=== PATIENT | female | born 1940 | race Caucasian/White ===

== ENCOUNTER → 2016-09-23 | Outpatient (CLI) | payer MEDICARE, BC ==
--- NOTE | 2016-09-24 10:11 | MM ---
Reason for exam: screening (asymptomatic). Last mammogram was performed 1 year and 5 months ago. History: Patient is postmenopausal and is nulliparous. Family history of breast cancer in grandmother. MG discontinued needle loc RT of the right breast, June 27, 2014. MG discontinued stereo core RT of the right breast, May 09, 2014. Excisional biopsy of the right breast. Physical Findings: A clinical breast exam by your physician is recommended on an annual basis and results should be correlated with mammographic findings. MG 3D Screening Mammo W/Cad Bilateral CC and MLO view(s) were taken. Prior study comparison: April 25, 2015, bilateral MG diagnostic mammo w CAD ADRIANA. April 20, 2014, right breast MG work up mamm w CAD RT. There are scattered fibroglandular densities. Finding: There are typically benign round, linear calcifications in both breasts.There is a chronic nodularity bilaterally. There is no discrete abnormality. ASSESSMENT: Benign, BI-RAD 2 RECOMMENDATION: Routine screening mammogram of both breasts in 1 year.
== END | disposition home or self-care (01) ==
LOC: RADMAMWWP 13:02
PROVIDERS: ATTEND Family Medicine
DX: Z12.31 Encounter for screening mammogram for malignant neoplasm of breast (principal)
CPT/HCPCS: 77063; G0202

== ENCOUNTER 2016-11-03 15:50 | Inpatient (IN) | payer MEDICARE, BC ==
[2016-11-03] MEDS ORDERED: IV VANCOMYCIN PER PHARMACY 1 EACH MISC MISCELLANE PRN (17:22)
[2016-11-03] MEDS ORDERED: SODIUM CHLORIDE 0.9% 1,000 ML IV STA (17:22)
[2016-11-03] MEDS ORDERED: VANCOMYCIN 1,750 MG in SODIUM CHLORIDE 0.9% 250 ML IVPB STA (17:27)
--- NOTE | 2016-11-03 17:30 | ED ---
Wound/Laceration HPI - General Chief Complaint: Wound/Laceration Stated Complaint: Finger Injury Time Seen by Provider: 11/03/16 17:11 Source: patient, RN notes reviewed Mode of arrival: wheelchair Limitations: no limitations - History of Present Illness Initial Comments: 76-year-old female presents to the emergency department with a chief complaint of right index finger redness and swelling. Patient states that over a week ago she hurt her finger when she fell as well as she was closing her door. Patient states that she had a small abrasion to the distal aspect of the finger. Patient states that time she went to the doctor they did an x-ray which was negative but they started her on Keflex. Patient states that about a week she's has increased redness and swelling to the hand as well as pain. Patient states the throbbing type pain. Patient states his first to movement. Patient states that she does have diabetes as well as hypertension. Patient states that she was concerned due to continues to redness and swelling even though she has been on antibiotics that she thought that she should be evaluated. Patient denies any fever chills with this. Patient states she is not currently having any other symptoms. Patient denies any recent fever, chills , shortness of breath, chest pain, back pain, abdominal pain, nausea vomiting, numbness or tingling, dysuria or hematuria, constipation or diarrhea, headaches or visual changes, or any other current symptoms. - Related Data Home Medications Medication Instructions Recorded Confirmed Albuterol Nebulized [Ventolin 2.5 mg INHALATION RT-QID PRN 03/27/14 11/03/16 Nebulized] Allopurinol [Zyloprim] 100 mg PO DAILY 03/27/14 11/03/16 Benazepril HCl [Lotensin] 20 mg PO DAILY 03/27/14 11/03/16 Citalopram Hydrobromide [CeleXA] 20 mg PO DAILY 03/27/14 11/03/16 Cyclobenzaprine [Flexeril] 10 mg PO TID PRN 03/27/14 11/03/16 Folic Acid 1 mg PO DAILY 03/27/14 11/03/16 Furosemide [Lasix] 40 mg PO HS 03/27/14 11/03/16 Insulin Aspart [NovoLOG] 26 unit SQ AC-TID 03/27/14 11/03/16 Loratadine [Claritin] 10 mg PO DAILY 03/27/14 11/03/16 Metoprolol Tartrate [Lopressor] 25 mg PO DAILY 03/27/14 11/03/16 Omeprazole [PriLOSEC] 20 mg PO DAILY 03/27/14 11/03/16 amLODIPine [Norvasc] 5 mg PO DAILY 03/27/14 11/03/16 rOPINIRole HCL [Requip] 4 mg PO HS 03/27/14 11/03/16 Aspirin 325 mg PO DAILY 06/23/14 11/03/16 Hydrocodone/Acetaminophen 1 tab PO Q6HR PRN 07/10/14 11/03/16 [Hydrocodon-Acetaminoph 7.5-325] Furosemide [Lasix] 80 mg PO QAM 07/25/14 11/03/16 Multivitamins, Thera [Multivitamin 1 tab PO DAILY 07/25/14 11/03/16 (formulary)] Simvastatin [Zocor] 80 mg PO HS 07/25/14 11/03/16 Cinnamon Bark [Cinnamon] 500 mg PO DAILY 12/19/14 11/03/16 Cholecalciferol [Vitamin D3] 2,000 unit PO DAILY 11/03/16 11/03/16 Cyanocobalamin (Vitamin B-12) 1,000 mcg PO QAM 11/03/16 11/03/16 [Vitamin B-12] Insulin Aspart [NovoLOG] See Protocol SQ AC-TID 11/03/16 11/03/16 Insulin NPH Human Isophane 60 unit SQ HS 11/03/16 11/03/16 [NovoLIN N] Lisinopril [Zestril] 20 mg PO DAILY 11/03/16 11/03/16 medroxyPROGESTERone [Provera] 2.5 mg PO DAILY 11/03/16 11/03/16 Allergies Allergy/AdvReac Type Severity Reaction Status Date / Time No Known Allergies Allergy Verified 11/03/16 17:14 Review of Systems ROS Statement: Those systems with pertinent positive or pertinent negative responses have been documented in the HPI. ROS Other: All systems not noted in ROS Statement are negative. Past Medical History Past Medical History: Chest Pain / Angina, COPD, CVA/TIA, Diabetes Mellitus, GERD/Reflux, Hyperlipidemia, Hypertension, Memory Impairment, Osteoarthritis (OA ), Sleep Apnea/CPAP/BIPAP Additional Past Medical History / Comment(s): hx. heart murmur,. gout,. 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 ,ANEMIA. HAMMERTOE BILAT. HAS CPAP-DOES NOT USE History of Any Multi-Drug Resistant Organisms: None Reported Past Surgical History: Heart Catheterization, Joint Replacement, Orthopedic Surgery Additional Past Surgical History / Comment(s): BILAT CATARACTS REMOVED. ORIF LT ARM. BILAT TKA. HEART CATH-2013,. D&C. LT BUNIONECTOMY Past Anesthesia/Blood Transfusion Reactions: No Reported Reaction Past Psychological History: Anxiety, Depression Additional Psychological History / Comment(s): C/O WEAKNESS, FELL ON FACE 2 DAYS AGO(BRUISING). ALSO CURRENTLY BEING TX FOR UTI. PT HAD A LT TOTAL KNEE REPLACEMENT DONE ION MAY 2014 AND FOR PAST 2 DAYS HAS HAD INCREASED PAIN MAKING HER UNABLE TO. BEAR WT ON THAT KNEE. Smoking Status: Never smoker Past Alcohol Use History: None Reported Past Drug Use History: None Reported - Past Family History Father Family Medical History: Myocardial Infarction ([place]), Rheumatoid Arthritis ([place]) Additional Family Medical History / Comment(s): AT AGE 76 Mother Family Medical History: CVA/TIA, Myocardial Infarction ([place]) Additional Family Medical History / Comment(s): AGE 80 General Exam - General Exam Comments Initial Comments: General: The patient is awake and alert, in no distress, and does not appear acutely ill. Neck: The neck is supple, there is no tenderness. Cardiovascular: There is a regular rate and rhythm. No murmur, rub or gallop is appreciated. Respiratory: Lungs are clear to auscultation, respirations are non-labored, breath sounds are equal. No wheezes, stridor, rales, or rhonchi. Musculoskeletal: sensation intact. Pupils pulses throughout the right upper extremity. Full range of motion of the right hand. Patient does have a swollen and red index finger. Circumferential. Pain with movement of the finger. Pain to palpation along the tendon sheath. Neurological: CN II-XII intact, There are no obvious motor or sensory deficits. Coordination appears grossly intact. Speech is normal. Skin: Skin is warm and dry and no rashes or lesions are noted. Psychiatric: Normal mood and affect. Limitations: no limitations Course Vital Signs 04/03/17 16:23 Temperature 98.6 F Pulse Rate 60 Respiratory 16 Rate Blood Pressure 162/70 O2 Sat by Pulse 97 Oximetry Medical Decision Making - Medical Decision Making 76-year-old female presents emergency Department chief complaint of what appears to be a cellulitis right index finger with concern for tenosynovitis due to infection. At this time there is concern. Patient has been on outpatient Examination there is no improvement she states any more red and swollen. The simply due to the exposed patient underwent an x-ray. At this time we decided patient vancomycin. He shouldn't and continue IV antibiotics. Patient will plan on questions have been answered. - Lab Data Result diagrams: 11/03/16 18:45 11/03/16 18:45 Lab Results 11/03/16 11/03/16 Range/Units 18:45 18:45 WBC 8.7 (3.8-10.6) k/uL RBC 4.66 (3.80-5.40) m/uL Hgb 14.3 (11.4-16.0) gm/dL Hct 43.1 (34.0-46.0) % MCV 92.5 (80.0-100.0) fL MCH 30.6 (25.0-35.0) pg MCHC 33.1 (31.0-37.0) g/dL RDW 14.8 (11.5-15.5) % Plt Count 240 (150-450) k/uL Neutrophils % 64 % Lymphocytes % 20 % Monocytes % 7 % Eosinophils % 5 % Basophils % 1 % Neutrophils # 5.6 (1.3-7.7) k/uL Lymphocytes # 1.8 (1.0-4.8) k/uL Monocytes # 0.6 (0-1.0) k/uL Eosinophils # 0.5 (0-0.7) k/uL Basophils # 0.1 (0-0.2) k/uL Sodium 140 (137-145) mmol/L Potassium 4.6 (3.5-5.1) mmol/L Chloride 100 (98-107) mmol/L Carbon Dioxide 28 (22-30) mmol/L Anion Gap 12 mmol/L BUN 36 H (7-17) mg/dL Creatinine 1.12 H (0.52-1.04) mg/dL Est GFR (MDRD) Af Amer 57 (>60 ml/min/1.73 sqM) Est GFR (MDRD) Non-Af 47 (>60 ml/min/1.73 sqM) Glucose 141 H (74-99) mg/dL Calcium 9.7 (8.4-10.2) mg/dL Total Bilirubin 0.6 (0.2-1.3) mg/dL AST 27 (14-36) U/L ALT 38 (9-52) U/L Alkaline Phosphatase 88 (38-126) U/L Total Protein 7.3 (6.3-8.2) g/dL Albumin 4.2 (3.5-5.0) g/dL Disposition Clinical Impression: Failure of outpatient treatment, Flexor tenosynovitis of finger, Cellulitis of right index finger Disposition: ADMITTED IP TO THIS [facility] Condition: Stable Referrals: Steven Mosher DO [Primary Care Provider] - 1-2 days Time of Disposition: 19:28 Decision Date: 11/03/16 Decision Time: 19:28
--- NOTE | 2016-11-03 18:28 | XR ---
EXAMINATION TYPE: XR finger RT DATE OF EXAM: 11/03/2016 6:06 PM COMPARISON: NONE HISTORY: Second digit pain after injury TECHNIQUE: 3 views FINDINGS: There is soft tissue swelling around the index finger. There is narrowing of the IP joint s paces. I see no fracture nor dislocation. IMPRESSION: Mild osteoarthritis and soft tissue swelling. No fracture seen.
[2016-11-03 19:09] LABS: Basophils # (A) 0.1 k/uL (0-0.2); Basophils % (A) 1 %; CH 29.9; CHCM 32.5; Eosinophils # (A) 0.5 k/uL (0-0.7); Eosinophils % (A) 5 %; HCT 43.1 % (34.0-46.0); HDW 2.62; HGB 14.3 gm/dL (11.4-16.0); Luc # (Auto) 0.23; Luc % (Auto) 3; Lymphocytes # (A) 1.8 k/uL (1.0-4.8); Lymphocytes % (A) 20 %; MCH 30.6 pg (25.0-35.0); MCHC 33.1 g/dL (31.0-37.0); MCV 92.5 fL (80.0-100.0); Mean Platelet Volume 7.8; Monocytes # (A) 0.6 k/uL (0-1.0); Monocytes % (A) 7 %; Neutrophils # (A) 5.6 k/uL (1.3-7.7); Neutrophils % (A) 64 %; RBC 4.66 m/uL (3.80-5.40); RDW 14.8 % (11.5-15.5); WBC 8.7 k/uL (3.8-10.6); WBC (Perox) 8.79
[2016-11-03 19:19] LABS: Calcium 9.7 mg/dL (8.4-10.2); Potassium 4.6 mmol/L (3.5-5.1); Total Bilirubin 0.6 mg/dL (0.2-1.3); Total Protein 7.3 g/dL (6.3-8.2)
[2016-11-03] MEDS ORDERED: NALOXONE 0.4 MG/ML 1 ML VIAL IV PRN (19:28)
[2016-11-03] MEDS ORDERED: ONDANSETRON 4 MG/2 ML VIAL IVP PRN (19:28)
[2016-11-03] MEDS ORDERED: ACETAMINOPHEN TAB 325 MG TAB PO PRN (19:28)
[2016-11-03 19:29] LABS: Glucose,Whole Blood 116 mg/dL (75-99)
[2016-11-03] MEDS ORDERED: ALBUTEROL NEBULIZED 2.5 MG/3 ML INHALATION PRN (19:29)
[2016-11-03] MEDS ORDERED: FUROSEMIDE 40 MG TAB PO SCH (21:00)
[2016-11-03 21:11] LABS: Glucose,Whole Blood 142 mg/dL (75-99)
[2016-11-03] MEDS: SODIUM CHLORIDE 0.9% 1,000 ML IV SCH (21:50)
[2016-11-03] MEDS: INSULIN LISPRO (humaLOG) 300 UNIT/3 ML VIAL SQ SCH (21:51)
[2016-11-03] MEDS: ATORVASTATIN 40 MG TAB PO SCH (21:51)
[2016-11-03] MEDS: rOPINIRole HCL 4 MG TABLET PO SCH (21:51)
[2016-11-03] MEDS ORDERED: COLCHICINE 0.6 MG TAB PO SCH (22:15)
[2016-11-03] MEDS: metFORMIN 500 MG TAB PO SCH (22:28)
[2016-11-03] MEDS: HYDROcodone/APAP 5-325MG 1 EACH TAB PO PRN (22:30)
[2016-11-03 22:47] LABS: Hemoglobin A1C 7.7 % (4.2-6.1)
[2016-11-03 23:08] LABS: Glucose,Whole Blood 253 mg/dL (75-99)
[2016-11-04] MEDS: SODIUM CHLORIDE 0.9% 1,000 ML IV SCH (05:38)
[2016-11-04 07:27] LABS: Glucose,Whole Blood 275 mg/dL (75-99)
[2016-11-04] MEDS: INSULIN LISPRO (humaLOG) 300 UNIT/3 ML VIAL SQ SCH ×6 (08:00→21:00)
[2016-11-04] MEDS: HYDROcodone/APAP 5-325MG 1 EACH TAB PO PRN ×4 (08:00→21:11)
[2016-11-04] MEDS: metFORMIN 500 MG TAB PO SCH (08:01)
[2016-11-04] MEDS ORDERED: FUROSEMIDE 80 MG TAB PO SCH (09:00)
[2016-11-04] MEDS ORDERED: NON-FORMULARY DRUG (Cinnamon Bark [Cinnamon] 500 MG) PO SCH (09:00)
[2016-11-04] MEDS ORDERED: LISINOPRIL 20 MG TAB PO SCH ×2 (09:00)
[2016-11-04] MEDS: ALLOPURINOL 100 MG TAB PO SCH (09:18)
[2016-11-04] MEDS: amLODIPine 5 MG TAB PO SCH (09:18)
[2016-11-04] MEDS: ASPIRIN 325 MG TAB PO SCH (09:18)
[2016-11-04] MEDS: LORATADINE 10 MG TAB PO SCH (09:18)
[2016-11-04] MEDS: FOLIC ACID 1 MG TAB PO SCH (09:19)
[2016-11-04] MEDS: CHOLECALCIFEROL 1,000 UNIT TAB PO SCH (09:19)
[2016-11-04] MEDS: CITALOPRAM HYDROBROMIDE 20 MG TAB PO SCH (09:19)
[2016-11-04] MEDS: CYANOCOBALAMIN 500 MCG TAB PO SCH (09:19)
[2016-11-04 09:47] LABS: Basophils # (A) 0.1 k/uL (0-0.2); Basophils % (A) 1 %; CH 29.8; CHCM 32.3; Eosinophils # (A) 0.4 k/uL (0-0.7); Eosinophils % (A) 5 %; HCT 41.1 % (34.0-46.0); HDW 2.64; HGB 13.3 gm/dL (11.4-16.0); Luc # (Auto) 0.16; Luc % (Auto) 2; Lymphocytes # (A) 1.2 k/uL (1.0-4.8); Lymphocytes % (A) 15 %; MCHC 32.4 g/dL (31.0-37.0); MCV 92.6 fL (80.0-100.0); Mean Platelet Volume 7.7; Monocytes # (A) 0.5 k/uL (0-1.0); Monocytes % (A) 6 %; Neutrophils # (A) 5.8 k/uL (1.3-7.7); Neutrophils % (A) 73 %; RBC 4.44 m/uL (3.80-5.40); WBC (Perox) 7.87
[2016-11-04] MEDS: MULTIVITAMINS, THERA 1 EACH TAB PO SCH (10:05)
[2016-11-04] MEDS: PANTOPRAZOLE 40 MG TABLET PO SCH (10:05)
[2016-11-04] MEDS: METOPROLOL TARTRATE 25 MG TAB PO SCH (10:05)
[2016-11-04 11:07] LABS: ALT 36 U/L (9-52); AST 21 U/L (14-36); Alkaline Phosphatase 78 U/L (38-126); Anion Gap 15 mmol/L; Blood Urea Nitrogen 29 mg/dL (7-17); Calcium 9.4 mg/dL (8.4-10.2); Carbon Dioxide 21 mmol/L (22-30); Chloride 101 mmol/L (98-107); Glucose 377 mg/dL (74-99); Non-African American GFR(MDRD) 54 (>60 ml/min/1.73 sqM); Potassium 4.9 mmol/L (3.5-5.1); Sodium 137 mmol/L (137-145); Total Bilirubin 0.9 mg/dL (0.2-1.3); Total Protein 6.5 g/dL (6.3-8.2)
[2016-11-04] MEDS ORDERED: IV VANCOMYCIN PER PHARMACY 1 EACH MISC MISCELLANE PRN (11:59)
[2016-11-04 12:33] LABS: Glucose,Whole Blood 305 mg/dL (75-99)
[2016-11-04] MEDS: VANCOMYCIN 1,750 MG in SODIUM CHLORIDE 0.9% 250 ML IVPB SCH (12:51)
[2016-11-04] MEDS: HEPARIN SODIUM,PORCINE 5,000 UNIT/ML 1 ML VIAL SQ SCH ×3 (12:57→23:19)
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
[2016-11-04 17:12] LABS: Glucose,Whole Blood 277 mg/dL (75-99)
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
[2016-11-04] MEDS: ATORVASTATIN 40 MG TAB PO SCH (20:01)
[2016-11-04] MEDS: rOPINIRole HCL 4 MG TABLET PO SCH (20:02)
[2016-11-04] MEDS: COLCHICINE 0.6 MG TAB PO SCH (20:02)
[2016-11-04 20:44] LABS: Glucose,Whole Blood 184 mg/dL (75-99)
[2016-11-04] MEDS: INSULIN NPH 300 UNIT/3 ML VIAL SQ SCH (21:00)
[2016-11-04] MEDS: MELATONIN 3 MG TABLET PO PRN (21:03)
[2016-11-05] MEDS: HYDROcodone/APAP 5-325MG 1 EACH TAB PO PRN ×4 (02:33→21:07)
[2016-11-05 07:22] LABS: Glucose,Whole Blood 145 mg/dL (75-99)
--- NOTE | 2016-11-05 08:10 | P.PN ---
Progress Note - Text Patient is a very pleasant 76-year-old female who is seen and examined the bedside for further evaluation by myself and Dr. Constantine Chadwick for cellulitis of the right index finger. Her symptoms have not had any significant change as compared to yesterday. K pad has been delivered. Patient states almost 2 weeks ago she was in a parking lot when another woman bumped into her and she fell hitting the ground. At that time, she had hit her right index finger on the ground but did not sustain a significant injury. She states she did not have any open wound or laceration visible at the right index finger. Over the next couple days she started to experience pain and swelling at the right index finger. She states she later went to close a window following that injury and the window fell hitting the top part of her right index finger. She feels this may have exacerbated the symptoms in her right index finger. She presented to an urgent care and was started on Keflex. She states the Keflex has not been improving her symptoms. Her right index finger has continued to swell and become painful. She's had difficulty using the right index finger. She presented to [facility] for further evaluation. Since being admitted, she's been started on vancomycin. She denies any other difficulties with any other fingers or thumb of the right upper extremity. She has no difficulty with range of motion of the right wrist , elbow, or shoulder. Patient also has other medical diagnoses including type 2 diabetes mellitus, hypertension, acute renal failure secondary to excessive diuretic therapy, obesity, obstructive sleep apnea, and hyperlipidemia. Physical Exam: Patient is awake, alert, and oriented 3 Vital signs stable Good chest excursion with deep inspiration and expiration Abdomen soft nontender No signs or symptoms of DVT; no calf pain Significant swelling, erythema over the entire right index finger; no active drainage No drainage with palpation of the right index finger Pain with palpation of the right index finger Patient is able to slightly wiggle the right index finger; decreased range of motion the right index finger Evidence of an abrasion over the distal posterior aspect of the right index finger Active full range of motion of all other fingers and thumb of the right upper extremity Active full range of motion of the right wrist, elbow, shoulder without significant difficulty Neurovascularly intact right upper extremity Pertinent studies: X-ray of the right fingers: Soft tissue swelling around index finger; narrowing of the IP joint spaces supple no evidence of fracture dislocation; mild osteoarthritis Assessment: Cellulitis, pain, and swelling of the right index finger; cannot rule out abscess Status post fall Type 2 diabetes mellitus Plan: 1. Patient was examined by myself and Dr. Constantine Chadwick. Following further examination, we will plan for incision and drainage of the right index finger to be performed today, 11/05/2016, at approximately 12:00 PM. Patient will continue to remain nothing by mouth status. Schedule procedure and consent has been placed. We will continue to follow patient closely. Patient may continue to use K pad as prescribed. 2. Medicine to continue following the patient
[2016-11-05] MEDS ORDERED: FUROSEMIDE 40 MG TAB PO SCH (09:00)
[2016-11-05 09:15] LABS: CH 29.4; HCT 40.4 % (34.0-46.0); HDW 2.58; HGB 12.9 gm/dL (11.4-16.0); MCH 29.5 pg (25.0-35.0); MCV 92.4 fL (80.0-100.0); Mean Platelet Volume 7.6; RBC 4.37 m/uL (3.80-5.40); RDW 14.9 % (11.5-15.5); WBC 8.9 k/uL (3.8-10.6)
[2016-11-05] MEDS: METOPROLOL TARTRATE 25 MG TAB PO SCH (09:18)
[2016-11-05 09:35] LABS: Anion Gap 11 mmol/L; Blood Urea Nitrogen 39 mg/dL (7-17); Calcium 9.5 mg/dL (8.4-10.2); Carbon Dioxide 24 mmol/L (22-30); Chloride 101 mmol/L (98-107); Glucose 160 mg/dL (74-99); Non-African American GFR(MDRD) 50 (>60 ml/min/1.73 sqM); Potassium 4.5 mmol/L (3.5-5.1); Sodium 136 mmol/L (137-145)
[2016-11-05] MEDS: INSULIN LISPRO (humaLOG) 300 UNIT/3 ML VIAL SQ SCH ×7 (09:40→21:10)
[2016-11-05] MEDS: HEPARIN SODIUM,PORCINE 5,000 UNIT/ML 1 ML VIAL SQ SCH ×2 (09:41→17:50)
[2016-11-05 09:46] LABS: Glucose,Whole Blood 161 mg/dL (75-99)
[2016-11-05] MEDS ORDERED: IV FLUID CONTINUATION 1,000 ML IV ONE (11:06)
[2016-11-05 11:24] LABS: Glucose,Whole Blood 154 mg/dL (75-99)
[2016-11-05] MEDS ORDERED: ceFAZolin 1,000 MG in SODIUM CHLORIDE 0.9% 1,000 ML IRRIGATION ONE (11:26)
[2016-11-05] MEDS ORDERED: fentaNYL (PF) 50 MCG/ML 2 ML AMP ONE (11:26)
[2016-11-05] MEDS ORDERED: KETAMINE 10 MG/ML 20 ML VIAL ONE (11:26)
[2016-11-05] MEDS ORDERED: MIDAZOLAM 2 MG/2 ML VIAL ONE (11:26)
[2016-11-05] MEDS ORDERED: PROPOFOL 10 MG/ML 20 ML VIAL IV ONE (11:26)
[2016-11-05] MEDS ORDERED: BUPIVACAINE (PF) 0.5% 30 ML VIAL SQ ONE (11:36)
[2016-11-05] MEDS ORDERED: LIDOCAINE 2% INJ 20 MG/ML SQ ONE (11:36)
--- NOTE | 2016-11-05 11:51 | P.OP ---
Date of Procedure: 11/05/16 Preoperative Diagnosis: Infection right index finger Postoperative Diagnosis: Infection right index finger Procedure(s) Performed: Incision and drainage right index finger Anesthesia: local Surgeon: Constantine Chadwick Estimated Blood Loss (ml): 10 Pathology: other (Cultures 2) Condition: stable Disposition: PACU Indications for Procedure: This is a 76-year-old female has pain and swelling in her finger for over a week. Due to the extreme redness and swelling in the index finger, I recommended incision and drainage of the finger, informed consent was obtained. Operative Findings: Operative findings are consistent with an infection of the right index finger. Description of Procedure: The patient was seen and evaluated in the preoperative area. The consent was reviewed, and the operative site was marked with a skin marker. Patient was then brought to the operating room and given sedation by the anesthesia department. Patient is already on scheduled antibiotics. A tourniquet was placed on the upper arm, and the upper extremity was prepped and draped in the usual sterile fashion. A universal timeout was then performed which confirmed the patient's name, surgical site, ALLERGIES, and consent. A digital block was then performed of the right index finger using 10 mL of 2% plain lidocaine and quarter percent plain Marcaine and a one-to-one mixture. An incision was then made on the dorsal aspect of the finger over the maximum fluctuance. Mild amount of purulence was expressed and this was cultured 2. The finger was extensively probed in order to ensure all the purulence was removed. The area was then irrigated with antibiotic solution. The wound was then lightly closed with 5-0 Vicryl suture. Sterile dressing was then applied, patient was transported to recovery room in stable condition.
[2016-11-05] MEDS: VANCOMYCIN 1,750 MG in SODIUM CHLORIDE 0.9% 250 ML IVPB SCH (12:00)
[2016-11-05] MEDS: PANTOPRAZOLE 40 MG TABLET PO SCH (12:52)
[2016-11-05] MEDS: MULTIVITAMINS, THERA 1 EACH TAB PO SCH (12:53)
[2016-11-05] MEDS: LORATADINE 10 MG TAB PO SCH (12:53)
[2016-11-05] MEDS: ASPIRIN 325 MG TAB PO SCH (12:53)
[2016-11-05] MEDS: CYANOCOBALAMIN 500 MCG TAB PO SCH (12:53)
[2016-11-05] MEDS: CITALOPRAM HYDROBROMIDE 20 MG TAB PO SCH (12:54)
[2016-11-05] MEDS: ALLOPURINOL 100 MG TAB PO SCH (12:54)
[2016-11-05] MEDS: amLODIPine 5 MG TAB PO SCH (12:54)
[2016-11-05] MEDS: FOLIC ACID 1 MG TAB PO SCH (12:54)
[2016-11-05] MEDS: CHOLECALCIFEROL 1,000 UNIT TAB PO SCH (12:55)
[2016-11-05 17:07] LABS: Glucose,Whole Blood 240 mg/dL (75-99)
[2016-11-05] MEDS: COLCHICINE 0.6 MG TAB PO SCH (21:05)
[2016-11-05] MEDS: ATORVASTATIN 40 MG TAB PO SCH (21:05)
[2016-11-05] MEDS: rOPINIRole HCL 4 MG TABLET PO SCH (21:06)
[2016-11-05 21:07] LABS: Glucose,Whole Blood 107 mg/dL (75-99)
[2016-11-05] MEDS: INSULIN NPH 300 UNIT/3 ML VIAL SQ SCH (21:39)
[2016-11-06] MEDS: HEPARIN SODIUM,PORCINE 5,000 UNIT/ML 1 ML VIAL SQ SCH ×4 (00:14→23:06)
[2016-11-06] MEDS: HYDROcodone/APAP 5-325MG 1 EACH TAB PO PRN ×5 (02:03→22:27)
[2016-11-06 07:38] LABS: Glucose,Whole Blood 192 mg/dL (75-99)
[2016-11-06] MEDS: INSULIN LISPRO (humaLOG) 300 UNIT/3 ML VIAL SQ SCH ×7 (08:15→21:15)
[2016-11-06] MEDS: MULTIVITAMINS, THERA 1 EACH TAB PO SCH (08:16)
[2016-11-06] MEDS: PANTOPRAZOLE 40 MG TABLET PO SCH (08:16)
[2016-11-06] MEDS: METOPROLOL TARTRATE 25 MG TAB PO SCH (08:17)
[2016-11-06] MEDS: ALLOPURINOL 100 MG TAB PO SCH (08:17)
[2016-11-06] MEDS: amLODIPine 5 MG TAB PO SCH (08:17)
[2016-11-06] MEDS: CYANOCOBALAMIN 500 MCG TAB PO SCH (08:18)
[2016-11-06] MEDS: CITALOPRAM HYDROBROMIDE 20 MG TAB PO SCH (08:18)
[2016-11-06] MEDS: CHOLECALCIFEROL 1,000 UNIT TAB PO SCH (08:18)
[2016-11-06] MEDS: LORATADINE 10 MG TAB PO SCH (08:18)
[2016-11-06] MEDS: ASPIRIN 325 MG TAB PO SCH (08:18)
[2016-11-06] MEDS: FOLIC ACID 1 MG TAB PO SCH (08:18)
[2016-11-06 08:42] LABS: Basophils # (A) 0.1 k/uL (0-0.2); Basophils % (A) 1 %; CH 29.7; CHCM 32.1; Eosinophils # (A) 0.4 k/uL (0-0.7); Eosinophils % (A) 5 %; HCT 41.7 % (34.0-46.0); HDW 2.59; HGB 13.9 gm/dL (11.4-16.0); Luc # (Auto) 0.25; Luc % (Auto) 3; Lymphocytes # (A) 1.8 k/uL (1.0-4.8); Lymphocytes % (A) 20 %; MCH 30.9 pg (25.0-35.0); MCHC 33.3 g/dL (31.0-37.0); MCV 92.8 fL (80.0-100.0); Mean Platelet Volume 7.8; Monocytes # (A) 0.6 k/uL (0-1.0); Monocytes % (A) 6 %; Neutrophils % (A) 66 %; RBC 4.49 m/uL (3.80-5.40); WBC (Perox) 9.23
--- NOTE | 2016-11-06 08:45 | P.PN ---
Subjective Principal diagnosis: Right index finger infection This is a 76 year-old female post I&D of the right index finger. This is post- op day 1. The patient was evaluated in a recliner chair at the bedside today. The patient denies nausea, vomiting, abdominal pain, shortness of breath, and chest pain this morning. She states her pain is controlled at this time. Objective - Vital Signs Vital signs: Vital Signs Temp 98.2 F 11/06/16 07:00 Pulse 62 11/06/16 07:00 Resp 20 11/06/16 07:00 BP 144/71 11/06/16 07:00 Pulse Ox 92 L 11/06/16 07:00 Intake & Output 11/05/16 11/06/16 11/06/16 18:59 06:59 18:59 Intake Total 106 60 Output Total 10 Balance 96 60 Intake: IV 106 Oral 60 Output: Estimated Blood Loss 10 Other: # Voids 1 1 - Exam The patient does not appear in acute distress. Alert and orientated x3. Incision appears fine with some active serosanginous drainage. Sutures are in place. There is erythema and swelling to the entire dorsal aspect of the finger. Finger stiffness is present. Sensation and circulatory status is intact. - Labs CBC & Chem 7: 11/05/16 08:57 11/05/16 08:57 Labs: Abnormal Lab Results - Last 24 Hours (Table) 11/05/16 11/05/16 11/05/16 Range/Units 08:57 09:44 11:22 Sodium 136 L (137-145) mmol/L BUN 39 H (7-17) mg/dL Creatinine 1.07 H (0.52-1.04) mg/dL Glucose 160 H (74-99) mg/dL POC Glucose (mg/dL) 161 H 154 H (75-99) mg/dL 11/05/16 11/05/16 11/06/16 Range/Units 17:03 20:52 07:33 Sodium (137-145) mmol/L BUN (7-17) mg/dL Creatinine (0.52-1.04) mg/dL Glucose (74-99) mg/dL POC Glucose (mg/dL) 240 H 107 H 192 H (75-99) mg/dL Microbiology - Last 24 Hours (Table) 11/05/16 11:40 Gram Stain - Preliminary Finger - Right First Wound Culture - Preliminary 11/05/16 11:40 Anaerobic Culture - Preliminary Finger - Right First 11/03/16 18:45 Blood Culture - Preliminary Blood No Growth after 48 hours 11/05/16 11:40 Wound Culture - Preliminary Finger - Right First 11/05/16 11:40 Anaerobic Culture - Preliminary Finger - Right First Assessment and Plan (1) Cellulitis of right index finger Status: Acute (2) Status post incision and drainage Status: Acute Plan: The clinical and operative findings were discussed with the patient. The case was also discussed with Dr. Constantine Chadwick. Cultures from the OR are pending at this time. We will consult Dr. [place] for further assistance with antibiotic therapy. She will continue on Vancomycin until cultures are resulted and seen by infectious disease. Daily dressing changes and PRN to the right index finger. Continue pain control. We will continue to monitor the patient closely and make further recommendations as needed.
[2016-11-06 09:00] LABS: Anion Gap 10 mmol/L; Blood Urea Nitrogen 38 mg/dL (7-17); Calcium 9.4 mg/dL (8.4-10.2); Carbon Dioxide 24 mmol/L (22-30); Chloride 102 mmol/L (98-107); Glucose 227 mg/dL (74-99); Non-African American GFR(MDRD) 54 (>60 ml/min/1.73 sqM); Sodium 136 mmol/L (137-145)
[2016-11-06 09:01] LABS: Potassium 4.8 mmol/L (3.5-5.1)
--- NOTE | 2016-11-06 10:05 | P.PN ---
Subjective Date of service 11/05/2016. Progress note being dictated for . Interval history: This is a 76-year-old female admitted with right finger cellulitis, possible abscess, and multiple other medical issues. Evaluated by orthopedics and patient is scheduled for I&D today.NPO. Denies chest pain, palpitations or increasing shortness of breath. Afebrile. Worsening renal function. Blood sugars currently better controlled. Objective - Vital Signs Vital signs: Vital Signs Temp 96.4 F L 11/05/16 15:00 Pulse 50 L 11/05/16 15:00 Resp 16 11/05/16 15:00 BP 106/54 11/05/16 15:00 Pulse Ox 92 L 11/05/16 15:00 Intake & Output 11/04/16 11/05/16 11/05/16 18:59 06:59 18:59 Intake Total 120 200 106 Output Total 10 Balance 120 200 96 Weight 107.048 kg Intake: IV 106 Oral 120 200 Output: Estimated Blood Loss 10 Other: Voiding Method Toilet Diaper Incontinent # Voids 1 2 1 - Exam PHYSICAL EXAM: VITAL SIGNS: As above GENERAL: [Sitting up in bed, no acute distress] HEENT: [Pupils equal conjunctiva normal. No scleral icterus] NECK: [Supple, no JVD] RESPIRATORY EFFORT:[Normal] LUNGS: [Lungs clear, no wheezes rhonchi or crackles] CARDIOVASCULAR[regular S1 and S2, no murmurs rubs or gallops, no edema] GI: [Abdomen soft, nontender, nondistended, positive bowel sounds.] PSYCH: [Alert and oriented -3, mood and affect normal.] SKIN: [] Index finger with significant redness and edema, warm. Dressing clean dry and intact] NEURO: No focal deficits. - Labs CBC & Chem 7: 11/06/16 08:09 11/06/16 08:09 Labs: Abnormal Lab Results - Last 24 Hours (Table) 11/04/16 11/05/16 11/05/16 Range/Units 20:34 07:20 08:57 Sodium 136 L (137-145) mmol/L BUN 39 H (7-17) mg/dL Creatinine 1.07 H (0.52-1.04) mg/dL Glucose 160 H (74-99) mg/dL POC Glucose (mg/dL) 184 H 145 H (75-99) mg/dL 11/05/16 11/05/16 11/05/16 Range/Units 09:44 11:22 17:03 Sodium (137-145) mmol/L BUN (7-17) mg/dL Creatinine (0.52-1.04) mg/dL Glucose (74-99) mg/dL POC Glucose (mg/dL) 161 H 154 H 240 H (75-99) mg/dL Microbiology - Last 24 Hours (Table) 11/05/16 11:40 Wound Culture - Preliminary Finger - Right First 11/05/16 11:40 Anaerobic Culture - Preliminary Finger - Right First 11/03/16 18:45 Blood Culture - Preliminary Blood No Growth after 24 hours Assessment and Plan Plan: 1. Right finger cellulitis, possible abscess. 2. [Diabetes mellitus type 2, hemoglobin A1c 7.7, uncontrolled]. 3. Acute renal failure secondary to excessive diuretic therapy, and Lasix discontinued]. 4. [Morbid obesity, BMI 44.6 with Obstructive sleep apnea, uses CPAP]. 5. [Hypertension 6. 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 7. [Vaginal bleeds with Possible endometrial cancer, on medroxyprogesterone, being evaluated outpatient]. 8. Hyperlipidemia 9. Chronic venostasis Plan: Continue on current medication regime ,monitoring and symptomatic treatment. Maintain vancomycin. Follow cultures closely. Lasix discontinued given worsening renal function .close monitoring of Accu-Cheks. As mentioned above scheduled for I&D with orthopedics. Further recommendations to follow. The impression and plan of care has been dictated as directed. : I performed a H&P examination of this patient and discussed the same with the dictator. I agree with the dictator's note. Any additional findings/opinions/ etc. will be noted.
[2016-11-06 12:15] LABS: Glucose,Whole Blood 228 mg/dL (75-99)
[2016-11-06] MEDS: VANCOMYCIN 1,750 MG in SODIUM CHLORIDE 0.9% 250 ML IVPB SCH (12:48)
--- NOTE | 2016-11-06 16:16 | P.PN ---
Subjective Date of service 11/06/2016. Progress note being dictated for . Interval history: This is a 76-year-old female admitted with right finger cellulitis, possible abscess, and multiple other medical issues. Status post I& D yesterday with orthopedics, tolerated procedure well. Cultures pending. Pain controlled on [place] every 4 hours. Denies chest pain, palpitations or increasing shortness of breath. Afebrile. Worsening renal function yesterday and Lasix placed on hold, renal function remains about the same. Objective - Vital Signs Vital signs: Vital Signs Temp 97.3 F L 11/06/16 15:00 Pulse 52 L 11/06/16 15:00 Resp 20 11/06/16 15:00 BP 139/69 11/06/16 15:00 Pulse Ox 92 L 11/06/16 15:00 Intake & Output 11/05/16 11/06/16 11/06/16 18:59 06:59 18:59 Intake Total 106 60 795 Output Total 10 Balance 96 60 795 Intake: IV 106 Oral 60 795 Output: Estimated Blood Loss 10 Other: # Voids 1 1 3 # Bowel Movements 1 - Exam PHYSICAL EXAM: VITAL SIGNS: As above GENERAL: [Sitting up in chair, no acute distress] HEENT: [Pupils equal conjunctiva normal. No scleral icterus] NECK: [Supple, no JVD] RESPIRATORY EFFORT:[Normal] LUNGS: [Lungs clear, no wheezes rhonchi or crackles] CARDIOVASCULAR[regular S1 and S2, no murmurs rubs or gallops, no edema] GI: [Abdomen soft, nontender, nondistended, positive bowel sounds.] PSYCH: [Alert and oriented -3, mood and affect normal.] SKIN: Index finger Dressing clean dry and intact] NEURO: No focal deficits. Microbiology 11/05/16 11:40 Finger - Right First Gram Stain - Preliminary 11/05/16 11:40 Finger - Right First Wound Culture - Preliminary 11/05/16 11:40 Finger - Right First Gram Stain - Preliminary 11/05/16 11:40 Finger - Right First Wound Culture - Preliminary 11/05/16 11:40 Finger - Right First Anaerobic Culture - Preliminary 11/03/16 18:45 Blood Blood Culture - Preliminary No Growth after 48 hours 11/05/16 11:40 Finger - Right First Anaerobic Culture - Preliminary - Labs CBC & Chem 7: 11/06/16 08:09 11/06/16 08:09 Labs: Abnormal Lab Results - Last 24 Hours (Table) 11/05/16 11/05/16 11/06/16 Range/Units 17:03 20:52 07:33 Sodium (137-145) mmol/L BUN (7-17) mg/dL Glucose (74-99) mg/dL POC Glucose (mg/dL) 240 H 107 H 192 H (75-99) mg/dL 11/06/16 11/06/16 Range/Units 08:09 12:12 Sodium 136 L (137-145) mmol/L BUN 38 H (7-17) mg/dL Glucose 227 H (74-99) mg/dL POC Glucose (mg/dL) 228 H (75-99) mg/dL Microbiology - Last 24 Hours (Table) 11/05/16 11:40 Gram Stain - Preliminary Finger - Right First Wound Culture - Preliminary 11/05/16 11:40 Gram Stain - Preliminary Finger - Right First Wound Culture - Preliminary 11/05/16 11:40 Anaerobic Culture - Preliminary Finger - Right First 11/03/16 18:45 Blood Culture - Preliminary Blood No Growth after 48 hours 11/05/16 11:40 Anaerobic Culture - Preliminary Finger - Right First Assessment and Plan Plan: 1. Right finger cellulitis, possible abscess, status post I&D. 2. [Diabetes mellitus type 2, hemoglobin A1c 7.7, uncontrolled]. 3. Acute renal failure secondary to excessive diuretic therapy, and Lasix discontinued]. 4. [Morbid obesity, BMI 44.6 with Obstructive sleep apnea, uses CPAP]. 5. [Hypertension 6. 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 7. [Vaginal bleeds with Possible endometrial cancer, on medroxyprogesterone, being evaluated outpatient]. 8. Hyperlipidemia 9. Chronic venostasis Plan: Continue on current medication regime ,monitoring and symptomatic treatment. Maintain vancomycin. Follow cultures closely. Close monitoring of renal function with repeat labs in a.m .RN verifying Novolin home dose with pharmacy and resuming tonight, as patient's diet intake of 100% .close monitoring of Accu-Cheks. Follow closely with orthopedics. Discharge planning in progress pending finalizing culture results. Further recommendations to follow. The impression and plan of care has been dictated as directed. : I performed a H&P examination of this patient and discussed the same with the dictator. I agree with the dictator's note. Any additional findings/opinions/ etc. will be noted.
[2016-11-06 17:19] LABS: Glucose,Whole Blood 134 mg/dL (75-99)
[2016-11-06] MEDS ORDERED: VANCOMYCIN 1,500 MG in SODIUM CHLORIDE 0.9% 250 ML IVPB ONE (21:00)
[2016-11-06 21:15] LABS: Glucose,Whole Blood 91 mg/dL (75-99)
[2016-11-06] MEDS: MELATONIN 3 MG TABLET PO PRN (22:26)
[2016-11-06] MEDS: COLCHICINE 0.6 MG TAB PO SCH (22:29)
[2016-11-06] MEDS: ATORVASTATIN 40 MG TAB PO SCH (22:29)
[2016-11-06] MEDS: rOPINIRole HCL 4 MG TABLET PO SCH (22:30)
[2016-11-06] MEDS: INSULIN NPH 300 UNIT/3 ML VIAL SQ SCH (22:30)
--- NOTE | 2016-11-06 23:35 | P.CONS ---
History of Present Illness - Reason for Consult Consult date: 11/06/16 - Chief Complaint Pain and swelling to the right hand index finger - History of Present Illness 76-year-old woman who has a history of diabetes mellitus type 2 this poorly controlled relates that she fell to the ground 2 weeks ago. She did injure her hand on the index finger when the fall occurred. She does not recall that she had a significant bleeding wound. She then had repeated trauma to the index finger when a window fell onto the finger also. Since then she's been having increasing difficulties of pain and swelling to the finger. Was in the outpatient setting and placed on cephalexin. Despite that he continue to worsen. She constantly was brought into hospital with severe pain and swelling to the right index finger. There is evidence of an extensive infection to that area seemed to be worsened by her underlying diabetes. Because she's been taking the operating room for incision and drainage of the significant infection. Surgical note relates to extensive debridement and exploration of the finger. With extensive infection. Patient still having some pain at the site. Dressing change was definitely uncomfortable. She over is denying high- grade fever, chills or rigors. She's not had a problem like this in the past. We discussed her elevated hemoglobin A1c. She seems to have very little understanding about the impact of high blood sugars on infection. Review of Systems Pleasant obese 76-year-old woman sitting upright in the chair relates she is more comfortable than she was at admission but still having pain to that finger. HEENT:Denies headache or acute visual change. Denies sinus or mouth discomforts. Denies neck stiffness or pain. Denies significant oral cavity pain. Denies difficulty on swallowing. Lungs: Denies significant shortness of breath, cough, sputum production, or hemoptysis. Cardiovascular: Denies significant shortness of breath, chest pain, chest wall pain, orthopnea, dyspnea on exertion, syncope Gastrointestinal:Denies nausea, vomiting, diarrhea, constipation, hematemesis, melena, hematochezia. No no significant change of bowel habit noticed. Musculoskeletal: denies significant myalgias or arthralgias. No new joint swelling. Denies new back pain. Except to the right hand index finger Skin: As per the HPI Neuro: Denies headache or visual change. Denies any new onset weakness or difficulty with ambulation. Denies falls or seizures. Psychiatric:Denies anxiety or depression. Endocrine: Denies significant fatigue, denies significant weight loss or weight gain. Poor control of her blood sugars with obesity Past Medical History Past Medical History: Chest Pain / Angina, COPD, CVA/TIA, Diabetes Mellitus, GERD/Reflux, Hyperlipidemia, Hypertension, Memory Impairment, Osteoarthritis (OA ), Sleep Apnea/CPAP/BIPAP Additional Past Medical History / Comment(s): hx. heart murmur,. gout,. 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 ,ANEMIA, right first finger cellulitis. HAMMERTOE BILAT. HAS CPAP-DOES NOT USE History of Any Multi-Drug Resistant Organisms: None Reported Past Surgical History: Heart Catheterization, Joint Replacement, Orthopedic Surgery Additional Past Surgical History / Comment(s): BILAT CATARACTS REMOVED. ORIF LT ARM. BILAT TKA. HEART CATH-2013,. D&C. LT BUNIONECTOMY Past Anesthesia/Blood Transfusion Reactions: No Reported Reaction Past Psychological History: Anxiety, Depression Additional Psychological History / Comment(s): C/O WEAKNESS, FELL ON FACE 2 DAYS AGO(BRUISING). PT HAD A LT TOTAL KNEE REPLACEMENT DONE IN MAY 2014 AND FOR PAST 2 DAYS HAS HAD INCREASED PAIN MAKING HER UNABLE TO. BEAR WT ON THAT KNEE. Lives with her significant other. No travel history. Retired. No animal exposures. Lifelong nonsmoker with no severe alcohol use. No recreational drug use Smoking Status: Never smoker Past Alcohol Use History: None Reported Past Drug Use History: None Reported - Past Family History Father Family Medical History: Myocardial Infarction (MA), Rheumatoid Arthritis (RA) Additional Family Medical History / Comment(s): AT AGE 76 Mother Family Medical History: CVA/TIA, Myocardial Infarction (MA) Additional Family Medical History / Comment(s): AGE 80 Medications and Allergies Home Medications and Allergies Comment(s): Laboratory Results WBC 9.0 k/uL (3.8-10.6) 11/06/16 08:09 RBC 4.49 m/uL (3.80-5.40) 11/06/16 08:09 Hgb 13.9 gm/dL (11.4-16.0) 11/06/16 08:09 Hct 41.7 % (34.0-46.0) 11/06/16 08:09 MCV 92.8 fL (80.0-100.0) 11/06/16 08:09 MCH 30.9 pg (25.0-35.0) 11/06/16 08:09 MCHC 33.3 g/dL (31.0-37.0) 11/06/16 08:09 RDW 15.0 % (11.5-15.5) 11/06/16 08:09 Plt Count 216 k/uL (150-450) 11/06/16 08:09 Neutrophils % 66 % 11/06/16 08:09 Lymphocytes % 20 % 11/06/16 08:09 Monocytes % 6 % 11/06/16 08:09 Eosinophils % 5 % 11/06/16 08:09 Basophils % 1 % 11/06/16 08:09 Neutrophils # 6.0 k/uL (1.3-7.7) 11/06/16 08:09 Lymphocytes # 1.8 k/uL (1.0-4.8) 11/06/16 08:09 Monocytes # 0.6 k/uL (0-1.0) 11/06/16 08:09 Eosinophils # 0.4 k/uL (0-0.7) 11/06/16 08:09 Basophils # 0.1 k/uL (0-0.2) 11/06/16 08:09 Sodium 136 mmol/L (137-145) L 11/06/16 08:09 Potassium 4.8 mmol/L (3.5-5.1) 11/06/16 08:09 Chloride 102 mmol/L (98-107) 11/06/16 08:09 Carbon Dioxide 24 mmol/L (22-30) 11/06/16 08:09 Anion Gap 10 mmol/L 11/06/16 08:09 BUN 38 mg/dL (7-17) H 11/06/16 08:09 Creatinine 1.00 mg/dL (0.52-1.04) 11/06/16 08:09 Est GFR (MDRD) Af Amer >60 (>60 ml/min/1.73 sqM) 11/06/16 08:09 Est GFR (MDRD) Non-Af 54 (>60 ml/min/1.73 sqM) 11/06/16 08:09 Glucose 227 mg/dL (74-99) H 11/06/16 08:09 POC Glucose (mg/dL) 91 mg/dL (75-99) 11/06/16 21:10 POC Glu Operating Systems Specialist Jamila Skinner 11/06/16 21:[address] Glu mg/dL 174 mg/dL 11/03/16 18:47 Hemoglobin A1c 7.7 % (4.2-6.1) H 11/03/16 18:47 Plasma Lactic Acid Willis 1.1 mmol/L (0.7-2.0) 11/03/16 18:45 Calcium 9.4 mg/dL (8.4-10.2) 11/06/16 08:09 Total Bilirubin 0.9 mg/dL (0.2-1.3) 11/04/16 08:56 AST 21 U/L (14-36) 11/04/16 08:56 ALT 36 U/L (9-52) 11/04/16 08:56 Alkaline Phosphatase 78 U/L (38-126) 11/04/16 08:56 Total Protein 6.5 g/dL (6.3-8.2) 11/04/16 08:56 Albumin 3.7 g/dL (3.5-5.0) 11/04/16 08:56 Home Medications Medication Instructions Recorded Confirmed Type Albuterol Nebulized [Ventolin 2.5 mg INHALATION RT-QID PRN 03/27/14 11/03/16 History Nebulized] Allopurinol [Zyloprim] 100 mg PO DAILY 03/27/14 11/03/16 History Benazepril HCl [Lotensin] 20 mg PO DAILY 03/27/14 11/03/16 History Citalopram Hydrobromide [CeleXA] 20 mg PO DAILY 03/27/14 11/03/16 History Cyclobenzaprine [Flexeril] 10 mg PO TID PRN 03/27/14 11/03/16 History Folic Acid 1 mg PO DAILY 03/27/14 11/03/16 History Furosemide [Lasix] 40 mg PO HS 03/27/14 11/03/16 History Insulin Aspart [NovoLOG] 26 unit SQ AC-TID 03/27/14 11/03/16 History Loratadine [Claritin] 10 mg PO DAILY 03/27/14 11/03/16 History Metoprolol Tartrate [Lopressor] 25 mg PO DAILY 03/27/14 11/03/16 History Omeprazole [PriLOSEC] 20 mg PO DAILY 03/27/14 11/03/16 History amLODIPine [Norvasc] 5 mg PO DAILY 03/27/14 11/03/16 History rOPINIRole HCL [Requip] 4 mg PO HS 03/27/14 11/03/16 History Aspirin 325 mg PO DAILY 06/23/14 11/03/16 History Hydrocodone/Acetaminophen 1 tab PO Q6HR PRN 07/10/14 11/03/16 History [Hydrocodon-Acetaminoph 7.5-325] Furosemide [Lasix] 80 mg PO QAM 07/25/14 11/03/16 History Multivitamins, Thera [Multivitamin 1 tab PO DAILY 07/25/14 11/03/16 History (formulary)] Simvastatin [Zocor] 80 mg PO HS 07/25/14 11/03/16 History Cinnamon Bark [Cinnamon] 500 mg PO DAILY 12/19/14 11/03/16 History Cholecalciferol [Vitamin D3] 2,000 unit PO DAILY 11/03/16 11/03/16 History Cyanocobalamin (Vitamin B-12) 1,000 mcg PO QAM 11/03/16 11/03/16 History [Vitamin B-12] Insulin Aspart [NovoLOG] See Protocol SQ AC-TID 11/03/16 11/03/16 History Insulin NPH Human Isophane 60 unit SQ HS 11/03/16 11/03/16 History [NovoLIN N] Lisinopril [Zestril] 20 mg PO DAILY 11/03/16 11/03/16 History medroxyPROGESTERone [Provera] 2.5 mg PO DAILY 11/03/16 11/03/16 History Allergies Allergy/AdvReac Type Severity Reaction Status Date / Time No Known Allergies Allergy Verified 11/03/16 17:14 Physical Exam Vitals: Vital Signs Temp Pulse Pulse Resp BP BP Pulse Ox 11/06/16 15:00 97.3 F L 52 L 20 139/69 92 L 11/06/16 07:00 98.2 F 62 20 144/71 92 L Intake and Output 11/06/16 11/06/16 11/07/16 14:59 22:59 06:59 Intake Total 795 540 Balance 795 540 Intake: Oral 795 540 Other: # Voids 3 1 # Bowel Movements 1 76-year-old woman who has obesity and recent fall with the acute change to her right hand. HEENT: Anicteric conjunctiva are pink and moist nasal mucosa grossly intact without significant lesions, there is no thrush. Neck: The neck is supple without significant lymphadenopathy or thyromegaly. Lungs: Symmetrical air entry. No difficulty crackles or wheezing. Heart: Regular rate and rhythm with an audible S1-S2, no S3 loud S4 There is no significant murmur click or rub, PMI was nondisplaced. Abdomen: Obese, Positive bowel sounds soft and nontender without palpable masses or organomegaly. There was no guarding or rebound. Extremities: Left upper extremity without abnormalities. The right upper extremity shows evidence of the recent surgical intervention to the right index finger. There is evidence of the incision and drainage and suture site. The finger continues to be erythematous tender swollen and painful. The erythema does not track significantly onto the dorsum of the hand. There is no right epitrochlear or axillary lymphadenopathy. No other abnormal lymph nodes were noted She has chronic bilateral extremity edema. She has poor range of motion to the left knee possibly after the recent fall but no fluctuance to the knee is noted. Neuro: Awake alert oriented to person place and time. There are no acute new gross focal sensory motor deficits. Results CBC & Chem 7: 11/06/16 08:09 11/06/16 08:09 Labs: Abnormal Lab Results - Last 24 Hours (Table) 11/06/16 11/06/16 11/06/16 Range/Units 07:33 08:09 12:12 Sodium 136 L (137-145) mmol/L BUN 38 H (7-17) mg/dL Glucose 227 H (74-99) mg/dL POC Glucose (mg/dL) 192 H 228 H (75-99) mg/dL 11/06/16 Range/Units 17:17 Sodium (137-145) mmol/L BUN (7-17) mg/dL Glucose (74-99) mg/dL POC Glucose (mg/dL) 134 H (75-99) mg/dL Microbiology - Last 24 Hours (Table) 11/03/16 18:45 Blood Culture - Preliminary Blood No Growth after 72 hours 11/05/16 11:40 Gram Stain - Preliminary Finger - Right First Wound Culture - Preliminary 11/05/16 11:40 Gram Stain - Preliminary Finger - Right First Wound Culture - Preliminary 11/05/16 11:40 Anaerobic Culture - Preliminary Finger - Right First Laboratory Results WBC 9.0 k/uL (3.8-10.6) 11/06/16 08:09 RBC 4.49 m/uL (3.80-5.40) 11/06/16 08:09 Hgb 13.9 gm/dL (11.4-16.0) 11/06/16 08:09 Hct 41.7 % (34.0-46.0) 11/06/16 08:09 MCV 92.8 fL (80.0-100.0) 11/06/16 08:09 MCH 30.9 pg (25.0-35.0) 11/06/16 08:09 MCHC 33.3 g/dL (31.0-37.0) 11/06/16 08:09 RDW 15.0 % (11.5-15.5) 11/06/16 08:09 Plt Count 216 k/uL (150-450) 11/06/16 08:09 Neutrophils % 66 % 11/06/16 08:09 Lymphocytes % 20 % 11/06/16 08:09 Monocytes % 6 % 11/06/16 08:09 Eosinophils % 5 % 11/06/16 08:09 Basophils % 1 % 11/06/16 08:09 Neutrophils # 6.0 k/uL (1.3-7.7) 11/06/16 08:09 Lymphocytes # 1.8 k/uL (1.0-4.8) 11/06/16 08:09 Monocytes # 0.6 k/uL (0-1.0) 11/06/16 08:09 Eosinophils # 0.4 k/uL (0-0.7) 11/06/16 08:09 Basophils # 0.1 k/uL (0-0.2) 11/06/16 08:09 Sodium 136 mmol/L (137-145) L 11/06/16 08:09 Potassium 4.8 mmol/L (3.5-5.1) 11/06/16 08:09 Chloride 102 mmol/L (98-107) 11/06/16 08:09 Carbon Dioxide 24 mmol/L (22-30) 11/06/16 08:09 Anion Gap 10 mmol/L 11/06/16 08:09 BUN 38 mg/dL (7-17) H 11/06/16 08:09 Creatinine 1.00 mg/dL (0.52-1.04) 11/06/16 08:09 Est GFR (MDRD) Af Amer >60 (>60 ml/min/1.73 sqM) 11/06/16 08:09 Est GFR (MDRD) Non-Af 54 (>60 ml/min/1.73 sqM) 11/06/16 08:09 Glucose 227 mg/dL (74-99) H 11/06/16 08:09 POC Glucose (mg/dL) 91 mg/dL (75-99) 11/06/16 21:10 POC Glu Operating Systems Specialist Jamila Skinner 11/06/16 21:[address] Glu mg/dL 174 mg/dL 11/03/16 18:47 Hemoglobin A1c 7.7 % (4.2-6.1) H 11/03/16 18:47 Plasma Lactic Acid Willis 1.1 mmol/L (0.7-2.0) 11/03/16 18:45 Calcium 9.4 mg/dL (8.4-10.2) 11/06/16 08:09 Total Bilirubin 0.9 mg/dL (0.2-1.3) 11/04/16 08:56 AST 21 U/L (14-36) 11/04/16 08:56 ALT 36 U/L (9-52) 11/04/16 08:56 Alkaline Phosphatase 78 U/L (38-126) 11/04/16 08:56 Total Protein 6.5 g/dL (6.3-8.2) 11/04/16 08:56 Albumin 3.7 g/dL (3.5-5.0) 11/04/16 08:56 Microbiology 11/03/16 18:45 Blood Blood Culture - Preliminary No Growth after 72 hours 11/05/16 11:40 Finger - Right First Gram Stain - Preliminary 11/05/16 11:40 Finger - Right First Wound Culture - Preliminary 11/05/16 11:40 Finger - Right First Gram Stain - Preliminary 11/05/16 11:40 Finger - Right First Wound Culture - Preliminary 11/05/16 11:40 Finger - Right First Anaerobic Culture - Preliminary 11/05/16 11:40 Finger - Right First Anaerobic Culture - Preliminary Assessment and Plan (1) Flexor tenosynovitis of finger Narrative/Plan: 76-year-old woman presents to Hospital status post fall in a parking lot where she injured her right hand on the asphalt. She then shortly thereafter had a secondary injury when a window fell on the finger. It progressively worsened and she did seek some care. She was placed on cephalexin. With increasing swelling and pain and lack of improvement she was then evaluated Hospital. She has was admitted is been seen by orthopedic surgery and has had the incision and drainage the finger performed. Extensive debridement and exploration occurred. Appears to have significant deep infection of the finger. With her diabetes she is at risk for significant poor outcome and constantly outpatient intravenous antibiotic therapy will be requested. Currently receiving vancomycin therapy as likely will be utilized in the home setting also. Will need IV access PICC line will be requested. She is wondering what she can be discharged home. Local wound care as currently with a Telfa dressing. If she improves and if she is going to have home care could be altered to a silver alginate dressing which would allow less frequent changes. Based on laboratory is requested and her mildly increased creatinine at admission has resolved. Status: Acute (2) Diabetes mellitus type 2, uncontrolled, with complications Status: Acute (3) Fall with injury Status: Acute (4) Fall Status: Acute
[2016-11-07 00:44] LABS: Glucose,Whole Blood 139 mg/dL (75-99)
[2016-11-07] MEDS: HYDROcodone/APAP 5-325MG 1 EACH TAB PO PRN ×4 (02:22→20:39)
[2016-11-07] MEDS: CYCLOBENZAPRINE 10 MG TAB PO PRN (02:23)
[2016-11-07 07:52] LABS: Glucose,Whole Blood 157 mg/dL (75-99)
[2016-11-07] MEDS: HEPARIN SODIUM,PORCINE 5,000 UNIT/ML 1 ML VIAL SQ SCH ×4 (08:43→22:51)
[2016-11-07] MEDS: PANTOPRAZOLE 40 MG TABLET PO SCH (08:45)
[2016-11-07] MEDS: CITALOPRAM HYDROBROMIDE 20 MG TAB PO SCH (08:45)
[2016-11-07] MEDS: ASPIRIN 325 MG TAB PO SCH (08:45)
[2016-11-07] MEDS: amLODIPine 5 MG TAB PO SCH (08:46)
[2016-11-07] MEDS: MULTIVITAMINS, THERA 1 EACH TAB PO SCH (08:46)
[2016-11-07] MEDS: LORATADINE 10 MG TAB PO SCH (08:46)
[2016-11-07] MEDS: ALLOPURINOL 100 MG TAB PO SCH (08:46)
[2016-11-07] MEDS: FOLIC ACID 1 MG TAB PO SCH (08:46)
[2016-11-07] MEDS: CYANOCOBALAMIN 500 MCG TAB PO SCH (08:46)
[2016-11-07] MEDS: INSULIN LISPRO (humaLOG) 300 UNIT/3 ML VIAL SQ SCH ×7 (08:46→20:54)
[2016-11-07] MEDS: METOPROLOL TARTRATE 25 MG TAB PO SCH (08:46)
[2016-11-07] MEDS: CHOLECALCIFEROL 1,000 UNIT TAB PO SCH (08:47)
--- NOTE | 2016-11-07 09:00 | P.PN ---
Progress Note - Text Patient is a very pleasant 76-year-old female who is seen and examined the bedside for further evaluation after undergoing incision and drainage of the right index finger on 11/05/2016. Following the I and D, patient has had regular dressing changes. She continues to be followed by Dr. Vegas in infectious disease as well as Dr. Jean-Baptiste in medicine. Patient states she was seen and examined last night by Dr. Vegas who is planning PICC line placement. Nursing states PICC line placement is currently scheduled for today. It currently appears cultures are still pending. Patient states her pain has been well-controlled. She states her finger feels slightly better than it did prior to the incision and drainage. She is eating and voiding without difficulty. She currently denies nausea, vomiting, fever, chills. She has no new complaints this morning. She states she is ready to get better so she can get out of the hospital. She denies any other difficulties with any other fingers or thumb of the right upper extremity. She has no difficulty with range of motion of the right wrist, elbow, or shoulder. Patient also has other medical diagnoses including type 2 diabetes mellitus, hypertension, acute renal failure secondary to excessive diuretic therapy, obesity, obstructive sleep apnea, and hyperlipidemia. Physical Exam: Patient is awake, alert, and oriented 3 Vital signs stable Good chest excursion with deep inspiration and expiration Abdomen soft nontender No signs or symptoms of DVT; no calf pain Dressing over the right index finger is removed during physical examination; new dressing is reapplied with Adaptic, square pads, and stretch wrapped Significant swelling, erythema over the entire right index finger; evidence of 2 sutures or the posterior aspect of the right index finger following incision and drainage Mild purulence at the distal posterior portion of the right index finger; I am unable to express active drainage No drainage with palpation of the right index finger Pain with palpation of the right index finger Patient is able to slightly wiggle the right index finger; decreased range of motion the right index finger Evidence of an abrasion over the distal posterior aspect of the right index finger Active full range of motion of all other fingers and thumb of the right upper extremity Active full range of motion of the right wrist, elbow, shoulder without significant difficulty Neurovascularly intact right upper extremity Pertinent studies: X-ray of the right fingers: Soft tissue swelling around index finger; narrowing of the IP joint spaces supple no evidence of fracture dislocation; mild osteoarthritis Assessment: Status post incision and drainage right index finger Cellulitis, pain, and swelling of the right index finger; cannot rule out abscess Status post fall Type 2 diabetes mellitus Plan: 1. Following incision and drainage, we'll currently plan for continued conservative treatment. We are not currently planning for further surgical intervention. Cultures appear to still be pending. Patient is currently scheduled to undergo PICC line placement today per orders by Dr. Vegas. I discussed with the patient and with nursing, that once the patient is able to have a PICC line placed and started on antibiotics per Dr. Vegas's recommendations, patient will be clear for discharge from an orthopedic standpoint. We will plan to have the patient follow-up with Dr. Constantine Chadwick at [facility] in approximately 1 week for further evaluation. Patient will also need clearance by Dr. Jean-Baptiste and medicine. Upon discharge, patient must keep dressing over the right index finger clean, dry, and intact. Patient may continue with daily dressing changes. Patient should avoid excessive activities in regards to the right index finger 2. Dr. Vegas in infectious disease continue following the patient for treatment and evaluation 3. Dr. Jean-Baptiste in medicine to continue following the patient
--- NOTE | 2016-11-07 10:55 | IR ---
PICC LINE PLACEMENT: HISTORY: Infection requiring long-term antibiotic therapy PROCEDURE: Ultrasound and fluoroscopic guidance of PICC line placement. COMPLICATIONS: None ANESTHESIA: 1. 1% Lidocaine locally. FINDINGS/TECHNIQUE: The procedure was explained to the patient. The risks, complications, benefits and alternatives were discussed and any questions were answered. Informed consent was obtained. The patient was placed supine on the fluoroscopic table and prepped and draped in the usual sterile [facility] ion. Utilizing a 21 gauge needle and sonographic and fluoroscopic guidance, access in the vein was achieved and there is placement of a 0.018 guidewire. The vein is patent. A 4-F sheath was placed o candace the guidewire. The guidewire and dilator were removed and a 4-F. PICC line was placed through th e sheath with the tip at the level of the SVC. The sheath was removed, the catheter was flushed and sutured into position. The patient was stable throughout the procedure and remained stable upon disc harge from the Department of Radiology. The vein puncture was patent under ultrasound. A jones scale image was obtained to document patency of the vein punctured. All elements of the maximal barrier technique were utilized. FLUOROSCOPY TIME: 0.3 minute IMPRESSION: Successful PICC line placement under ultrasound and fluoroscopic guidance.
[2016-11-07] MEDS ORDERED: VANCOMYCIN TROUGH DUE 1 EACH MISC MISCELLANE ONE (11:30)
[2016-11-07 12:15] LABS: Glucose,Whole Blood 242 mg/dL (75-99)
[2016-11-07] MEDS: VANCOMYCIN 1,750 MG in SODIUM CHLORIDE 0.9% 250 ML IVPB SCH (12:46)
[2016-11-07 17:07] LABS: Glucose,Whole Blood 119 mg/dL (75-99)
--- NOTE | 2016-11-07 18:24 | P.PN ---
Subjective Date of service 11/07/2016. Progress note being dictated for . Interval history: This is a 76-year-old female admitted with right finger cellulitis, possible abscess, and multiple other medical issues. Status post I& D yesterday with orthopedics, tolerated procedure well. Cultures pending. Evaluated by infectious disease, PICC line placed. Continues on vancomycin. Slow improvement after 2 days of IV antibiotics, daily soaking with irrigation with potential repeat I&D being discussed as per orthopedic . States less pain in hand today. Denies chest pain, palpitations or increasing shortness of breath. Afebrile. Objective - Vital Signs Vital signs: Vital Signs Temp 98.1 F 11/07/16 15:00 Pulse 55 L 11/07/16 16:58 Resp 20 11/07/16 16:58 BP 131/67 11/07/16 15:00 Pulse Ox 94 L 11/07/16 15:00 Intake & Output 11/06/16 11/07/16 11/07/16 18:59 06:59 18:59 Intake Total 1335 480 Balance 1335 480 Intake: Oral 1335 480 Other: Voiding Method Toilet Diaper Incontinent # Voids 1 1 2 # Bowel Movements 1 0 - Exam PHYSICAL EXAM: VITAL SIGNS: As above GENERAL: [Sitting up in chair, no acute distress] HEENT: [Pupils equal conjunctiva normal. No scleral icterus] NECK: [Supple, no JVD] RESPIRATORY EFFORT:[Normal] LUNGS: [Lungs clear, no wheezes rhonchi or crackles] CARDIOVASCULAR[regular S1 and S2, no murmurs rubs or gallops, no edema] GI: [Abdomen soft, nontender, nondistended, positive bowel sounds.] PSYCH: [Alert and oriented -3, mood and affect normal.] SKIN: Index finger Dressing clean dry and intact. Reporting less pain.] NEURO: No focal deficits. Microbiology 11/05/16 11:40 Finger - Right First Gram Stain - Preliminary 11/05/16 11:40 Finger - Right First Wound Culture - Preliminary Presumptive MRSA 11/05/16 11:40 Finger - Right First Anaerobic Culture - Preliminary 11/03/16 18:45 Blood Blood Culture - Preliminary No Growth after 72 hours 11/05/16 11:40 Finger - Right First Gram Stain - Preliminary 11/05/16 11:40 Finger - Right First Wound Culture - Preliminary 11/05/16 11:40 Finger - Right First Anaerobic Culture - Preliminary - Labs CBC & Chem 7: 11/06/16 08:09 11/06/16 08:09 Labs: Abnormal Lab Results - Last 24 Hours (Table) 11/07/16 11/07/16 11/07/16 Range/Units 00:42 07:33 11:51 ESR (0-20) mm/hr POC Glucose (mg/dL) 139 H 157 H 242 H (75-99) mg/dL 11/07/16 11/07/16 Range/Units 11:58 16:49 ESR 48 H (0-20) mm/hr POC Glucose (mg/dL) 119 H (75-99) mg/dL Microbiology - Last 24 Hours (Table) 11/05/16 11:40 Gram Stain - Preliminary Finger - Right First Wound Culture - Preliminary Presumptive MRSA 11/05/16 11:40 Anaerobic Culture - Preliminary Finger - Right First 11/03/16 18:45 Blood Culture - Preliminary Blood No Growth after 72 hours 11/05/16 11:40 Gram Stain - Preliminary Finger - Right First Wound Culture - Preliminary Assessment and Plan Plan: 1. Right finger cellulitis, possible abscess, status post I&D, slow to improve , cultures pending 2. [Diabetes mellitus type 2, hemoglobin A1c 7.7, uncontrolled]. 3. Acute renal failure secondary to excessive diuretic therapy, and Lasix discontinued]. 4. [Morbid obesity, BMI 44.6 with Obstructive sleep apnea, uses CPAP]. 5. [Hypertension 6. 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 7. [Vaginal bleeds with Possible endometrial cancer, on medroxyprogesterone, being evaluated outpatient]. 8. Hyperlipidemia 9. Chronic venostasis 10. Status post PICC line placement. Plan: Continue on current medication regime ,monitoring and symptomatic treatment. Maintain vancomycin. Follow cultures closely. Antibiotics as per ID. As mentioned above patient has not been cleared by orthopedics, daily dressing changes with daily soaking in irrigation throughout the weekend with further evaluation per orthopedics on Thursday. close monitoring of Accu-Cheks. Follow closely with orthopedics. Further recommendations to follow. The impression and plan of care has been dictated as directed. : I performed a H&P examination of this patient and discussed the same with the dictator. I agree with the dictator's note. Any additional findings/opinions/ etc. will be noted.
[2016-11-07 19:03] LABS: C Reactive Protein 7.1 mg/L (<10.0)
[2016-11-07] MEDS: INSULIN NPH 300 UNIT/3 ML VIAL SQ SCH (20:46)
[2016-11-07] MEDS: rOPINIRole HCL 4 MG TABLET PO SCH (20:48)
[2016-11-07] MEDS: COLCHICINE 0.6 MG TAB PO SCH (20:48)
[2016-11-07 20:58] LABS: Glucose,Whole Blood 106 mg/dL (75-99)
--- NOTE | 2016-11-07 22:24 | P.PN ---
Subjective Principal diagnosis: Infection to right index finger 76-year-old woman who has a history of diabetes mellitus type 2 this poorly controlled relates that she fell to the ground 2 weeks ago. She did injure her hand on the index finger when the fall occurred. She does not recall that she had a significant bleeding wound. She then had repeated trauma to the index finger when a window fell onto the finger also. Since then she's been having increasing difficulties of pain and swelling to the finger. Was in the outpatient setting and placed on cephalexin. Despite that he continue to worsen. She constantly was brought into hospital with severe pain and swelling to the right index finger. There is evidence of an extensive infection to that area seemed to be worsened by her underlying diabetes. Because she's been taking the operating room for incision and drainage of the significant infection. Surgical note relates to extensive debridement and exploration of the finger. With extensive infection. Patient still having some pain at the site. Dressing change was definitely uncomfortable. She over is denying high- grade fever, chills or rigors. She's not had a problem like this in the past. We discussed her elevated hemoglobin A1c. She seems to have very little understanding about the impact of high blood sugars on infection.The case is discussed with the surgeon, and has lack of improvement and may need further surgery Objective - Vital Signs Vital signs: Vital Signs Temp 98.1 F 11/07/16 15:00 Pulse 55 L 11/07/16 16:58 Resp 20 11/07/16 16:58 BP 131/67 11/07/16 15:00 Pulse Ox 94 L 11/07/16 15:00 Intake & Output 11/07/16 11/07/16 11/08/16 06:59 18:59 06:59 Intake Total 480 Balance 480 Intake: Oral 480 Other: Voiding Method Toilet Diaper Incontinent # Voids 1 2 # Bowel Movements 0 - Exam 76-year-old woman who has obesity and recent fall with the acute change to her right hand. HEENT: Anicteric conjunctiva are pink and moist nasal mucosa grossly intact without significant lesions, there is no thrush. Neck: The neck is supple without significant lymphadenopathy or thyromegaly. Lungs: Symmetrical air entry. No difficulty crackles or wheezing. Heart: Regular rate and rhythm with an audible S1-S2, no S3 loud S4 There is no significant murmur click or rub, PMI was nondisplaced. Abdomen: Obese, Positive bowel sounds soft and nontender without palpable masses or organomegaly. There was no guarding or rebound. Extremities: Left upper extremity without abnormalities. The right upper extremity shows evidence of the recent surgical intervention to the right index finger. There is evidence of the incision and drainage and suture site. The finger continues to be erythematous tender swollen and painful. The erythema does not track significantly onto the dorsum of the hand. There is no right epitrochlear or axillary lymphadenopathy. No other abnormal lymph nodes were noted She has chronic bilateral extremity edema. She has poor range of motion to the left knee possibly after the recent fall but no fluctuance to the knee is noted. Neuro: Awake alert oriented to person place and time. There are no acute new gross focal sensory motor deficits. - Labs CBC & Chem 7: 11/06/16 08:09 11/06/16 08:09 Labs: Abnormal Lab Results - Last 24 Hours (Table) 11/07/16 11/07/16 11/07/16 Range/Units 00:42 07:33 11:51 ESR (0-20) mm/hr POC Glucose (mg/dL) 139 H 157 H 242 H (75-99) mg/dL 11/07/16 11/07/16 11/07/16 Range/Units 11:58 16:49 20:44 ESR 48 H (0-20) mm/hr POC Glucose (mg/dL) 119 H 106 H (75-99) mg/dL Microbiology - Last 24 Hours (Table) 11/03/16 18:45 Blood Culture - Preliminary Blood No Growth after 96 hours 11/05/16 11:40 Gram Stain - Final Finger - Right First Wound Culture - Final 11/05/16 11:40 Gram Stain - Preliminary Finger - Right First Wound Culture - Preliminary Presumptive MRSA 11/05/16 11:40 Anaerobic Culture - Preliminary Finger - Right First Laboratory Results WBC 9.0 k/uL (3.8-10.6) 11/06/16 08:09 RBC 4.49 m/uL (3.80-5.40) 11/06/16 08:09 Hgb 13.9 gm/dL (11.4-16.0) 11/06/16 08:09 Hct 41.7 % (34.0-46.0) 11/06/16 08:09 MCV 92.8 fL (80.0-100.0) 11/06/16 08:09 MCH 30.9 pg (25.0-35.0) 11/06/16 08:09 MCHC 33.3 g/dL (31.0-37.0) 11/06/16 08:09 RDW 15.0 % (11.5-15.5) 11/06/16 08:09 Plt Count 216 k/uL (150-450) 11/06/16 08:09 Neutrophils % 66 % 11/06/16 08:09 Lymphocytes % 20 % 11/06/16 08:09 Monocytes % 6 % 11/06/16 08:09 Eosinophils % 5 % 11/06/16 08:09 Basophils % 1 % 11/06/16 08:09 Neutrophils # 6.0 k/uL (1.3-7.7) 11/06/16 08:09 Lymphocytes # 1.8 k/uL (1.0-4.8) 11/06/16 08:09 Monocytes # 0.6 k/uL (0-1.0) 11/06/16 08:09 Eosinophils # 0.4 k/uL (0-0.7) 11/06/16 08:09 Basophils # 0.1 k/uL (0-0.2) 11/06/16 08:09 ESR 48 mm/hr (0-20) H 11/07/16 11:58 Sodium 136 mmol/L (137-145) L 11/06/16 08:09 Potassium 4.8 mmol/L (3.5-5.1) 11/06/16 08:09 Chloride 102 mmol/L (98-107) 11/06/16 08:09 Carbon Dioxide 24 mmol/L (22-30) 11/06/16 08:09 Anion Gap 10 mmol/L 11/06/16 08:09 BUN 38 mg/dL (7-17) H 11/06/16 08:09 Creatinine 1.00 mg/dL (0.52-1.04) 11/06/16 08:09 Est GFR (MDRD) Af Amer >60 (>60 ml/min/1.73 sqM) 11/06/16 08:09 Est GFR (MDRD) Non-Af 54 (>60 ml/min/1.73 sqM) 11/06/16 08:09 Glucose 227 mg/dL (74-99) H 11/06/16 08:09 POC Glucose (mg/dL) 106 mg/dL (75-99) H 11/07/16 20:44 POC Glu Educational Programming Director ID Denise Horne 11/07/16 20:[address] Glu mg/dL 174 mg/dL 11/03/16 18:47 Hemoglobin A1c 7.7 % (4.2-6.1) H 11/03/16 18:47 Plasma Lactic Acid Willis 1.1 mmol/L (0.7-2.0) 11/03/16 18:45 Calcium 9.4 mg/dL (8.4-10.2) 11/06/16 08:09 Total Bilirubin 0.9 mg/dL (0.2-1.3) 11/04/16 08:56 AST 21 U/L (14-36) 11/04/16 08:56 ALT 36 U/L (9-52) 11/04/16 08:56 Alkaline Phosphatase 78 U/L (38-126) 11/04/16 08:56 C-Reactive Protein 7.1 mg/L (<10.0) 11/07/16 11:58 Total Protein 6.5 g/dL (6.3-8.2) 11/04/16 08:56 Albumin 3.7 g/dL (3.5-5.0) 11/04/16 08:56 Prealbumin 26 mg/dL (18-36) 11/07/16 11:58 Vancomycin Trough 15.3 ug/mL 11/07/16 11:58 Microbiology 11/03/16 18:45 Blood Blood Culture - Preliminary No Growth after 96 hours 11/05/16 11:40 Finger - Right First Gram Stain - Final 11/05/16 11:40 Finger - Right First Wound Culture - Final 11/05/16 11:40 Finger - Right First Gram Stain - Preliminary 11/05/16 11:40 Finger - Right First Wound Culture - Preliminary Presumptive MRSA 11/05/16 11:40 Finger - Right First Anaerobic Culture - Preliminary 11/05/16 11:40 Finger - Right First Anaerobic Culture - Preliminary Assessment and Plan (1) Flexor tenosynovitis of finger Narrative/Plan: 76-year-old woman presents to Hospital status post fall in a parking lot where she injured her right hand on the asphalt. She then shortly thereafter had a secondary injury when a window fell on the finger. It progressively worsened and she did seek some care. She was placed on cephalexin. With increasing swelling and pain and lack of improvement she was then evaluated Hospital. She has was admitted is been seen by orthopedic surgery and has had the incision and drainage the finger performed. Extensive debridement and exploration occurred. Appears to have significant deep infection of the finger. With her diabetes she is at risk for significant poor outcome and constantly outpatient intravenous antibiotic therapy will be requested. Currently receiving vancomycin therapy , is not improving will change to Ceftaroline. Will need IV access PICC line will be requested. She is wondering what she can be discharged home. Local wound care as currently with a Telfa dressing. Is not improving will use soaks, Surgery is following and will contimplate furhter surgery Based on laboratory is requested and her mildly increased creatinine at admission has resolved. Status: Acute (2) Diabetes mellitus type 2, uncontrolled, with complications Status: Acute (3) Fall with injury Status: Acute (4) Fall Status: Acute
[2016-11-07] MEDS: CEFTAROLINE FOSAMIL 600 MG in SODIUM CHLORIDE 0.9% 250 ML IVPB SCH (22:50)
[2016-11-07] MEDS: ATORVASTATIN 40 MG TAB PO SCH (22:50)
[2016-11-08 07:43] LABS: Glucose,Whole Blood 202 mg/dL (75-99)
[2016-11-08] MEDS: INSULIN LISPRO (humaLOG) 300 UNIT/3 ML VIAL SQ SCH ×7 (07:43→21:35)
[2016-11-08] MEDS: MULTIVITAMINS, THERA 1 EACH TAB PO SCH (07:44)
[2016-11-08] MEDS: PANTOPRAZOLE 40 MG TABLET PO SCH (07:44)
[2016-11-08] MEDS: HEPARIN SODIUM,PORCINE 5,000 UNIT/ML 1 ML VIAL SQ SCH ×3 (07:44→23:42)
[2016-11-08] MEDS: LORATADINE 10 MG TAB PO SCH (07:44)
[2016-11-08] MEDS: METOPROLOL TARTRATE 25 MG TAB PO SCH (07:44)
[2016-11-08] MEDS: CYANOCOBALAMIN 500 MCG TAB PO SCH (07:45)
[2016-11-08] MEDS: ALLOPURINOL 100 MG TAB PO SCH (07:45)
[2016-11-08] MEDS: CEFTAROLINE FOSAMIL 600 MG in SODIUM CHLORIDE 0.9% 250 ML IVPB SCH ×2 (07:45→20:18)
[2016-11-08] MEDS: CITALOPRAM HYDROBROMIDE 20 MG TAB PO SCH (07:45)
[2016-11-08] MEDS: ASPIRIN 325 MG TAB PO SCH (07:45)
[2016-11-08] MEDS: FOLIC ACID 1 MG TAB PO SCH (07:45)
[2016-11-08] MEDS: amLODIPine 5 MG TAB PO SCH (07:45)
[2016-11-08] MEDS: CHOLECALCIFEROL 1,000 UNIT TAB PO SCH (07:45)
[2016-11-08 09:22] LABS: Basophils # (A) 0.1 k/uL (0-0.2); Basophils % (A) 1 %; CH 29.8; CHCM 31.4; Eosinophils # (A) 0.4 k/uL (0-0.7); Eosinophils % (A) 5 %; HCT 40.6 % (34.0-46.0); HGB 12.5 gm/dL (11.4-16.0); Hypochromasia Slight; Luc # (Auto) 0.18; Luc % (Auto) 2; Lymphocytes # (A) 1.4 k/uL (1.0-4.8); Lymphocytes % (A) 17 %; MCH 29.6 pg (25.0-35.0); MCHC 30.9 g/dL (31.0-37.0); MCV 95.7 fL (80.0-100.0); Mean Platelet Volume 7.8; Monocytes # (A) 0.4 k/uL (0-1.0); Monocytes % (A) 5 %; Neutrophils # (A) 5.9 k/uL (1.3-7.7); Neutrophils % (A) 71 %; RBC 4.24 m/uL (3.80-5.40); RDW 15.5 % (11.5-15.5); WBC 8.3 k/uL (3.8-10.6)
[2016-11-08 09:49] LABS: Anion Gap 9 mmol/L; Blood Urea Nitrogen 33 mg/dL (7-17); Calcium 8.9 mg/dL (8.4-10.2); Carbon Dioxide 22 mmol/L (22-30); Chloride 105 mmol/L (98-107); Glucose 268 mg/dL (74-99); Non-African American GFR(MDRD) 58 (>60 ml/min/1.73 sqM); Potassium 4.6 mmol/L (3.5-5.1); Sodium 136 mmol/L (137-145)
[2016-11-08] MEDS: HYDROcodone/APAP 5-325MG 1 EACH TAB PO PRN ×2 (09:55→20:12)
[2016-11-08 12:01] LABS: Glucose,Whole Blood 191 mg/dL (75-99)
--- NOTE | 2016-11-08 12:19 | P.PN ---
Subjective This is a pleasant 76-year-old female who is status post I&D of the right index finger with Dr. Chadwick. Patient is being followed by Dr. Vegas. The patient is seen and evaluated at bedside today. She states that she's not yet had some warm soaks. She feels her finger is slightly improved since her admission. She has no additional new complaints at this time. Objective - Vital Signs Vital signs: Vital Signs Temp 99 F 11/08/16 07:00 Pulse 64 11/08/16 07:00 Resp 21 11/08/16 07:00 BP 165/72 11/08/16 07:00 Pulse Ox 96 11/08/16 07:00 Intake & Output 11/07/16 11/08/16 11/08/16 18:59 06:59 18:59 Intake Total 480 900 Balance 480 900 Intake: Oral 480 900 Other: Voiding Method Toilet Toilet Diaper Diaper Incontinent Incontinent # Voids 2 0 # Bowel Movements 0 0 - Exam Patient does not appear in acute distress. Dressing over the right finger was removed for examination. She continues to have significant swelling and erythema over the right index finger with evidence of sutures from her previous incision and drainage. She is pain to palpation along the finger. She is able to slightly perform flexion and extension however range of motion is decreased. There is no additional areas of erythema. She has fairly good motion at her wrist. Sensation is intact. - Labs CBC & Chem 7: 11/08/16 08:36 11/08/16 08:36 Labs: Abnormal Lab Results - Last 24 Hours (Table) 11/07/16 11/07/16 11/07/16 Range/Units 11:51 11:58 16:49 MCHC (31.0-37.0) g/dL ESR 48 H (0-20) mm/hr Sodium (137-145) mmol/L BUN (7-17) mg/dL Glucose (74-99) mg/dL POC Glucose (mg/dL) 242 H 119 H (75-99) mg/dL 11/07/16 11/08/16 11/08/16 Range/Units 20:44 07:39 08:36 MCHC 30.9 L (31.0-37.0) g/dL ESR (0-20) mm/hr Sodium (137-145) mmol/L BUN (7-17) mg/dL Glucose (74-99) mg/dL POC Glucose (mg/dL) 106 H 202 H (75-99) mg/dL 11/08/16 11/08/16 Range/Units 08:36 11:58 MCHC (31.0-37.0) g/dL ESR (0-20) mm/hr Sodium 136 L (137-145) mmol/L BUN 33 H (7-17) mg/dL Glucose 268 H (74-99) mg/dL POC Glucose (mg/dL) 191 H (75-99) mg/dL Microbiology - Last 24 Hours (Table) 11/05/16 11:40 Gram Stain - Final Finger - Right First Wound Culture - Final Methicillin resist S. aureus 11/05/16 11:40 Anaerobic Culture - Preliminary Finger - Right First 11/03/16 18:45 Blood Culture - Preliminary Blood No Growth after 96 hours 11/05/16 11:40 Gram Stain - Final Finger - Right First Wound Culture - Final 11/05/16 11:40 Anaerobic Culture - Preliminary Finger - Right First Assessment and Plan (1) Cellulitis of right index finger Status: Acute (2) Diabetes mellitus type 2, uncontrolled, with complications Status: Acute (3) Failure of outpatient treatment Status: Acute (4) Status post incision and drainage Status: Acute Plan: Continue with daily dressing changes and warm bedside soaks. Antibiotics as directed by Dr. Vegas. Depending upon her course further surgical intervention may be indicated.
[2016-11-08 17:26] LABS: Glucose,Whole Blood 113 mg/dL (75-99)
--- NOTE | 2016-11-08 18:25 | P.PN ---
Subjective Principal diagnosis: Infection to right index finger 76-year-old woman who has a history of diabetes mellitus type 2 this poorly controlled relates that she fell to the ground 2 weeks ago. She did injure her hand on the index finger when the fall occurred. She does not recall that she had a significant bleeding wound. She then had repeated trauma to the index finger when a window fell onto the finger also. Since then she's been having increasing difficulties of pain and swelling to the finger. Was in the outpatient setting and placed on cephalexin. Despite that he continue to worsen. She constantly was brought into hospital with severe pain and swelling to the right index finger. There is evidence of an extensive infection to that area seemed to be worsened by her underlying diabetes. Because she's been taking the operating room for incision and drainage of the significant infection. Surgical note relates to extensive debridement and exploration of the finger. With extensive infection. Patient still having some pain at the site. Dressing change was definitely uncomfortable. She over is denying high- grade fever, chills or rigors. She's not had a problem like this in the past. We discussed her elevated hemoglobin A1c. She seems to have very little understanding about the impact of high blood sugars on infection. Surgery is content that there is some improvement to the finger today. Objective - Vital Signs Vital signs: Vital Signs Temp 97.9 F 11/08/16 15:00 Pulse 52 L 11/08/16 15:00 Resp 21 11/08/16 15:00 BP 139/86 11/08/16 15:00 Pulse Ox 94 L 11/08/16 15:00 Intake & Output 11/07/16 11/08/16 11/08/16 18:59 06:59 18:59 Intake Total 480 900 Balance 480 900 Intake: Oral 480 900 Other: Voiding Method Toilet Toilet Diaper Diaper Incontinent Incontinent # Voids 2 0 3 # Bowel Movements 0 0 - Exam 76-year-old woman who has obesity and recent fall with the acute change to her right hand. HEENT: Anicteric conjunctiva are pink and moist nasal mucosa grossly intact without significant lesions, there is no thrush. Neck: The neck is supple without significant lymphadenopathy or thyromegaly. Lungs: Symmetrical air entry. No difficulty crackles or wheezing. Heart: Regular rate and rhythm with an audible S1-S2, no S3 loud S4 There is no significant murmur click or rub, PMI was nondisplaced. Abdomen: Obese, Positive bowel sounds soft and nontender without palpable masses or organomegaly. There was no guarding or rebound. Extremities: Left upper extremity without abnormalities. The right upper extremity shows evidence of the recent surgical intervention to the right index finger. There is evidence of the incision and drainage and suture site. The finger continues to be erythematous tender swollen and painful. The erythema does not track significantly onto the dorsum of the hand. The sutures are in place. In with some minimal flexion there is some drainage some purulent material, and has some discomfort with range of motion There is no right epitrochlear or axillary lymphadenopathy. No other abnormal lymph nodes were noted She has chronic bilateral extremity edema. She has poor range of motion to the left knee possibly after the recent fall but no fluctuance to the knee is noted. Neuro: Awake alert oriented to person place and time. There are no acute new gross focal sensory motor deficits. - Labs CBC & Chem 7: 11/08/16 08:36 11/08/16 08:36 Labs: Abnormal Lab Results - Last 24 Hours (Table) 11/07/16 11/08/16 11/08/16 Range/Units 20:44 07:39 08:36 MCHC 30.9 L (31.0-37.0) g/dL Sodium (137-145) mmol/L BUN (7-17) mg/dL Glucose (74-99) mg/dL POC Glucose (mg/dL) 106 H 202 H (75-99) mg/dL 11/08/16 11/08/16 11/08/16 Range/Units 08:36 11:58 17:22 MCHC (31.0-37.0) g/dL Sodium 136 L (137-145) mmol/L BUN 33 H (7-17) mg/dL Glucose 268 H (74-99) mg/dL POC Glucose (mg/dL) 191 H 113 H (75-99) mg/dL Microbiology - Last 24 Hours (Table) 11/05/16 11:40 Gram Stain - Final Finger - Right First Wound Culture - Final Methicillin resist S. aureus 11/05/16 11:40 Anaerobic Culture - Preliminary Finger - Right First 11/03/16 18:45 Blood Culture - Preliminary Blood No Growth after 96 hours 11/05/16 11:40 Gram Stain - Final Finger - Right First Wound Culture - Final 11/05/16 11:40 Anaerobic Culture - Preliminary Finger - Right First Laboratory Results WBC 8.3 k/uL (3.8-10.6) 11/08/16 08:36 RBC 4.24 m/uL (3.80-5.40) 11/08/16 08:36 Hgb 12.5 gm/dL (11.4-16.0) 11/08/16 08:36 Hct 40.6 % (34.0-46.0) 11/08/16 08:36 MCV 95.7 fL (80.0-100.0) 11/08/16 08:36 MCH 29.6 pg (25.0-35.0) 11/08/16 08:36 MCHC 30.9 g/dL (31.0-37.0) L 11/08/16 08:36 RDW 15.5 % (11.5-15.5) 11/08/16 08:36 Plt Count 191 k/uL (150-450) 11/08/16 08:36 Neutrophils % 71 % 11/08/16 08:36 Lymphocytes % 17 % 11/08/16 08:36 Monocytes % 5 % 11/08/16 08:36 Eosinophils % 5 % 11/08/16 08:36 Basophils % 1 % 11/08/16 08:36 Neutrophils # 5.9 k/uL (1.3-7.7) 11/08/16 08:36 Lymphocytes # 1.4 k/uL (1.0-4.8) 11/08/16 08:36 Monocytes # 0.4 k/uL (0-1.0) 11/08/16 08:36 Eosinophils # 0.4 k/uL (0-0.7) 11/08/16 08:36 Basophils # 0.1 k/uL (0-0.2) 11/08/16 08:36 Hypochromasia Slight 11/08/16 08:36 ESR 48 mm/hr (0-20) H 11/07/16 11:58 Sodium 136 mmol/L (137-145) L 11/08/16 08:36 Potassium 4.6 mmol/L (3.5-5.1) 11/08/16 08:36 Chloride 105 mmol/L (98-107) 11/08/16 08:36 Carbon Dioxide 22 mmol/L (22-30) 11/08/16 08:36 Anion Gap 9 mmol/L 11/08/16 08:36 BUN 33 mg/dL (7-17) H 11/08/16 08:36 Creatinine 0.94 mg/dL (0.52-1.04) 11/08/16 08:36 Est GFR (MDRD) Af Amer >60 (>60 ml/min/1.73 sqM) 11/08/16 08:36 Est GFR (MDRD) Non-Af 58 (>60 ml/min/1.73 sqM) 11/08/16 08:36 Glucose 268 mg/dL (74-99) H 11/08/16 08:36 POC Glucose (mg/dL) 113 mg/dL (75-99) H 11/08/16 17:22 POC Glu Boat Joiner Helper ID Catherine Weston 11/08/16 17:[address] Glu mg/dL 174 mg/dL 11/03/16 18:47 Hemoglobin A1c 7.7 % (4.2-6.1) H 11/03/16 18:47 Plasma Lactic Acid Willis 1.1 mmol/L (0.7-2.0) 11/03/16 18:45 Calcium 8.9 mg/dL (8.4-10.2) 11/08/16 08:36 Total Bilirubin 0.9 mg/dL (0.2-1.3) 11/04/16 08:56 AST 21 U/L (14-36) 11/04/16 08:56 ALT 36 U/L (9-52) 11/04/16 08:56 Alkaline Phosphatase 78 U/L (38-126) 11/04/16 08:56 C-Reactive Protein 7.1 mg/L (<10.0) 11/07/16 11:58 Total Protein 6.5 g/dL (6.3-8.2) 11/04/16 08:56 Albumin 3.7 g/dL (3.5-5.0) 11/04/16 08:56 Prealbumin 26 mg/dL (18-36) 11/07/16 11:58 Vancomycin Trough 15.3 ug/mL 11/07/16 11:58 Microbiology 11/05/16 11:40 Finger - Right First Gram Stain - Final 11/05/16 11:40 Finger - Right First Wound Culture - Final Methicillin resist S. aureus 11/05/16 11:40 Finger - Right First Anaerobic Culture - Preliminary 11/03/16 18:45 Blood Blood Culture - Preliminary No Growth after 96 hours 11/05/16 11:40 Finger - Right First Gram Stain - Final 11/05/16 11:40 Finger - Right First Wound Culture - Final 11/05/16 11:40 Finger - Right First Anaerobic Culture - Preliminary Assessment and Plan (1) Flexor tenosynovitis of finger Narrative/Plan: 76-year-old woman presents to Hospital status post fall in a parking lot where she injured her right hand on the asphalt. She then shortly thereafter had a secondary injury when a window fell on the finger. It progressively worsened and she did seek some care. She was placed on cephalexin. With increasing swelling and pain and lack of improvement she was then evaluated Hospital. She has was admitted is been seen by orthopedic surgery and has had the incision and drainage the finger performed. Extensive debridement and exploration occurred. Appears to have significant deep infection of the finger. With her diabetes she is at risk for significant poor outcome and constantly outpatient intravenous antibiotic therapy will be requested. Currently receiving vancomycin therapy , since was not improving was changed to Ceftaroline. There is a bit of improvement today. Orthopedics is content that with the soaks and elevation antibiotic therapy there is some improvement Will need IV access PICC line will be requested. She is wondering what she can be discharged home. Local wound care as currently with a Telfa dressing. Is not improving will use soaks, Surgery is following and will contimplate furhter surgery Based on laboratory is requested and her mildly increased creatinine at admission has resolved. Status: Acute (2) Diabetes mellitus type 2, uncontrolled, with complications Status: Acute (3) Fall with injury Status: Acute (4) Fall Status: Acute
--- NOTE | 2016-11-08 19:39 | PN ---
DATE OF SERVICE: 11/08/2016 Ms. Albright is a 76-year-old female with a past medical history of type 2 diabetes mellitus, morbid obesity, hypertension, CVA, admitted to the hospital for the chief complaint of finger pain. The patient was having right finger cellulitis with possible sepsis. She is status post I&D by Dr. Chadwick. Tolerated the procedure well. Patient's culture are positive for MRSA from November 05. She was initially started on vancomycin, did not show much improvement so she was changed to Ceftaroline by ID, Dr. Vegas. Patient is getting daily soaking with irrigation and she states that her swelling and pain are much better compared to a couple of days back. REVIEW OF SYSTEMS: CONSTITUTIONAL: Denies having fevers or chills or rigors. RESPIRATORY: No cough. No difficulty in breathing. GI: No pain, nausea, vomiting, or diarrhea. : No dysuria or hematuria. The patient states that she was discontinued off her Lasix because of her elevated creatinine and she reports some increased swelling of her lower extremities. Patient's medications have been reviewed. She is on: 1. Tylenol. 2. Rocheport. 3. Ventolin. 4. Allopurinol. 5. Norvasc. 6. Aspirin. 7. Lipitor. 8. Ceftaroline. 9. Vitamin D3. 10. Celexa. 11. Colchicine. 12. B12. 13. Flexeril. 14. Folic acid. 15. Heparin. 16. Sliding scale of insulin. 17. NPH insulin 60 units q.h.s. 18. Claritin. 19. Provera. 20. Metoprolol. 21. Melatonin. 22. Multivitamin. 23. Narcan. 24. Zofran. 25. Protonix. 26. Requip. On examination, patient's vitals: Temperature 97.9, heart rate 52, respiratory rate 21, blood pressure 139/86, saturating at 94% on room air. GENERAL: The patient is sitting up in a chair beside the bed having her dinner appears to be no acute distress. HEAD: Atraumatic, normocephalic. EYES: Pupils, round, and reactive to light. NECK: Supple. No JVD. RESPIRATORY: Bilateral breath sounds are positive. No wheezes or crackles. CARDIAC: S1, S2 heard. GI: Abdomen is soft, nontender. Organomegaly difficult to appreciate due to huge body habitus. SKIN: Patient's index finger is wrapped up at the dressing. I did not open the dressing today. No oozing seen on the outside of the dressing. Bilateral lower extremity examination positive for pitting edema bilaterally more on the left lower extremity than the right. NEUROLOGICAL: Alert, awake, oriented x3. No focal deficits. Patient's labs from this morning, white count of 8.3, hemoglobin is 12.5, platelets of 191, sodium 136, potassium 4.2, chloride 105, bicarb 22, BUN 33, creatinine 0.94, calcium 8.9. ASSESSMENT AND PLAN: 1. Right finger cellulitis. Positive for Methicillin-resistant Staph aureus. Patient did not show much improvement with vancomycin so she was so she was started on Ceftaroline and she has a PICC line in place. 2. Type 2 diabetes mellitus. Hemoglobin A1c is 7.7, poorly controlled. 3. Acute renal failure secondary to over diuresis so the patient's Lasix has been discontinued. 4. Morbid obesity with body mass index of 44.6. 5. Hypertension. 6. History of cerebrovascular accident without residual weakness. 7. History of vaginal bleed with possible suspicion for endometrial cancer. Patient on medroxyprogesterone being evaluated as outpatient. 8. Hyperlipidemia. 9. Chronic venous stasis. 10. Lower extremity edema. Patient's Lasix has been discontinued. Patient has a PICC line in place. PLAN: The plan is to continue the patient on current medication regimen, antibiotics in the form of ceftaroline as per ID. The patient has a PICC line. Patient's creatinine is back to her baseline at 0.94 so we will give a dose of 20 mg p.o. Lasix. Orthopedics and ID on board and following the patient. Further recommendations to follow depending on the progress of the patient.
[2016-11-08] MEDS: ATORVASTATIN 40 MG TAB PO SCH (20:21)
[2016-11-08] MEDS: rOPINIRole HCL 4 MG TABLET PO SCH (20:21)
[2016-11-08] MEDS: COLCHICINE 0.6 MG TAB PO SCH (20:21)
[2016-11-08 20:48] LABS: Glucose,Whole Blood 252 mg/dL (75-99)
[2016-11-08] MEDS: INSULIN NPH 300 UNIT/3 ML VIAL SQ SCH (21:36)
[2016-11-09 07:12] LABS: Glucose,Whole Blood 196 mg/dL (75-99)
[2016-11-09] MEDS: CITALOPRAM HYDROBROMIDE 20 MG TAB PO SCH (07:56)
[2016-11-09] MEDS: INSULIN LISPRO (humaLOG) 300 UNIT/3 ML VIAL SQ SCH ×7 (07:56→21:29)
[2016-11-09] MEDS: CYANOCOBALAMIN 500 MCG TAB PO SCH (07:56)
[2016-11-09] MEDS: HEPARIN SODIUM,PORCINE 5,000 UNIT/ML 1 ML VIAL SQ SCH ×3 (07:56→21:29)
[2016-11-09] MEDS: ALLOPURINOL 100 MG TAB PO SCH (07:56)
[2016-11-09] MEDS: ASPIRIN 325 MG TAB PO SCH (07:56)
[2016-11-09] MEDS: amLODIPine 5 MG TAB PO SCH (07:56)
[2016-11-09] MEDS: FOLIC ACID 1 MG TAB PO SCH (07:57)
[2016-11-09] MEDS: MULTIVITAMINS, THERA 1 EACH TAB PO SCH (07:57)
[2016-11-09] MEDS: METOPROLOL TARTRATE 25 MG TAB PO SCH (07:57)
[2016-11-09] MEDS: CHOLECALCIFEROL 1,000 UNIT TAB PO SCH (07:57)
[2016-11-09] MEDS: LORATADINE 10 MG TAB PO SCH (07:57)
[2016-11-09] MEDS: PANTOPRAZOLE 40 MG TABLET PO SCH (07:57)
[2016-11-09] MEDS: CEFTAROLINE FOSAMIL 600 MG in SODIUM CHLORIDE 0.9% 250 ML IVPB SCH ×2 (08:31→21:28)
[2016-11-09 08:40] LABS: Basophils # (A) 0.1 k/uL (0-0.2); Basophils % (A) 1 %; CH 29.8; CHCM 31.6; Eosinophils # (A) 0.4 k/uL (0-0.7); Eosinophils % (A) 4 %; HCT 42.5 % (34.0-46.0); HDW 2.61; HGB 13.3 gm/dL (11.4-16.0); Hypochromasia Slight; Luc # (Auto) 0.25; Luc % (Auto) 3; Lymphocytes # (A) 1.6 k/uL (1.0-4.8); Lymphocytes % (A) 17 %; MCH 29.7 pg (25.0-35.0); MCHC 31.3 g/dL (31.0-37.0); MCV 94.8 fL (80.0-100.0); Monocytes # (A) 0.6 k/uL (0-1.0); Monocytes % (A) 6 %; Neutrophils # (A) 6.3 k/uL (1.3-7.7); Neutrophils % (A) 69 %; RBC 4.48 m/uL (3.80-5.40); RDW 15.5 % (11.5-15.5); WBC 9.1 k/uL (3.8-10.6); WBC (Perox) 8.93
[2016-11-09 08:55] LABS: Anion Gap 11 mmol/L; Blood Urea Nitrogen 29 mg/dL (7-17); Calcium 9.5 mg/dL (8.4-10.2); Carbon Dioxide 20 mmol/L (22-30); Chloride 102 mmol/L (98-107); Glucose 198 mg/dL (74-99); Non-African American GFR(MDRD) 54 (>60 ml/min/1.73 sqM); Potassium 4.9 mmol/L (3.5-5.1); Sodium 133 mmol/L (137-145)
[2016-11-09] MEDS: HYDROcodone/APAP 5-325MG 1 EACH TAB PO PRN ×2 (09:11→17:44)
--- NOTE | 2016-11-09 09:37 | P.PN ---
Subjective This is a pleasant 76-year-old female who is status post I&D of the right index finger with Dr. Chadwick. Patient is being followed by Dr. Vegas. The patient is seen and evaluated at bedside today. She feels her finger is slightly improved since her admission and with the soaks. She had just soaked her hand prior to my examination today and new dressing was placed She has no additional new complaints at this time. Objective - Vital Signs Vital signs: Vital Signs Temp 97.7 F 11/09/16 07:00 Pulse 58 L 11/09/16 07:00 Resp 18 11/09/16 07:00 BP 145/86 11/09/16 07:00 Pulse Ox 97 11/09/16 07:00 Intake & Output 11/08/16 11/09/16 11/09/16 18:59 06:59 18:59 Other: Voiding Method Toilet Toilet Diaper Diaper Incontinent Incontinent # Voids 3 2 # Bowel Movements 0 - Exam Patient does not appear in acute distress. At the time evaluation patient states a new dressing is just been placed following the soak. Discussed her clinical findings with her nurse. She states that the erythema is slightly improved. She does have some sloughing of the skin. She continues to have significant swelling. She portillo pain to palpation along the finger. She is able to slightly perform flexion and extension however range of motion is decreased. There is no additional areas of erythema. She has fairly good motion at her wrist and other fingers. Sensation is intact. - Labs CBC & Chem 7: 11/09/16 07:47 11/09/16 07:47 Labs: Abnormal Lab Results - Last 24 Hours (Table) 11/08/16 11/08/16 11/08/16 Range/Units 08:36 11:58 17:22 Sodium 136 L (137-145) mmol/L Carbon Dioxide (22-30) mmol/L BUN 33 H (7-17) mg/dL Glucose 268 H (74-99) mg/dL POC Glucose (mg/dL) 191 H 113 H (75-99) mg/dL 11/08/16 11/09/16 11/09/16 Range/Units 20:46 07:10 07:47 Sodium 133 L (137-145) mmol/L Carbon Dioxide 20 L (22-30) mmol/L BUN 29 H (7-17) mg/dL Glucose 198 H (74-99) mg/dL POC Glucose (mg/dL) 252 H 196 H (75-99) mg/dL Microbiology - Last 24 Hours (Table) 11/05/16 11:40 Gram Stain - Final Finger - Right First Wound Culture - Final Methicillin resist S. aureus 11/05/16 11:40 Gram Stain - Final Finger - Right First Wound Culture - Final 11/03/16 18:45 Blood Culture - Preliminary Blood No Growth after 120 hours Assessment and Plan (1) Cellulitis of right index finger Status: Acute (2) Diabetes mellitus type 2, uncontrolled, with complications Status: Acute (3) Failure of outpatient treatment Status: Acute (4) Status post incision and drainage Status: Acute Plan: Continue with daily dressing changes and warm bedside soaks. Antibiotics as directed by Dr. Vegas. Cultures did note MRSA. She'll be reevaluated at bedside with Dr. Constantine Chadwick tomorrow. Depending upon her course further surgical intervention may be indicated.
[2016-11-09 12:25] LABS: Glucose,Whole Blood 246 mg/dL (75-99)
[2016-11-09 17:07] LABS: Glucose,Whole Blood 158 mg/dL (75-99)
[2016-11-09 21:00] LABS: Glucose,Whole Blood 175 mg/dL (75-99)
[2016-11-09] MEDS: COLCHICINE 0.6 MG TAB PO SCH (21:28)
[2016-11-09] MEDS: ATORVASTATIN 40 MG TAB PO SCH (21:28)
[2016-11-09] MEDS: rOPINIRole HCL 4 MG TABLET PO SCH (21:29)
[2016-11-09] MEDS: INSULIN NPH 300 UNIT/3 ML VIAL SQ SCH (21:30)
[2016-11-10] MEDS: HYDROcodone/APAP 5-325MG 1 EACH TAB PO PRN ×4 (00:53→22:56)
[2016-11-10 04:35] LABS: Glucose,Whole Blood 71 mg/dL (75-99)
[2016-11-10] MEDS: CYCLOBENZAPRINE 10 MG TAB PO PRN (05:09)
[2016-11-10 07:10] LABS: Glucose,Whole Blood 89 mg/dL (75-99)
[2016-11-10] MEDS: INSULIN LISPRO (humaLOG) 300 UNIT/3 ML VIAL SQ SCH ×7 (07:38→22:11)
[2016-11-10] MEDS: HEPARIN SODIUM,PORCINE 5,000 UNIT/ML 1 ML VIAL SQ SCH ×3 (08:18→23:22)
[2016-11-10] MEDS: METOPROLOL TARTRATE 25 MG TAB PO SCH (08:19)
[2016-11-10] MEDS: ASPIRIN 325 MG TAB PO SCH (08:19)
[2016-11-10] MEDS: PANTOPRAZOLE 40 MG TABLET PO SCH (08:19)
[2016-11-10] MEDS: CYANOCOBALAMIN 500 MCG TAB PO SCH (08:19)
[2016-11-10] MEDS: ALLOPURINOL 100 MG TAB PO SCH (08:20)
[2016-11-10] MEDS: CHOLECALCIFEROL 1,000 UNIT TAB PO SCH (08:20)
[2016-11-10] MEDS: CITALOPRAM HYDROBROMIDE 20 MG TAB PO SCH (08:20)
[2016-11-10] MEDS: CEFTAROLINE FOSAMIL 600 MG in SODIUM CHLORIDE 0.9% 250 ML IVPB SCH (08:20)
[2016-11-10] MEDS: LORATADINE 10 MG TAB PO SCH (08:20)
[2016-11-10] MEDS: amLODIPine 5 MG TAB PO SCH (08:20)
[2016-11-10] MEDS: FOLIC ACID 1 MG TAB PO SCH (08:20)
[2016-11-10] MEDS: MULTIVITAMINS, THERA 1 EACH TAB PO SCH (08:20)
--- NOTE | 2016-11-10 09:00 | P.PN ---
Subjective Principal diagnosis: Right index finger infection This is a 76 year-old female with a right index finger infection. The patient was evaluated in a recliner chair at the bedside today. The patient denies fever, chills, rigors, nausea, vomiting, abdominal pain, shortness of breath, and chest pain this morning. She states her pain is controlled at this time. She underwent an I&D last week and has been on IV antibiotics since admission. The patient states the finger has improved over the weekend. Nursing staff has been performing warm soaks to the finger daily with daily dressing changes. Inpatient whirlpool therapy is unavailable. She has been seen and evaluated by Dr. Vegas as well. Objective - Vital Signs Vital signs: Vital Signs Temp 98.3 F 11/10/16 07:00 Pulse 58 L 11/10/16 07:00 Resp 16 11/10/16 07:00 BP 148/69 11/10/16 07:00 Pulse Ox 95 11/10/16 07:00 Intake & Output 11/09/16 11/10/16 11/10/16 18:59 06:59 18:59 Other: Voiding Method Toilet Diaper Incontinent # Voids 3 2 1 # Bowel Movements 0 - Exam The patient does not appear in acute distress. Alert and orientated x3. The proximal incision appears fine with no drainage. The proximal incision is still draining purulent drainage. There is erythema and swelling from the PIP joint to the tip on the dorsal aspect of the finger which seems to be improving . Finger stiffness is present. Sensation and circulatory status is intact. - Labs CBC & Chem 7: 11/09/16 07:47 11/09/16 07:47 Labs: Abnormal Lab Results - Last 24 Hours (Table) 11/09/16 11/09/16 11/09/16 Range/Units 07:47 12:23 17:05 Sodium 133 L (137-145) mmol/L Carbon Dioxide 20 L (22-30) mmol/L BUN 29 H (7-17) mg/dL Glucose 198 H (74-99) mg/dL POC Glucose (mg/dL) 246 H 158 H (75-99) mg/dL 11/09/16 11/10/16 Range/Units 20:59 04:31 Sodium (137-145) mmol/L Carbon Dioxide (22-30) mmol/L BUN (7-17) mg/dL Glucose (74-99) mg/dL POC Glucose (mg/dL) 175 H 71 L (75-99) mg/dL Microbiology - Last 24 Hours (Table) 11/05/16 11:40 Anaerobic Culture - Final Finger - Right First 11/03/16 18:45 Blood Culture - Final Blood No Growth after 144 hours 11/05/16 11:40 Anaerobic Culture - Final Finger - Right First 11/05/16 11:40 Gram Stain - Final Finger - Right First Wound Culture - Final Methicillin resist S. aureus 11/05/16 11:40 Gram Stain - Final Finger - Right First Wound Culture - Final Assessment and Plan (1) Cellulitis of right index finger Status: Acute (2) Status post incision and drainage Status: Acute Plan: The clinical findings were discussed at length with the patient. The case was also discussed with Dr. Marlon Chadwick. Cultures are showing MRSA. We are recommending a ray amputation at this time but the patient states she would like to try another I&D. She is adamant that she does not want a finger amputation at this time. The risks of not amputating at this time where discussed with the patient including ongoing/chronic infection, finger stiffness , worsening infection into the hand and/or arm, sepsis, and in some cases, . We will proceed with a repeat incision and drainage of the right index finger this afternoon. She will remain NPO. Nursing to monitor glucose during NPO status. Continue IV antibiotic per infectious disease. Case management to set up outpatient IV antibiotic therapy and she will most likely need wound care on an outpatient basis as well. We will continue to follow the patient closely.
[2016-11-10 09:04] LABS: Basophils # (A) 0.1 k/uL (0-0.2); Basophils % (A) 1 %; CH 29.5; CHCM 32.3; Eosinophils # (A) 0.4 k/uL (0-0.7); Eosinophils % (A) 4 %; HCT 41.2 % (34.0-46.0); HDW 2.75; HGB 13.5 gm/dL (11.4-16.0); Luc # (Auto) 0.27; Luc % (Auto) 3; Lymphocytes # (A) 1.8 k/uL (1.0-4.8); Lymphocytes % (A) 18 %; MCH 30.1 pg (25.0-35.0); MCHC 32.7 g/dL (31.0-37.0); MCV 91.9 fL (80.0-100.0); Mean Platelet Volume 8.1; Monocytes # (A) 0.6 k/uL (0-1.0); Monocytes % (A) 6 %; Neutrophils % (A) 69 %; RBC 4.48 m/uL (3.80-5.40); RDW 15.5 % (11.5-15.5); WBC 10.1 k/uL (3.8-10.6); WBC (Perox) 10.31
[2016-11-10 09:30] LABS: Anion Gap 11 mmol/L; Blood Urea Nitrogen 28 mg/dL (7-17); Calcium 9.7 mg/dL (8.4-10.2); Carbon Dioxide 22 mmol/L (22-30); Chloride 106 mmol/L (98-107); Glucose 84 mg/dL (74-99); Non-African American GFR(MDRD) 55 (>60 ml/min/1.73 sqM); Potassium 4.6 mmol/L (3.5-5.1); Sodium 139 mmol/L (137-145)
--- NOTE | 2016-11-10 09:48 | PN ---
DATE OF SERVICE: 11/09/2016 INTERVAL HISTORY: Ms. Albright is a 76-year-old female with a past medical history of type 2 diabetes mellitus, morbid obesity, hypertension, CVA, admitted to the hospital with the chief complaint of right index finger pain. She is currently being treated for cellulitis. Her antibiotic is changed from vancomycin to ceftaroline as she did not show much improvement with vancomycin. Patient has getting daily dressing changes and Infectious Disease, Dr. Vegas on board and following the patient. REVIEW OF SYSTEMS: CONSTITUTIONAL: Denies fevers, chills, or rigors. RESPIRATORY: No cough. No difficulty in breathing. GI: No abdominal pain, nausea, or vomiting. : No dysuria or hematuria. The patient's medications have been reviewed. On examination, patient's vital signs temperature 98.1, heart rate 73, respiratory rate of 16, blood pressure 131/88, saturating at 95% on room air. GENERAL EXAMINATION: Patient is sitting up in a chair beside the bed, appears to be in no acute distress. HEAD: Atraumatic, normocephalic. EYES: Pupils round and reactive to light. NECK: Supple. No JVD. CARDIAC: S1, S2 heard. RESPIRATORY: Breath sounds are positive. No rales or crackles. GI: Abdomen soft. Organomegaly difficult to appreciate due to body habitus. Bowel sounds are positive. Examination of the right index finger: She has 2 sutures, one on the proximal phalanx which looks well-healed but the distal phalanx has one suture desmond that is pinkish in color. No signs of active infection. No active discharge noticed. Positive for mild tenderness and warmth. [employer] OPER[employer]: Alert, awake, oriented x3. No focal deficits. EXTREMITIES: Positive for bilateral pitting edema, more on the left lower extremity than right. Patient's labs: White count of 9.1, hemoglobin is 13.3, platelets 195, sodium 133, potassium 4.9, chloride 102, bicarb 20, BUN 29, creatinine 1. ASSESSMENT AND PLAN: 1. Right finger cellulitis, positive for methicillin-resistant Staphylococcus aureus. Patient did not show much improvement on vancomycin, so she was started on ceftaroline and she has a PICC line in place. 2. Type 2 diabetes mellitus, hemoglobin A1c 7.7, poorly controlled. 3. Acute renal failure secondary to diuresis so the patient's Lasix has been discontinued. 4. Morbid obesity with body mass index of 44.6. 5. Hypertension. 6. History of cerebrovascular accident with no residual weakness. 7. History of vaginal bleed with possible suspicion for endometrial cancer, patient on medroxyprogesterone at this time, being evaluated as outpatient. 8. Hyperlipidemia. 9. Chronic venostasis. 10. Lower extremity edema. PLAN: The plan is to continue the patient on the antibiotics in the form of ceftaroline as per Dr. Ascencion BABCOCK recommendation. The patient has a PICC line in place. Patient's creatinine is back to baseline. Further recommendations to follow depending on the progress of the patient. Anticipate discharge in the next 24 hours.
[2016-11-10] MEDS ORDERED: DEXTROSE 50%-WATER 50 ML SYRINGE IVP ONE (12:01)
[2016-11-10 12:07] LABS: Glucose,Whole Blood 79 mg/dL (75-99)
[2016-11-10 13:47] VITALS: BMI 44.6
[2016-11-10] MEDS ORDERED: LACTATED RINGERS 1,000 ML IV ONE (14:15)
[2016-11-10] MEDS ORDERED: LIDOCAINE 2% INJ 20 MG/ML SQ ONE ×2 (14:19→14:31)
[2016-11-10] MEDS ORDERED: BUPIVACAINE (PF) 0.5% 30 ML VIAL SQ ONE ×2 (14:19→14:31)
[2016-11-10] MEDS ORDERED: fentaNYL (PF) 50 MCG/ML 2 ML AMP ONE (14:27)
[2016-11-10] MEDS ORDERED: PROPOFOL 10 MG/ML 20 ML VIAL IV ONE (14:27)
[2016-11-10] MEDS ORDERED: MIDAZOLAM 2 MG/2 ML VIAL ONE (14:27)
[2016-11-10 14:40] LABS: Glucose,Whole Blood 114 mg/dL (75-99)
[2016-11-10 15:21] LABS: Glucose,Whole Blood 105 mg/dL (75-99)
[2016-11-10 17:13] LABS: Glucose,Whole Blood 163 mg/dL (75-99)
[2016-11-10] MEDS: FUROSEMIDE 40 MG TAB PO SCH (19:07)
[2016-11-10 20:56] LABS: Glucose,Whole Blood 94 mg/dL (75-99)
--- NOTE | 2016-11-10 21:53 | P.PN ---
Subjective Principal diagnosis: Infection to right index finger 76-year-old woman who has a history of diabetes mellitus type 2 this poorly controlled relates that she fell to the ground 2 weeks ago. She did injure her hand on the index finger when the fall occurred. She does not recall that she had a significant bleeding wound. She then had repeated trauma to the index finger when a window fell onto the finger also. Since then she's been having increasing difficulties of pain and swelling to the finger. Was in the outpatient setting and placed on cephalexin. Despite that he continue to worsen. She constantly was brought into hospital with severe pain and swelling to the right index finger. There is evidence of an extensive infection to that area seemed to be worsened by her underlying diabetes. Because she's been taking the operating room for incision and drainage of the significant infection. Surgical note relates to extensive debridement and exploration of the finger. With extensive infection. Patient still having some pain at the site. Dressing change was definitely uncomfortable. She over is denying high- grade fever, chills or rigors. She's not had a problem like this in the past. We discussed her elevated hemoglobin A1c. She seems to have very little understanding about the impact of high blood sugars on infection. She was taken to the operating him today and repeated incision and drainage of the finger occurred. Case is discussed with the surgeon. The finger appears to be viable. There was no evidence of any significant tissue necrosis. Further incision and drainage and debridement occurred. Goal will be to salvage the finger. Joints were also debrided. Evidence of pain at the site she has no other acute complaints. Wants know she can go home tonight. Continues to have almost no understanding about her diabetes. Objective - Vital Signs Vital signs: Vital Signs Temp 97.5 F L 11/10/16 15:45 Pulse 46 L 11/10/16 15:45 Resp 16 11/10/16 15:45 BP 139/58 11/10/16 15:45 Pulse Ox 94 L 11/10/16 15:45 Intake & Output 11/10/16 11/10/16 11/11/16 06:59 18:59 06:59 Intake Total 200 Output Total 1 Balance 199 Weight 107.048 kg Intake: IV 200 Output: Estimated Blood Loss 1 Other: Voiding Method Toilet Diaper Incontinent # Voids 2 2 # Bowel Movements 0 - Exam 76-year-old woman who has obesity and recent fall with the acute change to her right hand. HEENT: Anicteric conjunctiva are pink and moist nasal mucosa grossly intact without significant lesions, there is no thrush. Neck: The neck is supple without significant lymphadenopathy or thyromegaly. Lungs: Symmetrical air entry. No difficulty crackles or wheezing. Heart: Regular rate and rhythm with an audible S1-S2, no S3 loud S4 There is no significant murmur click or rub, PMI was nondisplaced. Abdomen: Obese, Positive bowel sounds soft and nontender without palpable masses or organomegaly. There was no guarding or rebound. Extremities: Left upper extremity without abnormalities. The right upper extremity shows evidence of the recent surgical intervention to the right index finger. There is evidence of the incision and drainage and suture site. The finger continues to be erythematous tender swollen and painful. The erythema does not track significantly onto the dorsum of the hand. The recent surgical dressing is not removed at this time. However she is very little discomfort upon evaluation of the finger There is no right epitrochlear or axillary lymphadenopathy. No other abnormal lymph nodes were noted She has chronic bilateral extremity edema. She has poor range of motion to the left knee possibly after the recent fall but no fluctuance to the knee is noted. Neuro: Awake alert oriented to person place and time. There are no acute new gross focal sensory motor deficits. - Labs CBC & Chem 7: 11/10/16 08:21 11/10/16 08:21 Labs: Abnormal Lab Results - Last 24 Hours (Table) 11/10/16 11/10/16 11/10/16 Range/Units 04:31 08:21 14:23 BUN 28 H (7-17) mg/dL POC Glucose (mg/dL) 71 L 114 H (75-99) mg/dL 11/10/16 11/10/16 Range/Units 15:18 16:58 BUN (7-17) mg/dL POC Glucose (mg/dL) 105 H 163 H (75-99) mg/dL Microbiology - Last 24 Hours (Table) 11/10/16 12:00 Wound Culture - Preliminary Finger - Right Second 11/10/16 12:00 Anaerobic Culture - Preliminary Finger - Right Second 11/10/16 12:00 Anaerobic Culture - Preliminary Finger - Right Second 11/10/16 12:00 Wound Culture - Preliminary Finger - Right Second 11/05/16 11:40 Anaerobic Culture - Final Finger - Right First 11/03/16 18:45 Blood Culture - Final Blood No Growth after 144 hours Laboratory Results WBC 10.1 k/uL (3.8-10.6) 11/10/16 08:21 RBC 4.48 m/uL (3.80-5.40) 11/10/16 08:21 Hgb 13.5 gm/dL (11.4-16.0) 11/10/16 08:21 Hct 41.2 % (34.0-46.0) 11/10/16 08:21 MCV 91.9 fL (80.0-100.0) 11/10/16 08:21 MCH 30.1 pg (25.0-35.0) 11/10/16 08:21 MCHC 32.7 g/dL (31.0-37.0) 11/10/16 08:21 RDW 15.5 % (11.5-15.5) 11/10/16 08:21 Plt Count 207 k/uL (150-450) 11/10/16 08:21 Neutrophils % 69 % 11/10/16 08:21 Lymphocytes % 18 % 11/10/16 08:21 Monocytes % 6 % 11/10/16 08:21 Eosinophils % 4 % 11/10/16 08:21 Basophils % 1 % 11/10/16 08:21 Neutrophils # 7.0 k/uL (1.3-7.7) 11/10/16 08:21 Lymphocytes # 1.8 k/uL (1.0-4.8) 11/10/16 08:21 Monocytes # 0.6 k/uL (0-1.0) 11/10/16 08:21 Eosinophils # 0.4 k/uL (0-0.7) 11/10/16 08:21 Basophils # 0.1 k/uL (0-0.2) 11/10/16 08:21 Hypochromasia Slight 11/09/16 07:47 ESR 48 mm/hr (0-20) H 11/07/16 11:58 Sodium 139 mmol/L (137-145) 11/10/16 08:21 Potassium 4.6 mmol/L (3.5-5.1) 11/10/16 08:21 Chloride 106 mmol/L (98-107) 11/10/16 08:21 Carbon Dioxide 22 mmol/L (22-30) 11/10/16 08:21 Anion Gap 11 mmol/L 11/10/16 08:21 BUN 28 mg/dL (7-17) H 11/10/16 08:21 Creatinine 0.98 mg/dL (0.52-1.04) 11/10/16 08:21 Est GFR (MDRD) Af Amer >60 (>60 ml/min/1.73 sqM) 11/10/16 08:21 Est GFR (MDRD) Non-Af 55 (>60 ml/min/1.73 sqM) 11/10/16 08:21 Glucose 84 mg/dL (74-99) 11/10/16 08:21 POC Glucose (mg/dL) 94 mg/dL (75-99) 11/10/16 20:52 POC Glu Wirer SADIQ Kaitlyn Domínguez 11/10/16 20:[address] Glu mg/dL 174 mg/dL 11/03/16 18:47 Hemoglobin A1c 7.7 % (4.2-6.1) H 11/03/16 18:47 Plasma Lactic Acid Willis 1.1 mmol/L (0.7-2.0) 11/03/16 18:45 Calcium 9.7 mg/dL (8.4-10.2) 11/10/16 08:21 Total Bilirubin 0.9 mg/dL (0.2-1.3) 11/04/16 08:56 AST 21 U/L (14-36) 11/04/16 08:56 ALT 36 U/L (9-52) 11/04/16 08:56 Alkaline Phosphatase 78 U/L (38-126) 11/04/16 08:56 C-Reactive Protein 7.1 mg/L (<10.0) 11/07/16 11:58 Total Protein 6.5 g/dL (6.3-8.2) 11/04/16 08:56 Albumin 3.7 g/dL (3.5-5.0) 11/04/16 08:56 Prealbumin 26 mg/dL (18-36) 11/07/16 11:58 Vancomycin Trough 15.3 ug/mL 11/07/16 11:58 Microbiology 11/10/16 12:00 Finger - Right Second Wound Culture - Preliminary 11/10/16 12:00 Finger - Right Second Anaerobic Culture - Preliminary 11/10/16 12:00 Finger - Right Second Anaerobic Culture - Preliminary 11/10/16 12:00 Finger - Right Second Wound Culture - Preliminary 11/05/16 11:40 Finger - Right First Anaerobic Culture - Final 11/03/16 18:45 Blood Blood Culture - Final No Growth after 144 hours 11/05/16 11:40 Finger - Right First Anaerobic Culture - Final 11/05/16 11:40 Finger - Right First Gram Stain - Final 11/05/16 11:40 Finger - Right First Wound Culture - Final Methicillin resist S. aureus 11/05/16 11:40 Finger - Right First Gram Stain - Final 11/05/16 11:40 Finger - Right First Wound Culture - Final Assessment and Plan (1) Flexor tenosynovitis of finger Narrative/Plan: 76-year-old woman presents to Hospital status post fall in a parking lot where she injured her right hand on the asphalt. She then shortly thereafter had a secondary injury when a window fell on the finger. It progressively worsened and she did seek some care. She was placed on cephalexin. With increasing swelling and pain and lack of improvement she was then evaluated Hospital. She has was admitted is been seen by orthopedic surgery and has had the incision and drainage the finger performed. Extensive debridement and exploration occurred. Appears to have significant deep infection of the finger. With her diabetes she is at risk for significant poor outcome and constantly outpatient intravenous antibiotic therapy will be requested. Currently receiving vancomycin therapy , since was not improving was changed to Ceftaroline. There is a bit of improvement today. Orthopedics is content that with the soaks and elevation antibiotic therapy there is some improvement Will need IV access PICC line has been placed. She is wondering what she can be discharged home. Patient had surgery today. There's been some improvement and now there is likelihood for cellulitis for the finger. However will require a course of outpatient intravenous antibiotic therapy for deep tissue and joint infection. We'll plan 6 weeks of therapy. Prescription will be forwarded. Unclear if she can do this at home, will need to come to the hospital or have placement. Daily soaks will continue. The silver alginate dressing can be utilized next dressing change. The changed to Thursday with home care. Her mildly increased creatinine at admission has resolved. Status: Acute (2) Diabetes mellitus type 2, uncontrolled, with complications Status: Acute (3) Fall with injury Status: Acute (4) Fall Status: Acute
[2016-11-10] MEDS: CEFTAROLINE FOSAMIL 400 MG in SODIUM CHLORIDE 0.9% 250 ML IVPB SCH (22:11)
[2016-11-10] MEDS: ATORVASTATIN 40 MG TAB PO SCH (22:11)
[2016-11-10] MEDS: COLCHICINE 0.6 MG TAB PO SCH (22:11)
[2016-11-10] MEDS: INSULIN NPH 300 UNIT/3 ML VIAL SQ SCH (22:12)
[2016-11-10] MEDS: rOPINIRole HCL 4 MG TABLET PO SCH (22:13)
[2016-11-11] MEDS: HYDROcodone/APAP 5-325MG 1 EACH TAB PO PRN ×4 (06:11→20:17)
[2016-11-11] MEDS ORDERED: INSULIN NPL/INSULIN LISPRO 100 UNIT/ML 10 ML VIAL (Humalog 75/25) SQ SCH (07:30)
[2016-11-11 07:35] LABS: Glucose,Whole Blood 133 mg/dL (75-99)
[2016-11-11] MEDS: FUROSEMIDE 40 MG TAB PO SCH (08:12)
[2016-11-11] MEDS: MULTIVITAMINS, THERA 1 EACH TAB PO SCH (08:13)
[2016-11-11] MEDS: CHOLECALCIFEROL 1,000 UNIT TAB PO SCH (08:13)
[2016-11-11] MEDS: CYANOCOBALAMIN 500 MCG TAB PO SCH (08:13)
[2016-11-11] MEDS: FOLIC ACID 1 MG TAB PO SCH (08:13)
[2016-11-11] MEDS: amLODIPine 5 MG TAB PO SCH (08:13)
[2016-11-11] MEDS: METOPROLOL TARTRATE 25 MG TAB PO SCH (08:13)
[2016-11-11] MEDS: ALLOPURINOL 100 MG TAB PO SCH (08:13)
[2016-11-11] MEDS: LORATADINE 10 MG TAB PO SCH (08:13)
[2016-11-11] MEDS: CITALOPRAM HYDROBROMIDE 20 MG TAB PO SCH (08:13)
[2016-11-11] MEDS: ASPIRIN 325 MG TAB PO SCH (08:13)
[2016-11-11] MEDS: PANTOPRAZOLE 40 MG TABLET PO SCH (08:14)
[2016-11-11] MEDS: HEPARIN SODIUM,PORCINE 5,000 UNIT/ML 1 ML VIAL SQ SCH ×3 (08:14→23:06)
[2016-11-11] MEDS: INSULIN LISPRO (humaLOG) 300 UNIT/3 ML VIAL SQ SCH ×4 (08:15→21:07)
[2016-11-11] MEDS: CEFTAROLINE FOSAMIL 400 MG in SODIUM CHLORIDE 0.9% 250 ML IVPB SCH ×2 (08:15→20:16)
--- NOTE | 2016-11-11 08:24 | P.PN ---
Subjective Principal diagnosis: Right index finger infection This is a 76 year-old female with a right index finger infection. She is status post repeat I &D yesterday. The patient was evaluated in a recliner chair at the bedside today. The patient denies fever, chills, rigors, nausea, vomiting, abdominal pain, shortness of breath, and chest pain this morning. She states her pain is controlled at this time. We are awaiting set up of outpatient IV antibiotics and wound care. The patient states she would like to go home today. Objective - Vital Signs Vital signs: Vital Signs Temp 97.4 F L 11/11/16 07:00 Pulse 58 L 11/11/16 07:00 Resp 18 11/11/16 07:00 BP 138/65 11/11/16 07:00 Pulse Ox 95 11/11/16 07:00 Intake & Output 11/10/16 11/11/16 11/11/16 18:59 06:59 18:59 Intake Total 200 250 Output Total 1 Balance 199 250 Weight 107.048 kg Intake: IV 200 Intake, IV Titration 250 Amount Ceftaroline Fosamil 400 250 mg In Sodium Chloride 0.9 % 250 ml @ 250 mls/hr IVPB Q12HR [facility] Rx#: [id number] Output: Estimated Blood Loss 1 Other: Voiding Method Toilet Diaper Incontinent # Voids 2 4 - Exam The patient does not appear in acute distress. Alert and orientated x3. There is a bulky OR dressing to the right index finger that is clean, dry, and intact. Sensation and circulatory status is intact. - Labs CBC & Chem 7: 11/11/16 08:53 11/11/16 08:53 Labs: Abnormal Lab Results - Last 24 Hours (Table) 11/10/16 11/10/16 11/10/16 Range/Units 08:21 14:23 15:18 BUN 28 H (7-17) mg/dL POC Glucose (mg/dL) 114 H 105 H (75-99) mg/dL 11/10/16 11/11/16 Range/Units 16:58 07:33 BUN (7-17) mg/dL POC Glucose (mg/dL) 163 H 133 H (75-99) mg/dL Microbiology - Last 24 Hours (Table) 11/10/16 12:00 Gram Stain - Preliminary Finger - Right Second Wound Culture - Preliminary 11/10/16 12:00 Gram Stain - Preliminary Finger - Right Second Wound Culture - Preliminary 11/10/16 12:00 Anaerobic Culture - Preliminary Finger - Right Second 11/10/16 12:00 Anaerobic Culture - Preliminary Finger - Right Second Assessment and Plan (1) Cellulitis of right index finger Status: Acute (2) Status post incision and drainage Status: Acute Plan: The clinical and surgical findings were discussed at length with the patient. The case was also discussed with Dr. Marlon Chadwick. Cultures from last week are showing MRSA. Cultures from yesterday are pending. The prognosis for the finger is ok at this time. An amputation may be needed in the future if she fails to improve. This was discussed with the patient. Continue IV antibiotics and wound care per infectious disease. Case management to set up outpatient IV antibiotic therapy and wound care either in her home or on an outpatient basis in the hospital. From an orthopedic standpoint, the patient may be discharged home when arrangements have been made. She will follow up with Dr. Marlon Chadwick in 10-14 days.
[2016-11-11 09:43] LABS: Basophils # (A) 0.1 k/uL (0-0.2); Basophils % (A) 1 %; CH 29.9; CHCM 31.7; Eosinophils # (A) 0.4 k/uL (0-0.7); Eosinophils % (A) 4 %; HCT 44.3 % (34.0-46.0); HGB 14.2 gm/dL (11.4-16.0); Hypochromasia Slight; Luc # (Auto) 0.22; Luc % (Auto) 2; Lymphocytes # (A) 1.8 k/uL (1.0-4.8); Lymphocytes % (A) 18 %; MCH 30.3 pg (25.0-35.0); MCV 94.7 fL (80.0-100.0); Mean Platelet Volume 8.1; Monocytes # (A) 0.5 k/uL (0-1.0); Monocytes % (A) 5 %; Neutrophils # (A) 7.1 k/uL (1.3-7.7); Neutrophils % (A) 71 %; RBC 4.68 m/uL (3.80-5.40); RDW 15.8 % (11.5-15.5); WBC 10.1 k/uL (3.8-10.6); WBC (Perox) 10.08
[2016-11-11 10:01] LABS: Calcium 9.7 mg/dL (8.4-10.2); Potassium 5.3 mmol/L (3.5-5.1)
--- NOTE | 2016-11-11 10:26 | PN ---
DATE OF SERVICE: 11/10/2016 PRESENTING COMPLAINT: Infection of the right index finger. INTERVAL HISTORY: This is a patient with multiple medical including uncontrolled diabetes type 2, suffered injury to the right index finger falling on the asphalt and then window falling on the same. Patient did undergo I&D yet again today. Patient has been on IV antibiotics. Patient complaining of swelling of the lower extremity initially. Diuretics were held because of renal function being off. Right hand is in a dressing. Review of systems done for constitutional, cardiovascular, GI, pulmonary; dermatologic; relevant findings as above. Current medications are reviewed that include IV ceftaroline. On examination, temperature 97.5, pulse 46, respiration 16, blood pressure 139/58, pulse ox 94% on room air. GENERAL APPEARANCE: Sitting up on a chair, not in distress. EYES: Pupils equal. Conjunctivae normal. NECK: JVD not raised. Mass not palpable. RESPIRATORY: Effort normal. LUNGS: Fair air entry. CARDIOVASCULAR: First and second sounds. Edema present. ABDOMEN: Soft, nontender. Liver and spleen not palpable. PSYCHIATRY: Alert and oriented x3. Mood is normal. EXTREMITIES: Right hand in a dressing. INVESTIGATIONS: White count 10.1, hemoglobin 13.5. Potassium 4.6. ASSESSMENT: 1. Acute cellulitis, tenosynovitis of the right hand including the right index finger, status post I&D, slow to respond to IV antibiotics with wound culture growing methicillin-resistant Staphylococcus aureus. 2. Morbid obesity, body mass index 44.6. 3. Essential hypertension. 4. Hyperlipidemia. 5. Depression not otherwise specified. 6. Chronic insomnia, idiopathic. 7. Gastroesophageal reflux disease. 8. Chronic restless leg syndrome. 9. Primary osteoarthritis of multiple joints, bilateral. 10. Obstructive sleep apnea and does use a CPAP machine. 11. Chronic gout. 12. Left foot drop chronic. 13. Chronic gait dysfunction, uses a walker. PLAN: Continue local wound care as per Orthopedics and Dr. Vegas. Patient is on IV ceftaroline. Because patient is complaining of leg swelling will put the Lasix back on board. Per Infection Disease patient will need IV PICC line. Patient's Accu-Cheks are better controlled for now at least. Will follow that through. Patient is on regimen of NPH and Humalog which may not be the best. I will switch her over to insulin 70/30 for better control of sugar.
--- NOTE | 2016-11-11 10:53 | PCN ---
DATE OF PROCEDURE: SURGEON: BRAYDEN ROBIN DO PREOPERATIVE DIAGNOSIS: Diabetic infected right index finger. POSTOPERATIVE DIAGNOSIS: Diabetic infected right index finger. PROCEDURE: 1. Incision and drainage volar proximal phalanx level. 2. Incision and drainage dorsal proximal phalanx level. 3. Incision and drainage with arthrotomy, joint debridement, soft tissue and tendon debridement dorsal distal right index finger. 4. Deep lavage and multiple cultures. INDICATIONS: This poorly controlled 76-year-old diabetic was admitted a week ago with an infected right index finger. She underwent a fairly urgent incision and drainage and has made improvement, but her finger continues to swell and has several areas of fluctuance and draining pus. GROSS PATHOLOGY: The primary area of involvement is the dorsal DIP joint area. There was some sanaz pus in this area, there was infected skin, subcutaneous tissue, extensor tendon and dorsal capsule. As such, the infection clearly involves the joint and probably bone. The proximal dorsal wound had minimal signs of infection at this time with no pus or significant fluid accumulation. The proximal volar swollen area had inflammatory fluid. No signs of sanaz pus. This was cultured separately as volar index finger. DESCRIPTION OF PROCEDURE: This 76-year-old woman was taken to the operative suite and given IV sedation, and I did a digital block of her right index finger, combination of Xylocaine and Marcaine, both without epinephrine. Hand was prepped and draped in the usual manner. No tourniquet was used. The primary wound was opened, extended proximally and distally for a length of 3 to 4 cm. Skin, subcutaneous tissue, extensor tendon and dorsal capsule were all debrided with any visual involved tissue. This exposed the dorsal joint which had some arthritic changes, but otherwise no sanaz visual findings of infected bone. A culture was taken also of this area. A separate incision was then made dorsal proximal and there were no significant signs of infection at this level. No significant debridement was necessary at this level. A fluctuant area on the proximal volar aspect was opened in a zigzag diagonal manner, which would allow further extension of the wound in the future if necessary. There was inflammatory fluid noted and it was cultured but no signs of sanaz pus. All 3 wounds were then copiously irrigated with antibiotic pulse lavage. Tourniquet was then released. The wounds were further irrigated. No wound closure was performed. All 3 wounds were packed with iodoform gauze. Soft, bulky dressing was applied and the patient taken to the recovery room in satisfactory condition.
[2016-11-11 11:58] LABS: Glucose,Whole Blood 250 mg/dL (75-99)
[2016-11-11] MEDS: INSULIN NPL/INSULIN LISPRO 100 UNIT/ML 10 ML VIAL (Humalog 75/25) SQ SCH ×2 (12:54→17:38)
[2016-11-11 17:35] LABS: Glucose,Whole Blood 174 mg/dL (75-99)
[2016-11-11] MEDS: ATORVASTATIN 40 MG TAB PO SCH (20:17)
[2016-11-11 21:39] LABS: Glucose,Whole Blood 204 mg/dL (75-99)
[2016-11-11] MEDS: rOPINIRole HCL 4 MG TABLET PO SCH (21:52)
--- NOTE | 2016-11-11 23:01 | PN ---
DATE OF SERVICE: 11/11/2016 PRESENTING COMPLAINT: Infection of the right finger. INTERVAL HISTORY: This patient with multiple medical problems with injury to right index finger, status post I&D growing MRSA was on IV antibiotics. Dressings in place. Patient did get Lasix yesterday but the creatinine again bumped up again. Patient does drink quite a bit of fluids. Pain is better controlled in the right index finger. Review of systems done for constitutional, cardiovascular, GI, pulmonary; relevant findings as above. Current medications include IV ceftaroline. On examination, temperature 98.3, pulse 62, respirations 16, blood pressure 120/60, pulse ox 95% on room air. GENERAL APPEARANCE: Sitting up in a chair, not in distress. EYES: Pupils equal. Conjunctivae normal. NECK: JVD not raised. Mass not palpable. RESPIRATORY: Effort normal. LUNGS: Fair air entry. CARDIOVASCULAR: First and second sounds normal. Some edema is present. Stockings in place. ABDOMEN: Soft, nontender. Liver and spleen not palpable. PSYCHIATRY: Alert and oriented x3. Mood and affect normal. Right index finger in a dressing. INVESTIGATIONS: White count 10.1, potassium 5.3. BUN 32, creatinine 1.30. Accu-Cheks 159 this morning, 250 around noon. ASSESSMENT: 1. Acute cellulitis tenosynovitis of the right finger status post incision and drainage growing worse. 2. Morbid obesity, body mass index 44.6. 3. Essential hypertension. 4. Hyperlipidemia. 5. Depression not otherwise specified. 6. Chronic insomnia, idiopathic. 7. Gastroesophageal reflux disease. 8. Chronic restless leg syndrome. 9. Primary osteoarthritis of multiple joints, bilateral. 10. Obstructive sleep apnea does use a CPAP machine. 11. Chronic gout. 12. Left foot drop chronic. 13. Chronic gait dysfunction, uses a walker. PLAN: As the patient creatinine is going back up again, we will stop the Lasix. Told the patient to cut back on fluids overall. We will have her check sugar right now, adjust insulin accordingly. Will check BMP again in the morning. ( ).
[2016-11-12] MEDS: HYDROcodone/APAP 5-325MG 1 EACH TAB PO PRN ×3 (05:32→14:59)
[2016-11-12 07:34] LABS: Glucose,Whole Blood 257 mg/dL (75-99)
[2016-11-12 07:47] VITALS: RESP 16
[2016-11-12] MEDS: CEFTAROLINE FOSAMIL 400 MG in SODIUM CHLORIDE 0.9% 250 ML IVPB SCH (08:13)
[2016-11-12] MEDS: HEPARIN SODIUM,PORCINE 5,000 UNIT/ML 1 ML VIAL SQ SCH ×2 (08:16→17:26)
[2016-11-12] MEDS: amLODIPine 5 MG TAB PO SCH (08:18)
[2016-11-12] MEDS: METOPROLOL TARTRATE 25 MG TAB PO SCH (08:18)
[2016-11-12] MEDS: CITALOPRAM HYDROBROMIDE 20 MG TAB PO SCH (08:18)
[2016-11-12] MEDS: ALLOPURINOL 100 MG TAB PO SCH (08:18)
[2016-11-12] MEDS: PANTOPRAZOLE 40 MG TABLET PO SCH (08:18)
[2016-11-12] MEDS: MULTIVITAMINS, THERA 1 EACH TAB PO SCH (08:19)
[2016-11-12] MEDS: CHOLECALCIFEROL 1,000 UNIT TAB PO SCH (08:19)
[2016-11-12] MEDS: FOLIC ACID 1 MG TAB PO SCH (08:19)
[2016-11-12] MEDS: LORATADINE 10 MG TAB PO SCH (08:19)
[2016-11-12] MEDS: CYANOCOBALAMIN 500 MCG TAB PO SCH (08:20)
[2016-11-12] MEDS: INSULIN LISPRO (humaLOG) 300 UNIT/3 ML VIAL SQ SCH ×3 (08:21→17:25)
[2016-11-12] MEDS: INSULIN NPL/INSULIN LISPRO 100 UNIT/ML 10 ML VIAL (Humalog 75/25) SQ SCH ×3 (08:31→17:31)
--- NOTE | 2016-11-12 08:35 | P.PN ---
Subjective Principal diagnosis: Right index finger infection This is a 76 year-old female with a right index finger infection. She is status post repeat I &D two days ago. The patient was evaluated in a recliner chair at the bedside today. The patient denies fever, chills, rigors, nausea, vomiting, abdominal pain, shortness of breath, and chest pain this morning. She states her pain is controlled at this time. We are awaiting set up of outpatient IV antibiotics and wound care. The patient states she would like to go home today. Objective - Vital Signs Vital signs: Vital Signs Temp 98.7 F 11/12/16 07:00 Pulse 76 11/12/16 07:00 Resp 16 11/12/16 07:00 BP 154/64 11/12/16 07:00 Pulse Ox 97 11/12/16 07:00 Intake & Output 11/11/16 11/12/16 11/12/16 18:59 06:59 18:59 Intake Total 700 Balance 700 Intake: Oral 700 Other: Voiding Method Toilet Toilet Diaper Incontinent # Voids 4 3 - Exam The patient does not appear in acute distress. Alert and orientated x3. There is a dressing to the right index finger that is clean, dry, and intact. No swelling or erythema on the hand proximal to the finger. No proximal red streaking present. Sensation and circulatory status is intact. - Labs CBC & Chem 7: 11/11/16 08:53 11/11/16 08:53 Labs: Abnormal Lab Results - Last 24 Hours (Table) 11/11/16 11/11/16 11/11/16 Range/Units 08:53 08:53 11:56 RDW 15.8 H (11.5-15.5) % Potassium 5.3 H (3.5-5.1) mmol/L BUN 32 H (7-17) mg/dL Creatinine 1.30 H (0.52-1.04) mg/dL Glucose 159 H (74-99) mg/dL POC Glucose (mg/dL) 250 H (75-99) mg/dL 11/11/16 11/11/16 11/12/16 Range/Units 17:26 20:54 07:31 RDW (11.5-15.5) % Potassium (3.5-5.1) mmol/L BUN (7-17) mg/dL Creatinine (0.52-1.04) mg/dL Glucose (74-99) mg/dL POC Glucose (mg/dL) 174 H 204 H 257 H (75-99) mg/dL Microbiology - Last 24 Hours (Table) 11/10/16 12:00 Gram Stain - Preliminary Finger - Right Second Wound Culture - Preliminary 11/10/16 12:00 Gram Stain - Preliminary Finger - Right Second Wound Culture - Preliminary Assessment and Plan (1) Cellulitis of right index finger Status: Acute (2) Status post incision and drainage Status: Acute Plan: The clinical and surgical findings were discussed at length with the patient. The case was also discussed with Dr. Marlon Chadwick. Cultures from last week are showing MRSA. Cultures from yesterday are pending. The prognosis for the finger is ok at this time. An amputation may be needed in the future if she fails to improve. This was discussed with the patient. Continue IV antibiotics and wound care per infectious disease. Case management to set up outpatient IV antibiotic therapy and wound care either in her home or on an outpatient basis in the hospital. From an orthopedic standpoint, the patient may be discharged home when arrangements have been made. She will follow up with Dr. Marlon Chadwick in 10-14 days.
[2016-11-12] MEDS ORDERED: ASPIRIN 81 MG CHEW PO SCH (09:00)
[2016-11-12 10:09] LABS: Calcium 9.1 mg/dL (8.4-10.2); Potassium 4.9 mmol/L (3.5-5.1)
[2016-11-12 12:19] LABS: Glucose,Whole Blood 312 mg/dL (75-99)
--- NOTE | 2016-11-12 15:36 | CDI ---
In responding to this query, please exercise your independent professional judgment. The [facility] Coding Staff and Clinical Documentation Specialists appreciate your assistance in clarifying documentation, maintaining compliance with coding guidelines, accurately documenting patients condition and capturing severity of illness. The fact that a question is asked does not imply that any particular answer is desired or expected. Communication forms are a method of clarifying documentation and are not made part of the Legal Health Record. Thank you in advance for your clarification. Last Revision, June 2015 [address] [facility] [place] [address] Documentation Clarification Form Date: 11/12/2016 From: MICHAEL Duval, CCDS Admit Date: 11/03/2016 Patient Name: Vanessa Albright Visit Number: [id number] Dr Denilson Chadwick Per your operative note, a debridement was performed on 11/10/2016. History/Risk Factors: Infected right index finger DM type 2 Clinical Indicators: Gross Pathology: 'some sanaz pus...infected skin, subcutaneous tissue, extensor tendon and dorsal capsule. Infection clearly involves joint and probably bone.' 'The primary wound was opened, extended proximally and distally for 3-4 cm. Skin, subcutaneous tissue, extensor tendon and dorsal capsule were all debrided with any visual involved tissue. No sanaz visual findings of infected bone.' Treatment: Debridement IV Ceftaroline Fosamil In order to capture the severity of condition and code the appropriate procedure could you please document the following: Excisional debridement (the removal of necrotic, devitalized tissue or slough by means of cutting away of tissue) Non-excisional debridement (the removal of necrotic, devitalized tissue or slough by means of flushing, brushing, or washing. (Irrigation) Other; with explanation for clinical findings Unable to determine (no explanation for clinical findings) Please document in your progress notes and discharge summary in order to capture severity of illness and risk of mortality. Include clinical findings that support your diagnosis. FYI: Press F11 to launch patient chart. Place X here if this finding has no clinical significance, is not applicable or if you are not able to provide any additional documentation. NENITA
[2016-11-12 16:01] VITALS: BP 150/70; PULSE 57; TEMP 99.1
[2016-11-12 17:26] LABS: Glucose,Whole Blood 239 mg/dL (75-99)
[2016-11-12] MEDS ORDERED: INSULIN GLARGINE 100 UNIT/ML 10 ML VIAL SQ SCH (18:00)
--- NOTE | 2016-11-13 07:56 | DS ---
DATE OF ADMISSION: 11/03/2016 DATE OF DISCHARGE: 11/12/2016 FINAL DIAGNOSES: 1. Acute cellulitis and tenosynovitis of the right hand, finger secondary to trauma with methicillin-resistant Staphylococcus aureus infection. 2. Morbid obesity, body mass index of 44.6. 3. Essential hypertension. 4. Hyperlipidemia. 5. Depression, not otherwise specified. 6. Chronic insomnia, idiopathic. 7. Gastroesophageal reflux disease. 8. Chronic restless leg syndrome. 9. Primary osteoarthritis of multiple joints, bilateral. 10. Obstructive sleep apnea, uses CPAP machine. 11. Chronic gout. 12. Left foot drop, chronic. 13. Chronic gait dysfunction, uses a walker. PROCEDURE: I&D of the right finger. CONSULTATIONS: 1. Dr. Chadwick, Orthopedics. 2. Dr. Vegas, Infectious Disease. HOSPITAL COURSE: This is a patient with injury to the right index finger both with a fall and a window falling on it. It got infected. Cultures grew MRSA. Patient did have I&D carried out by Dr. Chadwick. By the time of discharge, pain is better controlled. Sugars have been up and down. Patient is taking NPH insulin at night. I switched her over to Lantus which she was taking before, not clear to the circumstances leading to that being used. Did tell the patient to keep a close eye on the sugars. Care was discussed with the patient. On examination, lungs are clear. CARDIOVASCULAR: First and second seconds are normal. DC planning more than 35 minutes. DISCHARGE MEDICATIONS: 1. Ventolin 2.5 nebulizer q.i.d. p.r.n. 2. Allopurinol 100 mg p.o. daily. 3. Celexa 20 mg p.o. daily. 4. Flexeril 10 mg p.o. t.i.d. p.r.n. 5. Folic acid 1 mg p.o. daily. 6. Claritin 10 mg p.o. daily. 7. Lopressor 25 mg p.o. daily. 8. Prilosec 20 mg p.o. daily. 9. Norvasc 5 mg p.o. daily. 10. Requip 4 mg p.o. q.h.s. 11. [place] 7.5 one tablet q.6 p.r.n. 12. Multivitamin 1 tablet p.o. daily. 13. Zocor 80 mg q.h.s. 14. Cinnamon 500 mg p.o. daily. 15. Vitamin D3 two thousand units p.o. daily. 16. Vitamin B12 one thousand mcg p.o. daily. 17. Zestril 20 mg p.o. daily. 18. Provera 2.5 mg p.o. daily. 19. Daptomycin 500 mg IV daily for 40 days. 20. Aspirin 81 mg p.o. daily. 21. NovoLog 15 units a.c. t.i.d. 22. Lantus 40 units subQ q.h.s. Patient's Lasix was discontinued because it kept making renal function worse. Follow with Dr. Mosher in 1 week; Dr. Vegas in 2 weeks; Dr. Chadwick on 11/21/2016. BNP, CBC weekly. Patient has come to [facility] daily for IV antibiotics and dressing changes. The patient's BUN and creatinine were 36/1.26 at the time of discharge.
--- NOTE | 2016-11-17 15:01 | CDI ---
In responding to this query, please exercise your independent professional judgment. The [facility] Coding Staff and Clinical Documentation Specialists appreciate your assistance in clarifying documentation, maintaining compliance with coding guidelines, accurately documenting patients condition and capturing severity of illness. The fact that a question is asked does not imply that any particular answer is desired or expected. Communication forms are a method of clarifying documentation and are not made part of the Legal Health Record. Thank you in advance for your clarification. Last Revision, June 2015 [address] [facility] [place] [address] Documentation Clarification Form Date: 11/12/2016 3:22:00 PM From: Bettybulmaro Souzacecilia Admit Date: 11/03/2016 5:47:00 PM Patient Name: Vanessa Albright Visit Number: [id number] Discharge Date: 11/12/2016 Dr. Denilson Chadwick Per your operative note, a debridement was performed on 11/10/2016. History/Risk Factors: Infected right index finger DM type 2 Clinical Indicators: Gross Pathology: 'some sanaz pus...infected skin, subcutaneous tissue, extensor tendon and dorsal capsule. Infection clearly involves joint and probably bone.' 'The primary wound was opened, extended proximally and distally for 3-4 cm. Skin, subcutaneous tissue, extensor tendon and dorsal capsule were all debrided with any visual involved tissue. No sanaz visual findings of infected bone.' Treatment: Debridement IV Ceftaroline Fosamil In order to capture the severity of condition and code the appropriate procedure could you please document the following: Excisional debridement (the removal of necrotic, devitalized tissue or slough by means of cutting away of tissue) Non-excisional debridement (the removal of necrotic, devitalized tissue or slough by means of flushing, brushing, or washing. (Irrigation) Other; with explanation for clinical findings Unable to determine (no explanation for clinical findings) Please document in your progress notes and discharge summary in order to capture severity of illness and risk of mortality. Include clinical findings that support your diagnosis. FYI: Press F11 to launch patient chart. Place X here if this finding has no clinical significance, is not applicable or if you are not able to provide any additional documentation. NENITA
--- NOTE | 2016-11-26 12:24 | CDI ---
In responding to this query, please exercise your independent professional judgment. The [facility] Coding Staff and Clinical Documentation Specialists appreciate your assistance in clarifying documentation, maintaining compliance with coding guidelines, accurately documenting patients condition and capturing severity of illness. The fact that a question is asked does not imply that any particular answer is desired or expected. Communication forms are a method of clarifying documentation and are not made part of the Legal Health Record. Thank you in advance for your clarification. Last Revision, June 2015 [address] [facility] [place] [address] Documentation Clarification Form Date: 11/12/2016 3:22:00 PM From: Betty Souzacecilia Admit Date: 11/03/2016 5:47:00 PM Patient Name: Vanessa Albright Visit Number: [id number] Discharge Date: 11/12/2016 Dr. Denilson Chadwick (resubmitted x2) Per your operative note, a debridement was performed on 11/10/2016. History/Risk Factors: Infected right index finger DM type 2 Clinical Indicators: Gross Pathology: 'some sanaz pus...infected skin, subcutaneous tissue, extensor tendon and dorsal capsule. Infection clearly involves joint and probably bone.' 'The primary wound was opened, extended proximally and distally for 3-4 cm. Skin, subcutaneous tissue, extensor tendon and dorsal capsule were all debrided with any visual involved tissue. No sanaz visual findings of infected bone.' Treatment: Debridement IV Ceftaroline Fosamil In order to capture the severity of condition and code the appropriate procedure could you please document the following: Excisional debridement (the removal of necrotic, devitalized tissue or slough by means of cutting away of tissue) Non-excisional debridement (the removal of necrotic, devitalized tissue or slough by means of flushing, brushing, or washing. (Irrigation) Other; with explanation for clinical findings Unable to determine (no explanation for clinical findings) Please document in your progress notes and discharge summary in order to capture severity of illness and risk of mortality. Include clinical findings that support your diagnosis. FYI: Press F11 to launch patient chart. Place X here if this finding has no clinical significance, is not applicable or if you are not able to provide any additional documentation. NENITA
--- NOTE | 2017-01-08 10:30 | CDI ---
In responding to this query, please exercise your independent professional judgment. The [facility] Coding Staff and Clinical Documentation Specialists appreciate your assistance in clarifying documentation, maintaining compliance with coding guidelines, accurately documenting patients condition and capturing severity of illness. The fact that a question is asked does not imply that any particular answer is desired or expected. Communication forms are a method of clarifying documentation and are not made part of the Legal Health Record. Thank you in advance for your clarification. Last Revision, June 2015 [address] [facility] [place] [address] Documentation Clarification Form 3rd Request (Signing the query in [employer] is not a documented response) Date: 11/12/2016 3:22:00 PM From: Betty Prakash RN, BSN, CCDS Admit Date: 11/03/2016 5:47:00 PM Patient Name: Vanessa Albright Visit Number: [id number] Dr. Denilson Chadwick Per your operative note, a debridement was performed on 11/10/2016. History/Risk Factors: Infected right index finger DM type 2 Clinical Indicators: Gross Pathology: 'some sanaz pus...infected skin, subcutaneous tissue, extensor tendon and dorsal capsule. Infection clearly involves joint and probably bone.' 'The primary wound was opened, extended proximally and distally for 3-4 cm. Skin, subcutaneous tissue, extensor tendon and dorsal capsule were all debrided with any visual involved tissue. No sanaz visual findings of infected bone.' Treatment: Debridement IV Ceftaroline Fosamil In order to capture the severity of condition and code the appropriate procedure could you please document the following: Excisional debridement (the removal of necrotic, devitalized tissue or slough by means of cutting away of tissue) Non-Excisional debridement (the removal of necrotic, devitalized tissue or slough by means of flushing, brushing, or washing. (Irrigation) Other; with explanation for clinical findings Unable to determine (no explanation for clinical findings) Please document in your progress notes and discharge summary in order to capture severity of illness and risk of mortality. Include clinical findings that support your diagnosis. FYI: Press F11 to launch patient chart. Place X here if this finding has no clinical significance, is not applicable or if you are not able to provide any additional documentation. MTDD
--- NOTE | 2017-01-21 11:32 | CDI ---
In responding to this query, please exercise your independent professional judgment. The [facility] Coding Staff and Clinical Documentation Specialists appreciate your assistance in clarifying documentation, maintaining compliance with coding guidelines, accurately documenting patients condition and capturing severity of illness. The fact that a question is asked does not imply that any particular answer is desired or expected. Communication forms are a method of clarifying documentation and are not made part of the Legal Health Record. Thank you in advance for your clarification. Last Revision, June 2015 [address] [facility] [place] [address] Documentation Clarification Form 4th attempt Date: 11/12/2016 3:22:00 PM From: Betty Prakash RN, BSN, CCDS Admit Date: 11/03/2016 5:47:00 PM Patient Name: Vanessa Albright Visit Number: [id number] Dr. Denilson Chadwick Per your operative note, a debridement was performed on 11/10/2016. History/Risk Factors: Infected right index finger DM type 2 Clinical Indicators: Gross Pathology: 'some sanaz pus...infected skin, subcutaneous tissue, extensor tendon and dorsal capsule. Infection clearly involves joint and probably bone.' 'The primary wound was opened, extended proximally and distally for 3-4 cm. Skin, subcutaneous tissue, extensor tendon and dorsal capsule were all debrided with any visual involved tissue. No sanaz visual findings of infected bone.' Treatment: Debridement IV Ceftaroline Fosamil In order to capture the severity of condition and code the appropriate procedure could you please document the following: Excisional debridement (the removal of necrotic, devitalized tissue or slough by means of cutting away of tissue) Non-excisional debridement (the removal of necrotic, devitalized tissue or slough by means of flushing, brushing, or washing. (Irrigation) Other; with explanation for clinical findings Unable to determine (no explanation for clinical findings) Please document in your progress notes and discharge summary in order to capture severity of illness and risk of mortality. Include clinical findings that support your diagnosis. FYI: Press F11 to launch patient chart. Place X here if this finding has no clinical significance, is not applicable or if you are not able to provide any additional documentation. NENITA
--- NOTE | 2017-02-08 11:44 | OP ---
This is Dr. Bob Gibson dictating an addendum report for Dr. Denilson Chadwick ADDENDUM: An excisional debridement of the right index finger was performed via sharp dissection with removal of necrotic devitalized tissue. NENITA
== END 2016-11-12 18:46 | disposition home health service (06) | DRG 513 ==
LOC: EC 15:50 → 4MS4W 17:47
PROVIDERS: ADMIT Hospitalist; ATTEND Hospitalist
PROC: 0H9FXZZ Drainage of Right Hand Skin, External Approach (ICD-10-PCS; 2016-11-05)
PROC: 02HV33Z Insertion of Infusion Device into Superior Vena Cava, Percutaneous Approach (ICD-10-PCS; 2016-11-07 09:15)
PROC: 0LB70ZZ Excision of Right Hand Tendon, Open Approach (ICD-10-PCS; principal; 2016-11-10 10:30)
DX: M65.141 Other infective (teno)synovitis, right hand (principal); N17.9 Acute kidney failure, unspecified; I69.954 Hemiplegia and hemiparesis following unspecified cerebrovascular disease affecting left non-dominant side; L02.511 Cutaneous abscess of right hand; E11.65 Type 2 diabetes mellitus with hyperglycemia; B95.62 Methicillin resistant Staphylococcus aureus infection as the cause of diseases classified elsewhere; F32.9 Major depressive disorder, single episode, unspecified; I10 Essential (primary) hypertension; C54.1 Malignant neoplasm of endometrium; J44.9 Chronic obstructive pulmonary disease, unspecified; E66.01 Morbid (severe) obesity due to excess calories; S63.610A Unspecified sprain of right index finger, initial encounter; E78.5 Hyperlipidemia, unspecified; F51.04 Psychophysiologic insomnia; G25.81 Restless legs syndrome; G47.33 Obstructive sleep apnea (adult) (pediatric); I87.8 Other specified disorders of veins; K21.9 Gastro-esophageal reflux disease without esophagitis; M15.9 Polyosteoarthritis, unspecified; M1A.9XX0 Chronic gout, unspecified, without tophus (tophi); T50.1X5A Adverse effect of loop [high-ceiling] diuretics, initial encounter; M21.372 Foot drop, left foot; F41.9 Anxiety disorder, unspecified; M20.40 Other hammer toe(s) (acquired), unspecified foot; R26.9 Unspecified abnormalities of gait and mobility; R60.0 Localized edema; N93.9 Abnormal uterine and vaginal bleeding, unspecified; R32 Unspecified urinary incontinence; Z68.41 Body mass index [BMI] 40.0-44.9, adult; Z79.4 Long term (current) use of insulin; Z79.82 Long term (current) use of aspirin; Z79.899 Other long term (current) drug therapy; Z96.653 Presence of artificial knee joint, bilateral; Z82.49 Family history of ischemic heart disease and other diseases of the circulatory system; W03.XXXA Other fall on same level due to collision with another person, initial encounter; Y92.481 Parking lot as the place of occurrence of the external cause
CPT/HCPCS: 36415; 36569; 76937; 77001; 80048; 80053; 80202; 83036; 83605; 84134; 85025; 85027; 85652; 86140; 87040; 87070; 87075; 87077; 87186; 87205; 96365; 96366; 99285

== ENCOUNTER 2017-05-09 10:14 | Emergency (ER) | payer MEDICARE, BC ==
[2017-05-09 10:20] VITALS: TEMP 98.1
--- NOTE | 2017-05-09 10:47 | ED ---
Fall HPI - General Chief Complaint: Fall Stated Complaint: left sided rib pain Time Seen by Provider: 05/09/17 10:24 Source: patient Mode of arrival: wheelchair - History of Present Illness Initial Comments: This is a 77-year-old female who states she tripped carrying her walker down some steps about 2 weeks ago she fell pain in the left side of her chest wall. She states she's had persistent pain for last 2 weeks is somewhat sharp in nature left lateral ribs she has a cough fevers chills sweats or other symptoms she is afraid that she did break her ribs. She has no complaints of any other injuries. No abdominal pain no cough or phlegm production no fevers chills or sweats. MD Complaint: fall - Related Data Home Medications Medication Instructions Recorded Confirmed Albuterol Nebulized [Ventolin 2.5 mg INHALATION RT-QID PRN 03/27/14 12/22/16 Nebulized] Allopurinol [Zyloprim] 100 mg PO DAILY 03/27/14 12/22/16 Citalopram Hydrobromide [CeleXA] 20 mg PO DAILY 03/27/14 12/22/16 Cyclobenzaprine [Flexeril] 10 mg PO TID PRN 03/27/14 12/22/16 Folic Acid 1 mg PO DAILY 03/27/14 12/22/16 Loratadine [Claritin] 10 mg PO DAILY 03/27/14 12/22/16 Metoprolol Tartrate [Lopressor] 25 mg PO DAILY 03/27/14 12/22/16 Omeprazole [PriLOSEC] 20 mg PO DAILY 03/27/14 12/22/16 amLODIPine [Norvasc] 5 mg PO DAILY 03/27/14 12/22/16 rOPINIRole HCL [Requip] 4 mg PO HS 03/27/14 12/22/16 Hydrocodone/Acetaminophen 1 tab PO Q6HR PRN 07/10/14 12/22/16 [Hydrocodon-Acetaminoph 7.5-325] Multivitamins, Thera [Multivitamin 1 tab PO DAILY 07/25/14 12/22/16 (formulary)] Simvastatin [Zocor] 40 mg PO HS 07/25/14 12/22/16 Cinnamon Bark [Cinnamon] 500 mg PO DAILY 12/19/14 12/22/16 Cholecalciferol [Vitamin D3] 2,000 unit PO DAILY 11/03/16 12/22/16 Cyanocobalamin (Vitamin B-12) 1,000 mcg PO QAM 11/03/16 12/22/16 [Vitamin B-12] Lisinopril [Zestril] 20 mg PO DAILY 11/03/16 12/22/16 medroxyPROGESTERone [Provera] 2.5 mg PO DAILY 11/03/16 12/22/16 Benazepril HCl [Lotensin] 20 mg PO DAILY 11/13/16 12/22/16 DAPTOmycin [Cubicin] 500 mg IV DAILY 11/13/16 12/22/16 Previous Rx's Medication Instructions Recorded Aspirin 81 mg PO DAILY chew 11/12/16 Insulin Aspart [NovoLOG] 15 unit SQ AC-TID #0 11/12/16 Insulin Glargine [Lantus] 40 unit SQ HS #1 vial 11/12/16 Allergies Allergy/AdvReac Type Severity Reaction Status Date / Time No Known Allergies Allergy Verified 05/09/17 10:20 Review of Systems ROS Statement: Those systems with pertinent positive or pertinent negative responses have been documented in the HPI. ROS Other: All systems not noted in ROS Statement are negative. Past Medical History Past Medical History: Chest Pain / Angina, COPD, CVA/TIA, Diabetes Mellitus, GERD/Reflux, Hyperlipidemia, Hypertension, Memory Impairment, Osteoarthritis (OA ), Sleep Apnea/CPAP/BIPAP Additional Past Medical History / Comment(s): hx. heart murmur,. gout,. 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 ,ANEMIA, right first finger cellulitis. HAMMERTOE BILAT. HAS CPAP-DOES NOT USE History of Any Multi-Drug Resistant Organisms: None Reported Past Surgical History: Heart Catheterization, Joint Replacement, Orthopedic Surgery Additional Past Surgical History / Comment(s): BILAT CATARACTS REMOVED. ORIF LT ARM. BILAT TKA. HEART CATH-2013,. D&C. LT BUNIONECTOMY Past Anesthesia/Blood Transfusion Reactions: No Reported Reaction Past Psychological History: Anxiety, Depression Smoking Status: Never smoker Past Alcohol Use History: None Reported Past Drug Use History: None Reported - Past Family History Father Family Medical History: Myocardial Infarction ([place]), Rheumatoid Arthritis ([place]) Additional Family Medical History / Comment(s): AT AGE 76 Mother Family Medical History: CVA/TIA, Myocardial Infarction ([place]) Additional Family Medical History / Comment(s): AGE 80 General Exam - General Exam Comments Initial Comments: this is a well-developed well-nourished awake alert oriented 3 female Limitations: physical limitation General appearance: alert, in no apparent distress Head exam: Present: atraumatic, normocephalic, normal inspection Eye exam: Present: normal appearance, PERRL, EOMI. Absent: scleral icterus, conjunctival injection, periorbital swelling ENT exam: Present: normal exam, mucous membranes moist Neck exam: Present: normal inspection. Absent: tenderness, meningismus, lymphadenopathy Respiratory exam: Present: chest wall tenderness, decreased breath sounds, other (tenderness palpation over the left lateral chest wall no step-off or crepitation no obvious bruising no evidence of any rash. No definite focal tenderness just generalized tenderness palpation over the posterior lateral and anterior lateral mid to distal ribs.). Absent: respiratory distress, wheezes, rales, rhonchi, stridor Cardiovascular Exam: Present: regular rate, normal rhythm, normal heart sounds. Absent: systolic murmur, diastolic murmur, rubs, gallop, clicks GI/Abdominal exam: Present: soft, normal bowel sounds, other (obese abdomen nontender to palpation). Absent: distended, tenderness, guarding, rebound, rigid Extremities exam: Present: normal inspection, full ROM, normal capillary refill. Absent: tenderness, pedal edema, joint swelling, calf tenderness Back exam: Present: normal inspection Neurological exam: Present: alert, oriented X3, CN II-XII intact Psychiatric exam: Present: normal affect, normal mood Skin exam: Present: warm, dry, intact, normal color. Absent: rash Course Vital Signs 05/09/17 10:17 Temperature 98.1 F Pulse Rate 78 Respiratory 20 Rate Blood Pressure 165/67 O2 Sat by Pulse 96 Oximetry Medical Decision Making - Medical Decision Making I did discuss findings with the patient she will be discharged. - Radiology Data Radiology results: report reviewed (I did review the imaging and reports. Per the report no fractures seen however on my examination I do see evidence of a fracture left sixth rib. I did discuss this with the patient.), image reviewed Disposition Clinical Impression: Left rib fracture Disposition: HOME SELF-CARE Condition: Good Instructions: Rib Fracture (ED), Fall Prevention for Older Adults (ED) Additional Instructions: Continue using her home pain medication as needed. Referrals: Steven Mosher DO [Primary Care Provider] - 1-2 days
--- NOTE | 2017-05-09 11:57 | XR ---
EXAMINATION TYPE: XR ribs LT w pa chest xray , 5 VIEWS DATE OF EXAM ORDERED: 05/09/2017 HISTORY: Pain. COMPARISON: Previous chest x-ray dated 07/25/2014. FINDINGS: There has been previous internal fixation of the left humerus. The heart is enlarged. There are areas of platelike atelectasis in both lungs. There is blunting of t he left CP angle and I cannot exclude a small left effusion. There is no evidence of pneumothorax. No displaced rib fracture is identified. IMPRESSION: 1. CARDIOMEGALY. 2. BILATERAL AREAS OF PLATELIKE ATELECTASIS. 3. I CANNOT EXCLUDE A SMALL LEFT EFFUSION. 4. I DO NOT IDENTIFY A DISPLACED RIB FRACTURE.
[2017-05-09 12:28] VITALS: BP 143/65; PULSE 57; RESP 18
== END 2017-05-09 12:28 | disposition home or self-care (01) ==
LOC: EC 10:14
DX: S22.32XA Fracture of one rib, left side, initial encounter for closed fracture (principal); K21.9 Gastro-esophageal reflux disease without esophagitis; E78.5 Hyperlipidemia, unspecified; I10 Essential (primary) hypertension; F41.9 Anxiety disorder, unspecified; F32.9 Major depressive disorder, single episode, unspecified; G47.30 Sleep apnea, unspecified; Z99.89 Dependence on other enabling machines and devices; Z86.73 Personal history of transient ischemic attack (TIA), and cerebral infarction without residual deficits; Z95.818 Presence of other cardiac implants and grafts; Z79.899 Other long term (current) drug therapy; W10.9XXA Fall (on) (from) unspecified stairs and steps, initial encounter
CPT/HCPCS: 99283

== ENCOUNTER 2017-08-16 10:12 | Emergency (ER) | payer MEDICARE, BC ==
--- NOTE | 2017-08-16 10:39 | ED ---
General Adult HPI - General Chief complaint: ENT Stated complaint: Bloody nose Time Seen by Provider: 08/16/17 10:25 Source: patient, family, RN notes reviewed Mode of arrival: wheelchair Limitations: no limitations - History of Present Illness Initial comments: Patient is a pleasant 77-year-old female presenting to the emergency department complaining of left epistaxis. Onset was around an hour ago. No other areas of bleeding. Patient takes aspirin. No other blood thinners. Patient does have a history of occasional episodes of epistaxis. No shortness of breath or weakness. - Related Data Home Medications Medication Instructions Recorded Confirmed Albuterol Nebulized [Ventolin 2.5 mg INHALATION RT-QID PRN 03/27/14 08/16/17 Nebulized] Allopurinol [Zyloprim] 100 mg PO DAILY 03/27/14 08/16/17 Citalopram Hydrobromide [CeleXA] 20 mg PO DAILY 03/27/14 08/16/17 Cyclobenzaprine [Flexeril] 10 mg PO TID PRN 03/27/14 08/16/17 Folic Acid 1 mg PO DAILY 03/27/14 08/16/17 Loratadine [Claritin] 10 mg PO DAILY 03/27/14 08/16/17 Metoprolol Tartrate [Lopressor] 25 mg PO DAILY 03/27/14 08/16/17 Omeprazole [PriLOSEC] 20 mg PO DAILY 03/27/14 08/16/17 amLODIPine [Norvasc] 5 mg PO DAILY 03/27/14 08/16/17 rOPINIRole HCL [Requip] 4 mg PO HS 03/27/14 08/16/17 Hydrocodone/Acetaminophen 1 tab PO Q6HR PRN 07/10/14 08/16/17 [Hydrocodon-Acetaminoph 7.5-325] Multivitamins, Thera [Multivitamin 1 tab PO DAILY 07/25/14 08/16/17 (formulary)] Simvastatin [Zocor] 40 mg PO HS 07/25/14 08/16/17 Cinnamon Bark [Cinnamon] 500 mg PO DAILY 12/19/14 08/16/17 Cholecalciferol [Vitamin D3] 2,000 unit PO DAILY 11/03/16 08/16/17 Cyanocobalamin (Vitamin B-12) 1,000 mcg PO QAM 11/03/16 08/16/17 [Vitamin B-12] Lisinopril [Zestril] 20 mg PO DAILY 11/03/16 08/16/17 medroxyPROGESTERone [Provera] 2.5 mg PO DAILY 11/03/16 08/16/17 Benazepril HCl [Lotensin] 20 mg PO DAILY 11/13/16 08/16/17 Insulin Aspart [NovoLOG 22 unit SQ AC-TID 08/16/17 08/16/17 (formulary)] Insulin Aspart [NovoLOG See Protocol SQ AC-TID PRN 08/16/17 08/16/17 (formulary)] Insulin Glargine [Lantus] 50 unit SQ HS 08/16/17 08/16/17 Previous Rx's Medication Instructions Recorded Aspirin 81 mg PO DAILY chew 11/12/16 Allergies Allergy/AdvReac Type Severity Reaction Status Date / Time No Known Allergies Allergy Verified 08/16/17 10:41 Review of Systems ROS Statement: Those systems with pertinent positive or pertinent negative responses have been documented in the HPI. ROS Other: All systems not noted in ROS Statement are negative. Constitutional: Denies: fever Eyes: Denies: eye pain ENT: Denies: ear pain Respiratory: Denies: cough, dyspnea Cardiovascular: Denies: chest pain Endocrine: Denies: fatigue Gastrointestinal: Denies: abdominal pain Genitourinary: Denies: dysuria, hematuria Musculoskeletal: Denies: back pain Skin: Denies: rash Neurological: Denies: weakness Past Medical History Past Medical History: Chest Pain / Angina, COPD, CVA/TIA, Diabetes Mellitus, GERD/Reflux, Hyperlipidemia, Hypertension, Memory Impairment, Osteoarthritis (OA ), Sleep Apnea/CPAP/BIPAP Additional Past Medical History / Comment(s): hx. heart murmur,. gout,. 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 ,ANEMIA, right first finger cellulitis. HAMMERTOE BILAT. HAS CPAP-DOES NOT USE History of Any Multi-Drug Resistant Organisms: None Reported Past Surgical History: Heart Catheterization, Joint Replacement, Orthopedic Surgery Additional Past Surgical History / Comment(s): BILAT CATARACTS REMOVED. ORIF LT ARM. BILAT TKA. HEART CATH-2013,. D&C. LT BUNIONECTOMY Past Anesthesia/Blood Transfusion Reactions: No Reported Reaction Past Psychological History: Anxiety, Depression Smoking Status: Never smoker Past Alcohol Use History: None Reported Past Drug Use History: None Reported - Past Family History Father Family Medical History: Myocardial Infarction ([place]), Rheumatoid Arthritis ([place]) Additional Family Medical History / Comment(s): AT AGE 76 Mother Family Medical History: CVA/TIA, Myocardial Infarction ([place]) Additional Family Medical History / Comment(s): AGE 80 General Exam Limitations: no limitations General appearance: alert, in no apparent distress Head exam: Present: atraumatic Eye exam: Present: normal appearance, PERRL ENT exam: Present: normal oropharynx, other (Active epistaxis from left nares from the nasal septum anteriorly.) Neck exam: Present: normal inspection Respiratory exam: Present: normal lung sounds bilaterally Cardiovascular Exam: Present: regular rate, normal rhythm, systolic murmur ( Patient states chronic and she does regularly see a network associate) GI/Abdominal exam: Present: soft. Absent: tenderness Extremities exam: Present: normal inspection Back exam: Present: normal inspection Neurological exam: Present: alert Psychiatric exam: Present: normal affect, normal mood Skin exam: Present: normal color Course Vital Signs 08/16/17 10:21 Temperature 98.6 F Pulse Rate 86 Respiratory 20 Rate Blood Pressure 142/64 O2 Sat by Pulse 97 Oximetry - Reevaluation(s) Reevaluation #1: 08/16/17 11:05 Nasal cramp was removed and hemostasis remains. Patient provided education. Procedures - Procedures Initial comment: Epistaxis control: Left nares with active bleeding. Wound seal applied. Nasal clamp used. Disposition Clinical Impression: Epistaxis Disposition: HOME SELF-CARE Condition: Stable Instructions: Nosebleed (ED) Additional Instructions: Please follow-up with your doctor in the being the week. If bleeding recurs use nasal clamp for at least 10 minutes to the soft area of the nose. Return for increased bleeding, bleeding from other sites, lightheadedness or weakness, worsening symptoms or other concerns. Referrals: Steven Mosher DO [Primary Care Provider] - 1-2 days Time of Disposition: 11:06
[2017-08-16 11:26] VITALS: BP 155/69; PULSE 78; RESP 16; TEMP 97.7
== END 2017-08-16 11:35 | disposition home or self-care (01) ==
LOC: EC 10:12
DX: R04.0 Epistaxis (principal); E11.9 Type 2 diabetes mellitus without complications; K21.9 Gastro-esophageal reflux disease without esophagitis; E78.5 Hyperlipidemia, unspecified; I10 Essential (primary) hypertension; M10.9 Gout, unspecified; M19.90 Unspecified osteoarthritis, unspecified site; F32.9 Major depressive disorder, single episode, unspecified; G47.30 Sleep apnea, unspecified; D64.9 Anemia, unspecified; Z99.89 Dependence on other enabling machines and devices; Z79.4 Long term (current) use of insulin; Z79.82 Long term (current) use of aspirin; Z79.899 Other long term (current) drug therapy
CPT/HCPCS: 99283

== ENCOUNTER 2017-08-28 19:01 | Observation (INO) | payer MEDICARE, BC ==
[2017-08-28] MEDS ORDERED: RX INFO: IV CONTRAST WAS GIVEN 1 EACH MISC MISCELLANE PRN (19:07)
[2017-08-28] MEDS ORDERED: SODIUM CHLORIDE 0.9% 1,000 ML IV STA (19:07)
--- NOTE | 2017-08-28 19:12 | ED ---
General Adult HPI - General Stated complaint: CVA Time Seen by Provider: 08/28/17 19:07 Source: EMS, RN notes reviewed, old records reviewed Mode of arrival: EMS Limitations: altered mental status - History of Present Illness Initial comments: This is a 77-year-old female to ER for evaluation of possible CVA stroke. History obtained by EMS this patient is unable to give history EMS states patient has severe speech deficit, severe hemiparesis. - Related Data Home Medications Medication Instructions Recorded Confirmed Albuterol Nebulized [Ventolin 2.5 mg INHALATION RT-QID PRN 03/27/14 08/28/17 Nebulized] Allopurinol [Zyloprim] 100 mg PO DAILY 03/27/14 08/28/17 Citalopram Hydrobromide [CeleXA] 20 mg PO DAILY 03/27/14 08/28/17 Cyclobenzaprine [Flexeril] 10 mg PO TID PRN 03/27/14 08/28/17 Folic Acid 1 mg PO DAILY 03/27/14 08/28/17 Omeprazole [PriLOSEC] 20 mg PO DAILY 03/27/14 08/28/17 rOPINIRole HCL [Requip] 4 mg PO HS 03/27/14 08/28/17 Hydrocodone/Acetaminophen 1 tab PO Q6HR PRN 07/10/14 08/28/17 [Hydrocodone-Acetamin 7.5-325] Multivitamins, Thera [Multivitamin 1 tab PO DAILY 07/25/14 08/28/17 (formulary)] Simvastatin [Zocor] 40 mg PO HS 07/25/14 08/28/17 Cinnamon Bark [Cinnamon] 500 mg PO DAILY 12/19/14 08/28/17 Cholecalciferol [Vitamin D3] 2,000 unit PO DAILY 11/03/16 08/28/17 Cyanocobalamin (Vitamin B-12) 1,000 mcg PO QAM 11/03/16 08/28/17 [Vitamin B-12] medroxyPROGESTERone [Provera] 2.5 mg PO DAILY 11/03/16 08/28/17 Colchicine [Colcrys] 0.6 mg PO DAILY 08/28/17 08/28/17 metFORMIN HCL [Glucophage] 500 mg PO BID 08/28/17 08/28/17 Previous Rx's Medication Instructions Recorded Aspirin 81 mg PO DAILY chew 11/12/16 Insulin Aspart [NovoLOG 12 unit SQ AC-TID #0 08/29/17 (formulary)] Insulin Glargine [Lantus] 30 unit SQ HS #0 08/29/17 Lisinopril [Zestril] 20 mg PO HS #0 08/29/17 amLODIPine [Norvasc] 10 mg PO DAILY #30 tablet 08/29/17 Allergies Allergy/AdvReac Type Severity Reaction Status Date / Time No Known Allergies Allergy Verified 08/28/17 20:11 Review of Systems ROS Statement: Those systems with pertinent positive or pertinent negative responses have been documented in the HPI. ROS Other: All systems not noted in ROS Statement are negative. Past Medical History Past Medical History: Chest Pain / Angina, COPD, CVA/TIA, Diabetes Mellitus, GERD/Reflux, Hyperlipidemia, Hypertension, Memory Impairment, Osteoarthritis (OA ), Sleep Apnea/CPAP/BIPAP Additional Past Medical History / Comment(s): hx. heart murmur,. gout,. 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 ,ANEMIA, right first finger cellulitis. HAMMERTOE BILAT. HAS CPAP-DOES NOT USE History of Any Multi-Drug Resistant Organisms: None Reported Past Surgical History: Heart Catheterization, Joint Replacement, Orthopedic Surgery Additional Past Surgical History / Comment(s): BILAT CATARACTS REMOVED. ORIF LT ARM. BILAT TKA. HEART CATH-2013,. D&C. LT BUNIONECTOMY Past Anesthesia/Blood Transfusion Reactions: No Reported Reaction Past Psychological History: Anxiety, Depression Smoking Status: Never smoker Past Alcohol Use History: None Reported Past Drug Use History: None Reported - Past Family History Father Family Medical History: Myocardial Infarction ([place]), Rheumatoid Arthritis ([place]) Additional Family Medical History / Comment(s): AT AGE 76 Mother Family Medical History: CVA/TIA, Myocardial Infarction ([place]) Additional Family Medical History / Comment(s): AGE 80 General Exam - General Exam Comments Initial Comments: NIH 21 Limitations: altered mental status, physical limitation General appearance: alert, in no apparent distress Head exam: Present: atraumatic, normocephalic, normal inspection Eye exam: Present: normal appearance, PERRL, EOMI. Absent: scleral icterus, conjunctival injection, periorbital swelling ENT exam: Present: normal exam, mucous membranes moist Neck exam: Present: normal inspection. Absent: tenderness, meningismus, lymphadenopathy Respiratory exam: Present: normal lung sounds bilaterally. Absent: respiratory distress, wheezes, rales, rhonchi, stridor Cardiovascular Exam: Present: regular rate, normal rhythm, normal heart sounds. Absent: systolic murmur, diastolic murmur, rubs, gallop, clicks GI/Abdominal exam: Present: soft, normal bowel sounds. Absent: distended, tenderness, guarding, rebound, rigid Extremities exam: Present: normal inspection, full ROM, normal capillary refill. Absent: tenderness, pedal edema, joint swelling, calf tenderness Back exam: Present: normal inspection Neurological exam: Present: alert, oriented X3, CN II-XII intact Psychiatric exam: Present: normal affect, normal mood Skin exam: Present: warm, dry, intact, normal color. Absent: rash Course Vital Signs 08/28/17 08/28/17 08/28/17 19:05 19:08 19:20 Temperature 98.2 F Pulse Rate 54 L 52 L Pulse Rate [ 99 Pulse Oximetery ] Respiratory 16 17 20 Rate Blood Pressure 149/89 156/68 Blood Pressure 103/59 [Supine] O2 Sat by Pulse 100 99 99 Oximetry 08/28/17 08/28/17 08/28/17 19:35 19:50 21:24 Temperature Pulse Rate 50 L 50 L 70 Pulse Rate [ Pulse Oximetery ] Respiratory 20 20 20 Rate Blood Pressure 132/61 130/62 173/72 Blood Pressure [Supine] O2 Sat by Pulse 97 98 94 L Oximetry 08/28/17 21:38 Temperature 98.2 F Pulse Rate Pulse Rate [ 64 Pulse Oximetery ] Respiratory 17 Rate Blood Pressure Blood Pressure 103/49 [Supine] O2 Sat by Pulse 99 Oximetry - Reevaluation(s) Reevaluation #1: 08/28/17 20:01 Blood sugars checked blood sugar 40 patient given glucose symptoms are resolved Reevaluation #2: 08/28/17 20:46 Patient having significant difficulty breathing, is able to eat, we'll keep patient for further evaluation, recurrent dropping her blood sugar, breathing treatments, monitoring of troponin Medical Decision Making - Medical Decision Making 77 female the ER for neurological complaint low blood sugar, symptoms are resolved, patient continue to mild shortness of breath and elevated troponin, will admit for trending of troponin and continue monitoring of telemetry neurological status - Lab Data Result diagrams: 08/29/17 06:32 08/29/17 06:32 Lab Results 08/28/17 08/28/17 08/28/17 Range/Units 19:20 19:20 19:20 WBC 6.7 (3.8-10.6) k/uL RBC 3.33 L (3.80-5.40) m/uL Hgb 9.6 L (11.4-16.0) gm/dL Hct 30.1 L (34.0-46.0) % MCV 90.3 (80.0-100.0) fL MCH 28.9 (25.0-35.0) pg MCHC 32.0 (31.0-37.0) g/dL RDW 16.6 H (11.5-15.5) % Plt Count 174 (150-450) k/uL Neutrophils % 69 % Lymphocytes % 14 % Monocytes % 10 % Eosinophils % 3 % Basophils % 0 % Neutrophils # 4.7 (1.3-7.7) k/uL Lymphocytes # 1.0 (1.0-4.8) k/uL Monocytes # 0.6 (0-1.0) k/uL Eosinophils # 0.2 (0-0.7) k/uL Basophils # 0.0 (0-0.2) k/uL Hypochromasia Moderate Anisocytosis Slight PT (9.0-12.0) sec INR (<1.2) APTT (22.0-30.0) sec Sodium 136 L (137-145) mmol/L Potassium 3.9 (3.5-5.1) mmol/L Chloride 99 (98-107) mmol/L Carbon Dioxide 26 (22-30) mmol/L Anion Gap 11 mmol/L BUN 39 H (7-17) mg/dL Creatinine 1.12 H (0.52-1.04) mg/dL Est GFR (MDRD) Af Amer 57 (>60 ml/min/1.73 sqM) Est GFR (MDRD) Non-Af 47 (>60 ml/min/1.73 sqM) Glucose 40 L* (74-99) mg/dL POC Glucose (mg/dL) (75-99) mg/dL POC Glu Gym Supervisor ID Calcium 8.9 (8.4-10.2) mg/dL Total Bilirubin 0.5 (0.2-1.3) mg/dL AST 32 (14-36) U/L ALT 35 (9-52) U/L Alkaline Phosphatase 68 (38-126) U/L Total Creatine Kinase 110 (30-135) U/L CK-MB (CK-2) 1.6 (0.0-2.4) ng/mL CK-MB (CK-2) Rel Index 1.5 Troponin I 0.044 H* (0.000-0.034) ng/mL Total Protein 5.8 L (6.3-8.2) g/dL Albumin 3.4 L (3.5-5.0) g/dL 08/28/17 08/28/17 Range/Units 19:20 20:39 WBC (3.8-10.6) k/uL RBC (3.80-5.40) m/uL Hgb (11.4-16.0) gm/dL Hct (34.0-46.0) % MCV (80.0-100.0) fL MCH (25.0-35.0) pg MCHC (31.0-37.0) g/dL RDW (11.5-15.5) % Plt Count (150-450) k/uL Neutrophils % % Lymphocytes % % Monocytes % % Eosinophils % % Basophils % % Neutrophils # (1.3-7.7) k/uL Lymphocytes # (1.0-4.8) k/uL Monocytes # (0-1.0) k/uL Eosinophils # (0-0.7) k/uL Basophils # (0-0.2) k/uL Hypochromasia Anisocytosis PT 10.2 (9.0-12.0) sec INR 1.0 (<1.2) APTT 22.0 (22.0-30.0) sec Sodium (137-145) mmol/L Potassium (3.5-5.1) mmol/L Chloride (98-107) mmol/L Carbon Dioxide (22-30) mmol/L Anion Gap mmol/L BUN (7-17) mg/dL Creatinine (0.52-1.04) mg/dL Est GFR (MDRD) Af Amer (>60 ml/min/1.73 sqM) Est GFR (MDRD) Non-Af (>60 ml/min/1.73 sqM) Glucose (74-99) mg/dL POC Glucose (mg/dL) 181 H (75-99) mg/dL POC Glu Gym Supervisor ID Arft, Brandon Calcium (8.4-10.2) mg/dL Total Bilirubin (0.2-1.3) mg/dL AST (14-36) U/L ALT (9-52) U/L Alkaline Phosphatase (38-126) U/L Total Creatine Kinase (30-135) U/L CK-MB (CK-2) (0.0-2.4) ng/mL CK-MB (CK-2) Rel Index Troponin I (0.000-0.034) ng/mL Total Protein (6.3-8.2) g/dL Albumin (3.5-5.0) g/dL - Radiology Data Radiology results: report reviewed (CT brain and CTA head and neck negative, chest x-ray negative), image reviewed Disposition Clinical Impression: Transient cerebral ischemia, Weakness, Hypoglycemia Disposition: ADMITTED IP TO THIS [facility] Condition: Fair
[2017-08-28 19:33] LABS: Anisocytosis Slight; Basophils % (A) 0 %; Eosinophils # (A) 0.2 k/uL (0-0.7); Eosinophils % (A) 3 %; HCT 30.1 % (34.0-46.0); HGB 9.6 gm/dL (11.4-16.0); Hypochromasia Moderate; Lymphocytes % (A) 14 %; MCH 28.9 pg (25.0-35.0); MCV 90.3 fL (80.0-100.0); Mean Platelet Volume 9.7; Monocytes # (A) 0.6 k/uL (0-1.0); Monocytes % (A) 10 %; Neutrophils # (A) 4.7 k/uL (1.3-7.7); Neutrophils % (A) 69 %; Platelet Count 174 k/uL (150-450); RBC 3.33 m/uL (3.80-5.40); RDW 16.6 % (11.5-15.5); WBC 6.7 k/uL (3.8-10.6)
--- NOTE | 2017-08-28 19:37 | CT ---
EXAMINATION: CT brain wo con for TPA DATE AND TIME: 08/28/2017 7:18 PM ORDERING PROVIDER: Valente Morocho DO CLINICAL INDICATION: Neuro Deficits TECHNIQUE: Standard departmental protocol. COMPARISON: 09/26/2015 DESCRIPTION: The calvarium is intact. There is no intracranial hemorrhage. There is no mass or mass e ffect. There is no definite new attenuation defect. Remainder of the intra-axial and extra-axial comp artment examination is unremarkable. The paranasal sinuses, middle ear cavities, and mastoid sinus ai r cells are clear. The orbits are intact. IMPRESSION: NO ACUTE PROCESS.
[2017-08-28 19:43] LABS: Albumin 3.4 g/dL (3.5-5.0); Calcium 8.9 mg/dL (8.4-10.2); Potassium 3.9 mmol/L (3.5-5.1); Total Bilirubin 0.5 mg/dL (0.2-1.3); Total Protein 5.8 g/dL (6.3-8.2)
[2017-08-28 19:53] LABS: Prothrombin Time 10.2 sec (9.0-12.0)
[2017-08-28] MEDS ORDERED: DEXTROSE 50%-WATER 50 ML SYRINGE IVP STA (20:10)
--- NOTE | 2017-08-28 20:35 | CT ---
EXAMINATION TYPE: CT angio head neck with 3-D postprocessing at an independent workstation DATE OF EXAM: 08/28/2017 HISTORY: Neuro deficits. Left sided weakness. COMPARISON: NONE CT DLP: 432.5 mGycm. Automated Exposure Control for Dose Reduction was Utilized. TECHNIQUE: CTA scan of the neck is performed with IV Contrast, patient injected with 65ml mL of Omni paque 350, axial images are obtained, coronal and sagittal reformatted images are reviewed. Three-D r econstructed images are created on an independent workstation and reviewed. DESCRIPTION: LIMITATION OF THE STUDY: There is very prominent patient motion artifacts, limiting visualization and accuracy on all CT data sets. This limits the extracranial component of this examination more than t he intracranial component. INTRACRANIAL EXAMINATION: The anterior and posterior arterial vasculature is unremarkable. The intra- axial and extra-axial compartment are negative for focal or diffuse findings. EXTRACRANIAL EXAMINATION: The carotid and vertebral arterial systems appear patent bilaterally, but e xclusion of stenoses cannot be made due to the patient motion artifact. No obvious soft tissue mass. Skeletal structures are difficult to assess. Lung apices are unremarkable. IMPRESSION: NO ACUTE PROCESS EVIDENT, THOUGH LIMITED STUDY ABOVE.
[2017-08-28 20:38] LABS: Creatine Kinase MB 1.6 ng/mL (0.0-2.4)
[2017-08-28 20:39] LABS: Troponin I 0.044 ng/mL (0.000-0.034)
[2017-08-28 20:41] LABS: Glucose,Whole Blood 181 mg/dL (75-99)
[2017-08-28] MEDS ORDERED: ASPIRIN 325 MG TAB PO STA (20:50)
[2017-08-28] MEDS: SODIUM CHLORIDE 0.9% 1,000 ML IV STA ×2 (21:19→23:52)
[2017-08-28 21:48] LABS: Glucose,Whole Blood 173 mg/dL (75-99)
--- NOTE | 2017-08-28 21:53 | XR ---
EXAMINATION: XR chest 2V DATE AND TIME: 08/28/2017 9:19 PM ORDERING PROVIDER: Valente Morocho CLINICAL INDICATION: altered mental status TECHNIQUE: PA and lateral COMPARISON: 05/09/2017 DESCRIPTION: CARDIAC/MEDIASTINUM: EKG leads. Moderately large cardiac silhouette redemonstrated. Tortuous thoracic aorta is redemonstrated. PLEURAL SPACES: No pneumothorax. No pleural effusion. LUNGS: The overlying soft tissues are prominent and the technique is relatively underpenetrated. More over, the hemidiaphragms are elevated consistent with low lung inflation at the moment of x-ray expos ure. This crowds the pulmonary vasculature. It is difficult to fully exclude lung parenchymal pathology due to these factors. There is no major atelectasis or major consolidation within the lungs. However, interstitial phase pulmonary edema cou ld be present, clinical corroboration is requested. SKELETAL STRUCTURES: The skeletal structures are negative for definite acute findings. IMPRESSION: Difficult lung assessment, as discussed.
[2017-08-28] MEDS ORDERED: CYCLOBENZAPRINE 10 MG TAB PO PRN (22:06)
[2017-08-28] MEDS ORDERED: HYDROcodone/APAP 7.5-325MG 1 EACH TAB PO PRN (22:06)
[2017-08-28 22:10] VITALS: BMI 38.9
[2017-08-28] MEDS ORDERED: rOPINIRole HCL 4 MG TABLET PO SCH (23:25)
[2017-08-28] MEDS: SODIUM CHLORIDE 0.9% 1,000 ML IV SCH (23:30)
[2017-08-28] MEDS: HEPARIN SODIUM,PORCINE 5,000 UNIT/ML 1 ML VIAL SQ SCH (23:55)
[2017-08-29] MEDS ORDERED: INSULIN DETEMIR 100 UNIT/ML 10 ML VIAL SQ SCH
[2017-08-29] MEDS: ALBUTEROL NEBULIZED 2.5 MG/3 ML INHALATION PRN ×3 (00:06→11:52)
[2017-08-29 02:13] LABS: Glucose,Whole Blood 191 mg/dL (75-99)
[2017-08-29 04:48] LABS: Appearance,Urine Clear (Clear); Bilirubin,Urine Negative (Negative); Blood,Urine Negative (Negative); Color,Urine Yellow; Glucose,Urine (UA) Negative (Negative); Ketones,Urine Negative (Negative); Leukocyte Esterase,Urine Negative (Negative); Nitrite,Urine Negative (Negative); PH, Urine 5.5 (5.0-8.0); Protein,Urine 1+ (Negative); RBC,Urine 1 /hpf (0-5); Specific Gravity,Urine 1.039 (1.001-1.035); Squamous Epithelial Cell,Urine 1 /hpf (0-4); Urobilinogen,Urine <2.0 mg/dL (<2.0); WBC,Urine <1 /hpf (0-5)
[2017-08-29 06:14] LABS: Glucose,Whole Blood 188 mg/dL (75-99)
[2017-08-29] MEDS: SODIUM CHLORIDE 0.9% 1,000 ML IV SCH (06:53)
[2017-08-29 06:59] LABS: Anisocytosis Slight; Basophils % (A) 0 %; Eosinophils # (A) 0.2 k/uL (0-0.7); Eosinophils % (A) 5 %; HCT 27.8 % (34.0-46.0); HGB 8.7 gm/dL (11.4-16.0); Hypochromasia Moderate; Lymphocytes # (A) 0.9 k/uL (1.0-4.8); Lymphocytes % (A) 21 %; MCH 28.2 pg (25.0-35.0); MCHC 31.4 g/dL (31.0-37.0); MCV 89.8 fL (80.0-100.0); Mean Platelet Volume 9.5; Monocytes # (A) 0.3 k/uL (0-1.0); Monocytes % (A) 8 %; Neutrophils # (A) 2.7 k/uL (1.3-7.7); Neutrophils % (A) 63 %; Platelet Count 157 k/uL (150-450); RDW 16.5 % (11.5-15.5); WBC 4.3 k/uL (3.8-10.6)
[2017-08-29] MEDS: INSULIN ASPART 100 UNIT/ML 1 ML 10 ML VIAL SQ SCH ×4 (07:00→12:12)
[2017-08-29 07:26] LABS: Anion Gap 7 mmol/L; Blood Urea Nitrogen 36 mg/dL (7-17); Calcium 8.5 mg/dL (8.4-10.2); Carbon Dioxide 27 mmol/L (22-30); Chloride 101 mmol/L (98-107); Cholesterol 112 mg/dL (<200); Glucose 166 mg/dL (74-99); HDL Cholesterol 35 mg/dL (40-60); LDL Cholesterol,Calculated 50 mg/dL (0-99); Potassium 4.6 mmol/L (3.5-5.1); Sodium 135 mmol/L (137-145); Triglycerides 135 mg/dL (<150)
[2017-08-29] MEDS ORDERED: PANTOPRAZOLE 40 MG TABLET PO SCH (07:30)
[2017-08-29] MEDS: HEPARIN SODIUM,PORCINE 5,000 UNIT/ML 1 ML VIAL SQ SCH (08:35)
[2017-08-29] MEDS ORDERED: METOPROLOL TARTRATE 25 MG TAB PO SCH (09:00)
[2017-08-29] MEDS ORDERED: LORATADINE 10 MG TAB PO SCH (09:00)
[2017-08-29] MEDS ORDERED: NON-FORMULARY DRUG (Cinnamon Bark [Cinnamon] 500 MG) PO SCH (09:00)
[2017-08-29] MEDS ORDERED: ALLOPURINOL 100 MG TAB PO SCH (09:00)
[2017-08-29] MEDS ORDERED: NON-FORMULARY DRUG (Benazepril Hcl [Lotensin] 20 MG) PO SCH (09:00)
[2017-08-29] MEDS ORDERED: COLCHICINE 0.6 MG TAB PO SCH (09:00)
[2017-08-29] MEDS ORDERED: amLODIPine 5 MG TAB PO SCH (09:00)
[2017-08-29] MEDS ORDERED: LISINOPRIL 20 MG TAB PO SCH (09:00)
[2017-08-29] MEDS ORDERED: CITALOPRAM HYDROBROMIDE 20 MG TAB PO SCH (09:00)
--- NOTE | 2017-08-29 09:17 | HP ---
HISTORY AND PHYSICAL DATE OF ADMISSION: 08/28/2017 CHIEF COMPLAINT: Change in mental status and stroke with possible stroke. HISTORY OF PRESENT ILLNESS: This 77-year-old woman with a past medical history of multiple medical problems including history of chest pain, history of COPD, CVA, TIA, diabetes mellitus type 2, GERD, hypertension, hyperlipidemia, memory impairment, DJD, sleep apnea, being followed by Dr. Mosher in the outpatient setting was apparently found to be unresponsive by the EMS. The patient is unable to remember what happened. EMS found the patient has severe speech deficit and some weakness was also noted. Patient taken to [facility] with features with suspicion of stroke. A brain CT scan was done which showed no acute process and angiography of the CT scan was also done which showed also no acute process. Blood sugars are found to be 40 and patient started on glucose and the patient improved significantly. Patient monitored closely. There is no history of fever, rigors or chills. No history of chest pain, palpitations, hematochezia or melena at this time. Patient also had left rib fractures also recently. PAST MEDICAL HISTORY: History of COPD, CVA, TIA, diabetes, GERD, hypertension, hyperlipidemia, history of DJD, history of sleep apnea, CVA. MEDICATIONS: Prior to admission include home medications are: 1. Requip 4 mg p.o. q.h.s. 2. Glucophage 500 mg p.o. b.i.d. 4. Norvasc 5 mg p.o. daily. 5. Zocor 40 mg. 6. Prilosec 20 mg. 7. Multivitamins 1 p.o. daily. 8. Compazine 20 mg. 9. Claritin 10 mg. 10.Zestril 20 mg. 11.Lantus 50 units subcu q.h.s. 12.NovoLog 20 units subcu a.c. t.i.d. 13.[place]ter 7.5, q6h p.r.n. 14.Folic acid 1 mg p.o. daily. 15.Flexeril 10 mg p.o. t.i.d. p.r.n. 16.Vitamin B12 1000 mcg p.o. q.a.m. 17.Colcrys 0.6 mg p.o. daily. 18.Celexa 20 mg p.o. 19.Cinnamon 500 mg p.o. daily. 20.Vitamin D3 2000 daily. 21.Lotensin 20 mg p.o. daily. 22.Aspirin 81 mg p.o. daily. 23.Zyloprim 100 mg p.o. daily. 24.Ventolin 2.5 q.i.d. p.r.n. ALLERGIES: None. FAMILY HISTORY: History of myocardial infarction and rheumatoid arthritis in the family. SOCIAL HISTORY: No history of smoking, no history of alcohol. REVIEW OF SYSTEMS: ENT: As mentioned earlier. Cardiovascular: No angina. Respiration no cough. GI: As mentioned earlier. : No dysuria. NERVOUS SYSTEM: As mentioned. Allergy/Immunology: No asthma or hayfever. Musculoskeletal: As mentioned earlier. Hematology/Oncology: No history of anemia. Endocrine: Diabetes. Constitutional: As mentioned. Dermatology: Negative. Rheumatology: Negative. Psychiatric: As mentioned earlier. PHYSICAL EXAMINATION: The patient is alert and oriented times three. Pulse 70, blood pressure 170/72, respiration 20, temperature 98.2, pulse ox 94% on 2 L. HEENT: Conjunctivae normal. Oral mucosa moist. Neck is obese. Cardiovascular S1, S2 muffled. Respirations: Breath sounds diminished in the bases. Bilateral scattered rhonchi and expiratory wheezing and crackles. ABDOMEN: Soft, obese, nontender. No mass palpable. Legs no edema. No swelling. NERVOUS SYSTEM: Higher functions as mentioned earlier. Moves all 4 limbs. No focal motor or sensory deficits. SKIN: No ulcer, rash or bleeding. LABS: WBC 6.7, hemoglobin 10.6. The glucose 41 81, 173. Troponin 0.04. Creatinine 1.12 and chest x-ray difficult to access. ASSESSMENT: 1. Change in mental status, possibly hypoglycemia with acute metabolic encephalopathy. 2. Chronic obstructive pulmonary disease acute exacerbation. 3. History of left rib fractures after a fall. 4. History of diabetes type 2. 5. Chronic obstructive pulmonary disease. 6. History of cerebrovascular accident/transient ischemic attack. 7. Gastroesophageal reflux disease. 8. Hypertension. 9. Hyperlipidemia. 10.History of memory impairment. 11.degenerative joint disease. 12.History of sleep apnea. 13.History of cardiac catheterization. 14.History of joint replacement. 15.History of orthopedic surgery. 16.History anxiety/depression. 17.Anemia. 18.Hyponatremia. 19.Troponin 0.042, indeterminate. RECOMMENDATIONS AND DISCUSSION: This 77-year-old woman who presented with multiple medical issues I recommend to continue current medications, recommend to continue current management. Symptomatic treatment. Continue with antiplatelet agents. Continue the home medications. Monitor blood sugars closely. I would also recommend blood sugar monitor in the outpatient setting also. Repeat labs will be ordered. Otherwise, prognosis guarded because of multiple complex medical issues. Further recommendations to follow. See orders for details. Recommend the patient follow up closely with Dr. Mosher after discharge. MMANDREZL / IJN: [id number] / NENITA
[2017-08-29] MEDS ORDERED: CHOLECALCIFEROL 1,000 UNIT TAB PO SCH (12:00)
[2017-08-29] MEDS ORDERED: CYANOCOBALAMIN 500 MCG TAB PO SCH (12:00)
[2017-08-29] MEDS ORDERED: FOLIC ACID 1 MG TAB PO SCH (12:00)
[2017-08-29] MEDS ORDERED: MULTIVITAMINS, THERA 1 EACH TAB PO SCH (12:00)
--- NOTE | 2017-08-29 12:02 | CONS ---
CONSULTATION This is a 77-year-old female, who is seen for cardiac evaluation. This patient's medical records were reviewed. This patient has a past history of a CVA and stroke several years ago. The patient was brought by EMS with a complaint of patient had some speech deficit and weakness. The patient did go for lunch in the a.m. In the emergency room patient was found to be hypoglycemic and weakness was noted on the left side. This patient does have a history of diabetes, hypertension, prior CVA. There is no history of prior myocardial infarction. HOME MEDICATIONS: Include albuterol, Celexa, Flexeril, Claritin, Lopressor, Norvasc, Requip and Sinemet, Lotensin and Colcrys and Glucophage. PAST MEDICAL HISTORY: Includes a history of a stroke, history of CVA and history of hypertension and diabetes. Previous cardiac catheterization. Orthopedic surgery. PHYSICAL EXAMINATION: At present reveals a 77-year-old, obese built female who does not appear to be in any acute distress. In the emergency room, patient's initial blood pressure was 140/90 mmHg. The patient's blood pressure now is 131/64 mmHg. HEENT examination is negative. NECK: Supple. There is no increase in jugular venous pressure. Both the carotid pulses are felt. There is no bruit. Chest is symmetrical. Heart the PMI is not felt. First and second heart sounds are normal. There is a grade 2/6 ejection systolic murmur noted. Lungs are with bilateral scattered wheezes. Abdomen is negative. Extremities peripheral pulsations are not felt. The patient's EKG shows a normal sinus rhythm without any acute ischemic changes. The 3 sets of troponins are 0.044, 0.031 and 0.040. FINAL IMPRESSION: 1. This patient is primarily admitted with transient neurological deficit which could be secondary to hypoglycemia. The CT scan of the brain does not show any new abnormalities. CT angiogram did not show any abnormality. Minimal elevation in the troponin could be a hypoglycemic episode. Overall pattern is not suggestive of acute coronary syndrome. We will recommend to continue the current medications. 2. The patient with ejection systolic murmur. Suggestive of mild aortic stenosis. Patient can be discharged home. MMODL / IJN: [id number] /
[2017-08-29 12:09] LABS: Glucose,Whole Blood 212 mg/dL (75-99)
[2017-08-29 12:15] VITALS: BP 106/50; PULSE 48; RESP 20; TEMP 97
[2017-08-29 12:30] LABS: Glucose,Whole Blood 209 mg/dL (75-99)
--- NOTE | 2017-08-29 13:17 | P.CNNES ---
History of Present Illness Consult date: 08/29/17 Requesting physician: Beryl Jean-Baptiste Reason for Consult: TIA Chief complaint: altered mental status History of Present Illness: Neurology is consulting on a 77-year-old female with past medical history of multiple medical problems including; chest pain, COPD, CVA, TIA, DM type II, GERD, hypertension, hyperlipidemia, cognitive/memory impairment, DJD, sleep apnea. Patient was found unresponsive by EMS. Patient was observed to have severe speech deficit and some weakness in the upper and lower extremities. Patient was transported to [facility] emergency department for further evaluation of possible stroke. CT brain was done which showed no acute process. CT angiogram showed no acute process. Blood sugars were found to be 40 on arrival. On administration of IV glucose replacement, patient significantly improved. Patient was transferred to the floor for monitoring. On contact, the patient was alert and oriented 3, seated in bedside chair with respiratory therapy in the room. Patient was in no acute distress. Patient stated that she returned to baseline since receiving glucose administration. Patient states she is extremely diabetic and does have difficulty with sugar monitoring and maintenance. Patient reports no residual neurological deficits or symptoms. Review of Systems Systems not noted in HPI are negative. Past Medical History Past Medical History: Chest Pain / Angina, COPD, CVA/TIA, Diabetes Mellitus, GERD/Reflux, Hyperlipidemia, Hypertension, Memory Impairment, Osteoarthritis (OA ), Sleep Apnea/CPAP/BIPAP Additional Past Medical History / Comment(s): hx. heart murmur,. gout,. 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 ,ANEMIA, right first finger cellulitis. HAMMERTOE BILAT. HAS CPAP-DOES NOT USE History of Any Multi-Drug Resistant Organisms: None Reported Past Surgical History: Heart Catheterization, Joint Replacement, Orthopedic Surgery Additional Past Surgical History / Comment(s): BILAT CATARACTS REMOVED. ORIF LT ARM. BILAT TKA. HEART CATH-2013,. D&C. LT BUNIONECTOMY Past Anesthesia/Blood Transfusion Reactions: No Reported Reaction Past Psychological History: Anxiety, Depression Additional Psychological History / Comment(s): C/O WEAKNESS, PT HAD A LT TOTAL KNEE REPLACEMENT DONE IN MAY 2014. pt c/o nose bleed this past thursday and one the previous week. Pt. stated they cauterized the bleed Smoking Status: Never smoker Past Alcohol Use History: None Reported Past Drug Use History: None Reported - Past Family History Father Family Medical History: Myocardial Infarction ([place]), Rheumatoid Arthritis ([place]) Additional Family Medical History / Comment(s): AT AGE 76 Mother Family Medical History: CVA/TIA, Myocardial Infarction ([place]) Additional Family Medical History / Comment(s): AGE 80 Medications and Allergies Home Medications Medication Instructions Recorded Confirmed Type Albuterol Nebulized [Ventolin 2.5 mg INHALATION RT-QID PRN 03/27/14 08/28/17 History Nebulized] Allopurinol [Zyloprim] 100 mg PO DAILY 03/27/14 08/28/17 History Citalopram Hydrobromide [CeleXA] 20 mg PO DAILY 03/27/14 08/28/17 History Cyclobenzaprine [Flexeril] 10 mg PO TID PRN 03/27/14 08/28/17 History Folic Acid 1 mg PO DAILY 03/27/14 08/28/17 History Loratadine [Claritin] 10 mg PO DAILY 03/27/14 08/28/17 History Metoprolol Tartrate [Lopressor] 25 mg PO DAILY 03/27/14 08/28/17 History Omeprazole [PriLOSEC] 20 mg PO DAILY 03/27/14 08/28/17 History amLODIPine [Norvasc] 5 mg PO DAILY 03/27/14 08/28/17 History rOPINIRole HCL [Requip] 4 mg PO HS 03/27/14 08/28/17 History Hydrocodone/Acetaminophen 1 tab PO Q6HR PRN 07/10/14 08/28/17 History [Hydrocodone-Acetamin 7.5-325] Multivitamins, Thera [Multivitamin 1 tab PO DAILY 07/25/14 08/28/17 History (formulary)] Simvastatin [Zocor] 40 mg PO HS 07/25/14 08/28/17 History Cinnamon Bark [Cinnamon] 500 mg PO DAILY 12/19/14 08/28/17 History Cholecalciferol [Vitamin D3] 2,000 unit PO DAILY 11/03/16 08/28/17 History Cyanocobalamin (Vitamin B-12) 1,000 mcg PO QAM 11/03/16 08/28/17 History [Vitamin B-12] Lisinopril [Zestril] 20 mg PO DAILY 11/03/16 08/28/17 History medroxyPROGESTERone [Provera] 2.5 mg PO DAILY 11/03/16 08/28/17 History Aspirin 81 mg PO DAILY chew 11/12/16 08/28/17 Rx Benazepril HCl [Lotensin] 20 mg PO DAILY 11/13/16 08/28/17 History Insulin Aspart [NovoLOG 22 unit SQ AC-TID 08/16/17 08/28/17 History (formulary)] Insulin Aspart [NovoLOG See Protocol SQ AC-TID PRN 08/16/17 08/28/17 History (formulary)] Insulin Glargine [Lantus] 50 unit SQ HS 08/16/17 08/28/17 History Colchicine [Colcrys] 0.6 mg PO DAILY 08/28/17 08/28/17 History metFORMIN HCL [Glucophage] 500 mg PO BID 08/28/17 08/28/17 History Allergies Allergy/AdvReac Type Severity Reaction Status Date / Time No Known Allergies Allergy Verified 08/28/17 20:11 Physical Examination - Vital Signs Vital Signs: Vital Signs Temp Pulse Pulse Resp BP BP Pulse Ox 08/29/17 12:14 97 F L 48 L 20 106/50 94 L 08/29/17 12:07 64 08/29/17 11:52 64 08/29/17 08:35 97.8 F 63 22 131/64 98 08/29/17 08:21 60 08/29/17 08:08 60 08/29/17 04:00 97.3 F L 62 21 114/53 98 08/29/17 00:16 60 08/29/17 00:06 60 08/29/17 00:00 97.1 F L 61 20 110/77 98 08/28/17 21:52 64 20 103/59 95 08/28/17 21:38 98.2 F 64 17 103/49 99 08/28/17 21:24 70 20 173/72 94 L 08/28/17 19:50 50 L 20 130/62 98 08/28/17 19:35 50 L 20 132/61 97 08/28/17 19:20 52 L 20 156/68 99 08/28/17 19:08 98.2 F 99 17 103/59 99 08/28/17 19:05 54 L 16 149/89 100 Intake and Output 08/28/17 08/29/17 08/29/17 22:59 06:59 14:59 Intake Total 1200 Output Total 200 Balance 1200 -200 Intake: Amount of Fluid Infused ( 1100 ml) Intake, IV Titration 100 Amount Sodium Chloride 0.9% 1, 100 000 ml @ 100 mls/hr IV . Q10H [facility] Rx#:[id number] Output: Urine 200 Other: Voiding Method Toilet Toilet Toilet # Voids 1 1 Weight 99.7 kg 99.7 kg Gen. appearance: Alert, in no apparent distress Head: Atraumatic normocephalic, normal inspection Eyes: Well appearance, PERRL, EOMI. absent: Scleral icterus, conjunctival injection, nystagmus, periorbital swelling. Ear nose and throat: Normal exam, mucous membranes moist Neck: Normal inspection. Absent tenderness, lymphadenopathy Respiratory: No increased work of breathing. Cardiovascular: Regular rate, normal rhythm, normal heart sounds. Absent systolic murmur, diastolic murmur, rubs, gallops, clicks GIabdominal: Normal bowel sounds, non distended, no tenderness, no guarding, no rebound, no rigidity. Extremities: All range of motion, normal capillary refill, no tenderness, pedal edema, joint swelling, calf tenderness Neurological: Alert and oriented 3, cranial nerves II through XII intact, old residual unilateral lateralizing weakness, no seizure activity noted on physical exam, no pronator drift and no nystagmus. Psychological: Mood and affect appropriate setting Results CT brain: Negative CT angiogram: Negative EEG: Ordered Fasting lipid panel: Only abnormal is low HDL Serum homocysteine level: Ordered - Laboratory Findings CBC and BMP: 08/29/17 06:32 08/29/17 06:32 Abnormal Lab Findings: Abnormal Labs 08/28/17 08/28/17 08/28/17 19:20 19:20 19:20 RBC 3.33 L Hgb 9.6 L Hct 30.1 L RDW 16.6 H Lymphocytes # Sodium 136 L BUN 39 H Creatinine 1.12 H Glucose 40 L* POC Glucose (mg/dL) Troponin I 0.044 H* Total Protein 5.8 L Albumin 3.4 L HDL Cholesterol Ur Specific [place] Urine Protein 08/28/17 08/28/17 08/29/17 20:39 21:46 02:00 RBC Hgb Hct RDW Lymphocytes # Sodium BUN Creatinine Glucose POC Glucose (mg/dL) 181 H 173 H 191 H Troponin I Total Protein Albumin HDL Cholesterol Ur Specific [place] Urine Protein 08/29/17 08/29/17 08/29/17 04:20 06:13 06:32 RBC Hgb Hct RDW Lymphocytes # Sodium BUN Creatinine Glucose POC Glucose (mg/dL) 188 H Troponin I 0.040 H* Total Protein Albumin HDL Cholesterol Ur Specific [place] 1.039 H Urine Protein 1+ H 08/29/17 08/29/17 08/29/17 06:32 06:32 11:51 RBC 3.10 L Hgb 8.7 L Hct 27.8 L RDW 16.5 H Lymphocytes # 0.9 L Sodium 135 L BUN 36 H Creatinine 1.06 H Glucose 166 H POC Glucose (mg/dL) 212 H Troponin I Total Protein Albumin HDL Cholesterol 35 L Ur Specific [place] Urine Protein 08/29/17 12:09 RBC Hgb Hct RDW Lymphocytes # Sodium BUN Creatinine Glucose POC Glucose (mg/dL) 209 H Troponin I Total Protein Albumin HDL Cholesterol Ur Specific [place] Urine Protein Assessment and Plan (1) Hypoglycemia Current Visit: Yes Status: Acute Code(s): E16.2 - HYPOGLYCEMIA, UNSPECIFIED SNOMED Code(s): 613698900 (2) Weakness Current Visit: Yes Status: Acute Code(s): R53.1 - WEAKNESS SNOMED Code(s) : 57897839 (3) Diabetes mellitus type 2, uncontrolled, with complications Current Visit: No Status: Acute Code(s): E11.8 - TYPE 2 DIABETES MELLITUS WITH UNSPECIFIED COMPLICATIONS; E11.65 - TYPE 2 DIABETES MELLITUS WITH HYPERGLYCEMIA SNOMED Code(s): 191466468 (4) Aphasia Current Visit: Yes Status: Acute Code(s): R47.01 - APHASIA SNOMED Code(s) : 07516439 Plan: 1. Hyperglycemia/type 2 diabetes unmanaged 2. Weakness 3. Expressive aphasia 4. History of CVA/TIA Patient did present with significantly low blood sugar and extremely unmanaged type 2 diabetes. The patient's positive response with IV glucose replacement, patient's symptoms appear more consistent with hypoglycemia and diabetic reaction. Patient's imaging and testing to date are negative and unremarkable for possible TIA/CVA. We will follow-up with the remainder of the neurological workup including EEG, serum homocystine level to rule out any article etiology. If the patient's EEG has been taken and serum homocystine level has been drawn and the patient remains asymptomatic, the patient can be cleared from a neurological standpoint for discharge. status: As noted above If the patient is discharged prior to 08/30/17 rounding, patient will need to follow up with our office within 14 days of discharge for his hospital follow- up visit. If the need arises whether any questions, please contact our office. If any further assistance is needed in this patient's care please do not hesitate to contact us and we will be happy to assist. Ceasar Okeefe, YARD LABOR SUPERVISOR-C Neurology For Dr Keely Samayoa MD I discussed the patient's pertinent medical information as well as diagnostic testing, laboratory results and other pertinent medical information with Dr. Samayoa prior to applying the plan as noted above. He agreed with the plan is implemented prior to implementation.
--- NOTE | 2017-08-29 13:52 | ECHOF ---
Referral Reason:tia MEASUREMENTS -------- HEIGHT: 160.0 cm WEIGHT: 99.3 kg BP: IVSd: 1.5 cm (0.6 - 1.1) LVIDd: 4.3 cm (3.9 - 5.3) LVPWd: 1.5 cm (0.6 - 1.1) IVSs: 1.7 cm LVIDs: 3.5 cm LVPWs: 1.6 cm LA Diam: 4.2 cm (2.7 - 3.8) LAESV Index (A-L): 32.11 ml/m Ao Diam: 2.8 cm (2.0 - 3.7) AV Cusp: 0.8 cm (1.5 - 2.6) LA Diam: 4.5 cm (2.7 - 3.8) MV EXCURSION: 14.924 mm (> 18.000) MV EF SLOPE: 52 mm/s (70 - 150) EPSS: 0.1 cm MV E Freedom: 0.57 m/s MV DecT: 203 ms MV A Freedom: 0.82 m/s MV E/A Ratio: 0.69 AV maxP.70 mmHg AV meanP.65 mmHg RAP: 5.00 mmHg RVSP: 16.30 mmHg FINDINGS -------- Sinus rhythm. This was a technically adequate study. The left ventricular size is normal. There is moderate concentric left ventricular hypertrophy. O verall left ventricular systolic function is low-normal with, an EF between 50 - 55 %. The right ventricle is normal in size. LA is midly dilated 29-33ml/m2. The right atrial size is normal. There is moderate aortic stenosis present. Peak/mean gradient across the Aortic Valve is 63.70mmHg / 36.65mmHg. Mild mitral annular calcification present. Mild mitral regurgitation is present. Mild tricuspid regurgitation present. There is no evidence of pulmonary hypertension. The right v entricular systolic pressure, as measured by Doppler, is 16.30mmHg. There is no pulmonic regurgitation present. The aortic root size is normal. There is no pericardial effusion. CONCLUSIONS -------- 1. The left ventricular size is normal. 2. There is moderate concentric left ventricular hypertrophy. 3. Overall left ventricular systolic function is low-normal with, an EF between 50 - 55 %. 4. LA is midly dilated 29-33ml/m2. 5. Peak/mean gradient across the Aortic Valve is 63.70mmHg / 36.65mmHg. 6. Mild mitral annular calcification present. 7. Mild mitral regurgitation is present. 8. Mild tricuspid regurgitation present. 9. There is no evidence of pulmonary hypertension. 10. The right ventricular systolic pressure, as measured by Doppler, is 16.30mmHg. 11. There is no pulmonic regurgitation present. 12. The aortic root size is normal. 13. There is no pericardial effusion. ELASTIC YARN TWISTER HELPER: Valerie Carlos RDCS
[2017-08-29 14:16] LABS: Hemoglobin A1C 7.7 % (4.0-6.0)
--- NOTE | 2017-08-29 15:53 | DS ---
DISCHARGE SUMMARY DATE OF ADMISSION: 08/28/2017. DATE OF DISCHARGE: 08/29/2017 FINAL DIAGNOSES: 1. Hypoglycemia causing syncope. 2. Obesity; body mass index of 38.9. 3. Chronic obstructive pulmonary disease. 4. Diabetes mellitus, type 2, chronically on insulin. 5. Gastroesophageal reflux disease. 6. Essential hypertension. 7. Hyperlipidemia. 8. Obstructive sleep apnea; does not use a CPAP machine. 9. Chronic left arm weakness and left foot drop from a prior stroke. 10.Gait dysfunction; uses a walker. 11.Bradycardia, likely from beta nataly, now discontinued. HOSPITAL COURSE: This patient presented with an episode of passing out. Blood sugar was down to the 40s. Patient does follow with Dr. Jillian Zamorano. I did cut back on the Lantus to 30 units and also cut back the NovoLog. The patient's heart rate was running in the 40s and low 50s. Hence beta nataly was discontinued. The patient also was on two XANDER inhibitors at home. I did discontinue the benazepril. I also stopped the Claritin. Did increase patient's Norvasc. The patient was also seen by Neurology, Dr. Samayoa, who has okayed the patient to be discharged. She was also seen by Dr. Rivera from Cardiology. Patient's CT scan of the brain and angio CT did not show anything acute. Care was discussed with the patient. Questions were answered. On examination, lungs are clear. CARDIOVASCULAR: First and second sounds normal. DISCHARGE MEDICATIONS: 1. Ventolin 2.5 q.i.d. p.r.n. 2. Allopurinol 100 mg p.o. daily. 3. Celexa 20 mg p.o. daily. 4. Flexeril 10 mg p.o. t.i.d. p.r.n. 5. Folic acid 1 mg p.o. daily. 6. Prilosec 20 mg p.o. daily. 7. Requip 4 mg p.o. at bedtime. 8. [place] 7.5 one tablet q.6 p.r.n. 9. Multivitamin 1 tablet p.o. daily. 10.Zocor 40 mg at bedtime. 11.Vitamin D3 2000 units p.o. daily. 12.Vitamin B12 1000 mcg p.o. daily. 13.Provera 2.5 mg p.o. daily. 14.Aspirin 81 mg p.o. daily. 15.Colchicine 0.6 mg p.o. daily. 16.Glucophage 100 mg p.o. b.i.d. 17.NovoLog 12 units subcutaneously before meals t.i.d. -- new dose. 18.Lantus 30 units subcutaneously at bedtime -- new dose. 19.Zestril 20 mg p.o. at bedtime. Timing changed from morning to evening. 20.Norvasc 10 mg p.o. daily -- new dose. 21.Benazepril discontinued. 22.Claritin discontinued. 23.Lopressor discontinued. The patient to keep a log of her Accu-Cheks. Followup with Dr. Mosher in 1 week. Follow up with Dr. Jillian Zamorano in 1 week. Follow up with Dr. Samayoa per his orders. MMANDREZL / JEFFN: [id number] /
[2017-08-29] MEDS ORDERED: ASPIRIN 325 MG TAB PO SCH (18:00)
[2017-08-29] MEDS ORDERED: ATORVASTATIN 20 MG TAB PO SCH (21:00)
[2017-08-29] MEDS ORDERED: rOPINIRole HCL 4 MG TABLET PO SCH (21:00)
== END 2017-08-29 14:10 | disposition home or self-care (01) ==
LOC: EC 19:01 → 6SEL 20:47
PROVIDERS: ADMIT Hospitalist; ATTEND Hospitalist
DX: E11.649 Type 2 diabetes mellitus with hypoglycemia without coma (principal); R55 Syncope and collapse; E66.9 Obesity, unspecified; Z68.38 Body mass index [BMI] 38.0-38.9, adult; K21.9 Gastro-esophageal reflux disease without esophagitis; D64.9 Anemia, unspecified; E87.1 Hypo-osmolality and hyponatremia; M19.90 Unspecified osteoarthritis, unspecified site; R47.01 Aphasia; J44.9 Chronic obstructive pulmonary disease, unspecified; F32.9 Major depressive disorder, single episode, unspecified; F41.9 Anxiety disorder, unspecified; I10 Essential (primary) hypertension; E78.5 Hyperlipidemia, unspecified; M10.9 Gout, unspecified; G47.33 Obstructive sleep apnea (adult) (pediatric); I69.354 Hemiplegia and hemiparesis following cerebral infarction affecting left non-dominant side; I69.398 Other sequelae of cerebral infarction; M21.372 Foot drop, left foot; R26.9 Unspecified abnormalities of gait and mobility; R41.3 Other amnesia; R00.1 Bradycardia, unspecified; T44.7X5A Adverse effect of beta-adrenoreceptor antagonists, initial encounter; Z79.4 Long term (current) use of insulin; Z79.899 Other long term (current) drug therapy; Z82.49 Family history of ischemic heart disease and other diseases of the circulatory system; Z82.3 Family history of stroke; Z79.82 Long term (current) use of aspirin; Z96.652 Presence of left artificial knee joint
CPT/HCPCS: 96372 ×2; 96360; 99285; 36415; 94640 ×2; 93005; 93306; 97162; 80061; 80053; 80048; 82550; 82553; 84484 ×2; 85025 ×2; 85610; 85730; 81001; 83036; 71046; 70496; 70450; 70498; G0378 ×2; J1644 ×2; Q9967

== ENCOUNTER → 2017-09-09 | Outpatient (CLI) | payer MEDICARE, BC ==
--- NOTE | 2017-09-09 08:50 | CT ---
EXAMINATION TYPE: CT soft tissue neck wo con DATE OF EXAM: 09/09/2017 HISTORY: Lt sided neck pain, pancreatic CA COMPARISON: CTA neck August 28, 2017 CT DLP: 530 mGycm. Automated Exposure Control for Dose Reduction was Utilized. TECHNIQUE: CT scan of the neck is performed without IV contrast, axial images are obtained, coronal and sagittal reformatted images are reviewed. FINDINGS: Evaluation is suboptimal due to lack of IV contrast lowering sensitivity for adenopathy as well as mucosal pathology. Airway: Heterogeneous multinodular thyroid gland is redemonstrated, largest nodule posteriorly lower pole level left thyroid measures 1.8 cm long axis. Some partially calcified right-sided nodules are p resent. There is suspicious 6 x 4 mm anterior right upper lobe spiculated nodule axial image 9 outside field of view on prior study. Parotid/submandibular glands: No gross abnormality seen. Carotid/Vascular Structures: Fairly moderate calcified plaque in bilateral carotid bulbs is present. Osseous Structures: Cervical spine is straightened. There is moderate to severe disc space narrowing with mild to moderate spurring C4-C5 through C7-T1 levels. There is artifact from surgical change lef t humeral head level. There is joint space loss and spurring bilateral acromioclavicular joints. Other: There is mild to moderate mucosal thickening in bilateral maxillary sinuses. Visualized brain parenchyma shows age-related atrophy and chronic small vessel ischemic change. There is no definitive greater than 1 cm neck adenopathy. There is no worrisome inflammatory change o r left-sided focal fluid collection. IMPRESSION: 1. No significant abnormality is seen on noncontrast study to account for patient's left-sided neck p ain. 2. Multinodular thyroid noted, advised nonemergent thyroid ultrasound follow-up to further evaluate a nd characterize as I do not see prior thyroid ultrasound in patient's PACS folder. 3. Suspicious 6 x 4 mm anterior right upper lobe spiculated nodule, in patient with neoplasm metastat ic disease needs to BE excluded. Advise nonemergent CT thorax follow-up.
== END | disposition home or self-care (01) ==
LOC: RADCTMAIN 08:18
PROVIDERS: ATTEND Internal Medicine Hematology & Oncology
DX: C25.1 Malignant neoplasm of body of pancreas (principal); E04.2 Nontoxic multinodular goiter; M54.2 Cervicalgia
CPT/HCPCS: 70490

== ENCOUNTER 2017-09-15 11:15 | Inpatient (IN) | payer MEDICARE, BC ==
[2017-09-15] MEDS ORDERED: IPRATROPIUM-ALBUTEROL 3 ML NEB INHALATION STA (11:24)
--- NOTE | 2017-09-15 11:39 | XR ---
EXAMINATION TYPE: XR chest 1V portable DATE OF EXAM: 09/15/2017 COMPARISON: 08/28/2017 HISTORY: Shortness of breath FINDINGS: Noted is pulmonary venous congestion with scattered infiltrates. There is also cardiomegaly and small effusions. IMPRESSION: Findings compatible with congestive failure. Infiltrates of other etiology are not excluded. Clinical correlation and progress studies are recommended.
--- NOTE | 2017-09-15 11:49 | ED ---
General Adult HPI - General Chief complaint: Shortness of Breath Stated complaint: Diff Breathing Time Seen by Provider: 09/15/17 11:20 Source: patient, EMS, RN notes reviewed, old records reviewed Mode of arrival: EMS Limitations: no limitations - History of Present Illness Initial comments: This is a 77-year-old female the ER for evaluation of significant shortness of breath, patient's poor strain significant clinical condition at this time. Patient is brought in by EMS, patient called EMS for evaluation regarding significant shortness of breath, EMS states patient's condition quickly deteriorated while transporting patient to hospital. Patient was complaining of significant shortness of breath, denying chest pain or pain - Related Data Home Medications Medication Instructions Recorded Confirmed Albuterol Nebulized [Ventolin 2.5 mg INHALATION RT-QID PRN 03/27/14 09/15/17 Nebulized] Allopurinol [Zyloprim] 200 mg PO DAILY 03/27/14 09/15/17 Cyclobenzaprine [Flexeril] 10 mg PO TID PRN 03/27/14 09/15/17 Folic Acid 1 mg PO DAILY 03/27/14 09/15/17 Omeprazole [PriLOSEC] 20 mg PO DAILY 03/27/14 09/15/17 rOPINIRole HCL [Requip] 4 mg PO HS 03/27/14 09/15/17 Hydrocodone/Acetaminophen 1 tab PO Q6HR PRN 07/10/14 09/15/17 [Hydrocodone-Acetamin 7.5-325] Multivitamins, Thera [Multivitamin 1 tab PO DAILY 07/25/14 09/15/17 (formulary)] Cinnamon Bark [Cinnamon] 500 mg PO DAILY 12/19/14 09/15/17 Cholecalciferol [Vitamin D3] 2,000 unit PO DAILY 11/03/16 09/15/17 Cyanocobalamin (Vitamin B-12) 1,000 mcg PO QAM 11/03/16 09/15/17 [Vitamin B-12] medroxyPROGESTERone [Provera] 2.5 mg PO DAILY 11/03/16 09/15/17 Colchicine [Colcrys] 0.6 mg PO DAILY 08/28/17 09/15/17 metFORMIN HCL [Glucophage] 500 mg PO BID 08/28/17 09/15/17 Ascorbic Acid [Vitamin C] 500 mg PO DAILY 09/15/17 09/15/17 Atorvastatin [Lipitor] 20 mg PO HS 09/15/17 09/15/17 Furosemide [Lasix] 20 mg PO DAILY 09/15/17 09/15/17 Insulin Aspart [NovoLOG See Protocol SQ ACHS 09/15/17 09/15/17 (formulary)] amLODIPine [Norvasc] 5 mg PO DAILY 09/15/17 09/15/17 Previous Rx's Medication Instructions Recorded Aspirin 81 mg PO DAILY chew 11/12/16 Insulin Aspart [NovoLOG 12 unit SQ AC-TID #0 08/29/17 (formulary)] Insulin Glargine [Lantus] 30 unit SQ HS #0 08/29/17 Lisinopril [Zestril] 20 mg PO HS #0 08/29/17 Allergies Allergy/AdvReac Type Severity Reaction Status Date / Time No Known Allergies Allergy Verified 09/15/17 11:51 Review of Systems ROS Statement: Those systems with pertinent positive or pertinent negative responses have been documented in the HPI. ROS Other: All systems not noted in ROS Statement are negative. Past Medical History Past Medical History: Chest Pain / Angina, COPD, CVA/TIA, Diabetes Mellitus, GERD/Reflux, Hyperlipidemia, Hypertension, Memory Impairment, Osteoarthritis (OA ), Sleep Apnea/CPAP/BIPAP Additional Past Medical History / Comment(s): hx. heart murmur,. gout,. 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 ,ANEMIA, right first finger cellulitis. HAMM[place] BILAT. HAS CPAP-DOES NOT USE History of Any Multi-Drug Resistant Organisms: None Reported Past Surgical History: Heart Catheterization, Joint Replacement, Orthopedic Surgery Additional Past Surgical History / Comment(s): BILAT CATARACTS REMOVED. ORIF LT ARM. BILAT TKA. HEART CATH-2013,. D&C. LT BUNIONECTOMY Past Anesthesia/Blood Transfusion Reactions: No Reported Reaction Past Psychological History: Anxiety, Depression Smoking Status: Never smoker Past Alcohol Use History: None Reported Past Drug Use History: None Reported - Past Family History Father Family Medical History: Myocardial Infarction ([place]), Rheumatoid Arthritis ([place]) Additional Family Medical History / Comment(s): AT AGE 76 Mother Family Medical History: CVA/TIA, Myocardial Infarction ([place]) Additional Family Medical History / Comment(s): AGE 80 General Exam Limitations: no limitations General appearance: alert, anxious, in distress Head exam: Present: atraumatic, normocephalic, normal inspection Eye exam: Present: normal appearance, PERRL, EOMI. Absent: scleral icterus, conjunctival injection, periorbital swelling ENT exam: Present: normal exam, mucous membranes moist Neck exam: Present: normal inspection. Absent: tenderness, meningismus, lymphadenopathy Respiratory exam: Present: wheezes, rales, accessory muscle use, decreased breath sounds, prolonged expiratory. Absent: rhonchi, stridor Cardiovascular Exam: Present: regular rate, normal rhythm, normal heart sounds. Absent: systolic murmur, diastolic murmur, rubs, gallop, clicks GI/Abdominal exam: Present: soft, normal bowel sounds. Absent: distended, tenderness, guarding, rebound, rigid Extremities exam: Present: normal inspection, full ROM, normal capillary refill. Absent: tenderness, pedal edema, joint swelling, calf tenderness Back exam: Present: normal inspection Neurological exam: Present: alert, oriented X3, CN II-XII intact Psychiatric exam: Present: normal affect, normal mood Skin exam: Present: warm, dry, intact, normal color. Absent: rash Course Vital Signs 09/15/17 09/15/17 09/15/17 11:19 11:35 11:40 Pulse Rate 107 H 100 99 Respiratory 38 H 32 H Rate Blood Pressure 139/79 140/64 O2 Sat by Pulse 89 L 90 L Oximetry 09/15/17 11:56 Pulse Rate 100 Respiratory 29 H Rate Blood Pressure 154/68 O2 Sat by Pulse 100 Oximetry - Reevaluation(s) Reevaluation #1: 09/15/17 12:02 Patient has no improvement with breathing treatment, placed on BiPAP, showing success on BiPAP EKG Findings - EKG Comments: EKG Findings:: EKG shows normal sinus rhythm at 99, AL 184, QRS 82, QTc 454 Medical Decision Making - Medical Decision Making 77 female the ER for evaluation. This patient presents to ER today for evaluation of significant shortness of breath. History of COPD and multiple medical comorbidities. Patient denies chest pain, patient is in pulmonary edema severe COPD exacerbation with hypoxia and currently placed on BiPAP. - Radiology Data Radiology results: report reviewed (Chest x-rays likely CHF), image reviewed Critical Care Time Critical Care Time: Yes Total Critical Care Time: 31 Disposition Clinical Impression: Acute exacerbation of chronic obstructive airways disease, Acute pulmonary edema, Acute respiratory failure, Hypoxia Disposition: ADMITTED IP TO THIS [facility] Condition: Serious Referrals: Steven Mosher DO [Primary Care Provider] - 1-2 days
[2017-09-15] MEDS ORDERED: methylPREDNISolone SOD SUCCI 125 MG/2 ML VIAL IV STA (11:59)
[2017-09-15 12:01] LABS: Basophils % (A) 0 %; Eosinophils % (A) 0 %; HCT 22.7 % (34.0-46.0); Hypochromasia Marked; Lymphocytes # (A) 1.6 k/uL (1.0-4.8); Lymphocytes % (A) 9 %; MCV 89.4 fL (80.0-100.0); Mean Platelet Volume 9.6; Monocytes # (A) 0.9 k/uL (0-1.0); Monocytes % (A) 5 %; Neutrophils # (A) 15.6 k/uL (1.3-7.7); Neutrophils % (A) 84 %; Poikilocytosis Moderate; RBC 2.54 m/uL (3.80-5.40); RDW 15.9 % (11.5-15.5); WBC 18.6 k/uL (3.8-10.6)
[2017-09-15 12:02] LABS: Calcium 9.7 mg/dL (8.4-10.2); Magnesium 1.9 mg/dL (1.6-2.3); Potassium 5.4 mmol/L (3.5-5.1); Total Bilirubin 1.6 mg/dL (0.2-1.3); Total Protein 6.5 g/dL (6.3-8.2)
[2017-09-15] MEDS ORDERED: FUROSEMIDE 10 MG/ML 4 ML VIAL IV STA (12:03)
[2017-09-15 12:04] LABS: HGB 6.4 gm/dL (11.4-16.0); Platelet Count 336 k/uL (150-450)
[2017-09-15 12:30] LABS: Creatine Kinase MB 3.5 ng/mL (0.0-2.4); Troponin I 0.458 ng/mL (0.000-0.034)
[2017-09-15] MEDS ORDERED: PIPERACILLIN-TAZOBACTAM 3.375 GM in DEXTROSE/WATER 1 50ML.BAG IVPB STA (12:43)
[2017-09-15] MEDS ORDERED: LEVOFLOXACIN 750MG-D5W PMX 750 MG in DEXTROSE/WATER 1 150ML.BAG IVPB STA (12:43)
[2017-09-15 12:57] LABS: INR 1.2 (<1.2); Prothrombin Time 11.2 sec (9.0-12.0)
[2017-09-15] MEDS ORDERED: FUROSEMIDE 10 MG/ML 10 ML VIAL IV STA (14:27)
--- NOTE | 2017-09-15 14:42 | P.CNPUL ---
History of Present Illness Consult date: 09/15/17 Reason for consult: dyspnea, abnormal CXR/CT, other Chief complaint: Shortness of breath History of present illness: Consult dated 09/15/2017 This is a 77-year-old female who presented to the emergency department for complaints of increasing shortness of breath. The shortness of breath is been going on for sometime getting progressively worse. She apparently was here recently for hypoglycemia and TIA like symptoms. The patient was brought to the emergency room by EMS. This poor lady was recently diagnosed with pancreatic cancer. She was apparently evaluated at [facility] but will receive her care here in [facility]. She apparently has a history of gout gastroesophageal reflux disease vitamin D deficiency diabetes hyperlipidemia and hypertension. Medications are reviewed. The patient states she's not coughing. Not producing any phlegm. There is no fever or chills. No chest pain or chest discomfort. Chest x-ray looks like heart failure. In addition, the patient has a very elevated N-terminal proBNP. The patient's currently on BiPAP therapy at 12 and 4 and 100%. She hasn't made much urine. We give her another dose of Lasix 80 mg IV push. She'll be admitted to the intensive care unit for further monitoring. In addition, with her recent diagnosis of pancreatic cancer, I ask about CODE STATUS. The patient would not want to be on life support more than a couple days especially if he wasn't likely to improve. Also she does agree to cardiopulmonary exercise resuscitation. In addition, the patient does have dementia osteoarthritis and sleep apnea syndrome for which he uses CPAP. Other medical history includes CVA. Review of Systems A 12 point review of system is primarily positive for shortness of breath. This been progressive in nature. The rest of the 12 point review of system is unremarkable. Constitutional negative neurologic negative HEENT negative cardiovascular CHF pulmonary shortness of breath GI negative for rheumatologic immunologic negative endocrinologic negative. As mentioned earlier, she was recently diagnosed with pancreatic carcinoma. She has not received any therapy as yet. Past Medical History Past Medical History: Chest Pain / Angina, COPD, CVA/TIA, Diabetes Mellitus, GERD/Reflux, Hyperlipidemia, Hypertension, Memory Impairment, Osteoarthritis (OA ), Sleep Apnea/CPAP/BIPAP Additional Past Medical History / Comment(s): Pt states she was just recently diagnosed with pancreatic cancer- awaiting appt with oncologist-no treatment plan as yet, 2009 CVA with L foot drop and L arm weakness and pt states difficulty swallowing at times, gait dysfunction, small hiatal hernia, anemia, IDDM type II, epistaxis with cauterization, heart murmur, gout, hammer toes, R index finger cellulitis tx in [facility]-now healed, [place] with no CPAP use. History of Any Multi-Drug Resistant Organisms: None Reported Past Surgical History: Heart Catheterization, Joint Replacement, Orthopedic Surgery Additional Past Surgical History / Comment(s): RECENT ERCP IN [place], BILAT CATARACTS REMOVED, ORIF LT ARM WITH PINS/PLATES, BILAT TKA, HEART CATH-2013, D&C. LT BUNIONECTOMY, PICC LINE SINCE REMOVED, I&D R INDEX FINGER, egd, L LEG VEIN STRIPPING. Past Anesthesia/Blood Transfusion Reactions: No Reported Reaction Past Psychological History: Anxiety, Depression Additional Psychological History / Comment(s): Pt resides with her significant other of many years and their dog and cat. She uses a walker/cane. She no longer drives, her significant other takes her to [employer]. She has no home care. Smoking Status: Never smoker Past Alcohol Use History: None Reported Past Drug Use History: None Reported - Past Family History Father Family Medical History: Myocardial Infarction ([place]), Rheumatoid Arthritis ([place]) Additional Family Medical History / Comment(s): AT AGE 76 Mother Family Medical History: CVA/TIA, Myocardial Infarction ([place]) Additional Family Medical History / Comment(s): AGE 80 Medications and Allergies Home Medications Medication Instructions Recorded Confirmed Type Albuterol Nebulized [Ventolin 2.5 mg INHALATION RT-QID PRN 03/27/14 09/15/17 History Nebulized] Allopurinol [Zyloprim] 200 mg PO DAILY 03/27/14 09/15/17 History Cyclobenzaprine [Flexeril] 10 mg PO TID PRN 03/27/14 09/15/17 History Folic Acid 1 mg PO DAILY 03/27/14 09/15/17 History Omeprazole [PriLOSEC] 20 mg PO DAILY 03/27/14 09/15/17 History rOPINIRole HCL [Requip] 4 mg PO HS 03/27/14 09/15/17 History Hydrocodone/Acetaminophen 1 tab PO Q6HR PRN 07/10/14 09/15/17 History [Hydrocodone-Acetamin 7.5-325] Multivitamins, Thera [Multivitamin 1 tab PO DAILY 07/25/14 09/15/17 History (formulary)] Cinnamon Bark [Cinnamon] 500 mg PO DAILY 12/19/14 09/15/17 History Cholecalciferol [Vitamin D3] 2,000 unit PO DAILY 11/03/16 09/15/17 History Cyanocobalamin (Vitamin B-12) 1,000 mcg PO QAM 11/03/16 09/15/17 History [Vitamin B-12] medroxyPROGESTERone [Provera] 2.5 mg PO DAILY 11/03/16 09/15/17 History Aspirin 81 mg PO DAILY chew 11/12/16 09/15/17 Rx Colchicine [Colcrys] 0.6 mg PO DAILY 08/28/17 09/15/17 History metFORMIN HCL [Glucophage] 500 mg PO BID 08/28/17 09/15/17 History Insulin Aspart [NovoLOG 12 unit SQ AC-TID #0 08/29/17 09/15/17 Rx (formulary)] Insulin Glargine [Lantus] 30 unit SQ HS #0 08/29/17 09/15/17 Rx Lisinopril [Zestril] 20 mg PO HS #0 08/29/17 09/15/17 Rx Ascorbic Acid [Vitamin C] 500 mg PO DAILY 09/15/17 09/15/17 History Atorvastatin [Lipitor] 20 mg PO HS 09/15/17 09/15/17 History Furosemide [Lasix] 20 mg PO DAILY 09/15/17 09/15/17 History Insulin Aspart [NovoLOG See Protocol SQ ACHS 09/15/17 09/15/17 History (formulary)] amLODIPine [Norvasc] 5 mg PO DAILY 09/15/17 09/15/17 History Allergies Allergy/AdvReac Type Severity Reaction Status Date / Time No Known Allergies Allergy Verified 09/15/17 11:51 Physical Exam Osteopathic Statement: *. No significant issues noted on an osteopathic structural exam other than those noted in the History and Physical/Consult. Vitals: Vital Signs Pulse Resp BP Pulse Ox 09/15/17 13:00 102 H 28 H 173/71 99 09/15/17 12:24 105 H 28 H 168/99 100 02/13/18 12:00 98 09/15/17 11:56 100 29 H 154/68 100 09/15/17 11:40 99 09/15/17 11:35 100 32 H 140/64 90 L 09/15/17 11:19 107 H 38 H 139/79 89 L Intake and Output 09/14/17 09/15/17 09/15/17 22:59 06:59 14:59 Other: Weight 105 kg Patient Weight 09/16/17 06:59 Weight 105 kg No acute distress, oriented 3. BiPAP mask in place. HEENT examination is grossly unremarkable. Mucous membranes are moist. No oral lesions. Neck supple. Full range of motion. No adenopathy thyromegaly or neck vein distention. Cardiovascular examination reveals regular rhythm rate. S1-S2 normal. No S3 or S4. No discernible murmur noted. Lungs reveal crackles in the bases. Heart sounds are distant. No rhonchi or wheezes. Abdomen soft bowel sounds are heard. No masses or tenderness. Extremities are intact. Slight edema in the lower extremities is noted. Skin is without rash or lesion. Neurologic examination is brief but nonfocal. Results - Laboratory Findings CBC and BMP: 09/15/17 11:29 09/15/17 11:29 PT/INR, D-dimer PT 11.2 sec (9.0-12.0) 09/15/17 11:29 INR 1.2 (<1.2) H 09/15/17 11:29 Abnormal lab findings: Abnormal Labs 09/15/17 09/15/17 09/15/17 11:24 11:29 11:29 WBC 18.6 H RBC 2.54 L Hgb 6.4 L* D Hct 22.7 L MCHC 28.0 L RDW 15.9 H Neutrophils # 15.6 H INR APTT Potassium Carbon Dioxide BUN Creatinine Glucose Total Bilirubin CK-MB (CK-2) 3.5 H* Troponin I 0.458 H* Crossmatch See Detail 09/15/17 09/15/17 11:29 11:29 WBC RBC Hgb Hct MCHC RDW Neutrophils # INR 1.2 H APTT 19.0 L Potassium 5.4 H Carbon Dioxide 15 L BUN 60 H Creatinine 1.67 H Glucose 327 H Total Bilirubin 1.6 H CK-MB (CK-2) Troponin I Crossmatch - Diagnostic Findings Chest x-ray: image reviewed (Patient interviewed and examined. Labs x-rays a medications are reviewed.) Assessment and Plan Assessment: Assessment Hypoxemic respiratory failure, possibly related to underlying CHF given the patient's chest x-ray and elevated N-terminal proBNP Recent diagnosis of pancreatic cancer though the patient has not started treatment as yet CVA Question of COPD Diabetes mellitus Obesity GERD Hyperlipidemia Hypertension Dementia Anemia Prerenal azotemia Anion gap metabolic acidosis Plan: Plan dated 09/15/2017 The patient will be admitted to the intensive care unit. We'll maintain her on the BiPAP for now. We gave her some additional Lasix here in the emergency room. Prognosis is poor given her recent diagnosis of pancreatic cancer. She has not started therapy as yet. The patient will get daily x-rays and lab work. I review the medications. We did talk about CODE STATUS. We also talked about mechanical ventilation. She would agree to be resuscitated. She also would agree to be on the mechanical ventilator for a short period of time. Does not want long-term mechanical ventilation. Time with Patient: Greater than 30
[2017-09-15 15:36] LABS: Glucose,Whole Blood 475 mg/dL (75-99)
[2017-09-15] MEDS ORDERED: CYCLOBENZAPRINE 10 MG TAB PO PRN (16:03)
[2017-09-15] MEDS ORDERED: NALOXONE 0.4 MG/ML 1 ML VIAL IV PRN (16:12)
[2017-09-15] MEDS ORDERED: FUROSEMIDE 250 MG in SODIUM CHLORIDE 0.9% 225 ML IVP SCH (17:00)
[2017-09-15 17:16] LABS: Glucose,Whole Blood 490 mg/dL (75-99)
[2017-09-15] MEDS: INSULIN ASPART 100 UNIT/ML 1 ML 10 ML VIAL SQ SCH ×2 (17:27→20:08)
[2017-09-15] MEDS ORDERED: metFORMIN 500 MG TAB PO SCH (17:30)
[2017-09-15] MEDS ORDERED: INSULIN ASPART 100 UNIT/ML 1 ML 10 ML VIAL SQ SCH (17:30)
[2017-09-15 17:55] LABS: Amorphous Sediment,Urine Few /hpf; Appearance,Urine Cloudy (Clear); Bilirubin,Urine Negative (Negative); Blood,Urine Trace (Negative); Color,Urine Yellow; Glucose,Urine (UA) Negative (Negative); Hyaline Casts,Urine 13 /lpf (0-2); Ketones,Urine Negative (Negative); Leukocyte Esterase,Urine Trace (Negative); Mucus,Urine Rare /hpf; Nitrite,Urine Negative (Negative); Protein,Urine 1+ (Negative); RBC,Urine 4 /hpf (0-5); Specific Gravity,Urine 1.014 (1.001-1.035); Squamous Epithelial Cell,Urine 78 /hpf (0-4); Urobilinogen,Urine <2.0 mg/dL (<2.0); WBC,Urine 25 /hpf (0-5)
[2017-09-15 20:06] LABS: Glucose,Whole Blood 438 mg/dL (75-99)
[2017-09-15] MEDS: ATORVASTATIN 20 MG TAB PO SCH (20:06)
[2017-09-15] MEDS: rOPINIRole HCL 4 MG TABLET PO SCH (20:08)
[2017-09-15] MEDS ORDERED: INSULIN DETEMIR 100 UNIT/ML 10 ML VIAL SQ SCH (21:00)
[2017-09-15] MEDS ORDERED: LISINOPRIL 20 MG TAB PO SCH (21:00)
[2017-09-15] MEDS ORDERED: FUROSEMIDE 10 MG/ML 4 ML VIAL IV SCH (21:00)
[2017-09-15] MEDS ORDERED: INSULIN REGULAR BOLUS (FROM DRIP BAG) IV PRN (22:46)
[2017-09-15] MEDS ORDERED: INSULIN REGULAR 100 UNIT/ML VIAL IV ONE (23:21)
[2017-09-15 23:26] LABS: Basophils % (A) 0 %; Eosinophils % (A) 0 %; HCT 24.2 % (34.0-46.0); HGB 7.4 gm/dL (11.4-16.0); Hypochromasia Marked; Lymphocytes # (A) 0.5 k/uL (1.0-4.8); Lymphocytes % (A) 4 %; MCH 26.6 pg (25.0-35.0); MCHC 30.8 g/dL (31.0-37.0); MCV 86.2 fL (80.0-100.0); Mean Platelet Volume 10.6; Monocytes # (A) 0.4 k/uL (0-1.0); Monocytes % (A) 3 %; Neutrophils # (A) 11.4 k/uL (1.3-7.7); Neutrophils % (A) 92 %; Platelet Count 171 k/uL (150-450); Poikilocytosis Marked; RDW 15.3 % (11.5-15.5); WBC 12.4 k/uL (3.8-10.6)
[2017-09-15] MEDS ORDERED: INSULIN REGULAR 100 UNIT in SODIUM CHLORIDE 0.9% 100 ML IV SCH (23:45)
--- NOTE | 2017-09-15 23:46 | HP ---
HISTORY AND PHYSICAL DATE OF ADMISSION: 09/15/2017. PRESENTING COMPLAINT: Short of breath. HISTORY OF PRESENTING COMPLAINT: This is a 77-year-old patient of Dr. Mosher who lives with her significant other. Chronic stable medical conditions include diabetes, GERD, hypertension, hyperlipidemia. The patient has sleep apnea, does not use a machine, from a prior stroke has left arm weakness, left foot drop, normally uses a walker. Recently has been diagnosed with what looks like pancreatic cancer, is to follow up with Dr. Starks. The patient presented with worsening short of breath, slight cough. No sputum. No fever. Required a BiPAP, moved up to the ICU. The patient has a white count of 18.6, hemoglobin 6.4 and BUN and also an acute renal failure. Sugars were running high. I ordered insulin drip. Denies any obvious chest pain, admitted. The patient is on a BiPAP currently, seen by Dr. Gardner, an social services analyst, earlier today. The shortness has been coming on for some time. REVIEW OF SYSTEMS: Difficult to obtain, as patient is rather tired on the BiPAP. PAST MEDICAL HISTORY: COPD, diabetes, GERD, hypertension, hyperlipidemia, sleep apnea, does not use a machine, stroke with left arm weakness, left foot drop, uses a walker, newly diagnosed pancreatic cancer being followed up. PAST SURGICAL HISTORY: Cardiac catheterization, joint replacement, recent ERCP in [place], bilateral cataract removed, ORIF of the left arm with pins in place, bilateral total knee arthroplasty, cardiac cath in 2014, D and C, left , EGD, left leg vein stripping. PAST PSYCH HISTORY: Anxiety, depression. SOCIAL HISTORY: The patient resides with significant other of many years, has a walker. Does not smoke or drink alcohol. FAMILY HISTORY: Myocardial infarction, rheumatoid arthritis. HOME MEDICATIONS: 1. Requip 4 mg p.o. q.h.s. 2. Glucophage 5 mg p.o. b.i.d. 3. Provera 2.5 p.o. daily. 4. Norvasc 5 mg p.o. daily. 5. Prilosec 20 mg p.o. daily. 6. Multivitamin 1 tablet p.o. daily. 7. Zestril 20 mg p.o. at bedtime. 8. Lantus 30 units subcu q.h.s. 9. NovoLog 12 units subcu a.c. t.i.d. 10.[place] 7.5 one tablet every 6 hours p.r.n. 11.[place] 7/1 tab every 6 hours p.r.n. 12.Lasix 20 mg a day. 13.Folic acid 1 mg p.o. daily. 14.Flexeril 10 mg p.o. t.i.d. p.r.n. 15.Vitamin B12 1000 mcg p.o. daily. 16.Colchicine 0.6 mg p.o. daily. 17.Cinnamon 500 mg p.o. daily. 18.Vitamin D3 2000 units p.o. daily. 19.Lipitor 20 mg p.o. q.h.s. 20.Aspirin 81 mg p.o. daily. 21.Vitamin C 500 mg p.o. daily. 22.Allopurinol 200 mg p.o. daily. 23.Ventolin nebulizer 2.5 q.i.d. p.r.n. ALLERGIES: None. EXAMINATION: VITAL SIGNS: On presentation, pulse 107, respirations 38, blood pressure 130/79, pulse ox 89%. GENERAL APPEARANCE: Well-built, BMI 44.3. Sitting up on a BiPAP. EYES: Pupils equal. Conjunctivae normal. HEENT: BiPAP in place. Unable to assess. NECK: JVD unable to assess. Mass not palpable. RESPIRATORY: Effort increased. Accessory muscles are working. The patient is barely able to speak in sentences. LUNGS: Diminished breath sounds. Prolonged expiration, wheezing. CARDIOVASCULAR: First and second sounds normal. No edema. ABDOMEN: Soft, nontender. Liver and spleen not palpable. LYMPHATIC: No lymph nodes palpable in neck or axillae. PSYCHIATRY: Patient is rather anxious, unable to answer because of the BiPAP. NEUROLOGICAL: Pupils equal. No facial asymmetry. Moving all 4 limbs. MUSCULOSKELETAL: Osteoarthritis joints, including hands and knees. INVESTIGATIONS: White count 8.6, hemoglobin 6.4, platelets 336. Potassium 5.4, BUN 60, creatinine 1.69. Initial glucose 327, then 475. Troponin 0.458. ProBNP 8100. The patient's hemoglobin was 8.7 on August 29. BUN and creatinine was 36/1.06 at the same time. EKG shows normal sinus rhythm with nonspecific T-wave changes. Chest x-ray shows some possible congestive heart failure. ASSESSMENT: 1. Acute chronic obstructive pulmonary disease exacerbation. 2. Diabetes mellitus type 2, uncontrolled, requiring insulin drip. 3. Gastroesophageal reflux disease. 4. Essential hypertension. 5. Hyperlipidemia. 6. Chronic left arm weakness, left foot drop from the prior stroke. 7. Chronic gait dysfunction uses a walker at baseline. 8. Pancreatic cancer being worked up by Dr. Starks. 9. Acute renal failure, could be acute tubular necrosis from hypotension. The creatinine has gone up from 1.06 in the last 10 days to 1.67. Patient's metformin will be held. So will be the angiotensin-converting enzyme inhibitor. 10.Hyperkalemia in the setting of renal failure, angiotensin-converting enzyme inhibitor. 11.Anemia. Cause unclear at this point, normocytic. 12.Acute congestive heart failure from diastolic dysfunction, ejection fraction 50%- 55%. 13.Hypertensive heart disease. The patient's 2D echocardiogram was done 2 weeks ago. PLAN: At this point, patient is currently on DuoNeb, nebulized bronchodilator. Home medications are resumed. The patient is also on a Lasix drip, insulin drip. Glucophage has been discontinued. Consultation done to Nephrology, Critical Care, Cardiology for the anemia. GI is consulted. MMODL / IJN: [id number] /
[2017-09-15 23:47] LABS: Creatine Kinase MB 12.8 ng/mL (0.0-2.4); Troponin I 7.04 ng/mL (0.000-0.034)
[2017-09-15 23:53] LABS: Glucose,Whole Blood 358 mg/dL (75-99)
[2017-09-16] MEDS ORDERED: PIPERACILLIN-TAZOBACTAM 3.375 GM in DEXTROSE/WATER 1 50ML.BAG IVPB SCH
[2017-09-16 00:49] LABS: Glucose,Whole Blood 323 mg/dL (75-99)
[2017-09-16] MEDS ORDERED: INSULIN ASPART 100 UNIT/ML 1 ML 10 ML VIAL SQ SCH (02:00)
[2017-09-16 02:03] LABS: Glucose,Whole Blood 242 mg/dL (75-99)
[2017-09-16 03:14] LABS: Glucose,Whole Blood 178 mg/dL (75-99)
[2017-09-16 04:20] LABS: Glucose,Whole Blood 140 mg/dL (75-99)
[2017-09-16 04:47] LABS: Calcium 9.3 mg/dL (8.4-10.2); Phosphorus 4.1 mg/dL (2.5-4.5); Potassium 4.6 mmol/L (3.5-5.1)
[2017-09-16 04:56] LABS: Basophils % (A) 0 %; Eosinophils % (A) 0 %; HCT 23.1 % (34.0-46.0); HGB 7.2 gm/dL (11.4-16.0); Hypochromasia Marked; Lymphocytes # (A) 0.6 k/uL (1.0-4.8); Lymphocytes % (A) 5 %; MCH 26.6 pg (25.0-35.0); MCHC 31.1 g/dL (31.0-37.0); MCV 85.5 fL (80.0-100.0); Mean Platelet Volume 9.8; Monocytes # (A) 0.7 k/uL (0-1.0); Monocytes % (A) 5 %; Neutrophils # (A) 12.3 k/uL (1.3-7.7); Neutrophils % (A) 89 %; Platelet Count 184 k/uL (150-450); Poikilocytosis Marked; RDW 15.3 % (11.5-15.5); WBC 13.8 k/uL (3.8-10.6)
[2017-09-16 05:00] LABS: Troponin I 11.8 ng/mL (0.000-0.034)
[2017-09-16 05:18] LABS: Glucose,Whole Blood 139 mg/dL (75-99)
[2017-09-16 05:39] LABS: Hemoglobin A1C 6.8 % (4.0-6.0)
[2017-09-16 06:04] LABS: Glucose,Whole Blood 146 mg/dL (75-99)
[2017-09-16 06:55] LABS: Glucose,Whole Blood 151 mg/dL (75-99)
[2017-09-16] MEDS: IPRATROPIUM-ALBUTEROL 3 ML NEB INHALATION PRN (07:50)
[2017-09-16 08:10] LABS: Glucose,Whole Blood 135 mg/dL (75-99)
[2017-09-16] MEDS: ASCORBIC ACID 500 MG TAB PO SCH (08:17)
[2017-09-16] MEDS: PANTOPRAZOLE 40 MG/10 ML VIAL IVP SCH (08:18)
[2017-09-16] MEDS: COLCHICINE 0.6 MG TAB PO SCH (08:18)
[2017-09-16] MEDS: ALLOPURINOL 100 MG TAB PO SCH (08:18)
[2017-09-16 08:59] LABS: Glucose,Whole Blood 187 mg/dL (75-99)
[2017-09-16] MEDS ORDERED: CYANOCOBALAMIN 500 MCG TAB PO SCH (09:00)
[2017-09-16] MEDS ORDERED: CHOLECALCIFEROL 1,000 UNIT TAB PO SCH (09:00)
[2017-09-16] MEDS ORDERED: FUROSEMIDE 20 MG TAB PO SCH (09:00)
[2017-09-16] MEDS ORDERED: amLODIPine 5 MG TAB PO SCH (09:00)
--- NOTE | 2017-09-16 09:16 | XR ---
EXAMINATION TYPE: XR chest 1V DATE OF EXAM: 09/16/2017 COMPARISON: Prior chest x-ray 09/15/2017 HISTORY: Congestive heart failure TECHNIQUE: Single frontal view of the chest is obtained. FINDINGS: The heart is enlarged. Interstitium and central vascularity are increased. There is some i mprovement in aeration. No pneumothorax or pleural effusion. Postop change noted to the proximal left humerus. There are overlying cardiac leads. Healing rib fracture suspected posteriorly on the left a t the level IMPRESSION: Suspect improvement in aeration, volume status. Additional findings above.
--- NOTE | 2017-09-16 09:51 | P.CRDCN ---
History of Present Illness Consult date: 09/16/17 History of present illness: This is a 77-year-old female with history of hypertension, hyperlipidemia, Alzheimer's disease, COPD and previous CVA/TIA was admitted to the hospital with increasing shortness of breath and also about a prolonged chest pain. The pain was in the middle of the chest with radiation to the neck. On admission patient was found to be in congestive heart failure. Her proBNP was elevated. She was admitted from months ago with the episode of TIA. At the time. Echocardiogram showed evidence of severe aortic stenosis and preserved LV function. Patient received IV diuretics with improvement of her symptoms. However her troponin values went up to 11. Her initial EKG showed sinus rhythm with mild ST depression in inferolateral leads. Patient also developed a progressive anemia from August with hemoglobin as low as 6-7 g. Patient seemed to be comfortable at this time. The etiology of the anemia is not clear. Patient is diagnosed to have pancreatic CA. At this point and continue with current management of CHF. Given her diagnosis of pancreatic CVA, patient may not be candidate for any aggressive management for the valve disease. It is not clear if her symptoms and signs of reflector severe right stenosis or underlying ischemic heart disease or combination of both. I'm not giving any anticoagulation therapy because of severe anemia and possible GI bleeding. I' ll correct the anemia, continue with diuretics and beta blockers. 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 History of Any Multi-Drug Resistant Organisms: None Reported Past Surgical History: Heart Catheterization, Joint Replacement, Orthopedic Surgery Additional Past Surgical History / Comment(s): RECENT ERCP IN [place], BILAT CATARACTS REMOVED, ORIF LT ARM WITH PINS/PLATES, BILAT TKA, HEART CATH-2013, D&C. LT BUNIONECTOMY, PICC LINE SINCE REMOVED, I&D R INDEX FINGER, egd, L LEG VEIN STRIPPING. Past Anesthesia/Blood Transfusion Reactions: No Reported Reaction Past Psychological History: Anxiety, Depression Additional Psychological History / Comment(s): Pt resides with her significant other of many years and their dog and cat. She uses a walker/cane. She no longer drives, her significant other takes her to [employer]. She has no home care. Smoking Status: Never smoker Past Alcohol Use History: None Reported Past Drug Use History: None Reported - Past Family History Father Family Medical History: Myocardial Infarction (MA), Rheumatoid Arthritis (RA) Additional Family Medical History / Comment(s): AT AGE 76 Mother Family Medical History: CVA/TIA, Myocardial Infarction (MA) Additional Family Medical History / Comment(s): AGE 80 Medications and Allergies Home Medications Medication Instructions Recorded Confirmed Type Albuterol Nebulized [Ventolin 2.5 mg INHALATION RT-QID PRN 03/27/14 09/15/17 History Nebulized] Allopurinol [Zyloprim] 200 mg PO DAILY 03/27/14 09/15/17 History Cyclobenzaprine [Flexeril] 10 mg PO TID PRN 03/27/14 09/15/17 History Folic Acid 1 mg PO DAILY 03/27/14 09/15/17 History Omeprazole [PriLOSEC] 20 mg PO DAILY 03/27/14 09/15/17 History rOPINIRole HCL [Requip] 4 mg PO HS 03/27/14 09/15/17 History Hydrocodone/Acetaminophen 1 tab PO Q6HR PRN 07/10/14 09/15/17 History [Hydrocodone-Acetamin 7.5-325] Multivitamins, Thera [Multivitamin 1 tab PO DAILY 07/25/14 09/15/17 History (formulary)] Cinnamon Bark [Cinnamon] 500 mg PO DAILY 12/19/14 09/15/17 History Cholecalciferol [Vitamin D3] 2,000 unit PO DAILY 11/03/16 09/15/17 History Cyanocobalamin (Vitamin B-12) 1,000 mcg PO QAM 11/03/16 09/15/17 History [Vitamin B-12] medroxyPROGESTERone [Provera] 2.5 mg PO DAILY 11/03/16 09/15/17 History Aspirin 81 mg PO DAILY chew 11/12/16 09/15/17 Rx Colchicine [Colcrys] 0.6 mg PO DAILY 08/28/17 09/15/17 History metFORMIN HCL [Glucophage] 500 mg PO BID 08/28/17 09/15/17 History Insulin Aspart [NovoLOG 12 unit SQ AC-TID #0 08/29/17 09/15/17 Rx (formulary)] Insulin Glargine [Lantus] 30 unit SQ HS #0 08/29/17 09/15/17 Rx Lisinopril [Zestril] 20 mg PO HS #0 08/29/17 09/15/17 Rx Ascorbic Acid [Vitamin C] 500 mg PO DAILY 09/15/17 09/15/17 History Atorvastatin [Lipitor] 20 mg PO HS 09/15/17 09/15/17 History Furosemide [Lasix] 20 mg PO DAILY 09/15/17 09/15/17 History Insulin Aspart [NovoLOG See Protocol SQ ACHS 09/15/17 09/15/17 History (formulary)] amLODIPine [Norvasc] 5 mg PO DAILY 09/15/17 09/15/17 History Allergies Allergy/AdvReac Type Severity Reaction Status Date / Time No Known Allergies Allergy Verified 09/15/17 11:51 Physical Exam Vitals: Vital Signs Temp Pulse Resp BP Pulse Ox 09/16/17 08:00 78 09/16/17 07:52 78 09/16/17 07:00 68 17 94/48 99 09/16/17 06:00 81 28 H 107/48 97 09/16/17 05:00 68 17 96/49 97 09/16/17 04:00 98.6 F 70 19 95/48 97 09/16/17 03:00 71 17 105/51 97 09/16/17 02:00 77 25 H 100/49 97 09/16/17 01:00 75 19 114/57 97 09/16/17 00:00 98.1 F 74 21 118/58 97 09/15/17 23:14 84 33 H 118/58 95 09/15/17 23:00 84 23 112/67 96 09/15/17 22:00 84 24 113/61 96 02/13/18 21:37 98.1 F 82 19 113/62 98 09/15/17 21:00 85 19 134/60 97 09/15/17 20:00 98.9 F 88 26 H 119/56 96 09/15/17 19:00 90 20 122/55 93 L 09/15/17 18:30 90 23 128/67 95 09/15/17 18:20 98.4 F 93 23 128/67 99 09/15/17 18:10 98.2 F 97 27 H 110/71 99 09/15/17 18:04 98.2 F 91 31 H 110/71 98 09/15/17 18:00 92 20 119/52 99 09/15/17 17:30 95 23 113/57 100 09/15/17 17:00 100 25 H 121/53 100 09/15/17 16:30 103 H 27 H 121/59 100 09/15/17 16:00 98.4 F 93 22 112/55 100 09/15/17 15:35 98.4 F 96 25 H 135/49 100 09/15/17 15:30 121 H 100 09/15/17 15:05 97 F L 103 H 32 H 136/55 99 09/15/17 14:55 97.6 F 100 94 H 136/55 100 09/15/17 14:00 105 H 37 H 128/59 99 09/15/17 13:00 102 H 28 H 173/71 99 09/15/17 12:24 105 H 28 H 168/99 100 09/15/17 12:00 98 09/15/17 11:56 100 29 H 154/68 100 09/15/17 11:40 99 09/15/17 11:35 100 32 H 140/64 90 L 09/15/17 11:19 107 H 38 H 139/79 89 L Intake and Output 09/15/17 09/16/17 09/16/17 22:59 06:59 14:59 Intake Total 860 33.284 2.222 Output Total 621 660 60 Balance 239 626.716 -57.778 Intake: Intake, IV Titration 33.284 2.222 Amount Insulin Regular 100 unit 33.284 2.222 In Sodium Chloride 0.9% 100 ml @ Per Protocol IV .Q0M [facility] Rx#:[id number] Oral 240 Blood Product 620 Rc As-1 Unit 310 [id number] Rc As-1 Unit 310 [id number] Output: Urine 621 660 60 Other: Voiding Method Indwelling Catheter Indwelling Catheter Weight 103 kg 104 kg GENERAL EXAM: Patient is alert and oriented and doesn't appear to be in any acute distress HEENT: Normocephalic. Normal reaction of pupils, equal size, normal range of extraocular motion. No erythema or exudates in the throat. NECK: No masses, no nuchal rigidity. CHEST: No chest wall deformity. LUNGS: Diminished breath sounds HEART: S1 and S2 normal. Systolic murmur consistent with acute stenosis ABDOMEN: No hepatosplenomegaly, normal bowel sounds, no guarding or rigidity. SKIN: No rashes CENTRAL NERVOUS SYSTEM: No focal deficits. EXTREMITIES: Mild edema Results 09/16/17 04:07 09/16/17 04:07 Cardiac Enzymes 09/15/17 09/15/17 09/15/17 Range/Units 11:29 11:29 22:59 AST 33 (14-36) U/L CK-MB (CK-2) 3.5 H* 12.8 H* (0.0-2.4) ng/mL Troponin I 0.458 H* 7.040 H* (0.000-0.034) ng/mL 09/16/17 Range/Units 04:07 AST (14-36) U/L CK-MB (CK-2) 12.0 H* (0.0-2.4) ng/mL Troponin I 11.800 H* (0.000-0.034) ng/mL Coagulation 09/15/17 Range/Units 11:29 PT 11.2 (9.0-12.0) sec APTT 19.0 L (22.0-30.0) sec CBC 09/15/17 09/15/17 09/16/17 Range/Units 11:29 22:59 04:07 WBC 18.6 H 12.4 H 13.8 H (3.8-10.6) k/uL RBC 2.54 L 2.80 L 2.70 L (3.80-5.40) m/uL Hgb 6.4 L* D 7.4 L 7.2 L (11.4-16.0) gm/dL Hct 22.7 L 24.2 L 23.1 L (34.0-46.0) % Plt Count 336 D 171 184 (150-450) k/uL Comprehensive Metabolic Panel 09/15/17 09/16/17 Range/Units 11:29 04:07 Sodium 137 136 L (137-145) mmol/L Potassium 5.4 H 4.6 (3.5-5.1) mmol/L Chloride 100 100 (98-107) mmol/L Carbon Dioxide 15 L 22 (22-30) mmol/L BUN 60 H 74 H (7-17) mg/dL Creatinine 1.67 H 1.90 H (0.52-1.04) mg/dL Glucose 327 H 124 H (74-99) mg/dL Calcium 9.7 9.3 (8.4-10.2) mg/dL AST 33 (14-36) U/L ALT 25 (9-52) U/L Alkaline Phosphatase 93 (38-126) U/L Total Protein 6.5 (6.3-8.2) g/dL Albumin 4.0 (3.5-5.0) g/dL Current Medications Generic Name Dose Route Start Last Admin Trade Name Freq PRN Reason Stop Dose Admin Hydrocodone Bitart/Acetaminophen 1 each 09/15/17 16:03 [place] 7.5-325 PO Q6HR PRN Moderate Pain Albuterol/Ipratropium 3 ml 09/15/17 11:59 09/16/17 07:50 Duoneb 0.5 Mg-3 Mg/3 Ml Soln INHALATION 3 ml RT-Q4H PRN Administration Shortness Of Breath Or Wheezing Allopurinol 200 mg 09/16/17 09:00 09/16/17 08:18 Zyloprim PO 200 mg DAILY NICA Administration Amlodipine Besylate 5 mg 09/16/17 09:00 Norvasc PO DAILY NICA Ascorbic Acid 500 mg 09/16/17 09:00 09/16/17 08:17 Vitamin C PO 500 mg DAILY NICA Administration Atorvastatin Calcium 20 mg 09/15/17 21:00 09/15/17 20:06 Lipitor PO 20 mg HS NICA Administration Colchicine 0.6 mg 09/16/17 09:00 09/16/17 08:18 Colcrys PO 0.6 mg DAILY NICA Administration Cyclobenzaprine HCl 10 mg 09/15/17 16:03 Flexeril PO TID PRN muscle relaxant Furosemide 250 mg/ Sodium 250 mls @ 5 mls/hr 09/15/17 17:00 09/15/17 17:28 Chloride IVP 5 mg/hr .Q24H NICA 5 mls/hr 5 MG/HR Administration Insulin Human Regular 100 unit 101 mls @ 0 mls/hr 09/15/17 23:45 09/16/17 09: 00 / Sodium Chloride IV 4 units/h .Q0M NICA 4.04 mls/hr Protocol Titration Per Protocol Medroxyprogesterone Acetate 2.5 mg 09/16/17 09:00 09/16/17 08:18 Provera PO 2.5 mg DAILY NICA Administration Midodrine 5 mg 09/16/17 09:45 Proamatine PO AC-BID NICA Multivitamins 1 each 09/16/17 12:00 Theragran PO DAILY@1200 [facility] Naloxone HCl 0.2 mg 09/15/17 16:12 Narcan IV Q2M PRN Opioid Reversal Pantoprazole Sodium 40 mg 09/16/17 09:00 09/16/17 08:18 Protonix IVP 40 mg DAILY NICA Administration Ropinirole HCl 4 mg 09/15/17 21:00 09/15/17 20:08 Requip PO 4 mg HS NICA Administration Intake and Output 09/15/17 09/16/17 09/16/17 22:59 06:59 14:59 Intake Total 860 33.284 2.222 Output Total 621 660 60 Balance 239 -626.716 -57.778 Intake: Intake, IV Titration 33.284 2.222 Amount Insulin Regular 100 unit 33.284 2.222 In Sodium Chloride 0.9% 100 ml @ Per Protocol IV .Q0M [facility] Rx#:[id number] Oral 240 Blood Product 620 Rc As-1 Unit 310 [id number] Rc As-1 Unit 310 [id number] Output: Urine 621 660 60 Other: Voiding Method Indwelling Catheter Indwelling Catheter Weight 103 kg 104 kg 09/16/17 04:07 09/16/17 04:07 EKG Interpretations (text) Sinus rhythm with diffuse ST-T changes Assessment and Plan (1) Acute diastolic CHF (congestive heart failure) Current Visit: Yes Status: Acute Code(s): I50.31 - ACUTE DIASTOLIC ( CONGESTIVE) HEART FAILURE SNOMED Code(s): 972290940 (2) Diabetes mellitus type 2, uncontrolled, with complications Current Visit: No Status: Acute Code(s): E11.8 - TYPE 2 DIABETES MELLITUS WITH UNSPECIFIED COMPLICATIONS; E11.65 - TYPE 2 DIABETES MELLITUS WITH HYPERGLYCEMIA SNOMED Code(s): 123560927 (3) Severe anemia Current Visit: Yes Status: Acute Code(s): D64.9 - ANEMIA, UNSPECIFIED SNOMED Code(s): 837054402 (4) History of CVA (cerebrovascular accident) Current Visit: Yes Status: Acute Code(s): Z86.73 - PRSNL HX OF TIA (TIA), AND CEREB INFRC W/O RESID DEFICITS SNOMED Code(s): 706584811 (5) Non-STEMI (non-ST elevated myocardial infarction) Current Visit: Yes Status: Acute Code(s): I21.4 - NON-ST ELEVATION (NSTEMI) MYOCARDIAL INFARCTION SNOMED Code(s): 868004617 Plan: Her echo [place] showed normal LV function with severe aortic stenosis. Troponin values are consistent with myocardial injury, most probably brought on by anemia and severe aortic stenosis. I will recommend correcting anemia. Continue to diuretic therapy. Evaluation for anemia. Patient also unfortunately has pancreatic CVA. Not a candidate for any aggressive measures.
--- NOTE | 2017-09-16 09:58 | P.PN ---
Subjective Progress Note Date: 09/16/17 Principal diagnosis: Congestive heart failure Progress note dated 09/16/2017 This is a 77-year-old who was seen yesterday in the emergency department. She came in for increasing shortness of breath going on for some time. She was recently in the emergency department with TIA-like symptoms attributed to hypoglycemia. More recently, she was diagnosed with pancreatic cancer at [facility]. The plan was to provide her with single dose chemotherapy in the form of Gemzar. Unfortunately, I don't think she'll be a good candidate she's very ill at the current time. In addition to pancreatic cancer and heart failure, she has a history of gout and GERD vitamin D deficiency diabetes hyperlipidemia and hypertension. The patient was transferred to the ICU yesterday. Today she is just on nasal O2 at 5 L. Feeling a bit better. Chest x-ray shows improving volume status. The oncology people were in the room. They agree that she would be a poor candidate for chemotherapy. I did discuss CODE STATUS yesterday with her and her . They would be agreeable to short-term mechanical ventilation and cardiopulmonary resuscitation. The patient's on a Lasix drip at 5 mg an hour. Blood pressure is borderline low. She was on and off of BiPAP through the night. She is also getting insulin 4 units an hour. Objective - Vital Signs Vital signs: Vital Signs Temp 98.6 F 09/16/17 04:00 Pulse 78 09/16/17 08:00 Resp 17 09/16/17 07:00 BP 94/48 09/16/17 07:00 Pulse Ox 99 09/16/17 07:00 Intake & Output 09/15/17 09/16/17 09/16/17 18:59 06:59 18:59 Intake Total 430 463.284 2.222 Output Total 96 1185 60 Balance 334 -721.716 -57.778 Weight 103 kg 104 kg Intake: Intake, IV Titration 33.284 2.222 Amount Insulin Regular 100 unit 33.284 2.222 In Sodium Chloride 0.9% 100 ml @ Per Protocol IV .Q0M [facility] Rx#:[id number] Oral 120 120 Blood Product 310 310 Rc As-1 Unit 0 310 [id number] Rc As-1 Unit 310 [id number] Output: Urine 96 1185 60 Other: Voiding Method Indwelling Catheter Indwelling Catheter - Exam Mild respiratory distress, oriented 3. Nasal O2 in place HEENT examination is grossly unremarkable. Mucous membranes are dry. No oral lesions. Neck supple. Full range of motion. No adenopathy thyromegaly or neck vein distention. Cardiovascular examination reveals regular rhythm rate. S1-S2 normal. No S3 or S4. No discernible murmur noted. Lungs reveal bibasilar crackles. Breath sounds are diminished. No rhonchi or wheezes.. Abdomen soft bowel sounds are heard. No masses or tenderness. Extremities are intact. Slight edema is noted. No cyanosis or clubbing. Skin is without rash or lesion. Neurologic examination is brief but nonfocal. - Labs CBC & Chem 7: 09/16/17 04:07 09/16/17 04:07 Labs: Abnormal Lab Results - Last 24 Hours (Table) 09/15/17 09/15/17 09/15/17 Range/Units 11:24 11:29 11:29 WBC 18.6 H (3.8-10.6) k/uL RBC 2.54 L (3.80-5.40) m/uL Hgb 6.4 L* D (11.4-16.0) gm/dL Hct 22.7 L (34.0-46.0) % MCHC 28.0 L (31.0-37.0) g/dL RDW 15.9 H (11.5-15.5) % Neutrophils # 15.6 H (1.3-7.7) k/uL Lymphocytes # (1.0-4.8) k/uL INR (<1.2) APTT (22.0-30.0) sec Sodium (137-145) mmol/L Potassium (3.5-5.1) mmol/L Carbon Dioxide (22-30) mmol/L BUN (7-17) mg/dL Creatinine (0.52-1.04) mg/dL Glucose (74-99) mg/dL POC Glucose (mg/dL) (75-99) mg/dL Hemoglobin A1c (4.0-6.0) % Total Bilirubin (0.2-1.3) mg/dL CK-MB (CK-2) 3.5 H* (0.0-2.4) ng/mL Troponin I 0.458 H* (0.000-0.034) ng/mL Urine Appearance (Clear) Urine Protein (Negative) Urine Blood (Negative) Ur Leukocyte Esterase (Negative) Urine WBC (0-5) /hpf Ur Squamous Epith Cells (0-4) /hpf Amorphous Sediment (None) /hpf Hyaline Casts (0-2) /lpf Urine Mucus (None) /hpf Crossmatch See Detail 09/15/17 09/15/17 09/15/17 Range/Units 11:29 11:29 11:29 WBC (3.8-10.6) k/uL RBC (3.80-5.40) m/uL Hgb (11.4-16.0) gm/dL Hct (34.0-46.0) % MCHC (31.0-37.0) g/dL RDW (11.5-15.5) % Neutrophils # (1.3-7.7) k/uL Lymphocytes # (1.0-4.8) k/uL INR 1.2 H (<1.2) APTT 19.0 L (22.0-30.0) sec Sodium (137-145) mmol/L Potassium 5.4 H (3.5-5.1) mmol/L Carbon Dioxide 15 L (22-30) mmol/L BUN 60 H (7-17) mg/dL Creatinine 1.67 H (0.52-1.04) mg/dL Glucose 327 H (74-99) mg/dL POC Glucose (mg/dL) (75-99) mg/dL Hemoglobin A1c 6.8 H (4.0-6.0) % Total Bilirubin 1.6 H (0.2-1.3) mg/dL CK-MB (CK-2) (0.0-2.4) ng/mL Troponin I (0.000-0.034) ng/mL Urine Appearance (Clear) Urine Protein (Negative) Urine Blood (Negative) Ur Leukocyte Esterase (Negative) Urine WBC (0-5) /hpf Ur Squamous Epith Cells (0-4) /hpf Amorphous Sediment (None) /hpf Hyaline Casts (0-2) /lpf Urine Mucus (None) /hpf Crossmatch 09/15/17 09/15/17 09/15/17 Range/Units 15:34 17:15 17:15 WBC (3.8-10.6) k/uL RBC (3.80-5.40) m/uL Hgb (11.4-16.0) gm/dL Hct (34.0-46.0) % MCHC (31.0-37.0) g/dL RDW (11.5-15.5) % Neutrophils # (1.3-7.7) k/uL Lymphocytes # (1.0-4.8) k/uL INR (<1.2) APTT (22.0-30.0) sec Sodium (137-145) mmol/L Potassium (3.5-5.1) mmol/L Carbon Dioxide (22-30) mmol/L BUN (7-17) mg/dL Creatinine (0.52-1.04) mg/dL Glucose (74-99) mg/dL POC Glucose (mg/dL) 475 H 490 H (75-99) mg/dL Hemoglobin A1c (4.0-6.0) % Total Bilirubin (0.2-1.3) mg/dL CK-MB (CK-2) (0.0-2.4) ng/mL Troponin I (0.000-0.034) ng/mL Urine Appearance Cloudy H (Clear) Urine Protein 1+ H (Negative) Urine Blood Trace H (Negative) Ur Leukocyte Esterase Trace H (Negative) Urine WBC 25 H (0-5) /hpf Ur Squamous Epith Cells 78 H (0-4) /hpf Amorphous Sediment Few H (None) /hpf Hyaline Casts 13 H (0-2) /lpf Urine Mucus Rare H (None) /hpf Crossmatch 09/15/17 09/15/17 09/15/17 Range/Units 20:04 22:59 22:59 WBC 12.4 H (3.8-10.6) k/uL RBC 2.80 L (3.80-5.40) m/uL Hgb 7.4 L (11.4-16.0) gm/dL Hct 24.2 L (34.0-46.0) % MCHC 30.8 L (31.0-37.0) g/dL RDW (11.5-15.5) % Neutrophils # 11.4 H (1.3-7.7) k/uL Lymphocytes # 0.5 L (1.0-4.8) k/uL INR (<1.2) APTT (22.0-30.0) sec Sodium (137-145) mmol/L Potassium (3.5-5.1) mmol/L Carbon Dioxide (22-30) mmol/L BUN (7-17) mg/dL Creatinine (0.52-1.04) mg/dL Glucose (74-99) mg/dL POC Glucose (mg/dL) 438 H (75-99) mg/dL Hemoglobin A1c (4.0-6.0) % Total Bilirubin (0.2-1.3) mg/dL CK-MB (CK-2) 12.8 H* (0.0-2.4) ng/mL Troponin I 7.040 H* (0.000-0.034) ng/mL Urine Appearance (Clear) Urine Protein (Negative) Urine Blood (Negative) Ur Leukocyte Esterase (Negative) Urine WBC (0-5) /hpf Ur Squamous Epith Cells (0-4) /hpf Amorphous Sediment (None) /hpf Hyaline Casts (0-2) /lpf Urine Mucus (None) /hpf Crossmatch 09/15/17 09/16/17 09/16/17 Range/Units 23:51 00:47 02:01 WBC (3.8-10.6) k/uL RBC (3.80-5.40) m/uL Hgb (11.4-16.0) gm/dL Hct (34.0-46.0) % MCHC (31.0-37.0) g/dL RDW (11.5-15.5) % Neutrophils # (1.3-7.7) k/uL Lymphocytes # (1.0-4.8) k/uL INR (<1.2) APTT (22.0-30.0) sec Sodium (137-145) mmol/L Potassium (3.5-5.1) mmol/L Carbon Dioxide (22-30) mmol/L BUN (7-17) mg/dL Creatinine (0.52-1.04) mg/dL Glucose (74-99) mg/dL POC Glucose (mg/dL) 358 H 323 H 242 H (75-99) mg/dL Hemoglobin A1c (4.0-6.0) % Total Bilirubin (0.2-1.3) mg/dL CK-MB (CK-2) (0.0-2.4) ng/mL Troponin I (0.000-0.034) ng/mL Urine Appearance (Clear) Urine Protein (Negative) Urine Blood (Negative) Ur Leukocyte Esterase (Negative) Urine WBC (0-5) /hpf Ur Squamous Epith Cells (0-4) /hpf Amorphous Sediment (None) /hpf Hyaline Casts (0-2) /lpf Urine Mucus (None) /hpf Crossmatch 09/16/17 09/16/17 09/16/17 Range/Units 03:11 04:07 04:07 WBC 13.8 H (3.8-10.6) k/uL RBC 2.70 L (3.80-5.40) m/uL Hgb 7.2 L (11.4-16.0) gm/dL Hct 23.1 L (34.0-46.0) % MCHC (31.0-37.0) g/dL RDW (11.5-15.5) % Neutrophils # 12.3 H (1.3-7.7) k/uL Lymphocytes # 0.6 L (1.0-4.8) k/uL INR (<1.2) APTT (22.0-30.0) sec Sodium 136 L (137-145) mmol/L Potassium (3.5-5.1) mmol/L Carbon Dioxide (22-30) mmol/L BUN 74 H (7-17) mg/dL Creatinine 1.90 H (0.52-1.04) mg/dL Glucose 124 H (74-99) mg/dL POC Glucose (mg/dL) 178 H (75-99) mg/dL Hemoglobin A1c (4.0-6.0) % Total Bilirubin (0.2-1.3) mg/dL CK-MB (CK-2) (0.0-2.4) ng/mL Troponin I (0.000-0.034) ng/mL Urine Appearance (Clear) Urine Protein (Negative) Urine Blood (Negative) Ur Leukocyte Esterase (Negative) Urine WBC (0-5) /hpf Ur Squamous Epith Cells (0-4) /hpf Amorphous Sediment (None) /hpf Hyaline Casts (0-2) /lpf Urine Mucus (None) /hpf Crossmatch 09/16/17 09/16/17 09/16/17 Range/Units 04:07 04:18 05:16 WBC (3.8-10.6) k/uL RBC (3.80-5.40) m/uL Hgb (11.4-16.0) gm/dL Hct (34.0-46.0) % MCHC (31.0-37.0) g/dL RDW (11.5-15.5) % Neutrophils # (1.3-7.7) k/uL Lymphocytes # (1.0-4.8) k/uL INR (<1.2) APTT (22.0-30.0) sec Sodium (137-145) mmol/L Potassium (3.5-5.1) mmol/L Carbon Dioxide (22-30) mmol/L BUN (7-17) mg/dL Creatinine (0.52-1.04) mg/dL Glucose (74-99) mg/dL POC Glucose (mg/dL) 140 H 139 H (75-99) mg/dL Hemoglobin A1c (4.0-6.0) % Total Bilirubin (0.2-1.3) mg/dL CK-MB (CK-2) 12.0 H* (0.0-2.4) ng/mL Troponin I 11.800 H* (0.000-0.034) ng/mL Urine Appearance (Clear) Urine Protein (Negative) Urine Blood (Negative) Ur Leukocyte Esterase (Negative) Urine WBC (0-5) /hpf Ur Squamous Epith Cells (0-4) /hpf Amorphous Sediment (None) /hpf Hyaline Casts (0-2) /lpf Urine Mucus (None) /hpf Crossmatch 09/16/17 09/16/17 09/16/17 Range/Units 06:03 06:53 08:08 WBC (3.8-10.6) k/uL RBC (3.80-5.40) m/uL Hgb (11.4-16.0) gm/dL Hct (34.0-46.0) % MCHC (31.0-37.0) g/dL RDW (11.5-15.5) % Neutrophils # (1.3-7.7) k/uL Lymphocytes # (1.0-4.8) k/uL INR (<1.2) APTT (22.0-30.0) sec Sodium (137-145) mmol/L Potassium (3.5-5.1) mmol/L Carbon Dioxide (22-30) mmol/L BUN (7-17) mg/dL Creatinine (0.52-1.04) mg/dL Glucose (74-99) mg/dL POC Glucose (mg/dL) 146 H 151 H 135 H (75-99) mg/dL Hemoglobin A1c (4.0-6.0) % Total Bilirubin (0.2-1.3) mg/dL CK-MB (CK-2) (0.0-2.4) ng/mL Troponin I (0.000-0.034) ng/mL Urine Appearance (Clear) Urine Protein (Negative) Urine Blood (Negative) Ur Leukocyte Esterase (Negative) Urine WBC (0-5) /hpf Ur Squamous Epith Cells (0-4) /hpf Amorphous Sediment (None) /hpf Hyaline Casts (0-2) /lpf Urine Mucus (None) /hpf Crossmatch 09/16/17 Range/Units 08:58 WBC (3.8-10.6) k/uL RBC (3.80-5.40) m/uL Hgb (11.4-16.0) gm/dL Hct (34.0-46.0) % MCHC (31.0-37.0) g/dL RDW (11.5-15.5) % Neutrophils # (1.3-7.7) k/uL Lymphocytes # (1.0-4.8) k/uL INR (<1.2) APTT (22.0-30.0) sec Sodium (137-145) mmol/L Potassium (3.5-5.1) mmol/L Carbon Dioxide (22-30) mmol/L BUN (7-17) mg/dL Creatinine (0.52-1.04) mg/dL Glucose (74-99) mg/dL POC Glucose (mg/dL) 187 H (75-99) mg/dL Hemoglobin A1c (4.0-6.0) % Total Bilirubin (0.2-1.3) mg/dL CK-MB (CK-2) (0.0-2.4) ng/mL Troponin I (0.000-0.034) ng/mL Urine Appearance (Clear) Urine Protein (Negative) Urine Blood (Negative) Ur Leukocyte Esterase (Negative) Urine WBC (0-5) /hpf Ur Squamous Epith Cells (0-4) /hpf Amorphous Sediment (None) /hpf Hyaline Casts (0-2) /lpf Urine Mucus (None) /hpf Crossmatch Assessment and Plan Assessment: Assessment Hypoxemic respiratory failure, possibly related to underlying CHF given the patient's chest x-ray and elevated N-terminal proBNP Recent diagnosis of pancreatic cancer though the patient has not started treatment as yet CVA Question of COPD Diabetes mellitus Obesity GERD Hyperlipidemia Hypertension Dementia Anemia Prerenal azotemia Anion gap metabolic acidosis Plan: Plan dated 09/15/2017 The patient will be admitted to the intensive care unit. We'll maintain her on the BiPAP for now. We gave her some additional Lasix here in the emergency room. Prognosis is poor given her recent diagnosis of pancreatic cancer. She has not started therapy as yet. The patient will get daily x-rays and lab work. I review the medications. We did talk about CODE STATUS. We also talked about mechanical ventilation. She would agree to be resuscitated. She also would agree to be on the mechanical ventilator for a short period of time. Does not want long-term mechanical ventilation. Plan dated 09/16/2017 The patient's currently on O2 at 5 L. She's been on and off the BiPAP through the night. I told the nurse taking care of for that she could go back on the BiPAP if she wishes. She is currently on a Lasix drip of 5 mg an hour and insulin infusion or 4 units an hour. The patient's chest x-ray certainly improved. Unfortunately, her blood pressures low. Chest x-ray labs and medications are reviewed. Prognosis is poor. We did talk about a palliative care consult oncology. Axilla we saw the patient, the oncology nurses were in the room. They agree that she would not be a great candidate for treatment. Additional recommendations and suggestions are forthcoming. Time with Patient: Greater than 30
--- NOTE | 2017-09-16 10:11 | P.CONS ---
History of Present Illness - Reason for Consult Consult date: 09/16/17 Anemia Requesting physician: Sebastián Baltazar - History of Present Illness 77-year-old female with a history multiple medical comorbidities including morbid obesity BMI 45, COPD, CVA/TIA, diabetes mellitus, hyperlipidemia, hypertension, sleep apnea, and new diagnosis of pancreatic cancer at the [facility] admitted with shortness of breath weakness for the last week. Troponin 3; 0.4, 7.0, and 11.8. Consult requested for anemia. Admission hemoglobin 6.4. MCV 89. Platelets 336. She received 2 units of blood current hemoglobin is 7.2. Denies overt bleeding such as hematemesis hematochezia or melena. No history of peptic ulcer disease or GI bleed. Denies abdominal pain. Hemoglobin August 2017 was 9.6 and in December 2016 was 13.0. Patient states she's never had an EGD but had a colonoscopy possibly 3 years ago maybe longer and to her memory was normal. Denies [facility] excessive aspirin usage. No alcohol. Home medications include but not limited to Prilosec 20 mg daily and baby aspirin. Review of Systems Constitutional: Denies fever, chills, sweats, weight gain, or loss. HEENT: Negative for migraines, blurred vision or loss, earaches, drainage, tinnitus, oral mucosal lesions, dysphagia, or odynophagia. CARDIAC: History of chest pain. Hyperlipidemia. Hypertension. Negative for chest pain, arrhythmias, or palpitation. RESPIRATORY: COPD. Sleep apnea. Negative for shortness of breath, hemoptysis, cough, or sputum production. GI: See HPI for pertinent findings. : Negative for hematuria, urgency, frequency, polyuria, or dysuria. GYNc: Denies possibility of . Negative vaginal discharge. MUSCULOSKELETAL: Negative for muscle aches, swelling, arthritis, and arthralgias. NEUROLOGIC: Negative for stroke or TIA. ENDOCRINE: Diabetes mellitus. Negative for thyroid problems. SKIN: Negative for rash or itching. PSYCHIATRIC: History of anxiety and depression. Past Medical History Past Medical History: Chest Pain / Angina, COPD, CVA/TIA, Diabetes Mellitus, GERD/Reflux, Hyperlipidemia, Hypertension, Memory Impairment, Osteoarthritis (OA ), Sleep Apnea/CPAP/BIPAP Additional Past Medical History / Comment(s): Pt states she was just recently diagnosed with pancreatic cancer- awaiting appt with oncologist-no treatment plan as yet, 2009 CVA with L foot drop and L arm weakness and pt states difficulty swallowing at times, gait dysfunction, small hiatal hernia, anemia, IDDM type II, epistaxis with cauterization, heart murmur, gout, hammer toes, R index finger cellulitis tx in [facility]-now healed, GUILLE with no CPAP use. History of Any Multi-Drug Resistant Organisms: None Reported Past Surgical History: Heart Catheterization, Joint Replacement, Orthopedic Surgery Additional Past Surgical History / Comment(s): RECENT ERCP IN [place], BILAT CATARACTS REMOVED, ORIF LT ARM WITH PINS/PLATES, BILAT TKA, HEART CATH-2013, D&C. LT BUNIONECTOMY, PICC LINE SINCE REMOVED, I&D R INDEX FINGER, egd, L LEG VEIN STRIPPING. Past Anesthesia/Blood Transfusion Reactions: No Reported Reaction Past Psychological History: Anxiety, Depression Additional Psychological History / Comment(s): Pt resides with her significant other of many years and their dog and cat. She uses a walker/cane. She no longer drives, her significant other takes her to [employer] [employer]. She has no home care. Smoking Status: Never smoker Past Alcohol Use History: None Reported Past Drug Use History: None Reported - Past Family History Father Family Medical History: Myocardial Infarction ([place]), Rheumatoid Arthritis ([place]) Additional Family Medical History / Comment(s): AT AGE 76 Mother Family Medical History: CVA/TIA, Myocardial Infarction ([place]) Additional Family Medical History / Comment(s): AGE 80 Medications and Allergies Home Medications Medication Instructions Recorded Confirmed Type Albuterol Nebulized [Ventolin 2.5 mg INHALATION RT-QID PRN 03/27/14 09/15/17 History Nebulized] Allopurinol [Zyloprim] 200 mg PO DAILY 03/27/14 09/15/17 History Cyclobenzaprine [Flexeril] 10 mg PO TID PRN 03/27/14 09/15/17 History Folic Acid 1 mg PO DAILY 03/27/14 09/15/17 History Omeprazole [PriLOSEC] 20 mg PO DAILY 03/27/14 09/15/17 History rOPINIRole HCL [Requip] 4 mg PO HS 03/27/14 09/15/17 History Hydrocodone/Acetaminophen 1 tab PO Q6HR PRN 07/10/14 09/15/17 History [Hydrocodone-Acetamin 7.5-325] Multivitamins, Thera [Multivitamin 1 tab PO DAILY 07/25/14 09/15/17 History (formulary)] Cinnamon Bark [Cinnamon] 500 mg PO DAILY 12/19/14 09/15/17 History Cholecalciferol [Vitamin D3] 2,000 unit PO DAILY 11/03/16 09/15/17 History Cyanocobalamin (Vitamin B-12) 1,000 mcg PO QAM 11/03/16 09/15/17 History [Vitamin B-12] medroxyPROGESTERone [Provera] 2.5 mg PO DAILY 11/03/16 09/15/17 History Aspirin 81 mg PO DAILY chew 11/12/16 09/15/17 Rx Colchicine [Colcrys] 0.6 mg PO DAILY 08/28/17 09/15/17 History metFORMIN HCL [Glucophage] 500 mg PO BID 08/28/17 09/15/17 History Insulin Aspart [NovoLOG 12 unit SQ AC-TID #0 08/29/17 09/15/17 Rx (formulary)] Insulin Glargine [Lantus] 30 unit SQ HS #0 08/29/17 09/15/17 Rx Lisinopril [Zestril] 20 mg PO HS #0 08/29/17 09/15/17 Rx Ascorbic Acid [Vitamin C] 500 mg PO DAILY 09/15/17 09/15/17 History Atorvastatin [Lipitor] 20 mg PO HS 09/15/17 09/15/17 History Furosemide [Lasix] 20 mg PO DAILY 09/15/17 09/15/17 History Insulin Aspart [NovoLOG See Protocol SQ ACHS 09/15/17 09/15/17 History (formulary)] amLODIPine [Norvasc] 5 mg PO DAILY 09/15/17 09/15/17 History Allergies Allergy/AdvReac Type Severity Reaction Status Date / Time No Known Allergies Allergy Verified 09/15/17 11:51 Physical Exam Vitals: Vital Signs Temp Pulse Resp BP Pulse Ox 09/16/17 08:00 78 09/16/17 07:52 78 09/16/17 07:00 68 17 94/48 99 09/16/17 06:00 81 28 H 107/48 97 09/16/17 05:00 68 17 96/49 97 09/16/17 04:00 98.6 F 70 19 95/48 97 09/16/17 03:00 71 17 105/51 97 09/16/17 02:00 77 25 H 100/49 97 09/16/17 01:00 75 19 114/57 97 09/16/17 00:00 98.1 F 74 21 118/58 97 09/15/17 23:14 84 33 H 118/58 95 09/15/17 23:00 84 23 112/67 96 09/15/17 22:00 84 24 113/61 96 09/15/17 21:37 98.1 F 82 19 113/62 98 09/15/17 21:00 85 19 134/60 97 09/15/17 20:00 98.9 F 88 26 H 119/56 96 09/15/17 19:00 90 20 122/55 93 L 09/15/17 18:30 90 23 128/67 95 09/15/17 18:20 98.4 F 93 23 128/67 99 09/15/17 18:10 98.2 F 97 27 H 110/71 99 09/15/17 18:04 98.2 F 91 31 H 110/71 98 09/15/17 18:00 92 20 119/52 99 09/15/17 17:30 95 23 113/57 100 09/15/17 17:00 100 25 H 121/53 100 09/15/17 16:30 103 H 27 H 121/59 100 09/15/17 16:00 98.4 F 93 22 112/55 100 09/15/17 15:35 98.4 F 96 25 H 135/49 100 09/15/17 15:30 121 H 100 09/15/17 15:05 97 F L 103 H 32 H 136/55 99 09/15/17 14:55 97.6 F 100 94 H 136/55 100 09/15/17 14:00 105 H 37 H 128/59 99 09/15/17 13:00 102 H 28 H 173/71 99 09/15/17 12:24 105 H 28 H 168/99 100 09/15/17 12:00 98 09/15/17 11:56 100 29 H 154/68 100 09/15/17 11:40 99 09/15/17 11:35 100 32 H 140/64 90 L 09/15/17 11:19 107 H 38 H 139/79 89 L Intake and Output 09/15/17 09/16/17 09/16/17 22:59 06:59 14:59 Intake Total 860 33.284 2.222 Output Total 621 660 60 Balance 239 -626.716 -57.778 Intake: Intake, IV Titration 33.284 2.222 Amount Insulin Regular 100 unit 33.284 2.222 In Sodium Chloride 0.9% 100 ml @ Per Protocol IV .Q0M [facility] Rx#:[id number] Oral 240 Blood Product 620 Rc As-1 Unit 310 [id number] Rc As-1 Unit 310 [id number] Output: Urine 621 660 60 Other: Voiding Method Indwelling Catheter Indwelling Catheter Weight 103 kg 104 kg General appearance: The patient is alert, oriented, with mild shortness of breath on conversation. HET: Head is normocephalic and atraumatic. Pupils are equal and reactive. Oropharynx is clear without lesions. Neck: Supple without lymphadenopathy. Trachea midline. Heart: S1 S2. Regular rate and rhythm. Lungs: Diminished in bases bilaterally. Abdomen: Soft, nontender, nondistended with bowel sounds. No peritoneal signs. No palpable organomegaly or masses. Extremities: Normal skin color and turgor. No cyanosis, rash, ulceration, clubbing, or edema. Radial and pedal pulses are 2/4 bilaterally. Owens with clear judy urine Neurological: No focal deficits. Strength and sensation are grossly intact. Results CBC & Chem 7: 09/16/17 04:07 09/16/17 04:07 Labs: Abnormal Lab Results - Last 24 Hours (Table) 09/15/17 09/15/17 09/15/17 Range/Units 11:24 11:29 11:29 WBC 18.6 H (3.8-10.6) k/uL RBC 2.54 L (3.80-5.40) m/uL Hgb 6.4 L* D (11.4-16.0) gm/dL Hct 22.7 L (34.0-46.0) % MCHC 28.0 L (31.0-37.0) g/dL RDW 15.9 H (11.5-15.5) % Neutrophils # 15.6 H (1.3-7.7) k/uL Lymphocytes # (1.0-4.8) k/uL INR (<1.2) APTT (22.0-30.0) sec Sodium (137-145) mmol/L Potassium (3.5-5.1) mmol/L Carbon Dioxide (22-30) mmol/L BUN (7-17) mg/dL Creatinine (0.52-1.04) mg/dL Glucose (74-99) mg/dL POC Glucose (mg/dL) (75-99) mg/dL Hemoglobin A1c (4.0-6.0) % Total Bilirubin (0.2-1.3) mg/dL CK-MB (CK-2) 3.5 H* (0.0-2.4) ng/mL Troponin I 0.458 H* (0.000-0.034) ng/mL Urine Appearance (Clear) Urine Protein (Negative) Urine Blood (Negative) Ur Leukocyte Esterase (Negative) Urine WBC (0-5) /hpf Ur Squamous Epith Cells (0-4) /hpf Amorphous Sediment (None) /hpf Hyaline Casts (0-2) /lpf Urine Mucus (None) /hpf Crossmatch See Detail 09/15/17 09/15/17 09/15/17 Range/Units 11:29 11:29 11:29 WBC (3.8-10.6) k/uL RBC (3.80-5.40) m/uL Hgb (11.4-16.0) gm/dL Hct (34.0-46.0) % MCHC (31.0-37.0) g/dL RDW (11.5-15.5) % Neutrophils # (1.3-7.7) k/uL Lymphocytes # (1.0-4.8) k/uL INR 1.2 H (<1.2) APTT 19.0 L (22.0-30.0) sec Sodium (137-145) mmol/L Potassium 5.4 H (3.5-5.1) mmol/L Carbon Dioxide 15 L (22-30) mmol/L BUN 60 H (7-17) mg/dL Creatinine 1.67 H (0.52-1.04) mg/dL Glucose 327 H (74-99) mg/dL POC Glucose (mg/dL) (75-99) mg/dL Hemoglobin A1c 6.8 H (4.0-6.0) % Total Bilirubin 1.6 H (0.2-1.3) mg/dL CK-MB (CK-2) (0.0-2.4) ng/mL Troponin I (0.000-0.034) ng/mL Urine Appearance (Clear) Urine Protein (Negative) Urine Blood (Negative) Ur Leukocyte Esterase (Negative) Urine WBC (0-5) /hpf Ur Squamous Epith Cells (0-4) /hpf Amorphous Sediment (None) /hpf Hyaline Casts (0-2) /lpf Urine Mucus (None) /hpf Crossmatch 09/15/17 09/15/17 09/15/17 Range/Units 15:34 17:15 17:15 WBC (3.8-10.6) k/uL RBC (3.80-5.40) m/uL Hgb (11.4-16.0) gm/dL Hct (34.0-46.0) % MCHC (31.0-37.0) g/dL RDW (11.5-15.5) % Neutrophils # (1.3-7.7) k/uL Lymphocytes # (1.0-4.8) k/uL INR (<1.2) APTT (22.0-30.0) sec Sodium (137-145) mmol/L Potassium (3.5-5.1) mmol/L Carbon Dioxide (22-30) mmol/L BUN (7-17) mg/dL Creatinine (0.52-1.04) mg/dL Glucose (74-99) mg/dL POC Glucose (mg/dL) 475 H 490 H (75-99) mg/dL Hemoglobin A1c (4.0-6.0) % Total Bilirubin (0.2-1.3) mg/dL CK-MB (CK-2) (0.0-2.4) ng/mL Troponin I (0.000-0.034) ng/mL Urine Appearance Cloudy H (Clear) Urine Protein 1+ H (Negative) Urine Blood Trace H (Negative) Ur Leukocyte Esterase Trace H (Negative) Urine WBC 25 H (0-5) /hpf Ur Squamous Epith Cells 78 H (0-4) /hpf Amorphous Sediment Few H (None) /hpf Hyaline Casts 13 H (0-2) /lpf Urine Mucus Rare H (None) /hpf Crossmatch 09/15/17 09/15/17 09/15/17 Range/Units 20:04 22:59 22:59 WBC 12.4 H (3.8-10.6) k/uL RBC 2.80 L (3.80-5.40) m/uL Hgb 7.4 L (11.4-16.0) gm/dL Hct 24.2 L (34.0-46.0) % MCHC 30.8 L (31.0-37.0) g/dL RDW (11.5-15.5) % Neutrophils # 11.4 H (1.3-7.7) k/uL Lymphocytes # 0.5 L (1.0-4.8) k/uL INR (<1.2) APTT (22.0-30.0) sec Sodium (137-145) mmol/L Potassium (3.5-5.1) mmol/L Carbon Dioxide (22-30) mmol/L BUN (7-17) mg/dL Creatinine (0.52-1.04) mg/dL Glucose (74-99) mg/dL POC Glucose (mg/dL) 438 H (75-99) mg/dL Hemoglobin A1c (4.0-6.0) % Total Bilirubin (0.2-1.3) mg/dL CK-MB (CK-2) 12.8 H* (0.0-2.4) ng/mL Troponin I 7.040 H* (0.000-0.034) ng/mL Urine Appearance (Clear) Urine Protein (Negative) Urine Blood (Negative) Ur Leukocyte Esterase (Negative) Urine WBC (0-5) /hpf Ur Squamous Epith Cells (0-4) /hpf Amorphous Sediment (None) /hpf Hyaline Casts (0-2) /lpf Urine Mucus (None) /hpf Crossmatch 09/15/17 09/16/17 09/16/17 Range/Units 23:51 00:47 02:01 WBC (3.8-10.6) k/uL RBC (3.80-5.40) m/uL Hgb (11.4-16.0) gm/dL Hct (34.0-46.0) % MCHC (31.0-37.0) g/dL RDW (11.5-15.5) % Neutrophils # (1.3-7.7) k/uL Lymphocytes # (1.0-4.8) k/uL INR (<1.2) APTT (22.0-30.0) sec Sodium (137-145) mmol/L Potassium (3.5-5.1) mmol/L Carbon Dioxide (22-30) mmol/L BUN (7-17) mg/dL Creatinine (0.52-1.04) mg/dL Glucose (74-99) mg/dL POC Glucose (mg/dL) 358 H 323 H 242 H (75-99) mg/dL Hemoglobin A1c (4.0-6.0) % Total Bilirubin (0.2-1.3) mg/dL CK-MB (CK-2) (0.0-2.4) ng/mL Troponin I (0.000-0.034) ng/mL Urine Appearance (Clear) Urine Protein (Negative) Urine Blood (Negative) Ur Leukocyte Esterase (Negative) Urine WBC (0-5) /hpf Ur Squamous Epith Cells (0-4) /hpf Amorphous Sediment (None) /hpf Hyaline Casts (0-2) /lpf Urine Mucus (None) /hpf Crossmatch 09/16/17 09/16/17 09/16/17 Range/Units 03:11 04:07 04:07 WBC 13.8 H (3.8-10.6) k/uL RBC 2.70 L (3.80-5.40) m/uL Hgb 7.2 L (11.4-16.0) gm/dL Hct 23.1 L (34.0-46.0) % MCHC (31.0-37.0) g/dL RDW (11.5-15.5) % Neutrophils # 12.3 H (1.3-7.7) k/uL Lymphocytes # 0.6 L (1.0-4.8) k/uL INR (<1.2) APTT (22.0-30.0) sec Sodium 136 L (137-145) mmol/L Potassium (3.5-5.1) mmol/L Carbon Dioxide (22-30) mmol/L BUN 74 H (7-17) mg/dL Creatinine 1.90 H (0.52-1.04) mg/dL Glucose 124 H (74-99) mg/dL POC Glucose (mg/dL) 178 H (75-99) mg/dL Hemoglobin A1c (4.0-6.0) % Total Bilirubin (0.2-1.3) mg/dL CK-MB (CK-2) (0.0-2.4) ng/mL Troponin I (0.000-0.034) ng/mL Urine Appearance (Clear) Urine Protein (Negative) Urine Blood (Negative) Ur Leukocyte Esterase (Negative) Urine WBC (0-5) /hpf Ur Squamous Epith Cells (0-4) /hpf Amorphous Sediment (None) /hpf Hyaline Casts (0-2) /lpf Urine Mucus (None) /hpf Crossmatch 09/16/17 09/16/17 09/16/17 Range/Units 04:07 04:18 05:16 WBC (3.8-10.6) k/uL RBC (3.80-5.40) m/uL Hgb (11.4-16.0) gm/dL Hct (34.0-46.0) % MCHC (31.0-37.0) g/dL RDW (11.5-15.5) % Neutrophils # (1.3-7.7) k/uL Lymphocytes # (1.0-4.8) k/uL INR (<1.2) APTT (22.0-30.0) sec Sodium (137-145) mmol/L Potassium (3.5-5.1) mmol/L Carbon Dioxide (22-30) mmol/L BUN (7-17) mg/dL Creatinine (0.52-1.04) mg/dL Glucose (74-99) mg/dL POC Glucose (mg/dL) 140 H 139 H (75-99) mg/dL Hemoglobin A1c (4.0-6.0) % Total Bilirubin (0.2-1.3) mg/dL CK-MB (CK-2) 12.0 H* (0.0-2.4) ng/mL Troponin I 11.800 H* (0.000-0.034) ng/mL Urine Appearance (Clear) Urine Protein (Negative) Urine Blood (Negative) Ur Leukocyte Esterase (Negative) Urine WBC (0-5) /hpf Ur Squamous Epith Cells (0-4) /hpf Amorphous Sediment (None) /hpf Hyaline Casts (0-2) /lpf Urine Mucus (None) /hpf Crossmatch 09/16/17 09/16/17 09/16/17 Range/Units 06:03 06:53 08:08 WBC (3.8-10.6) k/uL RBC (3.80-5.40) m/uL Hgb (11.4-16.0) gm/dL Hct (34.0-46.0) % MCHC (31.0-37.0) g/dL RDW (11.5-15.5) % Neutrophils # (1.3-7.7) k/uL Lymphocytes # (1.0-4.8) k/uL INR (<1.2) APTT (22.0-30.0) sec Sodium (137-145) mmol/L Potassium (3.5-5.1) mmol/L Carbon Dioxide (22-30) mmol/L BUN (7-17) mg/dL Creatinine (0.52-1.04) mg/dL Glucose (74-99) mg/dL POC Glucose (mg/dL) 146 H 151 H 135 H (75-99) mg/dL Hemoglobin A1c (4.0-6.0) % Total Bilirubin (0.2-1.3) mg/dL CK-MB (CK-2) (0.0-2.4) ng/mL Troponin I (0.000-0.034) ng/mL Urine Appearance (Clear) Urine Protein (Negative) Urine Blood (Negative) Ur Leukocyte Esterase (Negative) Urine WBC (0-5) /hpf Ur Squamous Epith Cells (0-4) /hpf Amorphous Sediment (None) /hpf Hyaline Casts (0-2) /lpf Urine Mucus (None) /hpf Crossmatch 09/16/17 Range/Units 08:58 WBC (3.8-10.6) k/uL RBC (3.80-5.40) m/uL Hgb (11.4-16.0) gm/dL Hct (34.0-46.0) % MCHC (31.0-37.0) g/dL RDW (11.5-15.5) % Neutrophils # (1.3-7.7) k/uL Lymphocytes # (1.0-4.8) k/uL INR (<1.2) APTT (22.0-30.0) sec Sodium (137-145) mmol/L Potassium (3.5-5.1) mmol/L Carbon Dioxide (22-30) mmol/L BUN (7-17) mg/dL Creatinine (0.52-1.04) mg/dL Glucose (74-99) mg/dL POC Glucose (mg/dL) 187 H (75-99) mg/dL Hemoglobin A1c (4.0-6.0) % Total Bilirubin (0.2-1.3) mg/dL CK-MB (CK-2) (0.0-2.4) ng/mL Troponin I (0.000-0.034) ng/mL Urine Appearance (Clear) Urine Protein (Negative) Urine Blood (Negative) Ur Leukocyte Esterase (Negative) Urine WBC (0-5) /hpf Ur Squamous Epith Cells (0-4) /hpf Amorphous Sediment (None) /hpf Hyaline Casts (0-2) /lpf Urine Mucus (None) /hpf Crossmatch Assessment and Plan (1) Symptomatic anemia Narrative/Plan: 77-year-old female admitted with 2 week history shortness of breath, elevated troponin level and hemoglobin 6.4 previously 9.6 suggestive of acute blood loss anemia without overt bleeding with subsequent diagnosis of pancreatic carcinoma presently being evaluated by oncology. Current Visit: Yes Status: Acute Code(s): D64.9 - ANEMIA, UNSPECIFIED SNOMED Code(s): 435525155 (2) Acute blood loss anemia Current Visit: Yes Status: Acute Code(s): D62 - ACUTE POSTHEMORRHAGIC ANEMIA SNOMED Code(s): 455976426 (3) Pancreatic cancer Current Visit: Yes Status: Acute Code(s): C25.9 - MALIGNANT NEOPLASM OF PANCREAS, UNSPECIFIED SNOMED Code(s): 035568478 (4) Elevated troponin Current Visit: Yes Status: Acute Code(s): R74.8 - ABNORMAL LEVELS OF OTHER SERUM ENZYMES SNOMED Code(s): 907414044 (5) Morbid obesity with body mass index of 40.0-44.9 in adult Current Visit: Yes Status: Chronic Code(s): E66.01 - MORBID (SEVERE) OBESITY DUE TO EXCESS CALORIES; Z68.41 - BODY MASS INDEX (BMI) 40.0-44.9, ADULT SNOMED Code(s): 062072040 Plan: 1. Iron indices. 2. Stool guaiac testing. Observe for overt GI bleeding. CBC monitoring. Platelet transfusion as indicated. 3. Oncology consultation. 4. Cardiology consultation. 5. Protonix 40 mg IV daily. 6. Inpatient endoscopic exams are not planned at this time but contingent on clinical course secondary to elevated troponin level and absence of overt GI bleeding. Gross elevation of troponin puts her at an increased risk for endoscopic procedures. 7. Diet as tolerated. We'll follow closely with you. Thank you for this kind referral and the opportunity to participate in the care of your patient. This consultation was discussed with Dr. Palumbo. The impression and plan of care have been directed as dictated.
[2017-09-16 10:17] LABS: Glucose,Whole Blood 240 mg/dL (75-99)
[2017-09-16] MEDS: MIDODRINE 5 MG TAB PO SCH ×2 (10:17→17:02)
--- NOTE | 2017-09-16 10:17 | ECHOF ---
Referral Reason:elevTrop MEASUREMENTS -------- HEIGHT: 160.0 cm WEIGHT: 104.8 kg BP: 154/68 RVIDd: 2.1 cm (< 3.3) IVSd: 2.0 cm (0.6 - 1.1) LVIDd: 4.1 cm (3.9 - 5.3) LVPWd: 1.6 cm (0.6 - 1.1) IVSs: 1.7 cm LVIDs: 2.2 cm LVPWs: 2.0 cm LAESV Index (A-L): 33.09 ml/m Ao Diam: 2.7 cm (2.0 - 3.7) AV Cusp: 0.9 cm (1.5 - 2.6) LA Diam: 4.0 cm (2.7 - 3.8) MV EXCURSION: 17.701 mm (> 18.000) MV EF SLOPE: 44 mm/s (70 - 150) EPSS: 0.7 cm MV E Freedom: 1.46 m/s MV DecT: 160 ms MV A Freedom: 1.30 m/s MV E/A Ratio: 1.12 AV maxP.20 mmHg AV meanP.48 mmHg AR PHT: 433 ms RAP: 5.00 mmHg RVSP: 38.02 mmHg FINDINGS -------- Resting tachycardia (HR>100bpm). This was a technically good study. The left ventricular size is normal. There is severe concentric left ventricular hypertrophy. Ove rall left ventricular systolic function is normal with, an EF between 55 - 60 %. The right ventricle is normal in size and function. LA is midly dilated 29-33ml/m2. The right atrium is normal in size. Aortic valve is trileaflet and is severely thickened. Trace amount of aortic regurgitation. Ther e is severe aortic stenosis present. Peak/mean gradient across the Aortic Valve is 74.20mmHg / 42.4 8mmHg. Mild mitral annular calcification present. Moderate mitral regurgitation is present. Cannot exclu de vegeation on he PMVL. Mild tricuspid regurgitation present. There is mild pulmonary hypertension. The right ventricular systolic pressure, as measured by Doppler, is 38.02mmHg. The pulmonic valve was not well visualized. Trace/mild (physiologic) pulmonic regurgitation. The aortic root size is normal. There is no pericardial effusion. CONCLUSIONS -------- 1. Resting tachycardia (HR>100bpm). 2. This was a technically good study. 3. The left ventricular size is normal. 4. There is severe concentric left ventricular hypertrophy. 5. Overall left ventricular systolic function is normal with, an EF between 55 - 60 %. 6. LA is midly dilated 29-33ml/m2. 7. Aortic valve is trileaflet and is severely thickened. 8. Trace amount of aortic regurgitation. 9. There is severe aortic stenosis present. 10. Peak/mean gradient across the Aortic Valve is 74.20mmHg / 42.48mmHg. 11. Mild mitral annular calcification present. 12. Moderate mitral regurgitation is present. 13. Cannot exclude vegeation on he PMVL. 14. Mild tricuspid regurgitation present. 15. There is mild pulmonary hypertension. 16. Trace/mild (physiologic) pulmonic regurgitation. 17. The aortic root size is normal. 18. There is no pericardial effusion. [employer]IGHT ATTENDANT: Zulma Farias RDCS
[2017-09-16 10:19] VITALS: BMI 44.7
[2017-09-16 11:10] LABS: Glucose,Whole Blood 215 mg/dL (75-99)
[2017-09-16] MEDS ORDERED: FOLIC ACID 1 MG TAB PO SCH (12:00)
[2017-09-16 12:25] LABS: Glucose,Whole Blood 146 mg/dL (75-99)
[2017-09-16] MEDS: MULTIVITAMINS, THERA 1 EACH TAB PO SCH (12:47)
[2017-09-16] MEDS ORDERED: LEVOFLOXACIN 750MG-D5W PMX 750 MG in DEXTROSE/WATER 1 150ML.BAG IVPB SCH (13:00)
[2017-09-16] MEDS ORDERED: INSULIN NPH 300 UNIT/3 ML VIAL SQ ONE (13:22)
[2017-09-16 13:26] LABS: Glucose,Whole Blood 188 mg/dL (75-99)
[2017-09-16] MEDS: FUROSEMIDE 10 MG/ML 4 ML VIAL IV SCH (14:54)
[2017-09-16 16:21] LABS: Glucose,Whole Blood 249 mg/dL (75-99)
--- NOTE | 2017-09-16 16:53 | CONS ---
CONSULTATION DATE OF CONSULTATION: 09/16/17 REASON FOR CONSULT: Renal failure HISTORY OF PRESENT ILLNESS: The patient is a 77-year-old female who has a recent diagnosis of pancreatic cancer. She was admitted to the hospital with increased shortness of breath. Hemoglobin was low at 6.4. The patient has received packed RBC transfusion. The patient had developed increased shortness of breath and was transferred to the ICU for respiratory failure. She was maintained on BiPAP. She was in fluid overload and is maintained on Lasix drip. Her volume status had improved. She has had good urine output. The patient has an indwelling Owens catheter and about 1.2 L. currently urine output is at about 40-60 mL/hours. Serum creatinine is at 1.9 mg/dL today. She was at 1.67 initially on admission. Review of previous labs show serum creatinine 1.06 on 08/29/2017. Blood pressure has been low with systolics in the 80s and 90s. Heart rate about 70-80 per minute. Patient is afebrile. She has not received any IV contrast recently. Echocardiogram yesterday shows ejection fraction 55% to 60%. PAST MEDICAL HISTORY: Significant for a hypertension, type 2 diabetes, gastroesophageal reflux disease, COPD, hyperlipidemia, obstructive sleep apnea, osteoarthritis, recent diagnosis of pancreatic cancer, hiatal hernia, obstructive sleep apnea. PAST SURGICAL HISTORY: Cardiac catheterization, cataract surgery, bilateral total knee arthroplasty, D and C, bunionectomy for PICC line placement and removal. Left leg stripping, anxiety, depression. SOCIAL HISTORY: Negative for smoking, drug abuse or alcohol abuse. MEDICATIONS: Prior to admission included Zyloprim, Flexeril, Folic acid, Prilosec, Requip, vitamin D3, vitamin B12, multivitamins. [place]. Glucophage, aspirin, Provera, insulin and Zestril, vitamin C, Lipitor, Lasix, Norvasc. ALLERGIES: Allergies none. REVIEW OF SYSTEMS: As per HPI. Other systems is negative. EXAMINATION: Patient is comfortable, awake, not in any acute distress. Blood pressure 99/62, heart rate 77 per minute. She is afebrile. Examination of the heart S1, S2. Examination of the lungs bilateral breath sounds are heard. ABDOMEN: Soft and obese. Examination of the lower extremity shows lower extremity edema 2+ bilaterally. BOOM STICK MAN exam is grossly intact. Patient moving all 4 extremities. Chronic skin changes are noted. LAB: Show sodium 136, potassium 4.6, BUN 74, serum creatinine 1.9. Troponin was 11.8, hemoglobin 7.2 g/dL. Initial hemoglobin was 6.4. UA shows 1+ protein, trace blood, WBCs 25. ASSESSMENT: 1. Acute kidney injury mainly cardiorenal, currently nonoliguric, improved. Volume status improved with diuresis. The Lasix drip was discontinued. 2. Acute non ST elevation myocardial infarction, being followed by Cardiology. No plans for cardiac catheterization at this time. 3. Hypotension. No evidence of ongoing major source of infection. There is some pyuria noted on the UA. I will get a urine culture. 4. Diastolic dysfunction. Ejection fraction 55-60% on echocardiogram done yesterday with severe concentric LVH was noted. Moderate mitral regurgitation and mild pulmonary hypertension. 5. New diagnosis of pancreatic cancer. PLAN: Maintain patient on IV Lasix now that she is off of the Lasix drip and add midodrine for hypotension. Check urine culture. Agree with packed RBCs transfusion. Repeat labs in a.m. Thank you for this consultation. We will continue to follow the patient with you during her hospitalization. MMODL / IJN: [id number] /
[2017-09-16] MEDS: INSULIN ASPART 100 UNIT/ML 1 ML 10 ML VIAL SQ SCH ×2 (17:01)
--- NOTE | 2017-09-16 17:18 | P.CONS ---
History of Present Illness - Reason for Consult Consult date: 09/16/17 Pancreatic Cancer - New Diagnosis Requesting physician: Mary Ellen Cross - Chief Complaint SOB - History of Present Illness Ms. Albright is a pleasant 77 year old female who presented in Dec with c /o abd pain, she had CT on 07/20/17 that revealed pancreatitis. She was referred to [facility] for repeat CT AP repeated 09/01 , this showed increase pancreatic body mass as well as development of liver metastasis, ascites and radiologic evidence of mesenteric carcinomatosis, FNA of Pancreatic mass on 09/02/17 revealed Adenocarcinoma. She was evaluated by Dr. Casillas who advised consideration of single-agent palliative chemotherapy vs comfort care only. She was seen 09/09/[address] Starks to discuss the recommendations for treatment and plan for treatment. Comfort care vs. palliative treatment was discussed with and patient. After talking with the patient it does not seem that she fully understands the severity of her new diagnosis. She presented to [facility] with progressive weakness and Shortness of breath, her performance score is poor. On admission she was found to be anemic, as well as, elevated troponins. Review of Systems A 10 point review of systems assessed and completed to the best of my ability although patient is a poor historian. 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 History of Any Multi-Drug Resistant Organisms: None Reported Past Surgical History: Heart Catheterization, Joint Replacement, Orthopedic Surgery Additional Past Surgical History / Comment(s): RECENT ERCP IN [place], BILAT CATARACTS REMOVED, ORIF LT ARM WITH PINS/PLATES, BILAT TKA, HEART CATH-2013, D&C. LT BUNIONECTOMY, PICC LINE SINCE REMOVED, I&D R INDEX FINGER, egd, L LEG VEIN STRIPPING. Past Anesthesia/Blood Transfusion Reactions: No Reported Reaction Past Psychological History: Anxiety, Depression Additional Psychological History / Comment(s): Pt resides with her significant other of many years and their dog and cat. She uses a walker/cane. She no longer drives, her significant other takes her to appts. She has no home care. Smoking Status: Never smoker Past Alcohol Use History: None Reported Past Drug Use History: None Reported - Past Family History Father Family Medical History: Myocardial Infarction (SC), Rheumatoid Arthritis (RA) Additional Family Medical History / Comment(s): AT AGE 76 Mother Family Medical History: CVA/TIA, Myocardial Infarction (SC) Additional Family Medical History / Comment(s): AGE 80 Medications and Allergies Home Medications Medication Instructions Recorded Confirmed Type Albuterol Nebulized [Ventolin 2.5 mg INHALATION RT-QID PRN 03/27/14 09/15/17 History Nebulized] Allopurinol [Zyloprim] 200 mg PO DAILY 03/27/14 09/15/17 History Cyclobenzaprine [Flexeril] 10 mg PO TID PRN 03/27/14 09/15/17 History Folic Acid 1 mg PO DAILY 03/27/14 09/15/17 History Omeprazole [PriLOSEC] 20 mg PO DAILY 03/27/14 09/15/17 History rOPINIRole HCL [Requip] 4 mg PO HS 03/27/14 09/15/17 History Hydrocodone/Acetaminophen 1 tab PO Q6HR PRN 07/10/14 09/15/17 History [Hydrocodone-Acetamin 7.5-325] Multivitamins, Thera [Multivitamin 1 tab PO DAILY 07/25/14 09/15/17 History (formulary)] Cinnamon Bark [Cinnamon] 500 mg PO DAILY 12/19/14 09/15/17 History Cholecalciferol [Vitamin D3] 2,000 unit PO DAILY 11/03/16 09/15/17 History Cyanocobalamin (Vitamin B-12) 1,000 mcg PO QAM 11/03/16 09/15/17 History [Vitamin B-12] medroxyPROGESTERone [Provera] 2.5 mg PO DAILY 11/03/16 09/15/17 History Aspirin 81 mg PO DAILY chew 11/12/16 09/15/17 Rx Colchicine [Colcrys] 0.6 mg PO DAILY 08/28/17 09/15/17 History metFORMIN HCL [Glucophage] 500 mg PO BID 08/28/17 09/15/17 History Insulin Aspart [NovoLOG 12 unit SQ AC-TID #0 08/29/17 09/15/17 Rx (formulary)] Insulin Glargine [Lantus] 30 unit SQ HS #0 08/29/17 09/15/17 Rx Lisinopril [Zestril] 20 mg PO HS #0 08/29/17 09/15/17 Rx Ascorbic Acid [Vitamin C] 500 mg PO DAILY 09/15/17 09/15/17 History Atorvastatin [Lipitor] 20 mg PO HS 09/15/17 09/15/17 History Furosemide [Lasix] 20 mg PO DAILY 09/15/17 09/15/17 History Insulin Aspart [NovoLOG See Protocol SQ ACHS 09/15/17 09/15/17 History (formulary)] amLODIPine [Norvasc] 5 mg PO DAILY 09/15/17 09/15/17 History Allergies Allergy/AdvReac Type Severity Reaction Status Date / Time No Known Allergies Allergy Verified 09/15/17 11:51 Physical Exam Vitals: Vital Signs Temp Pulse Resp BP Pulse Ox 09/16/17 15:00 71 26 H 100/49 96 09/16/17 14:00 73 17 99/49 95 09/16/17 13:00 77 22 99/62 94 L 09/16/17 12:00 98.6 F 77 28 H 97/51 94 L 09/16/17 11:00 82 25 H 95/42 94 L 09/16/17 10:00 85 27 H 85/47 93 L 09/16/17 09:00 84 23 89/50 94 L 09/16/17 08:00 99.0 F 73 25 H 87/45 98 09/16/17 07:52 78 09/16/17 07:00 68 17 94/48 99 09/16/17 06:00 81 28 H 107/48 97 09/16/17 05:00 68 17 96/49 97 09/16/17 04:00 98.6 F 70 19 95/48 97 09/16/17 03:00 71 17 105/51 97 09/16/17 02:00 77 25 H 100/49 97 09/16/17 01:00 75 19 114/57 97 09/16/17 00:00 98.1 F 74 21 118/58 97 09/15/17 23:14 84 33 H 118/58 95 09/15/17 23:00 84 23 112/67 96 09/15/17 22:00 84 24 113/61 96 09/15/17 21:37 98.1 F 82 19 113/62 98 09/15/17 21:00 85 19 134/60 97 09/15/17 20:00 98.9 F 88 26 H 119/56 96 09/15/17 19:00 90 20 122/55 93 L 09/15/17 18:30 90 23 128/67 95 09/15/17 18:20 98.4 F 93 23 128/67 99 09/15/17 18:10 98.2 F 97 27 H 110/71 99 09/15/17 18:04 98.2 F 91 31 H 110/71 98 09/15/17 18:00 92 20 119/52 99 09/15/17 17:30 95 23 113/57 100 09/15/17 17:00 100 25 H 121/53 100 09/15/17 16:30 103 H 27 H 121/59 100 Intake and Output 09/16/17 09/16/17 09/16/17 06:59 14:59 22:59 Intake Total 33.284 7.339 Output Total 660 595 65 Balance -626.716 -587.661 -65 Intake: Intake, IV Titration 33.284 7.339 Amount Insulin Regular 100 unit 33.284 7.339 In Sodium Chloride 0.9% 100 ml @ Per Protocol IV .Q0M [facility] Rx#:[id number] Output: Urine 660 595 65 Other: Voiding Method Indwelling Catheter Indwelling Catheter Weight 104 kg 104 kg Patient Weight 09/17/17 06:59 Weight 104 kg - Constitutional General appearance: cooperative, mild distress, morbidly obese - EENT Eyes: EOMI, poor dentition - Neck Tenderness to cervical spine palpation Neck: no lymphadenopathy - Respiratory Respiratory: bilateral: diminished - Cardiovascular Rhythm: irregularly irregular leg Peripheral Edema: right: Trace, left: 2+ - Gastrointestinal Large abdomen General gastrointestinal: distended, normal bowel sounds, soft - Integumentary Integumentary: pale - Musculoskeletal Previous CVA Musculoskeletal: left sided weakness - Psychiatric Psychiatric: A&O x's 3 Results CBC & Chem 7: 09/16/17 04:07 09/16/17 04:07 Labs: Abnormal Lab Results - Last 24 Hours (Table) 09/15/17 09/15/17 09/15/17 Range/Units 11:24 11:29 17:15 WBC (3.8-10.6) k/uL RBC (3.80-5.40) m/uL Hgb (11.4-16.0) gm/dL Hct (34.0-46.0) % MCHC (31.0-37.0) g/dL Neutrophils # (1.3-7.7) k/uL Lymphocytes # (1.0-4.8) k/uL Sodium (137-145) mmol/L BUN (7-17) mg/dL Creatinine (0.52-1.04) mg/dL Glucose (74-99) mg/dL POC Glucose (mg/dL) (75-99) mg/dL Hemoglobin A1c 6.8 H (4.0-6.0) % CK-MB (CK-2) (0.0-2.4) ng/mL Troponin I (0.000-0.034) ng/mL Urine Appearance Cloudy H (Clear) Urine Protein 1+ H (Negative) Urine Blood Trace H (Negative) Ur Leukocyte Esterase Trace H (Negative) Urine WBC 25 H (0-5) /hpf Ur Squamous Epith Cells 78 H (0-4) /hpf Amorphous Sediment Few H (None) /hpf Hyaline Casts 13 H (0-2) /lpf Urine Mucus Rare H (None) /hpf Crossmatch See Detail 09/15/17 09/15/17 09/15/17 Range/Units 17:15 20:04 22:59 WBC (3.8-10.6) k/uL RBC (3.80-5.40) m/uL Hgb (11.4-16.0) gm/dL Hct (34.0-46.0) % MCHC (31.0-37.0) g/dL Neutrophils # (1.3-7.7) k/uL Lymphocytes # (1.0-4.8) k/uL Sodium (137-145) mmol/L BUN (7-17) mg/dL Creatinine (0.52-1.04) mg/dL Glucose (74-99) mg/dL POC Glucose (mg/dL) 490 H 438 H (75-99) mg/dL Hemoglobin A1c (4.0-6.0) % CK-MB (CK-2) 12.8 H* (0.0-2.4) ng/mL Troponin I 7.040 H* (0.000-0.034) ng/mL Urine Appearance (Clear) Urine Protein (Negative) Urine Blood (Negative) Ur Leukocyte Esterase (Negative) Urine WBC (0-5) /hpf Ur Squamous Epith Cells (0-4) /hpf Amorphous Sediment (None) /hpf Hyaline Casts (0-2) /lpf Urine Mucus (None) /hpf Crossmatch 09/15/17 09/15/17 09/16/17 Range/Units 22:59 23:51 00:47 WBC 12.4 H (3.8-10.6) k/uL RBC 2.80 L (3.80-5.40) m/uL Hgb 7.4 L (11.4-16.0) gm/dL Hct 24.2 L (34.0-46.0) % MCHC 30.8 L (31.0-37.0) g/dL Neutrophils # 11.4 H (1.3-7.7) k/uL Lymphocytes # 0.5 L (1.0-4.8) k/uL Sodium (137-145) mmol/L BUN (7-17) mg/dL Creatinine (0.52-1.04) mg/dL Glucose (74-99) mg/dL POC Glucose (mg/dL) 358 H 323 H (75-99) mg/dL Hemoglobin A1c (4.0-6.0) % CK-MB (CK-2) (0.0-2.4) ng/mL Troponin I (0.000-0.034) ng/mL Urine Appearance (Clear) Urine Protein (Negative) Urine Blood (Negative) Ur Leukocyte Esterase (Negative) Urine WBC (0-5) /hpf Ur Squamous Epith Cells (0-4) /hpf Amorphous Sediment (None) /hpf Hyaline Casts (0-2) /lpf Urine Mucus (None) /hpf Crossmatch 09/16/17 09/16/17 09/16/17 Range/Units 02:01 03:11 04:07 WBC 13.8 H (3.8-10.6) k/uL RBC 2.70 L (3.80-5.40) m/uL Hgb 7.2 L (11.4-16.0) gm/dL Hct 23.1 L (34.0-46.0) % MCHC (31.0-37.0) g/dL Neutrophils # 12.3 H (1.3-7.7) k/uL Lymphocytes # 0.6 L (1.0-4.8) k/uL Sodium (137-145) mmol/L BUN (7-17) mg/dL Creatinine (0.52-1.04) mg/dL Glucose (74-99) mg/dL POC Glucose (mg/dL) 242 H 178 H (75-99) mg/dL Hemoglobin A1c (4.0-6.0) % CK-MB (CK-2) (0.0-2.4) ng/mL Troponin I (0.000-0.034) ng/mL Urine Appearance (Clear) Urine Protein (Negative) Urine Blood (Negative) Ur Leukocyte Esterase (Negative) Urine WBC (0-5) /hpf Ur Squamous Epith Cells (0-4) /hpf Amorphous Sediment (None) /hpf Hyaline Casts (0-2) /lpf Urine Mucus (None) /hpf Crossmatch 09/16/17 09/16/17 09/16/17 Range/Units 04:07 04:07 04:18 WBC (3.8-10.6) k/uL RBC (3.80-5.40) m/uL Hgb (11.4-16.0) gm/dL Hct (34.0-46.0) % MCHC (31.0-37.0) g/dL Neutrophils # (1.3-7.7) k/uL Lymphocytes # (1.0-4.8) k/uL Sodium 136 L (137-145) mmol/L BUN 74 H (7-17) mg/dL Creatinine 1.90 H (0.52-1.04) mg/dL Glucose 124 H (74-99) mg/dL POC Glucose (mg/dL) 140 H (75-99) mg/dL Hemoglobin A1c (4.0-6.0) % CK-MB (CK-2) 12.0 H* (0.0-2.4) ng/mL Troponin I 11.800 H* (0.000-0.034) ng/mL Urine Appearance (Clear) Urine Protein (Negative) Urine Blood (Negative) Ur Leukocyte Esterase (Negative) Urine WBC (0-5) /hpf Ur Squamous Epith Cells (0-4) /hpf Amorphous Sediment (None) /hpf Hyaline Casts (0-2) /lpf Urine Mucus (None) /hpf Crossmatch 09/16/17 09/16/17 09/16/17 Range/Units 05:16 06:03 06:53 WBC (3.8-10.6) k/uL RBC (3.80-5.40) m/uL Hgb (11.4-16.0) gm/dL Hct (34.0-46.0) % MCHC (31.0-37.0) g/dL Neutrophils # (1.3-7.7) k/uL Lymphocytes # (1.0-4.8) k/uL Sodium (137-145) mmol/L BUN (7-17) mg/dL Creatinine (0.52-1.04) mg/dL Glucose (74-99) mg/dL POC Glucose (mg/dL) 139 H 146 H 151 H (75-99) mg/dL Hemoglobin A1c (4.0-6.0) % CK-MB (CK-2) (0.0-2.4) ng/mL Troponin I (0.000-0.034) ng/mL Urine Appearance (Clear) Urine Protein (Negative) Urine Blood (Negative) Ur Leukocyte Esterase (Negative) Urine WBC (0-5) /hpf Ur Squamous Epith Cells (0-4) /hpf Amorphous Sediment (None) /hpf Hyaline Casts (0-2) /lpf Urine Mucus (None) /hpf Crossmatch 09/16/17 09/16/17 09/16/17 Range/Units 08:08 08:58 10:15 WBC (3.8-10.6) k/uL RBC (3.80-5.40) m/uL Hgb (11.4-16.0) gm/dL Hct (34.0-46.0) % MCHC (31.0-37.0) g/dL Neutrophils # (1.3-7.7) k/uL Lymphocytes # (1.0-4.8) k/uL Sodium (137-145) mmol/L BUN (7-17) mg/dL Creatinine (0.52-1.04) mg/dL Glucose (74-99) mg/dL POC Glucose (mg/dL) 135 H 187 H 240 H (75-99) mg/dL Hemoglobin A1c (4.0-6.0) % CK-MB (CK-2) (0.0-2.4) ng/mL Troponin I (0.000-0.034) ng/mL Urine Appearance (Clear) Urine Protein (Negative) Urine Blood (Negative) Ur Leukocyte Esterase (Negative) Urine WBC (0-5) /hpf Ur Squamous Epith Cells (0-4) /hpf Amorphous Sediment (None) /hpf Hyaline Casts (0-2) /lpf Urine Mucus (None) /hpf Crossmatch 09/16/17 09/16/17 09/16/17 Range/Units 11:08 12:23 13:25 WBC (3.8-10.6) k/uL RBC (3.80-5.40) m/uL Hgb (11.4-16.0) gm/dL Hct (34.0-46.0) % MCHC (31.0-37.0) g/dL Neutrophils # (1.3-7.7) k/uL Lymphocytes # (1.0-4.8) k/uL Sodium (137-145) mmol/L BUN (7-17) mg/dL Creatinine (0.52-1.04) mg/dL Glucose (74-99) mg/dL POC Glucose (mg/dL) 215 H 146 H 188 H (75-99) mg/dL Hemoglobin A1c (4.0-6.0) % CK-MB (CK-2) (0.0-2.4) ng/mL Troponin I (0.000-0.034) ng/mL Urine Appearance (Clear) Urine Protein (Negative) Urine Blood (Negative) Ur Leukocyte Esterase (Negative) Urine WBC (0-5) /hpf Ur Squamous Epith Cells (0-4) /hpf Amorphous Sediment (None) /hpf Hyaline Casts (0-2) /lpf Urine Mucus (None) /hpf Crossmatch Chest x-ray: report reviewed Assessment and Plan (1) Pancreatic cancer Narrative/Plan: Patient was originally provided with options of comfort care versus single agent palliative agent, although with recurrent hospitalization and worsening performance secondary to acute problems single agent treatment will be placed on hold and control of underlying issues addressed. Patient will require re- evaluation with Dr. Starks prior to decision for treatment Current Visit: Yes Status: Acute Code(s): C25.9 - MALIGNANT NEOPLASM OF PANCREAS, UNSPECIFIED SNOMED Code(s): 548055736 (2) Severe anemia Narrative/Plan: Normocytic anemia, conservative transfusions based on symptoms and to keep Hgb abound 7, Critical Care team will assist in monitoring and managing fluid balance Current Visit: Yes Status: Acute Code(s): D64.9 - ANEMIA, UNSPECIFIED SNOMED Code(s): 906286772 (3) Symptomatic anemia Current Visit: Yes Status: Acute Code(s): D64.9 - ANEMIA, UNSPECIFIED SNOMED Code(s): 613336607 (4) Weakness Current Visit: Yes Status: Acute Code(s): R53.1 - WEAKNESS SNOMED Code(s) : 60742179
--- NOTE | 2017-09-16 18:05 | PN ---
PROGRESS NOTE DATE OF SERVICE: 09/16/17 PRESENTING COMPLAINT: Short of breath. INTERVAL HISTORY: Patient admitted with short of breath. Admitted with diagnosis of COPD exacerbation, uncontrolled diabetes on insulin drip, acute renal failure, hyperkalemia, and acute congestive heart failure exacerbation. Lasix drip was held this morning. Nephrology did add midodrine. Hydrated. The patient is currently off the BiPAP. She is still short of breath, but able to answer some questions. The patient is now for metastatic pancreatic cancer. REVIEW OF SYSTEMS: Done for constitutional, cardiovascular, GI, pulmonary, relevant findings as above. CURRENT MEDICATIONS: Reviewed that include DuoNeb, allopurinol, Lipitor, colchicine, Lasix IV 40 mg daily. The patient was on insulin drip when I saw the patient this morning and midodrine 5 mg b.i.d. EXAMINATION: Temperature 98.6, pulse 77, respiration 20, blood pressure 97/51, pulse 94% on 5 L. GENERAL APPEARANCE: Sitting up, still short of breath. Eyes: Pupils equal. Conjunctivae normal. HEENT external appearance of nose and ears normal. Oral cavity dry mucous membranes. Neck JVD unable to assess. Mass not palpable. RESPIRATORY: Effort increased. LUNGS: Diminished breath sounds. Cardiovascular: Heart sounds distant. Some edema. ABDOMEN: Soft, nontender. Liver and spleen not palpable. Psychiatry: Anxious, answering questions. INVESTIGATIONS: White count 13.8, hemoglobin 7.2, potassium 4.6, BUN 74, creatinine 1.90. ASSESSMENT: 1. Acute chronic obstructive pulmonary disease exacerbation. 2. Diabetes mellitus type 2, uncontrolled, requiring insulin drip, which is now better. 3. Gastroesophageal reflux disease. 4. Ascites. 5. Essential hypertension history of. 6. Hypotension. Probably from excessive diuresis. 7. Hyperlipidemia. 8. Chronic left arm weakness, left foot drop from prior stroke. 9. Chronic gait dysfunction uses a walker at baseline. 10.Acute renal failure could be acute tubular necrosis from hypotension or prerenal component. The creatinine has gone up from baseline of 1.06. Metformin and XANDER inhibitor have been held. 11.Hyperkalemia severe renal failure, improved. 12.Anemia, unclear. 13.Acute congestive heart failure from diastolic dysfunction. Ejection fraction 50- 55%. 14.Hypertensive heart disease. 15.Severe aortic stenosis nonrheumatic. 16.Moderate mitral regurgitation. 17.Pancreatic malignancy with metastasis to the liver, ascites and eccentric carcinomatosis with a tissue type showing adenocarcinoma. As an outpatient has been offered palliative chemo versus comfort care only. PLAN: Overall prognosis is not good given underlying metastatic disease and multiple comorbidities. No other family is present. Will readdress this when they come back tomorrow. In the meantime, continue supportive care. Will follow. MMODL / IJN: [id number] /
[2017-09-16] MEDS ORDERED: INSULIN DETEMIR 100 UNIT/ML 10 ML VIAL SQ SCH (21:00)
[2017-09-16 21:05] LABS: Glucose,Whole Blood 280 mg/dL (75-99)
[2017-09-16] MEDS: ATORVASTATIN 20 MG TAB PO SCH (21:55)
[2017-09-16] MEDS: rOPINIRole HCL 4 MG TABLET PO SCH (21:55)
[2017-09-17 01:24] LABS: Iron Saturation 8.14 (12.00-45.00)
[2017-09-17 04:54] LABS: Basophils % (A) 0 %; Eosinophils % (A) 0 %; HCT 23.4 % (34.0-46.0); HGB 7.2 gm/dL (11.4-16.0); Hypochromasia Marked; Lymphocytes % (A) 6 %; MCH 26.6 pg (25.0-35.0); MCHC 30.7 g/dL (31.0-37.0); MCV 86.5 fL (80.0-100.0); Mean Platelet Volume 9.7; Monocytes # (A) 0.9 k/uL (0-1.0); Monocytes % (A) 6 %; Neutrophils # (A) 13.7 k/uL (1.3-7.7); Neutrophils % (A) 86 %; Platelet Count 182 k/uL (150-450); Poikilocytosis Marked; RBC 2.71 m/uL (3.80-5.40); RDW 15.6 % (11.5-15.5); WBC 15.9 k/uL (3.8-10.6)
[2017-09-17 05:09] LABS: Calcium 8.9 mg/dL (8.4-10.2); Magnesium 2.1 mg/dL (1.6-2.3); Phosphorus 4.1 mg/dL (2.5-4.5); Potassium 4.6 mmol/L (3.5-5.1)
[2017-09-17 07:10] LABS: Glucose,Whole Blood 261 mg/dL (75-99)
[2017-09-17] MEDS: INSULIN ASPART 100 UNIT/ML 1 ML 10 ML VIAL SQ SCH ×6 (07:14→17:21)
[2017-09-17] MEDS ORDERED: PANTOPRAZOLE 40 MG TABLET PO SCH (07:30)
[2017-09-17] MEDS: ALLOPURINOL 100 MG TAB PO SCH (08:13)
[2017-09-17] MEDS: MIDODRINE 5 MG TAB PO SCH ×2 (08:13→17:22)
[2017-09-17] MEDS: PANTOPRAZOLE 40 MG/10 ML VIAL IVP SCH (08:14)
[2017-09-17] MEDS: ASCORBIC ACID 500 MG TAB PO SCH (08:14)
[2017-09-17] MEDS: FUROSEMIDE 10 MG/ML 4 ML VIAL IV SCH (08:14)
[2017-09-17] MEDS: COLCHICINE 0.6 MG TAB PO SCH (08:14)
--- NOTE | 2017-09-17 09:08 | XR ---
EXAMINATION TYPE: XR chest 1V DATE OF EXAM: 09/17/2017 COMPARISON: 09/16/2017 HISTORY: Shortness of TECHNIQUE: Single frontal view of the chest is obtained. FINDINGS: Diffuse interstitial pattern with bilateral effusions and consolidation noted. Heart is en larged. No pneumothorax. Postsurgical change left shoulder. IMPRESSION: Persistent findings of CHF with bilateral effusion and basilar infiltrate.
--- NOTE | 2017-09-17 09:20 | P.PN ---
Subjective Progress Note Date: 09/17/17 Principal diagnosis: Symptomatic anemia 77-year-old female recent diagnosis of pancreatic adenocarcinoma with liver metastasis mesenteric carcinomatosis at [facility] admitted with symptomatic anemia fatigue shortness of breath without overt GI bleeding. Received 2 units of blood current hemoglobin 7.2. Shortness of breath improved. BUN 84. Creatinine 1.9. Objective - Vital Signs Vital signs: Vital Signs Temp 98.1 F 09/17/17 04:00 Pulse 65 09/17/17 07:00 Resp 20 09/17/17 07:00 BP 104/55 09/17/17 07:00 Pulse Ox 95 09/17/17 07:00 Intake & Output 09/16/17 09/17/17 09/17/17 18:59 06:59 18:59 Intake Total 7.339 240 Output Total 1160 1020 Balance -1152.661 -780 Weight 104 kg 104.5 kg Intake: IV 240 LR 240 Intake, IV Titration 7.339 Amount Insulin Regular 100 unit 7.339 In Sodium Chloride 0.9% 100 ml @ Per Protocol IV .Q0M [facility] Rx#:[id number] Output: Urine 1160 1020 Other: Voiding Method Indwelling Catheter Indwelling Catheter - Exam General appearance: The patient is alert, oriented, in no acute distress. HET: Head is normocephalic and atraumatic. Pupils are equal and reactive. Oropharynx is clear without lesions. Neck: Supple without lymphadenopathy. Trachea midline. Heart: S1 S2. Lungs: No crackles or wheezes are heard. Abdomen: Soft, nontender, nondistended with bowel sounds. No peritoneal signs. No palpable organomegaly or masses. Extremities: Normal skin color and turgor. No cyanosis, rash, ulceration, clubbing, or edema. Radial and pedal pulses are 2/4 bilaterally. Owens with clear judy urine. Neurological: No focal deficits. Strength and sensation are grossly intact. - Labs CBC & Chem 7: 09/17/17 04:30 09/17/17 04:30 Labs: Abnormal Lab Results - Last 24 Hours (Table) 09/16/17 09/16/17 09/16/17 Range/Units 04:07 04:07 10:15 WBC (3.8-10.6) k/uL RBC (3.80-5.40) m/uL Hgb (11.4-16.0) gm/dL Hct (34.0-46.0) % MCHC (31.0-37.0) g/dL RDW (11.5-15.5) % Neutrophils # (1.3-7.7) k/uL Sodium (137-145) mmol/L BUN (7-17) mg/dL Creatinine (0.52-1.04) mg/dL Glucose (74-99) mg/dL POC Glucose (mg/dL) 240 H (75-99) mg/dL Iron 28 L 26 L (50-170) ug/dL Iron Saturation 8.14 L (12.00-45.00) 09/16/17 09/16/17 09/16/17 Range/Units 11:08 12:23 13:25 WBC (3.8-10.6) k/uL RBC (3.80-5.40) m/uL Hgb (11.4-16.0) gm/dL Hct (34.0-46.0) % MCHC (31.0-37.0) g/dL RDW (11.5-15.5) % Neutrophils # (1.3-7.7) k/uL Sodium (137-145) mmol/L BUN (7-17) mg/dL Creatinine (0.52-1.04) mg/dL Glucose (74-99) mg/dL POC Glucose (mg/dL) 215 H 146 H 188 H (75-99) mg/dL Iron (50-170) ug/dL Iron Saturation (12.00-45.00) 09/16/17 09/16/17 09/17/17 Range/Units 16:18 21:02 04:30 WBC 15.9 H (3.8-10.6) k/uL RBC 2.71 L (3.80-5.40) m/uL Hgb 7.2 L (11.4-16.0) gm/dL Hct 23.4 L (34.0-46.0) % MCHC 30.7 L (31.0-37.0) g/dL RDW 15.6 H (11.5-15.5) % Neutrophils # 13.7 H (1.3-7.7) k/uL Sodium (137-145) mmol/L BUN (7-17) mg/dL Creatinine (0.52-1.04) mg/dL Glucose (74-99) mg/dL POC Glucose (mg/dL) 249 H 280 H (75-99) mg/dL Iron (50-170) ug/dL Iron Saturation (12.00-45.00) 09/17/17 09/17/17 Range/Units 04:30 07:09 WBC (3.8-10.6) k/uL RBC (3.80-5.40) m/uL Hgb (11.4-16.0) gm/dL Hct (34.0-46.0) % MCHC (31.0-37.0) g/dL RDW (11.5-15.5) % Neutrophils # (1.3-7.7) k/uL Sodium 132 L (137-145) mmol/L BUN 84 H* (7-17) mg/dL Creatinine 1.90 H (0.52-1.04) mg/dL Glucose 240 H (74-99) mg/dL POC Glucose (mg/dL) 261 H (75-99) mg/dL Iron (50-170) ug/dL Iron Saturation (12.00-45.00) Assessment and Plan (1) Symptomatic anemia Narrative/Plan: 77-year-old female admitted with 2 week history shortness of breath, elevated troponin level and hemoglobin 6.4 previously 9.6 suggestive of acute blood loss anemia without overt bleeding with subsequent diagnosis of metastatic pancreatic carcinoma presently being evaluated by oncology. Current Visit: Yes Status: Acute Code(s): D64.9 - ANEMIA, UNSPECIFIED SNOMED Code(s): 875403678 (2) Acute blood loss anemia Current Visit: Yes Status: Acute Code(s): D62 - ACUTE POSTHEMORRHAGIC ANEMIA SNOMED Code(s): 523523675 (3) Pancreatic cancer Narrative/Plan: metastatic pancreatic cancer Current Visit: Yes Status: Acute Code(s): C25.9 - MALIGNANT NEOPLASM OF PANCREAS, UNSPECIFIED SNOMED Code(s): 039138894 (4) Elevated troponin Current Visit: Yes Status: Acute Code(s): R74.8 - ABNORMAL LEVELS OF OTHER SERUM ENZYMES SNOMED Code(s): 055782989 (5) Morbid obesity with body mass index of 40.0-44.9 in adult Current Visit: Yes Status: Chronic Code(s): E66.01 - MORBID (SEVERE) OBESITY DUE TO EXCESS CALORIES; Z68.41 - BODY MASS INDEX (BMI) 40.0-44.9, ADULT SNOMED Code(s): 580789368 (6) Non-ST elevated myocardial infarction Current Visit: Yes Status: Acute Code(s): I21.4 - NON-ST ELEVATION (NSTEMI) MYOCARDIAL INFARCTION SNOMED Code(s): 350514842 Plan: 1. Patient continues to not manifest overt GI bleeding. Oncology consultation reviewed recommendations appreciated. 2. Recommend conservative measures unless patient develops overt bleeding. It appears Comfort Care versus single agent palliative therapy was discussed by oncology earlier this month. 3. Diet as tolerated. Assessment and plan of care discussed with Dr. roe
--- NOTE | 2017-09-17 10:10 | P.PN ---
Subjective Progress Note Date: 09/17/17 This is 77-year-old female was admitted with chest pain and shortness of breath and evidence of CHF. Patient was found to be anemic. She received 2 units of blood transfusion. She is feeling better. Her echo [place] showed preserved LV function with severe aortic stenosis. Her symptoms are most probably brought on by combination of anemia and severe aortic stenosis. Unfortunately, the patient has metastatic pancreatic CVA. Patient is not a candidate for any aggressive measures. We'll continue with conservative management. Prognosis is poor Objective - Vital Signs Vital signs: Vital Signs Temp 98.8 F 09/17/17 08:00 Pulse 68 09/17/17 09:00 Resp 19 09/17/17 09:00 BP 109/50 09/17/17 09:00 Pulse Ox 96 09/17/17 09:00 Intake & Output 09/16/17 09/17/17 09/17/17 18:59 06:59 18:59 Intake Total 7.339 240 40 Output Total 1160 1020 175 Balance -1152.661 -780 -135 Weight 104 kg 104.5 kg Intake: IV 240 40 LR 240 40 Intake, IV Titration 7.339 Amount Insulin Regular 100 unit 7.339 In Sodium Chloride 0.9% 100 ml @ Per Protocol IV .Q0M [facility] Rx#:[id number] Output: Urine 1160 1020 175 Other: Voiding Method Indwelling Catheter Indwelling Catheter Indwelling Catheter - Exam GENERAL EXAM: Patient is alert and oriented and appears to be mild distress HEENT: Normocephalic. Normal reaction of pupils, equal size, normal range of extraocular motion. No erythema or exudates in the throat. NECK: No masses, no nuchal rigidity. CHEST: No chest wall deformity. LUNGS: Equal air entry with no crackles or wheeze. HEART: Systolic murmur ABDOMEN: No hepatosplenomegaly, normal bowel sounds, no guarding or rigidity. SKIN: No rashes CENTRAL NERVOUS SYSTEM: No focal deficits. EXTREMITIES: Bilateral mild edema - Labs CBC & Chem 7: 09/17/17 04:30 09/17/17 04:30 Labs: Abnormal Lab Results - Last 24 Hours (Table) 09/16/17 09/16/17 09/16/17 Range/Units 04:07 04:07 10:15 WBC (3.8-10.6) k/uL RBC (3.80-5.40) m/uL Hgb (11.4-16.0) gm/dL Hct (34.0-46.0) % MCHC (31.0-37.0) g/dL RDW (11.5-15.5) % Neutrophils # (1.3-7.7) k/uL Sodium (137-145) mmol/L BUN (7-17) mg/dL Creatinine (0.52-1.04) mg/dL Glucose (74-99) mg/dL POC Glucose (mg/dL) 240 H (75-99) mg/dL Iron 28 L 26 L (50-170) ug/dL Iron Saturation 8.14 L (12.00-45.00) 09/16/17 09/16/17 09/16/17 Range/Units 11:08 12:23 13:25 WBC (3.8-10.6) k/uL RBC (3.80-5.40) m/uL Hgb (11.4-16.0) gm/dL Hct (34.0-46.0) % MCHC (31.0-37.0) g/dL RDW (11.5-15.5) % Neutrophils # (1.3-7.7) k/uL Sodium (137-145) mmol/L BUN (7-17) mg/dL Creatinine (0.52-1.04) mg/dL Glucose (74-99) mg/dL POC Glucose (mg/dL) 215 H 146 H 188 H (75-99) mg/dL Iron (50-170) ug/dL Iron Saturation (12.00-45.00) 09/16/17 09/16/17 09/17/17 Range/Units 16:18 21:02 04:30 WBC 15.9 H (3.8-10.6) k/uL RBC 2.71 L (3.80-5.40) m/uL Hgb 7.2 L (11.4-16.0) gm/dL Hct 23.4 L (34.0-46.0) % MCHC 30.7 L (31.0-37.0) g/dL RDW 15.6 H (11.5-15.5) % Neutrophils # 13.7 H (1.3-7.7) k/uL Sodium (137-145) mmol/L BUN (7-17) mg/dL Creatinine (0.52-1.04) mg/dL Glucose (74-99) mg/dL POC Glucose (mg/dL) 249 H 280 H (75-99) mg/dL Iron (50-170) ug/dL Iron Saturation (12.00-45.00) 09/17/17 09/17/17 Range/Units 04:30 07:09 WBC (3.8-10.6) k/uL RBC (3.80-5.40) m/uL Hgb (11.4-16.0) gm/dL Hct (34.0-46.0) % MCHC (31.0-37.0) g/dL RDW (11.5-15.5) % Neutrophils # (1.3-7.7) k/uL Sodium 132 L (137-145) mmol/L BUN 84 H* (7-17) mg/dL Creatinine 1.90 H (0.52-1.04) mg/dL Glucose 240 H (74-99) mg/dL POC Glucose (mg/dL) 261 H (75-99) mg/dL Iron (50-170) ug/dL Iron Saturation (12.00-45.00) Assessment and Plan (1) Acute diastolic CHF (congestive heart failure) Current Visit: Yes Status: Acute Code(s): I50.31 - ACUTE DIASTOLIC ( CONGESTIVE) HEART FAILURE SNOMED Code(s): 519384812 (2) Diabetes mellitus type 2, uncontrolled, with complications Current Visit: No Status: Acute Code(s): E11.8 - TYPE 2 DIABETES MELLITUS WITH UNSPECIFIED COMPLICATIONS; E11.65 - TYPE 2 DIABETES MELLITUS WITH HYPERGLYCEMIA SNOMED Code(s): 277435057 (3) Severe anemia Current Visit: Yes Status: Acute Code(s): D64.9 - ANEMIA, UNSPECIFIED SNOMED Code(s): 009166727 (4) History of CVA (cerebrovascular accident) Current Visit: Yes Status: Acute Code(s): Z86.73 - PRSNL HX OF TIA (TIA), AND CEREB INFRC W/O RESID DEFICITS SNOMED Code(s): 415113657 (5) Non-STEMI (non-ST elevated myocardial infarction) Current Visit: Yes Status: Acute Code(s): I21.4 - NON-ST ELEVATION (NSTEMI) MYOCARDIAL INFARCTION SNOMED Code(s): 249179584 Plan: Patient is feeling better since she got the blood transfusion . No complaints of chest pain or shortness of breath. Continue conservative management. Prognosis guarded
[2017-09-17] MEDS ORDERED: ACETAMINOPHEN IV (For NPO) 1,000 MG in EMPTY BAG 1 BAG IVPB PRN (10:53)
--- NOTE | 2017-09-17 11:41 | P.PN ---
Subjective Progress Note Date: 09/17/17 Principal diagnosis: Acute diastolic congestive heart failure, severe aortic stenosis, and severe anemia. Progress note dated 09/16/2017 This is a 77-year-old who was seen yesterday in the emergency department. She came in for increasing shortness of breath going on for some time. She was recently in the emergency department with TIA-like symptoms attributed to hypoglycemia. More recently, she was diagnosed with pancreatic cancer at [facility]. The plan was to provide her with single dose chemotherapy in the form of Gemzar. Unfortunately, I don't think she'll be a good candidate she's very ill at the current time. In addition to pancreatic cancer and heart failure, she has a history of gout and GERD vitamin D deficiency diabetes hyperlipidemia and hypertension. The patient was transferred to the ICU yesterday. Today she is just on nasal O2 at 5 L. Feeling a bit better. Chest x-ray shows improving volume status. The oncology people were in the room. They agree that she would be a poor candidate for chemotherapy. I did discuss CODE STATUS yesterday with her and her . They would be agreeable to short-term mechanical ventilation and cardiopulmonary resuscitation. The patient's on a Lasix drip at 5 mg an hour. Blood pressure is borderline low. She was on and off of BiPAP through the night. She is also getting insulin 4 units an hour. Patient was reevaluated today on 09/17/2017, feeling better, breathing easier, patient is off the Lasix drip, and now she is on by mouth Lasix. Chest x-ray continues to show some persistent findings of congestive heart failure and bilateral pleural effusions. But clinically the patient is doing better. CBC showed WBC count of 15.9 hemoglobin of 7.2. BUN is 84 creatinine is 1.90. Patient received a total of 2 units of packed RBCs since admission. Patient is presently on nasal cannula, not using her BiPAP, feels better overall. Objective - Vital Signs Vital signs: Vital Signs Temp 98.8 F 09/17/17 08:00 Pulse 71 09/17/17 10:00 Resp 20 09/17/17 10:00 BP 124/50 09/17/17 10:00 Pulse Ox 95 09/17/17 10:00 Intake & Output 09/16/17 09/17/17 09/17/17 18:59 06:59 18:59 Intake Total 7.339 240 60 Output Total 1160 1020 325 Balance -1152.661 -780 -265 Weight 104 kg 104.5 kg Intake: IV 240 60 LR 240 60 Intake, IV Titration 7.339 Amount Insulin Regular 100 unit 7.339 In Sodium Chloride 0.9% 100 ml @ Per Protocol IV .Q0M [facility] Rx#:[id number] Output: Urine 1160 1020 325 Other: Voiding Method Indwelling Catheter Indwelling Catheter Indwelling Catheter - Exam Physical exam revealed a 77-year-old female in no form of distress. HEENT examination is grossly unremarkable. Mucous membranes are dry. No oral lesions. Neck supple. Full range of motion. No adenopathy thyromegaly or neck vein distention. Cardiovascular examination reveals regular rhythm rate. S1-S2 normal. No S3 or S4. 2/6 systolic murmur throughout the precordium. Lungs reveal bibasilar crackles. Breath sounds are diminished. No rhonchi or wheezes.. Abdomen soft bowel sounds are heard. No masses or tenderness. Extremities are intact. Slight edema is noted. No cyanosis or clubbing. Skin is without rash or lesion. Neurologic examination focal neurologic deficit was appreciated. Lymphatics: No lymphadenopathy was noted. - Labs CBC & Chem 7: 09/17/17 04:30 09/17/17 04:30 Labs: Abnormal Lab Results - Last 24 Hours (Table) 09/16/17 09/16/17 09/16/17 Range/Units 04:07 04:07 12:23 WBC (3.8-10.6) k/uL RBC (3.80-5.40) m/uL Hgb (11.4-16.0) gm/dL Hct (34.0-46.0) % MCHC (31.0-37.0) g/dL RDW (11.5-15.5) % Neutrophils # (1.3-7.7) k/uL Sodium (137-145) mmol/L BUN (7-17) mg/dL Creatinine (0.52-1.04) mg/dL Glucose (74-99) mg/dL POC Glucose (mg/dL) 146 H (75-99) mg/dL Iron 28 L 26 L (50-170) ug/dL Iron Saturation 8.14 L (12.00-45.00) 09/16/17 09/16/17 09/16/17 Range/Units 13:25 16:18 21:02 WBC (3.8-10.6) k/uL RBC (3.80-5.40) m/uL Hgb (11.4-16.0) gm/dL Hct (34.0-46.0) % MCHC (31.0-37.0) g/dL RDW (11.5-15.5) % Neutrophils # (1.3-7.7) k/uL Sodium (137-145) mmol/L BUN (7-17) mg/dL Creatinine (0.52-1.04) mg/dL Glucose (74-99) mg/dL POC Glucose (mg/dL) 188 H 249 H 280 H (75-99) mg/dL Iron (50-170) ug/dL Iron Saturation (12.00-45.00) 09/17/17 09/17/17 09/17/17 Range/Units 04:30 04:30 07:09 WBC 15.9 H (3.8-10.6) k/uL RBC 2.71 L (3.80-5.40) m/uL Hgb 7.2 L (11.4-16.0) gm/dL Hct 23.4 L (34.0-46.0) % MCHC 30.7 L (31.0-37.0) g/dL RDW 15.6 H (11.5-15.5) % Neutrophils # 13.7 H (1.3-7.7) k/uL Sodium 132 L (137-145) mmol/L BUN 84 H* (7-17) mg/dL Creatinine 1.90 H (0.52-1.04) mg/dL Glucose 240 H (74-99) mg/dL POC Glucose (mg/dL) 261 H (75-99) mg/dL Iron (50-170) ug/dL Iron Saturation (12.00-45.00) Assessment and Plan Assessment: Acute Hypoxemic respiratory failure, secondary to diastolic congestive heart failure, severe aortic stenosis, and anemia on presentation. Recent diagnosis of pancreatic cancer though the patient has not started treatment as yet CVA Question of COPD Diabetes mellitus Obesity GERD Hyperlipidemia Hypertension Dementia Anemia Prerenal azotemia Anion gap metabolic acidosis Recommendation: Continue Lasix, continue to monitor hemoglobin closely, and transfuse if hemoglobin is below 7.0. Continue to monitor renal profile, consider transferring the patient to a monitor bed on selective today. Prognosis remains relatively poor and guarded considering her underlying diagnosis of pancreatic cancer. Will transfer the patient to a monitor bed on selective today. Time with Patient: Less than 30
[2017-09-17 12:21] LABS: Glucose,Whole Blood 236 mg/dL (75-99)
[2017-09-17] MEDS: MULTIVITAMINS, THERA 1 EACH TAB PO SCH (12:25)
--- NOTE | 2017-09-17 15:09 | PN ---
PROGRESS NOTE Patient is seen for followup for acute kidney injury. She is status post acute myocardial infarction. The patient also has underlying aortic stenosis and was severely anemic with a hemoglobin of 6.4 g/dL. She was volume overloaded. She has been diuresed and volume status has improved significantly. Patient has good urine output and is maintained on IV Lasix daily for now. The patient will be transferred out of the ICU. She has been running low blood pressures for which she was started on midodrine. The patient also has underlying pancreatic cancer. EXAMINATION: Blood pressure is 107/54, heart rate 65 per minute. She is afebrile. Examination of the heart S1, S2. Examination of lungs bilateral breath sounds are heard. ABDOMEN: Soft, obese, nontender. Exam of lower extremities shows edema 1+ bilaterally. LAB: Show sodium 132, potassium 4.6, BUN 84, serum creatinine 1.9, hemoglobin 7.2 g/dL. ASSESSMENT: 1. Acute kidney injury, nonoliguric secondary to anemia, hypoperfusion as well as cardiorenal currently stable. The patient was on Lasix drip, which is now discontinued. She is maintained on IV Lasix daily, which we can continue for now. 2. Diastolic dysfunction. Ejection fraction 55-60% with severe concentric left ventricular hypertrophy. Moderate mitral regurg and mild pulmonary hypertension was also noted on the echocardiogram. 3. Diastolic heart failure, acute on top of chronic. 4. New diagnosis of metastatic cancer, awaiting evaluation as outpatient with Oncology. 5. Hypotension. No evidence of adrenal insufficiency. Currently started on midodrine and doing well. No evidence of infection. PLAN: Continue with midodrine. Continue with current dose of Lasix. The patient can be transferred out of the ICU. MMANDREZL / JEFFN: [id number] /
[2017-09-17] MEDS: IPRATROPIUM-ALBUTEROL 3 ML NEB INHALATION PRN (16:57)
[2017-09-17 17:11] LABS: Glucose,Whole Blood 136 mg/dL (75-99)
[2017-09-17 17:19] LABS: Glucose,Whole Blood 136 mg/dL (75-99)
--- NOTE | 2017-09-17 17:57 | PN ---
PROGRESS NOTE DATE OF SERVICE: September 17, 2017. ATTENDING NOTE: The patient seen and examined by me. Discussed with nurse practitioner Ms. Cross. Patient admitted with COPD exacerbation. Uncontrolled diabetes. Acute renal failure. Hyperkalemia. CHF exacerbation. The patient is doing much better. Did tolerate some diet. Sitting up, tired appearing. The patient also has a diagnosis of underlying metastatic pancreatic cancer. PHYSICAL EXAMINATION: On examination, temperature 98.8, pulse 71, respiratory 24, blood pressure 109/50, pulse ox 95% on 2 L. General appearance: More awake but tired appearing. Lungs decreased breath sounds. Awake AO x3. INVESTIGATIONS: White count 15.9, hemoglobin 7.2, potassium 4.6, BUN 84, creatinine 1.90. MEDICATIONS: Current medications include DuoNeb, allopurinol, Lipitor, IV Lasix 40 mg daily. Levemir 30 units and 10 units of NovoLog with meals. ASSESSMENT: 1. Acute chronic obstructive pulmonary disease exacerbation. 2. Diabetes mellitus type 2, uncontrolled. Patient is off insulin drip. 3. Gastroesophageal reflux disease. 4. Ascites. 5. Essential hypertension history of. 6. Hypotension from excessive diuresis, improving on midodrine. 7. Hyperlipidemia. 8. Chronic left arm weakness, left foot drop from prior stroke. 9. Chronic gait dysfunction uses a walker. 10.Acute renal failure could be acute tubular necrosis from hypotension, now prerenal, worsening. 11.Hyperkalemia from severe renal failure, improved. 12.Anemia from likely from underlying malignancy. 13.Acute congestive heart failure exacerbation from diastolic dysfunction. Ejection fraction 55-60% from underlying hypertensive heart disease. 14.Severe aortic stenosis nonrheumatic. 15.Moderate mitral regurgitation. 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 PLAN: Prognosis not good. Continue current medication and treatment plan. Patient will be moved out of the ICU. Remains on IV Lasix. ADVANCED CARE PLANNING: I had a lengthy talk with the patient. I did discuss with her prognosis not very good with metastatic pancreatic cancer. She is already ordered and is talked about palliative care by Dr. Starks to a certain degree. After going into condition in detail, the patient agrees to proceed with becoming a DNR, understanding that she still may get chemotherapy as a palliative care added. Informed Dr. Long about the patient's decision. This aspect of the case took about 25 minutes in addition. MMANDREZL / IJN: [id number] /
--- NOTE | 2017-09-17 19:54 | P.PN ---
Progress Note - Text Progress Note Date: 09/17/17 DATE OF SERVICE: 09/17/2017 PRESENTING COMPLAINT: Short of breath HISTORY OF PRESENT ILLNESS: 77-year-old female with a recent diagnosis of pancreatic cancer following with Dr. Starks who is admitted with shortness of breath slight cough no sputum no fever required BiPAP support moved up to the ICU. Admitted for COPD exacerbation and uncontrolled diabetes on an insulin drip, acute renal failure, hyperkalemia, acute congestive heart failure exacerbation. INTERVAL HISTORY: 09/17/2017: Sitting up in bed appears tired appearing. No acute overnight events, lab values show hyponatremia today. Has had some hypotension and due to the fact she has no adrenal insufficiency nephrology as initiated much midodrine. Lasix drip stopped and she is on by mouth Lasix. Continues to have congestive heart failure bilateral pleural effusions but doing much better. Tolerating her diet up with assistance. REVIEW OF SYSTEMS: Done for constitutional ,cardiovascular, GI, pulmonary with relevant findings as above. CURRENT MEDICATIONS [place], DuoNeb, Zyloprim, ascorbic acid, Lipitor, Colcrys, Flexeril, Lasix, NovoLog, Levemir, Provera, ProAmatine, altered vitamin, Protonix, Requip. PHYSICAL EXAM VITAL SIGNS: Temperature 98.2, pulse 65, respiratory rate 21, blood pressure 107/54, oxygen saturation 94% on 2 L GENERAL APPEARANCE: Sitting up in bed tired appearing. HENT: Normocephalic, JVD not raised. Mass not palpable. Oral cavity normal, external appearance of ears and nose normal. EYES:Pupils equal. Conjunctiva normal. RESPIRATORY: Respiratory effort mildly increased. Lungs decreased to auscultation. CARDIOVASCULAR: First and second sounds normal. No edema. ABDOMEN: Soft. Liver and spleen not palpable. No tenderness. No mass palpable. PSYCHIATRY: Alert and oriented x3. Mood and affect normal. INVESTIGATIONS: White blood cell count 15.9, hemoglobin 7.2, sodium 132, BUN 84, creatinine 1.90 , Accu-Cheks noted. ASSESSMENT: -Acute chronic obstructive pulmonary disease exacerbation, improving -Diabetes mellitus type 2 uncontrolled, no longer requiring insulin drip, -Gastroesophageal reflux disease. -Ascites -Hypotension from excessive diuresis, improving midodrine -Essential hypertension, history of -Hyperlipidemia. 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 -Chronic gait dysfunction uses walker baseline. -Pancreatic malignancy with metastases to the liver, ascites with carcinomatosis -Acute renal failure could be acute tubular necrosis from hypotension now prerenal, worsening -Hyperkalemia from severe renal failure. Improving -Hyponatremia likely due to decreased oral intake -Anemia likely from underlying malignancy -Acute congestive heart failure from diastolic dysfunction ejection fraction 55- 60% from underlying hypertensive heart disease. -Severe aortic stenosis nonrheumatic. -Moderate mitral regurgitation. PLAN: Overall condition improving. Stable to be transferred to lower acuity area. Continues to receive IV Lasix, midodrine monitor hemoglobin should fall below 7 consider transfusion. Discussion had with the patient regarding CODE STATUS and present and future treatments with Dr. Baltazar. Patient is agreeable wished to be made a no code. Prognosis very guarded will continue to follow closely [employer] statement: Patient was seen and examined by nurse practitioner Mary Ellen Cross and all elements of the case discussed with attending Dr. Baltazar
[2017-09-17] MEDS: rOPINIRole HCL 4 MG TABLET PO SCH (20:28)
[2017-09-17] MEDS: ATORVASTATIN 20 MG TAB PO SCH (20:28)
[2017-09-17] MEDS: INSULIN DETEMIR 100 UNIT/ML 10 ML VIAL SQ SCH (20:29)
[2017-09-17 21:11] LABS: Glucose,Whole Blood 237 mg/dL (75-99)
[2017-09-17] MEDS: HYDROcodone/APAP 7.5-325MG 1 EACH TAB PO PRN (22:15)
[2017-09-18 02:10] LABS: Glucose,Whole Blood 278 mg/dL (75-99)
[2017-09-18 06:02] LABS: Glucose,Whole Blood 267 mg/dL (75-99)
[2017-09-18] MEDS: MIDODRINE 5 MG TAB PO SCH ×2 (06:28→17:26)
[2017-09-18] MEDS: INSULIN ASPART 100 UNIT/ML 1 ML 10 ML VIAL SQ SCH ×4 (06:28→21:26)
[2017-09-18] MEDS: PANTOPRAZOLE 40 MG TABLET PO SCH (06:29)
[2017-09-18 06:47] LABS: Basophils % (A) 0 %; Eosinophils # (A) 0.3 k/uL (0-0.7); Eosinophils % (A) 2 %; HCT 25.5 % (34.0-46.0); HGB 7.6 gm/dL (11.4-16.0); Hypochromasia Marked; Lymphocytes # (A) 1.3 k/uL (1.0-4.8); Lymphocytes % (A) 11 %; MCH 26.4 pg (25.0-35.0); MCHC 29.8 g/dL (31.0-37.0); MCV 88.6 fL (80.0-100.0); Mean Platelet Volume 9.4; Monocytes # (A) 0.8 k/uL (0-1.0); Monocytes % (A) 7 %; Neutrophils # (A) 8.8 k/uL (1.3-7.7); Neutrophils % (A) 77 %; Platelet Count 173 k/uL (150-450); Poikilocytosis Marked; RBC 2.88 m/uL (3.80-5.40); RDW 15.7 % (11.5-15.5); WBC 11.4 k/uL (3.8-10.6)
[2017-09-18 07:02] LABS: Magnesium 2.1 mg/dL (1.6-2.3); Phosphorus 3.6 mg/dL (2.5-4.5); Potassium 4.7 mmol/L (3.5-5.1)
--- NOTE | 2017-09-18 07:47 | P.PN ---
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 Received 2 units of blood current hemoglobin 7.6. Shortness of breath improved. Denies abdominal pain. Tolerating regular diet. No CODE STATUS. Objective - Vital Signs Vital signs: Vital Signs Temp 97 F L 09/18/17 03:38 Pulse 75 09/18/17 03:38 Resp 18 09/18/17 03:38 BP 125/63 09/18/17 03:38 Pulse Ox 97 09/18/17 03:38 Intake & Output 09/17/17 09/18/17 09/18/17 18:59 06:59 18:59 Intake Total 220 20 Output Total 1375 145 Balance -1155 -125 Weight 101 kg Intake: IV 220 20 LR 220 20 Output: Urine 1375 145 Other: Voiding Method Indwelling Catheter Bedside Commode # Voids 1 # Bowel Movements 1 - Exam General appearance: The patient is alert, oriented, in no acute distress. HET: Head is normocephalic and atraumatic. Pupils are equal and reactive. Oropharynx is clear without lesions. Neck: Supple without lymphadenopathy. Trachea midline. Heart: S1 S2. Lungs: No crackles or wheezes are heard. Abdomen: Soft, nontender, nondistended with bowel sounds. No peritoneal signs. No palpable organomegaly or masses. Extremities: Normal skin color and turgor. No cyanosis, rash, ulceration, clubbing, or edema. Radial and pedal pulses are 2/4 bilaterally. Neurological: No focal deficits. Strength and sensation are grossly intact. - Labs CBC & Chem 7: 09/18/17 05:52 09/18/17 05:52 Labs: Abnormal Lab Results - Last 24 Hours (Table) 09/17/17 09/17/17 09/17/17 Range/Units 12:19 17:10 17:16 WBC (3.8-10.6) k/uL RBC (3.80-5.40) m/uL Hgb (11.4-16.0) gm/dL Hct (34.0-46.0) % MCHC (31.0-37.0) g/dL RDW (11.5-15.5) % Neutrophils # (1.3-7.7) k/uL Sodium (137-145) mmol/L BUN (7-17) mg/dL Creatinine (0.52-1.04) mg/dL Glucose (74-99) mg/dL POC Glucose (mg/dL) 236 H 136 H 136 H (75-99) mg/dL 09/17/17 09/18/17 09/18/17 Range/Units 21:08 02:08 05:52 WBC 11.4 H (3.8-10.6) k/uL RBC 2.88 L (3.80-5.40) m/uL Hgb 7.6 L (11.4-16.0) gm/dL Hct 25.5 L (34.0-46.0) % MCHC 29.8 L (31.0-37.0) g/dL RDW 15.7 H (11.5-15.5) % Neutrophils # 8.8 H (1.3-7.7) k/uL Sodium (137-145) mmol/L BUN (7-17) mg/dL Creatinine (0.52-1.04) mg/dL Glucose (74-99) mg/dL POC Glucose (mg/dL) 237 H 278 H (75-99) mg/dL 18 09/18/17 Range/Units 05:52 05:59 WBC (3.8-10.6) k/uL RBC (3.80-5.40) m/uL Hgb (11.4-16.0) gm/dL Hct (34.0-46.0) % MCHC (31.0-37.0) g/dL RDW (11.5-15.5) % Neutrophils # (1.3-7.7) k/uL Sodium 133 L (137-145) mmol/L BUN 89 H* (7-17) mg/dL Creatinine 1.55 H (0.52-1.04) mg/dL Glucose 227 H (74-99) mg/dL POC Glucose (mg/dL) 267 H (75-99) mg/dL Assessment and Plan (1) Symptomatic anemia Narrative/Plan: 77-year-old female admitted with 2 week history shortness of breath, elevated troponin level and hemoglobin 6.4 previously 9.6 suggestive of acute blood loss anemia without overt bleeding with subsequent diagnosis of metastatic pancreatic carcinoma presently being evaluated by oncology. Current Visit: Yes Status: Acute Code(s): D64.9 - ANEMIA, UNSPECIFIED SNOMED Code(s): 761156712 (2) Acute blood loss anemia Current Visit: Yes Status: Acute Code(s): D62 - ACUTE POSTHEMORRHAGIC ANEMIA SNOMED Code(s): 727374677 (3) Pancreatic cancer Narrative/Plan: metastatic pancreatic cancer Current Visit: Yes Status: Acute Code(s): C25.9 - MALIGNANT NEOPLASM OF PANCREAS, UNSPECIFIED SNOMED Code(s): 350995019 (4) Elevated troponin Current Visit: Yes Status: Acute Code(s): R74.8 - ABNORMAL LEVELS OF OTHER SERUM ENZYMES SNOMED Code(s): 337956215 (5) Morbid obesity with body mass index of 40.0-44.9 in adult Current Visit: Yes Status: Chronic Code(s): E66.01 - MORBID (SEVERE) OBESITY DUE TO EXCESS CALORIES; Z68.41 - BODY MASS INDEX (BMI) 40.0-44.9, ADULT SNOMED Code(s): 323760559 (6) Non-ST elevated myocardial infarction Current Visit: Yes Status: Acute Code(s): I21.4 - NON-ST ELEVATION (NSTEMI) MYOCARDIAL INFARCTION SNOMED Code(s): 256232201 Plan: 1. Patient continues to not manifest overt GI bleeding. Patient has requested no CODE STATUS. Continue supportive measures. 2. Recommend conservative measures unless patient develops overt bleeding. 3. Diet as tolerated. Endoscopic exams not planned at this time. We'll follow as needed. Discharge per medicine. Assessment and plan of care discussed with Dr. Wray
[2017-09-18] MEDS: ASCORBIC ACID 500 MG TAB PO SCH (09:52)
[2017-09-18] MEDS: COLCHICINE 0.6 MG TAB PO SCH (09:52)
[2017-09-18] MEDS: MULTIVITAMINS, THERA 1 EACH TAB PO SCH (09:52)
[2017-09-18] MEDS: ALLOPURINOL 100 MG TAB PO SCH (09:52)
[2017-09-18] MEDS: FUROSEMIDE 10 MG/ML 4 ML VIAL IV SCH (09:53)
--- NOTE | 2017-09-18 10:35 | P.PN ---
Subjective Progress Note Date: 09/18/17 Principal diagnosis: Acute exacerbation of diastolic congestive heart, severe aortic stenosis, severe anemia. This is a 77-year-old who was seen yesterday in the emergency department. She came in for increasing shortness of breath going on for some time. She was recently in the emergency department with TIA-like symptoms attributed to hypoglycemia. More recently, she was diagnosed with pancreatic cancer at [facility]. The plan was to provide her with single dose chemotherapy in the form of Gemzar. Unfortunately, I don't think she'll be a good candidate she's very ill at the current time. In addition to pancreatic cancer and heart failure, she has a history of gout and GERD vitamin D deficiency diabetes hyperlipidemia and hypertension. The patient was transferred to the ICU yesterday. Today she is just on nasal O2 at 5 L. Feeling a bit better. Chest x-ray shows improving volume status. The oncology people were in the room. They agree that she would be a poor candidate for chemotherapy. I did discuss CODE STATUS yesterday with her and her . They would be agreeable to short-term mechanical ventilation and cardiopulmonary resuscitation. The patient's on a Lasix drip at 5 mg an hour. Blood pressure is borderline low. She was on and off of BiPAP through the night. She is also getting insulin 4 units an hour. Patient was reevaluated today on 09/17/2017, feeling better, breathing easier, patient is off the Lasix drip, and now she is on by mouth Lasix. Chest x-ray continues to show some persistent findings of congestive heart failure and bilateral pleural effusions. But clinically the patient is doing better. CBC showed WBC count of 15.9 hemoglobin of 7.2. BUN is 84 creatinine is 1.90. Patient received a total of 2 units of packed RBCs since admission. Patient is presently on nasal cannula, not using her BiPAP, feels better overall. Patient is seen again today 09/18/2017 in follow-up on the selective care unit. She is currently awake and alert in no acute distress. She denies any worsening shortness of breath, cough or congestion. She is remains off the BiPAP. She is maintaining good O2 saturations in the upper 90s on 2 L/m per nasal cannula. She's been afebrile. No tachycardia. No tachypnea. Hemodynamically stable. She is status post 2 units of packed red blood cells. Her current hemoglobin is 7.6. White count 11.4. Creatinine 1.55. She remains on bronchodilators and diuretics. Objective - Vital Signs Vital signs: Vital Signs Temp 97.4 F L 09/18/17 09:45 Pulse 64 09/18/17 09:45 Resp 18 09/18/17 09:45 BP 106/49 09/18/17 09:45 Pulse Ox 97 09/18/17 09:45 Intake & Output 09/17/17 09/18/17 09/18/17 18:59 06:59 18:59 Intake Total 220 20 236 Output Total 1375 145 Balance -1155 -125 236 Weight 101 kg Intake: IV 220 20 LR 220 20 Oral 236 Output: Urine 1375 145 Other: Voiding Method Indwelling Catheter Bedside Commode Bedside Commode # Voids 1 # Bowel Movements 1 - Exam GENERAL EXAM: Obese. Alert, active, comfortable in no apparent distress. HEAD: Normocephalic. EYES: Normal reaction of pupils, equal size. NOSE: Clear with pink turbinates. THROAT: No erythema or exudates. NECK: No masses, no JVD. CHEST: No chest wall deformity. LUNGS: Equal air entry with crackles in the bilateral posterior bases. CVS: S1 and S2 normal with no audible murmur, regular rhythm. ABDOMEN: No hepatosplenomegaly, normal bowel sounds, no guarding or rigidity. SPINE: No scoliosis or deformity SKIN: No rashes CENTRAL NERVOUS SYSTEM: No focal deficits, tone is normal in all 4 extremities. EXTREMITIES: There is no peripheral edema. No clubbing, no cyanosis. Peripheral pulses are intact. - Labs CBC & Chem 7: 09/18/17 05:52 09/18/17 05:52 Labs: Abnormal Lab Results - Last 24 Hours (Table) 09/17/17 09/17/17 09/17/17 Range/Units 12:19 17:10 17:16 WBC (3.8-10.6) k/uL RBC (3.80-5.40) m/uL Hgb (11.4-16.0) gm/dL Hct (34.0-46.0) % MCHC (31.0-37.0) g/dL RDW (11.5-15.5) % Neutrophils # (1.3-7.7) k/uL Sodium (137-145) mmol/L BUN (7-17) mg/dL Creatinine (0.52-1.04) mg/dL Glucose (74-99) mg/dL POC Glucose (mg/dL) 236 H 136 H 136 H (75-99) mg/dL 09/17/17 09/18/17 09/18/17 Range/Units 21:08 02:08 05:52 WBC 11.4 H (3.8-10.6) k/uL RBC 2.88 L (3.80-5.40) m/uL Hgb 7.6 L (11.4-16.0) gm/dL Hct 25.5 L (34.0-46.0) % MCHC 29.8 L (31.0-37.0) g/dL RDW 15.7 H (11.5-15.5) % Neutrophils # 8.8 H (1.3-7.7) k/uL Sodium (137-145) mmol/L BUN (7-17) mg/dL Creatinine (0.52-1.04) mg/dL Glucose (74-99) mg/dL POC Glucose (mg/dL) 237 H 278 H (75-99) mg/dL 18 09/18/17 Range/Units 05:52 05:59 WBC (3.8-10.6) k/uL RBC (3.80-5.40) m/uL Hgb (11.4-16.0) gm/dL Hct (34.0-46.0) % MCHC (31.0-37.0) g/dL RDW (11.5-15.5) % Neutrophils # (1.3-7.7) k/uL Sodium 133 L (137-145) mmol/L BUN 89 H* (7-17) mg/dL Creatinine 1.55 H (0.52-1.04) mg/dL Glucose 227 H (74-99) mg/dL POC Glucose (mg/dL) 267 H (75-99) mg/dL Assessment and Plan Assessment: Assessment Acute hypoxic respiratory failure secondary to an acute exacerbation of diastolic congestive heart failure. 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 The patient has not started treatment as yet Severe aortic stenosis Non-ST segment elevation myocardial infarction Diabetes mellitus Obesity GERD Hyperlipidemia Hypertension Dementia Anemia, status post 2 units packed red blood cells. No signs of overt bleeding. Current hemoglobin 7.6. No plans for EGD/colonoscopy at this time. Prerenal azotemia, current creatinine 1.55. Anion gap metabolic acidosis, recovered. History of CVA Question of COPD, continue bronchodilators Poor overall functional performance based on the above-mentioned multiple comorbidities. Plan: The patient was seen and evaluated by Dr. Benedict. She is improving from the pulmonary standpoint. She remains off the BiPAP. We'll continue with bronchodilators and diuretics. The patient's overall prognosis is quite poor based on her metastatic pancreatic adenocarcinoma. No treatment has been able to be initiated thus far, that of which would only be palliative. Hospice/ comfort care may be a better option. She remains a DO NOT RESUSCITATE/DO NOT INTUBATE CODE STATUS. I, the cosigning physician, performed a history & physical examination of the patient. Lungs sounds with crackles in the bilateral posterior bases.. Maintaining good O2 saturations in the 90s on 2 L/m per nasal cannula. I discussed the assessment and plan of care with my nurse practitioner, Elvie León. I attest to the above note as dictated by her.
[2017-09-18 11:39] LABS: Glucose,Whole Blood 286 mg/dL (75-99)
--- NOTE | 2017-09-18 13:15 | P.PN ---
Progress Note - Text Progress Note Date: 09/18/17 DATE OF SERVICE: 09/18/2017 PRESENTING COMPLAINT: Short of breath HISTORY OF PRESENT ILLNESS: 77-year-old female with a recent diagnosis of pancreatic cancer following with Dr. Starks who is admitted with shortness of breath slight cough no sputum no fever required BiPAP support moved up to the ICU. Admitted for COPD exacerbation and uncontrolled diabetes on an insulin drip, acute renal failure, hyperkalemia, acute congestive heart failure exacerbation. INTERVAL HISTORY: 09/18/2017: Sitting up in bed tired appearing. No acute overnight events, uses the BiPAP overnight. Continues to be quite short of breath with minimal exertion and with conversation. Afebrile, vital signs stable. Discussion had again at the bedside regarding hospice/palliative care and being discharged to rehabilitation Center versus home. Patient's is not equipped to provide care to the patient he has his own medical problems. Patient's overall prognosis is poor and may be more appropriate for hospice rather than rehabilitation. Discussion had with case management and social work. Dr. Baltazar had a discussion with Dr. Alves who is covering for Dr. Starks. Tolerating her diet, eating between 30 and 40% of her meals. Up with assistance requiring the use of a walker. Last BM 09/17/2017. 09/17/2017: Sitting up in bed appears tired appearing. No acute overnight events, lab values show hyponatremia today. Has had some hypotension and due to the fact she has no adrenal insufficiency nephrology as initiated much midodrine. Lasix drip stopped and she is on by mouth Lasix. Continues to have congestive heart failure bilateral pleural effusions but doing much better. Tolerating her diet up with assistance. REVIEW OF SYSTEMS: Done for constitutional ,cardiovascular, GI, pulmonary with relevant findings as above. CURRENT MEDICATIONS [place], DuoNeb, Zyloprim, ascorbic acid, Lipitor, Colcrys, Flexeril, Lasix, NovoLog, Levemir, Provera, ProAmatine, altered vitamin, Protonix, Requip. PHYSICAL EXAM VITAL SIGNS: Temperature 97.4, pulse 64, respiratory rate 18, blood pressure 106/49, oxygen saturation 97% on 2 L. GENERAL APPEARANCE: Sitting up in bed tired appearing. HENT: Normocephalic, JVD not raised. Mass not palpable. Oral cavity normal, external appearance of ears and nose normal. EYES:Pupils equal. Conjunctiva normal. RESPIRATORY: Respiratory effort increased. Lungs decreased to auscultation. CARDIOVASCULAR: First and second sounds normal. No edema. ABDOMEN: Soft. Liver and spleen not palpable. No tenderness. No mass palpable. PSYCHIATRY: Alert and oriented x3. Mood and affect normal. INVESTIGATIONS: White blood cell count 11.4, hemoglobin 7.6, sodium 133, BUN 89, creatinine 1.55 , Accu-Cheks noted. ASSESSMENT: -Acute chronic obstructive pulmonary disease exacerbation, improving -Diabetes mellitus type 2 uncontrolled, no longer requiring insulin drip, -Gastroesophageal reflux disease. -Ascites -Hypotension from excessive diuresis, improving midodrine -Essential hypertension, history of -Hyperlipidemia. 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 -Chronic gait dysfunction uses walker baseline. -Pancreatic malignancy with metastases to the liver, ascites with carcinomatosis -Acute renal failure could be acute tubular necrosis from hypotension now prerenal, worsening -Hyperkalemia from severe renal failure. Improving -Hyponatremia likely due to decreased oral intake -Anemia likely from underlying malignancy -Acute congestive heart failure from diastolic dysfunction ejection fraction 50- 55%. -Severe aortic stenosis nonrheumatic -Moderate mitral regurgitation. PLAN: Overall condition has incremental improvement. Continues to receive IV Lasix, midodrine and bronchodilators as well as using the BiPAP off and on. monitor hemoglobin should fall below 7 [address] We[address] place on a fluid restriction for hyponatremia. Discussion had with the patient regarding CODE STATUS and present and future treatments with Dr. Baltazar again this morning as well as with case management and social work. Patient and to make a decision about future care plans. Prognosis very guarded will continue to follow closely. PRINCIPAL RESEARCH ECONOMIST statement: Patient was seen and examined by nurse practitioner Mary Ellen Cross and all elements of the case discussed with attending Dr. Baltazar
--- NOTE | 2017-09-18 14:22 | PN ---
PROGRESS NOTE Patient is seen for followup for acute kidney injury and fluid overload. She is currently maintained on IV Lasix daily. Her volume status has improved. There are plans for possible discharge today. The patient also has underlying pancreatic cancer. PHYSICAL EXAMINATION: On examination, blood pressure is 106/49, heart rate 64 per minute. She is afebrile. EXAMINATION OF THE HEART: S1, S2. EXAMINATION OF THE LUNGS: Decreased breath sounds at bases. Abdomen is soft, obese, nontender. Examination of lower extremity shows edema 1+ bilaterally with chronic skin changes noted. RN ACUTE exam is grossly intact. Patient moving all 4 extremities. LAB: Labs show sodium 133, potassium 4.7, chloride 99, BUN 89, serum creatinine 1.5. Hemoglobin 7.6 g/dL. ASSESSMENT: 1. Acute kidney injury secondary to hypotension hypoperfusion and cardiorenal syndrome, currently improved. Lasix is now at once a day IV. We can switch it to p.o. 2. Diastolic dysfunction. Ejection fraction 55% to 60% with severe concentric left ventricular hypertrophy. 3. Moderate mitral regurgitation and mild pulmonary hypertension. 4. Diastolic heart failure, acute on top of chronic. 5. New diagnosis of pancreatic cancer scheduled to follow up with Oncology as outpatient. 6. Hypotension with no evidence of adrenal insufficiency, maintained on midodrine. PLAN: Can switch the Lasix to p.o. at time of discharge. The patient will need 40 mg p.o. b.i.d. Continue the midodrine and repeat labs as outpatient in 4 to 5 days time. The patient can be discharged from nephrology standpoint. MMODL / IJN: [id number] /
--- NOTE | 2017-09-18 16:47 | P.PN ---
Subjective Progress Note Date: 09/18/17 Principal diagnosis: Metastatic Pancreatic Cancer Long Conversation with patient today regarding her declining performance status and extensive disease. Patient understands it is in her best interest to focus on comfort care. She is feeling better today sitting up in a chair and maintaining her oxygen status on nasal cannula. She still looks to be having some mild increased respiratory distress. Objective - Vital Signs Vital signs: Vital Signs Temp 97.4 F L 09/18/17 09:45 Pulse 64 09/18/17 09:45 Resp 18 09/18/17 09:45 BP 106/49 09/18/17 09:45 Pulse Ox 97 09/18/17 09:45 Intake & Output 09/17/17 09/18/17 09/18/17 18:59 06:59 18:59 Intake Total 220 20 236 Output Total 1375 145 250 Balance -1155 -125 -14 Weight 101 kg Intake: IV 220 20 LR 220 20 Oral 236 Output: Urine 1375 145 250 Other: Voiding Method Indwelling Catheter Bedside Commode Bedside Commode # Voids 1 # Bowel Movements 1 - Constitutional General appearance: Present: mild distress, morbidly obese - EENT Eyes: Present: poor dentition ENT: Present: normal oropharynx - Respiratory Respiratory: bilateral: diminished, wheezing - Cardiovascular Rhythm: irregularly irregular - Gastrointestinal Gastrointestinal Comment(s): Large firm abdomen, known ascitis pancreatic metasatic carcinamatosis - Neurologic Neurologic Comment(s): Will require remediation - Psychiatric Psychiatric Comment(s): May require remediation regarding seriousness of disease and inability to treat Psychiatric: Present: A&O x's 3, appropriate affect - Labs CBC & Chem 7: 09/18/17 05:52 09/18/17 05:52 Labs: Abnormal Lab Results - Last 24 Hours (Table) 09/17/17 09/17/17 09/17/17 Range/Units 17:10 17:16 21:08 WBC (3.8-10.6) k/uL RBC (3.80-5.40) m/uL Hgb (11.4-16.0) gm/dL Hct (34.0-46.0) % MCHC (31.0-37.0) g/dL RDW (11.5-15.5) % Neutrophils # (1.3-7.7) k/uL Sodium (137-145) mmol/L BUN (7-17) mg/dL Creatinine (0.52-1.04) mg/dL Glucose (74-99) mg/dL POC Glucose (mg/dL) 136 H 136 H 237 H (75-99) mg/dL 09/18/17 09/18/17 09/18/17 Range/Units 02:08 05:52 05:52 WBC 11.4 H (3.8-10.6) k/uL RBC 2.88 L (3.80-5.40) m/uL Hgb 7.6 L (11.4-16.0) gm/dL Hct 25.5 L (34.0-46.0) % MCHC 29.8 L (31.0-37.0) g/dL RDW 15.7 H (11.5-15.5) % Neutrophils # 8.8 H (1.3-7.7) k/uL Sodium 133 L (137-145) mmol/L BUN 89 H* (7-17) mg/dL Creatinine 1.55 H (0.52-1.04) mg/dL Glucose 227 H (74-99) mg/dL POC Glucose (mg/dL) 278 H (75-99) mg/dL 09/18/17 09/18/17 Range/Units 05:59 11:30 WBC (3.8-10.6) k/uL RBC (3.80-5.40) m/uL Hgb (11.4-16.0) gm/dL Hct (34.0-46.0) % MCHC (31.0-37.0) g/dL RDW (11.5-15.5) % Neutrophils # (1.3-7.7) k/uL Sodium (137-145) mmol/L BUN (7-17) mg/dL Creatinine (0.52-1.04) mg/dL Glucose (74-99) mg/dL POC Glucose (mg/dL) 267 H 286 H (75-99) mg/dL Assessment and Plan (1) Pancreatic cancer Narrative/Plan: 1. Patient is not a candidate for chemotherapy or intervention related to cancer at this time, given her poor performance status. I had a long discussion with her today and she does state an understanding after reinforcing the situation of her new diagnosis, baseline performance status, other co- morbidities, and recent repeated hospitalizations. She appears overall agreeable for comfort care, and will discuss this with her significant other. The case also discussed with the admitting service 2. Assuming the patient is agreeable after discussion with his significant other, we would recommend patient to have hospice care involved and plan for eventual discharge home with hospice at home focus of comfort, although may require remediation of status. Current Visit: Yes Status: Acute Code(s): C25.9 - MALIGNANT NEOPLASM OF PANCREAS, UNSPECIFIED SNOMED Code(s): 024598591 (2) Acute blood loss anemia Narrative/Plan: Hemoglobin is fairly stable after transfusion Current Visit: Yes Status: Acute Code(s): D62 - ACUTE POSTHEMORRHAGIC ANEMIA SNOMED Code(s): 361110702 (3) Acute diastolic CHF (congestive heart failure) Narrative/Plan: There is slow improvement, though the patient is still short of breath at rest. Current Visit: Yes Status: Acute Code(s): I50.31 - ACUTE DIASTOLIC ( CONGESTIVE) HEART FAILURE SNOMED Code(s): 741032652 (4) Acute exacerbation of chronic obstructive airways disease Current Visit: Yes Status: Acute Code(s): J44.1 - CHRONIC OBSTRUCTIVE PULMONARY DISEASE W (ACUTE) EXACERBATION SNOMED Code(s): 589826600 (5) Acute respiratory failure Current Visit: Yes Status: Acute Code(s): J96.00 - ACUTE RESPIRATORY FAILURE , UNSP W HYPOXIA OR HYPERCAPNIA SNOMED Code(s): 82021763 (6) Elevated troponin Current Visit: Yes Status: Acute Code(s): R74.8 - ABNORMAL LEVELS OF OTHER SERUM ENZYMES SNOMED Code(s): 423426140 (7) History of CVA (cerebrovascular accident) Current Visit: Yes Status: Acute Code(s): Z86.73 - PRSNL HX OF TIA (TIA), AND CEREB INFRC W/O RESID DEFICITS SNOMED Code(s): 603208218 (8) Hypoxia Current Visit: Yes Status: Acute Code(s): R09.02 - HYPOXEMIA SNOMED Code(s ): 561527621 (9) Morbid obesity with body mass index of 40.0-44.9 in adult Current Visit: Yes Status: Chronic Code(s): E66.01 - MORBID (SEVERE) OBESITY DUE TO EXCESS CALORIES; Z68.41 - BODY MASS INDEX (BMI) 40.0-44.9, ADULT SNOMED Code(s): 325031929 (10) Fall with injury Current Visit: No Status: Acute Code(s): W19.XXXA - UNSPECIFIED FALL, INITIAL ENCOUNTER SNOMED Code(s): 943007563 (11) Sepsis secondary to UTI Current Visit: No Status: Acute Code(s): A41.9 - SEPSIS, UNSPECIFIED ORGANISM SNOMED Code(s): 802930854
[2017-09-18 16:58] LABS: Glucose,Whole Blood 256 mg/dL (75-99)
[2017-09-18 21:11] LABS: Glucose,Whole Blood 158 mg/dL (75-99)
[2017-09-18] MEDS: INSULIN DETEMIR 100 UNIT/ML 10 ML VIAL SQ SCH (21:32)
[2017-09-18] MEDS: ATORVASTATIN 20 MG TAB PO SCH (21:32)
[2017-09-18] MEDS: rOPINIRole HCL 4 MG TABLET PO SCH (21:32)
--- NOTE | 2017-09-18 23:37 | PN ---
PROGRESS NOTE DATE OF SERVICE: 09/18/2017 ATTENDING NOTE: The patient seen and examined by me. I discussed with my nurse practitioner, Laurentracey. The patient has been brought up to the ICU. Patient has metastatic pancreatic cancer, including the liver and carcinomatosis. The patient has got a severe aortic stenosis, acute congestive heart failure for which she was treated, became hypotensive, acute renal failure, COPD exacerbation. Looks a shade better today, but is still short of breath. Patient's significant other Adam is in the room. The patient did tolerate some diet, is on nasal cannula. EXAMINATION: Temperature 97.5 pulse 96, respirations 16, blood pressure 109/53, pulse ox 98% on room air. Sitting up, slightly short of breath. LUNGS: Diminished breath sounds. Some basal crackles. Tired-appearing. INVESTIGATIONS: White count 11.4, hemoglobin 7.6. Potassium 4.7, BUN 89, creatinine 1.55. Accu-Cheks are noted. ASSESSMENT: Multiple medical problems, including the fact that the patient has pancreatic cancer with metastases to the liver and carcinomatosis. I had a lengthy talk yet again with the patient and patient's significant other that the only treatment of palliation, that chemotherapy may be palliation and given her very poor functional status, this may not be a clark choice. The patient does understand overall poor prognosis. Even rehabilitation will be probably of limited benefit limited benefit. I did speak to the both the aids social worker and assistant case manager about the same and also discussed with Dr. Alves, the oncologist, given the patient's overall poor guarded prognosis. Later in the day, Dr. Alves did call me back that he did talk to the patient and she will be talking to Adam about possibly hospice. Given overall clinical scenarios, chronic medications, probably hospice may be the wisest choice for this patient, unfortunately. The patient's current medications are reviewed. Total time spent today was about 45 minutes with over 30-35 minutes of discussion. MMANDREZL / IJN: [id number] /
[2017-09-18] MEDS: HYDROcodone/APAP 7.5-325MG 1 EACH TAB PO PRN (23:59)
[2017-09-19 05:59] LABS: Glucose,Whole Blood 221 mg/dL (75-99)
[2017-09-19] MEDS: INSULIN ASPART 100 UNIT/ML 1 ML 10 ML VIAL SQ SCH ×7 (06:14→22:05)
[2017-09-19] MEDS: MIDODRINE 5 MG TAB PO SCH ×2 (06:15→19:25)
[2017-09-19] MEDS: PANTOPRAZOLE 40 MG TABLET PO SCH (06:15)
[2017-09-19 06:26] LABS: Basophils % (A) 0 %; Eosinophils # (A) 0.7 k/uL (0-0.7); Eosinophils % (A) 7 %; HCT 26.7 % (34.0-46.0); HGB 7.9 gm/dL (11.4-16.0); Hypochromasia Marked; Lymphocytes # (A) 1.3 k/uL (1.0-4.8); Lymphocytes % (A) 13 %; MCHC 29.6 g/dL (31.0-37.0); MCV 87.8 fL (80.0-100.0); Mean Platelet Volume 9.6; Monocytes # (A) 0.7 k/uL (0-1.0); Monocytes % (A) 7 %; Neutrophils # (A) 6.9 k/uL (1.3-7.7); Neutrophils % (A) 70 %; Platelet Count 162 k/uL (150-450); Poikilocytosis Marked; RBC 3.04 m/uL (3.80-5.40); RDW 15.8 % (11.5-15.5)
[2017-09-19 06:36] LABS: Magnesium 2.2 mg/dL (1.6-2.3); Phosphorus 3.2 mg/dL (2.5-4.5); Potassium 4.7 mmol/L (3.5-5.1)
[2017-09-19] MEDS: COLCHICINE 0.6 MG TAB PO SCH (10:16)
[2017-09-19] MEDS: ASCORBIC ACID 500 MG TAB PO SCH (10:16)
[2017-09-19] MEDS: ALLOPURINOL 100 MG TAB PO SCH (10:16)
[2017-09-19] MEDS: FUROSEMIDE 10 MG/ML 4 ML VIAL IV SCH (10:17)
[2017-09-19] MEDS: MULTIVITAMINS, THERA 1 EACH TAB PO SCH (10:17)
--- NOTE | 2017-09-19 11:41 | P.PN ---
Subjective Progress Note Date: 09/19/17 Principal diagnosis: Acute exacerbation of diastolic congestive heart, severe aortic stenosis, severe anemia. This is a 77-year-old who was seen yesterday in the emergency department. She came in for increasing shortness of breath going on for some time. She was recently in the emergency department with TIA-like symptoms attributed to hypoglycemia. More recently, she was diagnosed with pancreatic cancer at [facility]. The plan was to provide her with single dose chemotherapy in the form of Gemzar. Unfortunately, I don't think she'll be a good candidate she's very ill at the current time. In addition to pancreatic cancer and heart failure, she has a history of gout and GERD vitamin D deficiency diabetes hyperlipidemia and hypertension. The patient was transferred to the ICU yesterday. Today she is just on nasal O2 at 5 L. Feeling a bit better. Chest x-ray shows improving volume status. The oncology people were in the room. They agree that she would be a poor candidate for chemotherapy. I did discuss CODE STATUS yesterday with her and her . They would be agreeable to short-term mechanical ventilation and cardiopulmonary resuscitation. The patient's on a Lasix drip at 5 mg an hour. Blood pressure is borderline low. She was on and off of BiPAP through the night. She is also getting insulin 4 units an hour. Patient was reevaluated today on 09/17/2017, feeling better, breathing easier, patient is off the Lasix drip, and now she is on by mouth Lasix. Chest x-ray continues to show some persistent findings of congestive heart failure and bilateral pleural effusions. But clinically the patient is doing better. CBC showed WBC count of 15.9 hemoglobin of 7.2. BUN is 84 creatinine is 1.90. Patient received a total of 2 units of packed RBCs since admission. Patient is presently on nasal cannula, not using her BiPAP, feels better overall. Patient is seen again today 09/18/2017 in follow-up on the selective care unit. She is currently awake and alert in no acute distress. She denies any worsening shortness of breath, cough or congestion. She is remains off the BiPAP. She is maintaining good O2 saturations in the upper 90s on 2 L/m per nasal cannula. She's been afebrile. No tachycardia. No tachypnea. Hemodynamically stable. She is status post 2 units of packed red blood cells. Her current hemoglobin is 7.6. White count 11.4. Creatinine 1.55. She remains on bronchodilators and diuretics. The patient is seen again today 09/19/2017 in follow-up on the selective care unit. She is currently sitting up in a chair at the bedside. She is awake and alert in no acute distress. She is doing quite a bit better today as compared to yesterday. She is maintaining good O2 saturations in the 90s on 2 L/m per nasal cannula. She's been afebrile. Hemoglobin 7.9. BUN 85. Creatinine 1.30. Sodium 135. The plan is for possible discharge to [facility] in hospice. Objective - Vital Signs Vital signs: Vital Signs Temp 97 F L 09/19/17 08:00 Pulse 71 09/19/17 08:00 Resp 18 09/19/17 08:00 BP 122/48 09/19/17 08:00 Pulse Ox 93 L 09/19/17 08:00 Intake & Output 09/18/17 09/19/17 09/19/17 18:59 06:59 18:59 Intake Total 386 180 Output Total 250 Balance 136 180 Weight 102.8 kg Intake: Oral 386 180 Output: Urine 250 Other: Voiding Method Bedside Commode Bedside Commode # Voids 1 1 - Exam GENERAL EXAM: Obese. Alert, active, comfortable in no apparent distress. HEAD: Normocephalic. EYES: Normal reaction of pupils, equal size. NOSE: Clear with pink turbinates. THROAT: No erythema or exudates. NECK: No masses, no JVD. CHEST: No chest wall deformity. LUNGS: Equal air entry with crackles in the bilateral posterior bases. CVS: S1 and S2 normal with no audible murmur, regular rhythm. ABDOMEN: No hepatosplenomegaly, normal bowel sounds, no guarding or rigidity. SPINE: No scoliosis or deformity SKIN: No rashes CENTRAL NERVOUS SYSTEM: No focal deficits, tone is normal in all 4 extremities. EXTREMITIES: There is no peripheral edema. No clubbing, no cyanosis. Peripheral pulses are intact. - Labs CBC & Chem 7: 09/19/17 05:50 09/19/17 05:50 Labs: Abnormal Lab Results - Last 24 Hours (Table) 09/18/17 09/18/17 09/18/17 Range/Units 11:30 16:44 21:03 RBC (3.80-5.40) m/uL Hgb (11.4-16.0) gm/dL Hct (34.0-46.0) % MCHC (31.0-37.0) g/dL RDW (11.5-15.5) % Sodium (137-145) mmol/L BUN (7-17) mg/dL Creatinine (0.52-1.04) mg/dL Glucose (74-99) mg/dL POC Glucose (mg/dL) 286 H 256 H 158 H (75-99) mg/dL 09/19/17 09/19/17 09/19/17 Range/Units 05:50 05:50 05:58 RBC 3.04 L (3.80-5.40) m/uL Hgb 7.9 L (11.4-16.0) gm/dL Hct 26.7 L (34.0-46.0) % MCHC 29.6 L (31.0-37.0) g/dL RDW 15.8 H (11.5-15.5) % Sodium 135 L (137-145) mmol/L BUN 85 H* (7-17) mg/dL Creatinine 1.30 H (0.52-1.04) mg/dL Glucose 204 H (74-99) mg/dL POC Glucose (mg/dL) 221 H (75-99) mg/dL Assessment and Plan Assessment: Assessment Acute hypoxic respiratory failure secondary to an acute exacerbation of diastolic congestive heart failure. 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 The plan is for hospice care Severe aortic stenosis Non-ST segment elevation myocardial infarction Diabetes mellitus Obesity GERD Hyperlipidemia Hypertension Dementia Anemia, status post 2 units packed red blood cells. No signs of overt bleeding. Current hemoglobin 7.9. No plans for EGD/colonoscopy at this time. Prerenal azotemia, current creatinine 1.30. Anion gap metabolic acidosis, recovered. History of CVA Question of COPD, continue bronchodilators Poor overall functional performance based on the above-mentioned multiple comorbidities. Plan: The patient was seen and evaluated by Dr. Benedict. She is improving from the pulmonary standpoint. We'll continue with bronchodilators and diuretics. The patient's overall prognosis is quite poor based on her metastatic pancreatic adenocarcinoma. Hospice/comfort care may be initiated. She remains a DO NOT RESUSCITATE/DO NOT INTUBATE CODE STATUS. I, the cosigning physician, performed a history & physical examination of the patient. Lungs sounds with crackles in the bilateral posterior bases.. Maintaining good O2 saturations in the 90s on 2 L/m per nasal cannula. I discussed the assessment and plan of care with my nurse practitioner, Elvie León. I attest to the above note as dictated by her.
[2017-09-19 11:49] LABS: Glucose,Whole Blood 216 mg/dL (75-99)
--- NOTE | 2017-09-19 17:16 | PN ---
PROGRESS NOTE Patient is seen for followup for acute kidney injury and congestive heart failure. Her volume status has improved. Renal function also continues to improve. She is currently sitting up in a bedside chair. She is comfortable. Patient denies any complaints. PHYSICAL EXAMINATION: Blood pressure is 122/48, heart rate 71 per minute. She is afebrile. EXAMINATION OF THE HEART: S1, S2. EXAMINATION OF LUNGS: Decreased breath sounds at the bases. ABDOMEN: Soft, non-tender, obese. Examination of lower extremities shows no edema 2+ bilaterally with chronic skin changes noted. LAB: Sodium 135, potassium 4.7, chloride 99, BUN 85, serum creatinine 1.3, hemoglobin 7.9 grams/dL. ASSESSMENT: 1. Acute kidney injury, mainly cardiorenal, initially oliguric, currently nonoliguric with improved renal function. Patient remains on Lasix 40 mg IV daily, which we can continue for now. 2. Congestive heart failure, diastolic dysfunction; ejection fraction 55% to 60% with severe concentric left ventricular hypertrophy, acute on top of chronic. 3. Moderate mitral regurgitation and mild pulmonary hypertension. 4. New diagnosis of pancreatic cancer; to follow up with Oncology as outpatient. 5. Hypotension with no evidence of adrenal insufficiency, maintained on oral midodrine. PLAN: Continue with IV Lasix at the current dose until discharge. Continue with the midodrine as well. Patient will likely need 40 to 60 mg p.o. b.i.d. She will need to have labs monitored as outpatient. MMODL / IJN: [id number] /
[2017-09-19 17:24] LABS: Glucose,Whole Blood 175 mg/dL (75-99)
[2017-09-19] MEDS: IPRATROPIUM-ALBUTEROL 3 ML NEB INHALATION PRN (19:20)
[2017-09-19 20:50] LABS: Glucose,Whole Blood 175 mg/dL (75-99)
[2017-09-19] MEDS: rOPINIRole HCL 4 MG TABLET PO SCH (22:04)
[2017-09-19] MEDS: ATORVASTATIN 20 MG TAB PO SCH (22:04)
[2017-09-19] MEDS: INSULIN DETEMIR 100 UNIT/ML 10 ML VIAL SQ SCH (22:04)
--- NOTE | 2017-09-19 22:23 | PN ---
PROGRESS NOTE DATE OF SERVICE: 09/19/2017 Patient is seen covering for Dr. Baltazar. The patient is transferred out of ICU, seen in her room. Patient is sitting comfortably in the bedside chair. has no complaints, claims she has talked to her family and they would like to continue with the treatment plan as it is now and she would want to be transferred to the rehab facility. GENERAL PHYSICAL EXAM: Patient is awake, alert. She is in no acute distress. VITAL SIGNS: Temperature of 98.7, pulse 71, respirations 16, blood pressure 122/48. HEENT: Atraumatic, normocephalic. Pupils equal and reactive to light. Extraocular movements intact. Buccal mucosa is fair. Neck is supple. No goiter or lymphadenopathy. JVD is negative. No carotid bruit heard. Lungs are clear to auscultate. No rales, rhonchi or wheezes. Decreased breath sounds bilaterally, though. Abdomen is soft and nontender, obese. Bowel sounds positive. No guarding or rigidity. EXTREMITIES: No edema clubbing or cyanosis. The patient has chronic stasis dermatitis. LABS: CBC: White blood count of 10, hemoglobin 7.9, hematocrit 26.7 and platelet count of 162. Chemical profile: Sodium 135, potassium 4.7, chloride 99, bicarb 27, BUN 85, creatinine 1.30, glucose of 221. ASSESSMENT: 1. Acute renal injury, mainly cardiorenal. Patient was initially oliguric. Currently, she has improved renal function and she is nonoliguric. Patient remains on 40 mg of Lasix once daily. Nephrology is following and recommending to continue Lasix as prescribed. 2. Acute exacerbation, diastolic congestive heart failure. The patient has a ejection fraction of 55%-60% with severe left ventricular hypertrophy. It is clinically stable. 3. Moderate mitral regurgitation with mild pulmonary hypertension. Cardiology is following. 4. Pancreatic cancer with liver metastasis. The patient follows up with Oncology as an outpatient. 5. Hypotension. The patient remains on oral midodrine. There is no evidence of adrenal insufficiency. 6. Nephrology is planning to continue with the with same dose of IV Lasix as the patient is getting now and continue until time of discharge and continue with the midodrine. Planis to switch to oral 40-60 mg b.i.d. depending on patient's clinical course. As indicated above according to patient, the patient and her family would want the patient to be transferred to rehabilitation and continue everything as it is. MMANDREZL / IJN: [id number] /
[2017-09-20] MEDS: HYDROcodone/APAP 7.5-325MG 1 EACH TAB PO PRN ×3 (00:37→17:41)
[2017-09-20 07:48] LABS: Glucose,Whole Blood 331 mg/dL (75-99)
[2017-09-20 08:02] LABS: Basophils % (A) 1 %; Eosinophils # (A) 0.5 k/uL (0-0.7); Eosinophils % (A) 6 %; HGB 7.4 gm/dL (11.4-16.0); Hypochromasia Marked; Lymphocytes # (A) 1.3 k/uL (1.0-4.8); Lymphocytes % (A) 15 %; MCH 25.9 pg (25.0-35.0); MCHC 29.5 g/dL (31.0-37.0); MCV 87.6 fL (80.0-100.0); Mean Platelet Volume 9.4; Monocytes # (A) 0.7 k/uL (0-1.0); Monocytes % (A) 9 %; Neutrophils # (A) 5.4 k/uL (1.3-7.7); Neutrophils % (A) 66 %; Platelet Count 143 k/uL (150-450); Poikilocytosis Marked; RBC 2.86 m/uL (3.80-5.40); RDW 15.6 % (11.5-15.5); WBC 8.2 k/uL (3.8-10.6)
[2017-09-20] MEDS: INSULIN ASPART 100 UNIT/ML 1 ML 10 ML VIAL SQ SCH ×7 (08:12→20:54)
[2017-09-20] MEDS: ALLOPURINOL 100 MG TAB PO SCH (08:13)
[2017-09-20] MEDS: FUROSEMIDE 10 MG/ML 4 ML VIAL IV SCH (08:13)
[2017-09-20] MEDS: MULTIVITAMINS, THERA 1 EACH TAB PO SCH (08:13)
[2017-09-20] MEDS: COLCHICINE 0.6 MG TAB PO SCH (08:14)
[2017-09-20] MEDS: PANTOPRAZOLE 40 MG TABLET PO SCH (08:14)
[2017-09-20] MEDS: MIDODRINE 5 MG TAB PO SCH ×3 (08:14→17:43)
[2017-09-20] MEDS: ASCORBIC ACID 500 MG TAB PO SCH (08:14)
[2017-09-20 08:38] LABS: Anion Gap 10 mmol/L; Blood Urea Nitrogen 64 mg/dL (7-17); Calcium 9.2 mg/dL (8.4-10.2); Carbon Dioxide 26 mmol/L (22-30); Chloride 100 mmol/L (98-107); Glucose 302 mg/dL (74-99); Phosphorus 2.8 mg/dL (2.5-4.5); Potassium 4.6 mmol/L (3.5-5.1); Sodium 136 mmol/L (137-145)
[2017-09-20 11:50] LABS: Glucose,Whole Blood 323 mg/dL (75-99)
[2017-09-20] MEDS: IPRATROPIUM-ALBUTEROL 3 ML NEB INHALATION PRN (15:51)
--- NOTE | 2017-09-20 16:09 | P.PN ---
Subjective Progress Note Date: 09/20/17 Principal diagnosis: Acute diastolic congestive heart failure, severe aortic stenosis, and severe anemia. Progress note dated 09/16/2017 This is a 77-year-old who was seen yesterday in the emergency department. She came in for increasing shortness of breath going on for some time. She was recently in the emergency department with TIA-like symptoms attributed to hypoglycemia. More recently, she was diagnosed with pancreatic cancer at [facility]. The plan was to provide her with single dose chemotherapy in the form of Gemzar. Unfortunately, I don't think she'll be a good candidate she's very ill at the current time. In addition to pancreatic cancer and heart failure, she has a history of gout and GERD vitamin D deficiency diabetes hyperlipidemia and hypertension. The patient was transferred to the ICU yesterday. Today she is just on nasal O2 at 5 L. Feeling a bit better. Chest x-ray shows improving volume status. The oncology people were in the room. They agree that she would be a poor candidate for chemotherapy. I did discuss CODE STATUS yesterday with her and her . They would be agreeable to short-term mechanical ventilation and cardiopulmonary resuscitation. The patient's on a Lasix drip at 5 mg an hour. Blood pressure is borderline low. She was on and off of BiPAP through the night. She is also getting insulin 4 units an hour. Patient was reevaluated today on 09/17/2017, feeling better, breathing easier, patient is off the Lasix drip, and now she is on by mouth Lasix. Chest x-ray continues to show some persistent findings of congestive heart failure and bilateral pleural effusions. But clinically the patient is doing better. CBC showed WBC count of 15.9 hemoglobin of 7.2. BUN is 84 creatinine is 1.90. Patient received a total of 2 units of packed RBCs since admission. Patient is presently on nasal cannula, not using her BiPAP, feels better overall. Patient was reevaluated today on 09/20/2017, doing much better, feeling much better overall, she is off oxygen and she is on room air saturating quite well. Hemoglobin is holding at 7.4. Basic metabolic profile is relatively normal however her BUN is 64 creatinine is 1.05. Significantly improved compared to last few days. Objective - Vital Signs Vital signs: Vital Signs Temp 98.1 F 09/20/17 07:00 Pulse 78 09/20/17 15:51 Resp 18 09/20/17 15:51 BP 112/53 09/20/17 07:00 Pulse Ox 92 L 09/20/17 07:00 Intake & Output 09/19/17 09/20/17 09/20/17 18:59 06:59 18:59 Intake Total 210 590 Balance 210 590 Weight 102.7 kg Intake: Oral 210 590 Other: Voiding Method Bedside Commode Bedside Commode # Voids 1 3 - Exam Physical exam revealed a 77-year-old female in no form of distress. HEENT examination is grossly unremarkable. Mucous membranes are dry. No oral lesions. Neck supple. Full range of motion. No adenopathy thyromegaly or neck vein distention. Cardiovascular examination reveals regular rhythm rate. S1-S2 normal. No S3 or S4. 2/6 systolic murmur throughout the precordium. Lungs reveal bibasilar crackles. Breath sounds are diminished. No rhonchi or wheezes.. Abdomen soft bowel sounds are heard. No masses or tenderness. Extremities are intact. Slight edema is noted. No cyanosis or clubbing. Skin is without rash or lesion. Neurologic examination focal neurologic deficit was appreciated. Lymphatics: No lymphadenopathy was noted. - Labs CBC & Chem 7: 09/20/17 07:22 09/20/17 07:22 Labs: Abnormal Lab Results - Last 24 Hours (Table) 09/19/17 09/19/17 09/20/17 Range/Units 17:19 20:48 07:22 RBC 2.86 L (3.80-5.40) m/uL Hgb 7.4 L (11.4-16.0) gm/dL Hct 25.0 L (34.0-46.0) % MCHC 29.5 L (31.0-37.0) g/dL RDW 15.6 H (11.5-15.5) % Plt Count 143 L (150-450) k/uL Sodium (137-145) mmol/L BUN (7-17) mg/dL Creatinine (0.52-1.04) mg/dL Glucose (74-99) mg/dL POC Glucose (mg/dL) 175 H 175 H (75-99) mg/dL 02/18/18 02/18/18 02/18/18 Range/Units 07:22 07:47 11:48 RBC (3.80-5.40) m/uL Hgb (11.4-16.0) gm/dL Hct (34.0-46.0) % MCHC (31.0-37.0) g/dL RDW (11.5-15.5) % Plt Count (150-450) k/uL Sodium 136 L (137-145) mmol/L BUN 64 H (7-17) mg/dL Creatinine 1.05 H (0.52-1.04) mg/dL Glucose 302 H (74-99) mg/dL POC Glucose (mg/dL) 331 H 323 H (75-99) mg/dL Assessment and Plan Assessment: Acute Hypoxemic respiratory failure, secondary to diastolic congestive heart failure, severe aortic stenosis, and anemia on presentation. Recent diagnosis of pancreatic cancer though the patient has not started treatment as yet CVA Question of COPD Diabetes mellitus Obesity GERD Hyperlipidemia Hypertension Dementia Anemia Prerenal azotemia Anion gap metabolic acidosis Recommendation: Continue present treatment plan, consider discharge planning and follow-up on outpatient basis, however the patient needs to BE cleared by the different consultants on the case. Time with Patient: Less than 30
--- NOTE | 2017-09-20 16:40 | PN ---
PROGRESS NOTE Patient is seen for followup for acute kidney injury secondary to hypotension, hypoperfusion and cardiorenal syndrome as well. The patient was initially oliguric, currently nonoliguric with significantly improved renal function. She remains on IV Lasix x1. Her creatinine is down to 1.05 mg/dL. EXAMINATION: Blood pressure is 112/53, heart rate 94 per minute. The patient's heart rate is 78 per minute. Patient is afebrile. Examination of the heart: S1, S2. Examination lungs: Bilateral breath sounds are heard. Abdomen is soft, morbidly obese. Examination lower extremity shows continued edema 2+ bilaterally. 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 Patient moving all 4 extremities. LAB: Show sodium 136, potassium 4.6, chloride 100, CO2 of 26, BUN 64, serum creatinine 1.05, hemoglobin 7.4 g/dL. ASSESSMENT: 1. Acute kidney injury secondary to anemia, hypotension, hypoperfusion as well as cardiorenal syndrome, currently improved. Continue with current dose of Lasix. No nephrotoxic agents on board. 2. Congestive heart failure, acute on top of chronic, mainly diastolic, currently improved. 3. Cardiomyopathy, ejection fraction 55-60% with severe concentric left ventricular hypertrophy. 4. Moderate mitral regurgitation. 5. Mild pulmonary hypertension. 6. New diagnosis of pancreatic cancer. She will follow up with Oncology as outpatient. 7. Hypotension, maintained on midodrine. No evidence of adrenal insufficiency. PLAN: Continue current dose of Lasix until discharge. Monitor electrolytes. Renal function continues to improve. MMODL / IJN: [id number] /
[2017-09-20 17:23] LABS: Glucose,Whole Blood 131 mg/dL (75-99)
--- NOTE | 2017-09-20 20:46 | PN ---
PROGRESS NOTE DATE OF SERVICE: 09/20/2017 Patient seen in the room. She is overall feeling much better. Claims her family and she have decided to go to rehab. VITAL SIGNS: Temperature 98.1, pulse 78, respiration 18, blood pressure 112/50, O2 saturation 92%. HEENT atraumatic, normocephalic. Pupils equal and reactive to light. Extraocular movements intact. Neck is supple. No goiter or lymphadenopathy. JVD is negative. No carotid bruit heard. Lungs clear to auscultate. No rales, rhonchi, or wheezes. Heart is regular rate and rhythm without any murmurs or gallop rhythm. Abdomen is soft, nontender, nondistended. Bowel sounds positive. Extremities: 1+ pitting edema. Neurological examination: No gross motor or sensory deficit. Lymphatics: The patient has no lymphadenopathy that is noted. LABS: CBC: White blood count of 8.2, hemoglobin 7.1, hematocrit 25, and platelet count of 143. Chemical profile: Sodium 136, potassium 4.6, chloride 100, bicarb 26, BUN 65, creatinine 10.5, and glucose 305. ASSESSMENT: 1. Acute hypoxemic respiratory failure secondary to diastolic CHF and aortic stenosis, clinically improved. 2. COPD. 3. Diabetes mellitus. 4. GERD. 5. Hyperlipidemia. 6. Hypertension. 7. Dementia. 8. Anemia. 9. Pancreatic cancer with liver metastasis. The patient is clinically stable. PLAN: [facility]. Will consult Case Management for possible placement. Continue all current medications as the patient is receiving at this point with no change in the plan of care. MMODL / IJN: [id number] /
[2017-09-20 20:49] LABS: Glucose,Whole Blood 133 mg/dL (75-99)
[2017-09-20] MEDS: rOPINIRole HCL 4 MG TABLET PO SCH (20:54)
[2017-09-20] MEDS: ATORVASTATIN 20 MG TAB PO SCH (20:54)
[2017-09-20] MEDS: INSULIN DETEMIR 100 UNIT/ML 10 ML VIAL SQ SCH (20:54)
[2017-09-21] MEDS: ALLOPURINOL 100 MG TAB PO SCH (07:26)
[2017-09-21] MEDS: PANTOPRAZOLE 40 MG TABLET PO SCH (07:27)
[2017-09-21] MEDS: ASCORBIC ACID 500 MG TAB PO SCH (07:27)
[2017-09-21] MEDS: MIDODRINE 5 MG TAB PO SCH ×2 (07:27→18:10)
[2017-09-21] MEDS: COLCHICINE 0.6 MG TAB PO SCH (07:28)
[2017-09-21] MEDS: FUROSEMIDE 10 MG/ML 4 ML VIAL IV SCH (07:28)
[2017-09-21] MEDS: INSULIN ASPART 100 UNIT/ML 1 ML 10 ML VIAL SQ SCH ×7 (07:39→20:42)
[2017-09-21 08:20] LABS: Glucose,Whole Blood 299 mg/dL (75-99)
--- NOTE | 2017-09-21 09:41 | P.PN ---
Subjective Patient is seen in follow-up for acute kidney injury. Renal function has improved significantly this admission with creatinine down to 1.05 yesterday. She is currently maintained on Lasix 40 mg IV once daily. Admits to good urine output. Oral intake is fair. No vomiting or diarrhea. Denies chest pain or shortness of breath. Vital signs are stable. General: The patient appeared well nourished and normally developed. HEENT: Head exam is unremarkable. Neck is without jugular venous distension. LUNGS: Lungs are clear to auscultation and percussion. Breath sounds decreased. HEART: Rate and Rhythm are regular. First and second heart sounds normal. No murmurs, rubs or gallops. ABDOMEN: Abdominal exam reveals normal bowel sounds. Non-tender and non- distended. No evidence of peritonitis. EXTREMITITES: No clubbing, cyanosis, or edema. Objective - Vital Signs Vital signs: Vital Signs Temp 98.7 F 09/21/17 07:00 Pulse 83 09/21/17 07:00 Resp 18 09/21/17 07:00 BP 149/72 09/21/17 07:00 Pulse Ox 96 09/21/17 07:00 Intake & Output 09/20/17 09/21/17 09/21/17 18:59 06:59 18:59 Weight 100 kg Other: Voiding Method Bedside Commode Bedside Commode # Voids 3 3 - Labs CBC & Chem 7: 09/20/17 07:22 09/20/17 07:22 Labs: Abnormal Lab Results - Last 24 Hours (Table) 09/20/17 09/20/17 09/20/17 Range/Units 11:48 17:15 20:47 POC Glucose (mg/dL) 323 H 131 H 133 H (75-99) mg/dL 09/21/17 Range/Units 07:30 POC Glucose (mg/dL) 299 H (75-99) mg/dL Assessment and Plan Plan: Assessment: #1. Nonoliguric acute kidney injury secondary to ischemic ATN secondary to cardiorenal syndrome and acute anemia. Improved. Creatinine 1.05 as of yesterday. #2. Anemia with iron deficiency noted. Status post blood transition. Hemoglobin 7.4 as of yesterday. #3. Chronic kidney disease stage IIIa secondary to diabetic kidney disease and cardiorenal syndrome with baseline creatinine in the range of 1-1.2. #4. Diastolic CHF with moderate mitral regurgitation. #5. Pancreatic cancer with metastasis. Plan: Continue Lasix 40 mg once daily. Ferrlicit 125 mg IV daily for 3 days. First dose today. Avoid nephrotoxic agents and hypotensive episodes. Repeat electrolytes in the morning.
[2017-09-21 11:59] LABS: Glucose,Whole Blood 335 mg/dL (75-99)
[2017-09-21] MEDS: SODIUM FERRIC GLUCONAT-SUCROSE 125 MG in SODIUM CHLORIDE 0.9% 100 ML IVPB SCH (12:00)
--- NOTE | 2017-09-21 12:39 | P.PN ---
Subjective Progress Note Date: 09/21/17 Principal diagnosis: Acute diastolic congestive heart failure, severe aortic stenosis, and severe anemia Progress note dated 09/16/2017 This is a 77-year-old who was seen yesterday in the emergency department. She came in for increasing shortness of breath going on for some time. She was recently in the emergency department with TIA-like symptoms attributed to hypoglycemia. More recently, she was diagnosed with pancreatic cancer at [facility]. The plan was to provide her with single dose chemotherapy in the form of Gemzar. Unfortunately, I don't think she'll be a good candidate she's very ill at the current time. In addition to pancreatic cancer and heart failure, she has a history of gout and GERD vitamin D deficiency diabetes hyperlipidemia and hypertension. The patient was transferred to the ICU yesterday. Today she is just on nasal O2 at 5 L. Feeling a bit better. Chest x-ray shows improving volume status. The oncology people were in the room. They agree that she would be a poor candidate for chemotherapy. I did discuss CODE STATUS yesterday with her and her . They would be agreeable to short-term mechanical ventilation and cardiopulmonary resuscitation. The patient's on a Lasix drip at 5 mg an hour. Blood pressure is borderline low. She was on and off of BiPAP through the night. She is also getting insulin 4 units an hour. Patient was reevaluated today on 09/17/2017, feeling better, breathing easier, patient is off the Lasix drip, and now she is on by mouth Lasix. Chest x-ray continues to show some persistent findings of congestive heart failure and bilateral pleural effusions. But clinically the patient is doing better. CBC showed WBC count of 15.9 hemoglobin of 7.2. BUN is 84 creatinine is 1.90. Patient received a total of 2 units of packed RBCs since admission. Patient is presently on nasal cannula, not using her BiPAP, feels better overall. Patient was reevaluated today on 09/20/2017, doing much better, feeling much better overall, she is off oxygen and she is on room air saturating quite well. Hemoglobin is holding at 7.4. Basic metabolic profile is relatively normal however her BUN is 64 creatinine is 1.05. Significantly improved compared to last few days. On 09/21/2017 patient is reevaluated. She is sitting up in the chair, denies any acute distress. On room air her pulse ox is 96%, she is wearing her oxygen intermittently, she remains afebrile, her lung sounds are positive for a few crackles at the bases. Her weight is down 2.7 kg in the last 24 hours. She is been diuresing well on IV Lasix per nephrology recommendations. She denies any acute complaints, no new labs or chest x-rays today. Yesterday's labs showed improvement in her renal profile, her electrolytes were stable, serum sodium was up to 136. Patient does have peripheral edema greater in the left. Objective - Vital Signs Vital signs: Vital Signs Temp 98.7 F 09/21/17 07:00 Pulse 83 09/21/17 07:00 Resp 18 09/21/17 07:00 BP 149/72 09/21/17 07:00 Pulse Ox 96 09/21/17 07:00 Intake & Output 09/20/17 09/21/17 09/21/17 18:59 06:59 18:59 Output Total 250 Balance -250 Weight 100 kg 100 kg Output: Urine 250 Other: Voiding Method Bedside Commode Bedside Commode Bedside Commode # Voids 3 3 3 - Exam Physical exam revealed a 77-year-old female in no form of distress. HEENT examination is grossly unremarkable. Mucous membranes are dry. No oral lesions. Neck supple. Full range of motion. No adenopathy thyromegaly or neck vein distention. Cardiovascular examination reveals regular rhythm rate. S1-S2 normal. No S3 or S4. 2/6 systolic murmur throughout the precordium. Lungs reveal bibasilar crackles. Breath sounds are diminished. No rhonchi or wheezes.. Abdomen soft bowel sounds are heard. No masses or tenderness. Extremities are intact. 1+ edema in the right and 2+ in the left Skin is without rash or lesion. Neurologic examination focal neurologic deficit was appreciated. Lymphatics: No lymphadenopathy was noted. - Labs CBC & Chem 7: 09/20/17 07:22 09/20/17 07:22 Labs: Abnormal Lab Results - Last 24 Hours (Table) 09/20/17 09/20/17 09/21/17 Range/Units 17:15 20:47 07:30 POC Glucose (mg/dL) 131 H 133 H 299 H (75-99) mg/dL 09/21/17 Range/Units 11:48 POC Glucose (mg/dL) 335 H (75-99) mg/dL Assessment and Plan Plan: Assessment: Acute Hypoxemic respiratory failure, secondary to diastolic congestive heart failure, severe aortic stenosis, and anemia on presentation. Recent diagnosis of pancreatic cancer though the patient has not started treatment as yet CVA Question of COPD Diabetes mellitus Obesity GERD Hyperlipidemia Hypertension Dementia Anemia Prerenal azotemia Anion gap metabolic acidosis Recommendation: Patient continues to diurese well on once a day IV Lasix. Denies any acute dyspnea, chest pain, chest congestion or sputum production. From pulmonary standpoint she is stable for discharge to the subacute rehab today. I performed a history & physical examination of the patient and discussed their management with my nurse practitioner, Candice Sauceda. I reviewed the nurse practitioner's note and agree with the documented findings and plan of care. Lung sounds are positive for bibasilar crackles. The findings and the impression was discussed with the patient. I attest to the documentation by the nurse practitioner. Time with Patient: Less than 30
[2017-09-21] MEDS: MULTIVITAMINS, THERA 1 EACH TAB PO SCH (13:01)
[2017-09-21] MEDS: HYDROcodone/APAP 7.5-325MG 1 EACH TAB PO PRN ×2 (13:10→20:41)
[2017-09-21 17:58] LABS: Glucose,Whole Blood 304 mg/dL (75-99)
[2017-09-21] MEDS: rOPINIRole HCL 4 MG TABLET PO SCH (20:41)
[2017-09-21] MEDS: INSULIN DETEMIR 100 UNIT/ML 10 ML VIAL SQ SCH (20:41)
[2017-09-21] MEDS: ATORVASTATIN 20 MG TAB PO SCH (20:41)
[2017-09-21 20:50] LABS: Glucose,Whole Blood 223 mg/dL (75-99)
--- NOTE | 2017-09-21 21:43 | PN ---
PROGRESS NOTE DATE OF SERVICE: 09/21/2017 The patient sitting up by the bedside. He is in the bedside chair. Voices no complaints. Says she would want to be discharged to skilled rehab. The patient's pulse ox reading 96% on room air. Vital signs temperature 98.1, pulse 82, respiration 18, blood pressure 149/72. HEENT: Atraumatic, normocephalic. Pupils equal and reactive to light. Extraocular movements intact. Buccal mucosa is fair. Neck is supple. No goiter or lymphadenopathy. JVD is negative. No carotid bruit heard. Lungs: Positive for minimal bibasilar crackles with decreased breath sounds. Heart is regular rate and rhythm without gallop rhythm. Abdomen is soft, nontender, nondistended. Bowel sounds positive. Extremities: 1 to 2+ edema both lower extremities. Skin is warm and dry and intact without any rashes or pigmentation. Neurological examination: Cranial nerves 2-12 are grossly intact. No gross focal motor or sensory deficits. LAB: White blood count of 8.8, hemoglobin 7.04, hematocrit 25, and platelet count of 143. Chemical profile sodium 137, potassium 4.2, chloride 100, bicarb 26, BUN 64, creatinine 1.05. ASSESSMENT: 1. Acute hypoxemic respiratory failure secondary to diastolic congestive heart failure. 2. Acute exacerbation diastolic congestive heart failure. 3. Severe aortic stenosis. 4. Marked anemia. 5. Metastatic pancreatic cancer. 6. History of diabetes. 7. Hypertension. 8. Hyperlipidemia. 9. History of cerebrovascular accident. 10.Chronic obstructive pulmonary disease. The patient patient has been on IV Lasix. She has been diuresing well. Diuresing is being managed by Nephrology. The patient is to continue on IV Lasix. The patient is cleared for discharge from pulmonary standpoint to subacute rehab. The patient was started on Ferrlecit IV for 3 days for iron deficiency anemia. Nephrology is following that. Plan is to discharge the patient to skilled rehab once hemoglobin is stable and once iron levels are improved after 3 days of the patient off Ferrlecit. MMODL / IJN: [id number] /
[2017-09-22 07:02] LABS: Glucose,Whole Blood 307 mg/dL (75-99)
[2017-09-22 07:21] VITALS: BP 158/71
[2017-09-22 07:41] LABS: Anion Gap 9 mmol/L; Blood Urea Nitrogen 43 mg/dL (7-17); Calcium 9.2 mg/dL (8.4-10.2); Carbon Dioxide 26 mmol/L (22-30); Chloride 99 mmol/L (98-107); Glucose 268 mg/dL (74-99); Potassium 4.9 mmol/L (3.5-5.1); Sodium 134 mmol/L (137-145)
[2017-09-22] MEDS: INSULIN ASPART 100 UNIT/ML 1 ML 10 ML VIAL SQ SCH ×4 (08:40→12:42)
[2017-09-22] MEDS: PANTOPRAZOLE 40 MG TABLET PO SCH (08:42)
[2017-09-22] MEDS: MIDODRINE 5 MG TAB PO SCH (08:42)
[2017-09-22] MEDS: ALLOPURINOL 100 MG TAB PO SCH (08:43)
[2017-09-22] MEDS: ASCORBIC ACID 500 MG TAB PO SCH (08:43)
[2017-09-22] MEDS: FUROSEMIDE 10 MG/ML 4 ML VIAL IV SCH (08:44)
[2017-09-22] MEDS: COLCHICINE 0.6 MG TAB PO SCH (08:44)
[2017-09-22] MEDS: SODIUM FERRIC GLUCONAT-SUCROSE 125 MG in SODIUM CHLORIDE 0.9% 100 ML IVPB SCH (09:04)
[2017-09-22 12:32] LABS: Glucose,Whole Blood 342 mg/dL (75-99)
[2017-09-22] MEDS: MULTIVITAMINS, THERA 1 EACH TAB PO SCH (12:41)
--- NOTE | 2017-09-22 12:43 | P.PN ---
Subjective Patient is seen in follow-up for acute kidney injury. Renal function has improved significantly this admission with creatinine down to 0.97 today. She is currently maintained on Lasix 40 mg IV once daily. Admits to good urine output. Oral intake is fair. No vomiting or diarrhea. Denies chest pain or shortness of breath. Hemodynamically stable. No active complaints at this time. Vital signs are stable. General: The patient appeared well nourished and normally developed. HEENT: Head exam is unremarkable. Neck is without jugular venous distension. LUNGS: Lungs are clear to auscultation and percussion. Breath sounds decreased. HEART: Rate and Rhythm are regular. First and second heart sounds normal. No murmurs, rubs or gallops. ABDOMEN: Abdominal exam reveals normal bowel sounds. Non-tender and non- distended. No evidence of peritonitis. EXTREMITITES: No clubbing, cyanosis, or edema. Objective - Vital Signs Vital signs: Vital Signs Temp 97.5 F L 09/22/17 07:00 Pulse 74 09/22/17 07:00 Resp 16 09/22/17 08:00 BP 158/71 09/22/17 07:00 Pulse Ox 98 09/22/17 07:00 Intake & Output 09/21/17 09/22/17 09/22/17 18:59 06:59 18:59 Intake Total 460 360 180 Output Total 250 Balance 210 360 180 Weight 100 kg 103 kg Intake: Intake, IV Titration 100 Amount Sodium Ferric Gluconat- 100 Sucrose 125 mg In Sodium Chloride 0.9% 100 ml @ 100 mls/hr IVPB DAILY [facility] Rx#:[id number] Oral 360 360 180 Output: Urine 250 Other: Voiding Method Bedside Commode Bedside Commode Bedside Commode Diaper # Voids 3 1 # Bowel Movements 2 - Labs CBC & Chem 7: 09/20/17 07:22 09/22/17 06:30 Labs: Abnormal Lab Results - Last 24 Hours (Table) 09/21/17 09/21/17 09/22/17 Range/Units 17:34 20:35 06:30 Sodium 134 L (137-145) mmol/L BUN 43 H (7-17) mg/dL Glucose 268 H (74-99) mg/dL POC Glucose (mg/dL) 304 H 223 H (75-99) mg/dL 09/22/17 09/22/17 Range/Units 06:55 12:26 Sodium (137-145) mmol/L BUN (7-17) mg/dL Glucose (74-99) mg/dL POC Glucose (mg/dL) 307 H 342 H (75-99) mg/dL Assessment and Plan Plan: Assessment: #1. Nonoliguric acute kidney injury secondary to ischemic ATN secondary to cardiorenal syndrome and acute anemia. Improved. Creatinine down to 0.97 today. #2. Anemia with iron deficiency noted. Status post blood transfusion. Hemoglobin 7.4 as of 09/20/2017. #3. Chronic kidney disease stage IIIa secondary to diabetic kidney disease and cardiorenal syndrome with baseline creatinine in the range of 1-1.2. #4. Diastolic CHF with moderate mitral regurgitation. #5. Pancreatic cancer with metastasis. Plan: Continue Lasix 40 mg once daily - changed to oral. Ferrlicit 125 mg IV daily for 3 days. Second dose today. Avoid nephrotoxic agents and hypotensive episodes. Repeat electrolytes in the morning. Anticipate discharge soon. She will need to follow-up as an outpatient in the next 2 weeks.
[2017-09-22] MEDS ORDERED: FUROSEMIDE 40 MG TAB PO SCH (13:00)
[2017-09-22] MEDS: HYDROcodone/APAP 7.5-325MG 1 EACH TAB PO PRN (13:29)
--- NOTE | 2017-09-22 15:19 | P.DS ---
Providers Date of admission: 09/15/17 11:59 Expected date of discharge: 09/22/17 Attending physician: Sebastián Jean-Baptiste Consults: 09/15/17 12:01 Consult Physician Routine Consulting Provider: Bob Gardner Consult Reason/Comments: icu Do you want consulting provider notified?: Yes 09/15/17 12:49 Consult Physician Urgent Consulting Provider: Arturo Centeno Consult Reason/Comments: elevTrop Do you want consulting provider notified?: Yes Consult Physician Urgent Consulting Provider: Abida Ying Consult Reason/Comments: arf Do you want consulting provider notified?: Yes 09/15/17 16:06 Consult Physician Routine Consulting Provider: Yonis Starks Consult Reason/Comments: Pancreatic cancer Do you want consulting provider notified?: Yes Primary care physician: [facility] Course: Final Diagnoses: Acute Hypoxemic respiratory failure, secondary to diastolic congestive heart failure, severe aortic stenosis. Recent diagnosis of metastatic pancreatic cancer though the patient has not started treatment as yet CVA Question of COPD Diabetes mellitus Obesity GERD Hyperlipidemia Hypertension Dementia Anemia Prerenal azotemia Hospital course: This is a 77-year-old female admitted with acute hypoxic respiratory failure secondary CHF, severe aortic stenosis, anemia, recently diagnosed with pancreatic cancer and multiple other medical issues. Evaluated by oncology, pulmonary, nephrology. Per oncology patient is not a candidate for chemotherapy or intervention, and oncology has discussed option of comfort care. At this time patient is a no code. Initially diuresed with Lasix drip, BiPAP. Significant clinical improvement. Patient now maintaining O2 sats in the high 90s on room air. Diuretics have been converted to oral as per nephrology. Patient has been cleared by all consults for discharge. Patient is being discharged to subacute rehab in stable condition with guarded prognosis. PHYSICAL EXAM:VSS, A & O X3, no acute distress,CVS: Regular S1 and S2, positive systolic murmur. LUNGS: Bilateral bases diminished with Bibasilar crackles,ABD: Soft, nontender positive bowel sounds. NEURO: No focal deficits. The impression and plan of care has been dictated as directed. : I performed a history and examination of this patient, discussed the same with the dictator. I agree with the dictator's note ,documented as a scribe. Any additional findings or plans will be noted. Time taken 35 minutes The impression and plan of care has been dictated as directed. : I performed a history and examination of this patient, discussed the same with the dictator. I agree with the dictator's note ,documented as a scribe. Any additional findings or plans will be noted. Time taken: 35 minutes Patient Condition at Discharge: Stable Plan - Discharge Summary Discharge Rx Participant: No New Discharge Prescriptions: New Furosemide [Lasix] 40 mg PO DAILY tab HYDROcodone/APAP 7.5-325MG [[place] 7.5-325] 1 each PO Q6HR PRN #20 tab PRN Reason: Moderate Pain Insulin Aspart [NovoLOG (formulary)] 10 unit SQ AC-TID vial Insulin Detemir [Levemir] 36 unit SQ HS syr Ipratropium-Albuterol Nebulize [Duoneb 0.5 mg-3 mg/3 ml Soln] 3 ml INHALATION RT-Q4H PRN ampul.neb PRN Reason: Shortness Of Breath Or Wheezing Midodrine [ProAmatine] 2.5 mg PO AC-BID tab Ferrous Sulfate [Feosol] 325 mg PO DAILY #30 tab INSULIN LISPRO (HumaLOG) [humaLOG] 0 unit SQ ACHS #1 vial Continue rOPINIRole HCL [Requip] 4 mg PO HS Cyclobenzaprine [Flexeril] 10 mg PO TID PRN PRN Reason: muscle relaxant Allopurinol [Zyloprim] 200 mg PO DAILY Omeprazole [PriLOSEC] 20 mg PO DAILY Folic Acid 1 mg PO DAILY Albuterol Nebulized [Ventolin Nebulized] 2.5 mg INHALATION RT-QID PRN PRN Reason: Shortness Of Breath Multivitamins, Thera [Multivitamin (formulary)] 1 tab PO DAILY Cyanocobalamin (Vitamin B-12) [Vitamin B-12] 1,000 mcg PO QAM Cholecalciferol [Vitamin D3] 2,000 unit PO DAILY medroxyPROGESTERone [Provera] 2.5 mg PO DAILY Colchicine [Colcrys] 0.6 mg PO DAILY Ascorbic Acid [Vitamin C] 500 mg PO DAILY Atorvastatin [Lipitor] 20 mg PO HS Discontinued Hydrocodone/Acetaminophen [Hydrocodone-Acetamin 7.5-325] 1 tab PO Q6HR PRN PRN Reason: Pain Cinnamon Bark [Cinnamon] 500 mg PO DAILY Aspirin 81 mg PO DAILY chew metFORMIN HCL [Glucophage] 500 mg PO BID Insulin Aspart [NovoLOG (formulary)] 12 unit SQ AC-TID #0 Insulin Glargine [Lantus] 30 unit SQ HS #0 Lisinopril [Zestril] 20 mg PO HS #0 amLODIPine [Norvasc] 5 mg PO DAILY Furosemide [Lasix] 20 mg PO DAILY Insulin Aspart [NovoLOG (formulary)] See Protocol SQ ACHS Discharge Medication List Albuterol Nebulized [Ventolin Nebulized] 2.5 mg INHALATION RT-QID PRN 03/27/14 [ History] Allopurinol [Zyloprim] 200 mg PO DAILY 03/27/14 [History] Cyclobenzaprine [Flexeril] 10 mg PO TID PRN 03/27/14 [History] Folic Acid 1 mg PO DAILY 03/27/14 [History] Omeprazole [PriLOSEC] 20 mg PO DAILY 03/27/14 [History] rOPINIRole HCL [Requip] 4 mg PO HS 03/27/14 [History] Multivitamins, Thera [Multivitamin (formulary)] 1 tab PO DAILY 07/25/14 [History ] Cholecalciferol [Vitamin D3] 2,000 unit PO DAILY 11/03/16 [History] Cyanocobalamin (Vitamin B-12) [Vitamin B-12] 1,000 mcg PO QAM 11/03/16 [History] medroxyPROGESTERone [Provera] 2.5 mg PO DAILY 11/03/16 [History] Colchicine [Colcrys] 0.6 mg PO DAILY 08/28/17 [History] Ascorbic Acid [Vitamin C] 500 mg PO DAILY 09/15/17 [History] Atorvastatin [Lipitor] 20 mg PO HS 09/15/17 [History] Ferrous Sulfate [Feosol] 325 mg PO DAILY #30 tab 09/22/17 [Rx] Furosemide [Lasix] 40 mg PO DAILY tab 09/22/17 [Rx] HYDROcodone/APAP 7.5-325MG [[place] 7.5-325] 1 each PO Q6HR PRN #20 tab 09/22/17 [ Rx] INSULIN LISPRO (HumaLOG) [humaLOG] 0 unit SQ ACHS #1 vial 09/22/17 [Rx] Insulin Aspart [NovoLOG (formulary)] 10 unit SQ AC-TID vial 09/22/17 [Rx] Insulin Detemir [Levemir] 36 unit SQ HS syr 09/22/17 [Rx] Ipratropium-Albuterol Nebulize [Duoneb 0.5 mg-3 mg/3 ml Soln] 3 ml INHALATION RT -Q4H PRN ampul.neb 09/22/17 [Rx] Midodrine [ProAmatine] 2.5 mg PO AC-BID tab 09/22/17 [Rx] Follow up Appointment(s)/Referral(s): You Benedict MD [STAFF PHYSICIAN] - 2 Weeks Leland Alves MD [STAFF PHYSICIAN] - 1 Week Steven Mosher DO [Primary Care Provider] - 3 Days Carlito Ortiz DO [STAFF PHYSICIAN] - 2 Weeks Activity/Diet/Wound Care/Special Instructions: Cassy SIMEON,BMP in 3 days DIet: consist. Carb Activity: as tolerated
[2017-09-22 15:53] VITALS: PULSE 66; RESP 20; TEMP 98.4
[2017-09-22] MEDS ORDERED: MIDODRINE 5 MG TAB PO SCH (17:30)
== END 2017-09-22 17:01 | DRG 189 ==
LOC: EC 11:15 → SUPCPDRO 11:15 → 6ICU 11:59 → 6SEL 09-17 20:47 → 5MS5E 09-19 16:46 → 3SUR 09-22 01:09 → 4MS4W 09-22 10:58
PROVIDERS: ADMIT Hospitalist; ATTEND Hospitalist
PROC: 30233N1 Transfusion of Nonautologous Red Blood Cells into Peripheral Vein, Percutaneous Approach (ICD-10-PCS; principal; 2017-09-15)
PROC: 5A09557 Assistance with Respiratory Ventilation, Greater than 96 Consecutive Hours, Continuous Positive Airway Pressure (ICD-10-PCS; 2017-09-15)
DX: J96.01 Acute respiratory failure with hypoxia (principal); I21.4 Non-ST elevation (NSTEMI) myocardial infarction; N17.0 Acute kidney failure with tubular necrosis; I50.33 Acute on chronic diastolic (congestive) heart failure; C78.7 Secondary malignant neoplasm of liver and intrahepatic bile duct; C78.6 Secondary malignant neoplasm of retroperitoneum and peritoneum; E87.2 Acidosis; E11.22 Type 2 diabetes mellitus with diabetic chronic kidney disease; E66.01 Morbid (severe) obesity due to excess calories; I13.0 Hypertensive heart and chronic kidney disease with heart failure and stage 1 through stage 4 chronic kidney disease, or unspecified chronic kidney disease; D62 Acute posthemorrhagic anemia; C25.9 Malignant neoplasm of pancreas, unspecified; E87.1 Hypo-osmolality and hyponatremia; I42.9 Cardiomyopathy, unspecified; J44.1 Chronic obstructive pulmonary disease with (acute) exacerbation; R18.8 Other ascites; I69.954 Hemiplegia and hemiparesis following unspecified cerebrovascular disease affecting left non-dominant side; Z68.42 Body mass index [BMI] 45.0-49.9, adult; E11.65 Type 2 diabetes mellitus with hyperglycemia; E87.5 Hyperkalemia; E78.5 Hyperlipidemia, unspecified; F02.80 Dementia in other diseases classified elsewhere, unspecified severity, without behavioral disturbance, psychotic disturbance, mood disturbance, and anxiety; G30.9 Alzheimer's disease, unspecified; G47.33 Obstructive sleep apnea (adult) (pediatric); I27.20 Pulmonary hypertension, unspecified; I34.0 Nonrheumatic mitral (valve) insufficiency; I35.0 Nonrheumatic aortic (valve) stenosis; I87.2 Venous insufficiency (chronic) (peripheral); K21.9 Gastro-esophageal reflux disease without esophagitis; M19.90 Unspecified osteoarthritis, unspecified site; N18.3 Chronic kidney disease, stage 3 (moderate); E55.9 Vitamin D deficiency, unspecified; F32.9 Major depressive disorder, single episode, unspecified; F41.9 Anxiety disorder, unspecified; K44.9 Diaphragmatic hernia without obstruction or gangrene; M10.9 Gout, unspecified; M20.40 Other hammer toe(s) (acquired), unspecified foot; R26.9 Unspecified abnormalities of gait and mobility; I95.9 Hypotension, unspecified; Z66 Do not resuscitate; Z79.4 Long term (current) use of insulin; Z79.82 Long term (current) use of aspirin; Z79.899 Other long term (current) drug therapy; Z96.653 Presence of artificial knee joint, bilateral; Z82.49 Family history of ischemic heart disease and other diseases of the circulatory system
CPT/HCPCS: 36415; 51702; 71045; 80048; 80053; 81001; 82550; 82553; 82728; 83036; 83540; 83550; 83690; 83735; 83880; 84100; 84484; 85025; 85610; 85730; 86850; 86900; 86901; 86920; 93005; 93306; 94640; 94660; 94760; 96365; 96368; 96375; 96376; 99291

== ENCOUNTER 2017-09-24 08:12 | Emergency (ER) | payer MEDICARE, BC ==
[2017-09-24 08:29] VITALS: TEMP 97.9
--- NOTE | 2017-09-24 08:37 | ED ---
General Adult HPI - General Chief complaint: ENT Stated complaint: NOSEBLEED Time Seen by Provider: 09/24/17 08:14 Source: patient, EMS, RN notes reviewed Mode of arrival: EMS Limitations: no limitations - History of Present Illness Initial comments: 77-year-old female presents to the emergency department with a chief complaint of a nosebleed. She states she would likeit started bleeding today. She has any use of blood thinners besides the baby aspirin. She states she has had a runny nose recently from an upper respiratory type illness. Denies any high fever she denies any pain. She denies any injury to the nose. She does state that she has had nosebleeds in the past. EMS placed a clamp on her nose and she states that her bleeding seems to have resolved. Patient states she is not currently having any other symptoms at this time.Patient denies any recent fever , chills, shortness of breath, chest pain, back pain, abdominal pain, nausea vomiting, numbness or tingling, dysuria or hematuria, constipation or diarrhea, headaches or visual changes, or any other current symptoms. - Related Data Home Medications Medication Instructions Recorded Confirmed Albuterol Nebulized [Ventolin 2.5 mg INHALATION RT-QID PRN 03/27/14 09/24/17 Nebulized] Allopurinol [Zyloprim] 200 mg PO DAILY 03/27/14 09/24/17 Cyclobenzaprine [Flexeril] 10 mg PO TID PRN 03/27/14 09/24/17 Folic Acid 1 mg PO DAILY@1700 03/27/14 09/24/17 Omeprazole [PriLOSEC] 20 mg PO DAILY@0600 03/27/14 09/24/17 rOPINIRole HCL [Requip] 4 mg PO HS 03/27/14 09/24/17 Multivitamins, Thera [Multivitamin 1 tab PO DAILY@1700 07/25/14 09/24/17 (formulary)] Cholecalciferol [Vitamin D3] 1,000 unit PO DAILY@1700 11/03/16 09/24/17 medroxyPROGESTERone [Provera] 2.5 mg PO DAILY 11/03/16 09/24/17 Colchicine [Colcrys] 0.6 mg PO DAILY 08/28/17 09/24/17 Ascorbic Acid [Vitamin C] 500 mg PO DAILY@1700 09/15/17 09/24/17 Atorvastatin [Lipitor] 20 mg PO HS 09/15/17 09/24/17 Bisacodyl [Dulcolax] 10 mg RECTAL DAILY PRN 09/24/17 09/24/17 Cyanocobalamin [Vitamin B-12] 1,000 mcg PO DAILY@1700 09/24/17 09/24/17 Ferrous Sulfate [Feosol] 325 mg PO DAILY@1700 09/24/17 09/24/17 Furosemide [Lasix] 40 mg PO DAILY@0600 09/24/17 09/24/17 HYDROcodone/APAP 7.5-325MG [[place] 1 tab PO Q6HR PRN 09/24/17 09/24/17 7.5-325] INSULIN LISPRO (HumaLOG) [humaLOG] See Protocol SQ ACHS 09/24/17 09/24/17 Insulin Aspart [NovoLOG 10 unit SQ AC-TID@07,11,1730 09/24/17 09/24/17 (formulary)] Magnesium Hydroxide [Milk of 2,400 mg PO DAILY PRN 09/24/17 09/24/17 Magnesia] Midodrine [ProAmatine] 2.5 mg PO AC-BID@0600,1600 09/24/17 09/24/17 Na Phos,M-B/Na Phos,Di-Ba [Fleet 133 ml RECTAL DAILY PRN 09/24/17 09/24/17 Adult] Previous Rx's Medication Instructions Recorded Insulin Detemir [Levemir] 36 unit SQ HS syr 09/22/17 Ipratropium-Albuterol Nebulize 3 ml INHALATION RT-Q4H PRN 09/22/17 [Duoneb 0.5 mg-3 mg/3 ml Soln] ampul.neb Allergies Allergy/AdvReac Type Severity Reaction Status Date / Time No Known Allergies Allergy Verified 09/24/17 08:24 Review of Systems ROS Statement: Those systems with pertinent positive or pertinent negative responses have been documented in the HPI. ROS Other: All systems not noted in ROS Statement are negative. Past Medical History Past Medical History: Chest Pain / Angina, COPD, CVA/TIA, Diabetes Mellitus, GERD/Reflux, Hyperlipidemia, Hypertension, Memory Impairment, Osteoarthritis (OA ), Sleep Apnea/CPAP/BIPAP Additional Past Medical History / Comment(s): Pt states she was just recently diagnosed with pancreatic cancer- awaiting appt with oncologist-no treatment plan as yet, 2009 CVA with L foot drop and L arm weakness and pt states difficulty swallowing at times, gait dysfunction, small hiatal hernia, anemia, IDDM type II, epistaxis with cauterization, heart murmur, gout, hammer toes, R index finger cellulitis tx,in [facility]-now healed, [place] with no CPAP use. History of Any Multi-Drug Resistant Organisms: MRSA Date of last positivie culture/infection: 11/05/16 MDRO Source:: FINGER Past Surgical History: Heart Catheterization, Joint Replacement, Orthopedic Surgery Additional Past Surgical History / Comment(s): RECENT ERCP IN [place], BILAT CATARACTS REMOVED, ORIF LT ARM WITH PINS/PLATES, BILAT TKA, HEART CATH-2013, D&C. LT BUNIONECTOMY, PICC LINE SINCE REMOVED, I&D R INDEX FINGER, egd, L LEG VEIN STRIPPING. Past Anesthesia/Blood Transfusion Reactions: No Reported Reaction Past Psychological History: Anxiety, Depression Smoking Status: Never smoker Past Alcohol Use History: None Reported Past Drug Use History: None Reported - Past Family History Father Family Medical History: Myocardial Infarction (MD), Rheumatoid Arthritis (RA) Additional Family Medical History / Comment(s): AT AGE 76 Mother Family Medical History: CVA/TIA, Myocardial Infarction (MD) Additional Family Medical History / Comment(s): AGE 80 General Exam Limitations: no limitations General appearance: alert, in no apparent distress Head exam: Present: atraumatic, normocephalic, normal inspection Eye exam: Present: normal appearance, PERRL, EOMI. Absent: scleral icterus, conjunctival injection, periorbital swelling ENT exam: Present: mucous membranes moist Neck exam: Present: normal inspection. Absent: tenderness, meningismus, lymphadenopathy Respiratory exam: Present: normal lung sounds bilaterally. Absent: respiratory distress, wheezes, rales, rhonchi, stridor Cardiovascular Exam: Present: regular rate, normal rhythm, normal heart sounds. Absent: systolic murmur, diastolic murmur, rubs, gallop, clicks Neurological exam: Present: alert, oriented X3 Psychiatric exam: Present: normal affect, normal mood Skin exam: Present: warm, dry, intact, normal color. Absent: rash Course Vital Signs 09/24/17 09/24/17 08:13 09:38 Temperature 97.9 F Pulse Rate 91 89 Respiratory 20 18 Rate Blood Pressure 163/96 131/58 O2 Sat by Pulse 94 L 91 L Oximetry Medical Decision Making - Medical Decision Making 77-year-old female presents to the emergency department with a chief complaint of epistaxis. At this time patient's underwent cramping of the nose patient then had let solution use in the nose was cauterized. This time bleeding has subsided. At this time we did discuss alf for this. We discussed follow- up we discussed return parameters all questions. Patient and family stated that they understood and the on agreement this plan. All questions have been answered. They will be discharged. Disposition Clinical Impression: Epistaxis Disposition: HOME SELF-CARE Condition: Stable Instructions: Nosebleed (ED) Additional Instructions: Please use medication as discussed. Please follow up with family doctor if symptoms have not improved over the next two days. Please return to the emergency room if your symptoms increase or worsen or for any other concerns. Referrals: Steven Mosher DO [Primary Care Provider] - 1-2 days Time of Disposition: 10:12
[2017-09-24] MEDS ORDERED: SILVER NITRATE APPLICATOR 1 EACH STICK..EA. TOPICAL STA (09:16)
[2017-09-24] MEDS ORDERED: LIDOCAINE/EPINEPHR/TETRACAINE 5 ML BOTTLE TOPICAL ONE (09:16)
[2017-09-24 09:44] VITALS: BP 131/58; PULSE 89; RESP 18
--- NOTE | 2017-09-25 04:28 | CDI ---
Documentation Clarification OP Dear Ca Rodriguez PA-C Please do addendum to ED report for missing specific site(RT/LT) of epistaxis procedure. Thank you, Thelma Vela Superintendent Renting Managing If you have any questions, please contact Head Trimmer at [phone] [facility]
== END 2017-09-24 11:15 | disposition home or self-care (01) ==
LOC: EC 08:12
DX: R04.0 Epistaxis (principal); E11.9 Type 2 diabetes mellitus without complications; K21.9 Gastro-esophageal reflux disease without esophagitis; E78.5 Hyperlipidemia, unspecified; I10 Essential (primary) hypertension; G47.30 Sleep apnea, unspecified; Z99.89 Dependence on other enabling machines and devices; Z85.07 Personal history of malignant neoplasm of pancreas; Z86.2 Personal history of diseases of the blood and blood-forming organs and certain disorders involving the immune mechanism; Z86.14 Personal history of Methicillin resistant Staphylococcus aureus infection; Z86.73 Personal history of transient ischemic attack (TIA), and cerebral infarction without residual deficits; Z95.5 Presence of coronary angioplasty implant and graft; Z79.4 Long term (current) use of insulin; Z79.899 Other long term (current) drug therapy; Z79.890 Hormone replacement therapy
CPT/HCPCS: 30901; 99284

== ENCOUNTER 2017-09-24 19:45 | Inpatient (IN) | payer MEDICARE, BC ==
[2017-09-24] MEDS ORDERED: NITROGLYCERIN OINT 1 INCH/GM PACKET TOPICAL STA (20:17)
[2017-09-24] MEDS ORDERED: FUROSEMIDE 10 MG/ML 4 ML VIAL IV STA (20:17)
[2017-09-24] MEDS ORDERED: IPRATROPIUM-ALBUTEROL 3 ML NEB INHALATION STA (20:17)
[2017-09-24 20:47] LABS: Anisocytosis Slight; Basophils % (A) 0 %; Eosinophils # (A) 0.2 k/uL (0-0.7); Eosinophils % (A) 2 %; HCT 20.8 % (34.0-46.0); Hypochromasia Marked; Lymphocytes # (A) 1.2 k/uL (1.0-4.8); Lymphocytes % (A) 12 %; MCV 86.9 fL (80.0-100.0); Mean Platelet Volume 9.3; Monocytes # (A) 0.8 k/uL (0-1.0); Monocytes % (A) 8 %; Neutrophils % (A) 77 %; Platelet Count 155 k/uL (150-450); Poikilocytosis Marked; RDW 19.6 % (11.5-15.5); WBC 10.4 k/uL (3.8-10.6)
[2017-09-24 20:58] LABS: INR 1.1 (<1.2); Prothrombin Time 10.8 sec (9.0-12.0)
[2017-09-24 20:59] LABS: ALT 23 U/L (9-52); AST 19 U/L (14-36); Albumin 2.9 g/dL (3.5-5.0); Alkaline Phosphatase 81 U/L (38-126); Anion Gap 9 mmol/L; Blood Urea Nitrogen 34 mg/dL (7-17); Calcium 8.7 mg/dL (8.4-10.2); Carbon Dioxide 26 mmol/L (22-30); Chloride 97 mmol/L (98-107); Glucose 285 mg/dL (74-99); Potassium 4.4 mmol/L (3.5-5.1); Sodium 132 mmol/L (137-145); Total Bilirubin 0.8 mg/dL (0.2-1.3); Total Protein 5.2 g/dL (6.3-8.2)
[2017-09-24 21:19] LABS: Creatine Kinase MB 0.5 ng/mL (0.0-2.4)
[2017-09-24 21:24] LABS: Troponin I 0.143 ng/mL (0.000-0.034)
--- NOTE | 2017-09-24 21:32 | XR ---
EXAMINATION: XR chest 2V DATE AND TIME: 09/24/2017 9:25 PM ORDERING PROVIDER: Bob Nj DO CLINICAL INDICATION: difficulty breathing TECHNIQUE: AP and lateral COMPARISON: 09/17/2017 DESCRIPTION: The lungs show evidence of mild interstitial phase pulmonary edema. The pleural spaces are positive for small pleural effusions posteriorly. Cardiac silhouette is moderately enlarged, unchanged. The skeletal structures are either for acute findings. The overlying soft tissues are prominent. IMPRESSION: Overall similar chest radiograph in appearance, with evident mild interstitial phase pulmonary edema.
--- NOTE | 2017-09-24 22:21 | ED ---
General Adult HPI - General Chief complaint: Recheck/Abnormal Lab/Rx Stated complaint: abnormal labs Time Seen by Provider: 09/24/17 19:57 Source: patient Mode of arrival: EMS Limitations: physical limitation - History of Present Illness Initial comments: This 77-year-old white female presents complaining of some difficulty in breathing as well as anemia. She relates that she was seen this morning for a nosebleed. This stopped prior to any intervention and she was sent back to the [facility]. While at the [facility], she had some blood work done and this showed an anemia with a hemoglobin of 6.7. She also developed significant difficulty in breathing. She does have a severe history of congestive heart failure and this feels quite similar. It is worse with any exertion. She does complain of lower extremity edema. She was just hospitalized recently for similar. She had blood loss anemia as well as worked up by gastroenterology. She also received a transfusion at that time. She also had CHF recently. She denies any current chest pain. There is no fevers or chills. There is a slight cough at times. No other complaints or modifying factors. - Related Data Home Medications Medication Instructions Recorded Confirmed Albuterol Nebulized [Ventolin 2.5 mg INHALATION RT-QID PRN 03/27/14 09/24/17 Nebulized] Allopurinol [Zyloprim] 200 mg PO DAILY 03/27/14 09/24/17 Cyclobenzaprine [Flexeril] 10 mg PO TID PRN 03/27/14 09/24/17 Folic Acid 1 mg PO DAILY@1700 03/27/14 09/24/17 Omeprazole [PriLOSEC] 20 mg PO DAILY@0600 03/27/14 09/24/17 rOPINIRole HCL [Requip] 4 mg PO HS 03/27/14 09/24/17 Multivitamins, Thera [Multivitamin 1 tab PO DAILY@1700 07/25/14 09/24/17 (formulary)] Cholecalciferol [Vitamin D3] 1,000 unit PO DAILY@1700 11/03/16 09/24/17 medroxyPROGESTERone [Provera] 2.5 mg PO DAILY 11/03/16 09/24/17 Colchicine [Colcrys] 0.6 mg PO DAILY 08/28/17 09/24/17 Ascorbic Acid [Vitamin C] 500 mg PO DAILY@1700 09/15/17 09/24/17 Atorvastatin [Lipitor] 20 mg PO HS 09/15/17 09/24/17 Bisacodyl [Dulcolax] 10 mg RECTAL DAILY PRN 09/24/17 09/24/17 Cyanocobalamin [Vitamin B-12] 1,000 mcg PO DAILY@1700 09/24/17 09/24/17 Ferrous Sulfate [Feosol] 325 mg PO DAILY@1700 09/24/17 09/24/17 Furosemide [Lasix] 40 mg PO DAILY@0600 09/24/17 09/24/17 HYDROcodone/APAP 7.5-325MG [[place] 1 tab PO Q6HR PRN 09/24/17 09/24/17 7.5-325] INSULIN LISPRO (HumaLOG) [humaLOG] See Protocol SQ ACHS 09/24/17 09/24/17 Insulin Aspart [NovoLOG 10 unit SQ AC-TID@07,11,1730 09/24/17 09/24/17 (formulary)] Magnesium Hydroxide [Milk of 2,400 mg PO DAILY PRN 09/24/17 09/24/17 Magnesia] Midodrine [ProAmatine] 2.5 mg PO AC-BID@0600,1600 09/24/17 09/24/17 Na Phos,M-B/Na Phos,Di-Ba [Fleet 133 ml RECTAL DAILY PRN 09/24/17 09/24/17 Adult] Previous Rx's Medication Instructions Recorded Insulin Detemir [Levemir] 36 unit SQ HS syr 09/22/17 Ipratropium-Albuterol Nebulize 3 ml INHALATION RT-Q4H PRN 09/22/17 [Duoneb 0.5 mg-3 mg/3 ml Soln] ampul.neb Allergies Allergy/AdvReac Type Severity Reaction Status Date / Time No Known Allergies Allergy Verified 09/24/17 20:00 Review of Systems ROS Statement: Those systems with pertinent positive or pertinent negative responses have been documented in the HPI. ROS Other: All systems not noted in ROS Statement are negative. 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 LT BUNIONECTOMY, I&D R INDEX FINGER, egd, L LEG VEIN STRIPPING. Past Anesthesia/Blood Transfusion Reactions: No Reported Reaction Past Psychological History: Anxiety, Depression Smoking Status: Never smoker Past Alcohol Use History: None Reported Past Drug Use History: None Reported - Past Family History Father Family Medical History: Myocardial Infarction ([place]), Rheumatoid Arthritis ([place]) Additional Family Medical History / Comment(s): AT AGE 76 Mother Family Medical History: CVA/TIA, Myocardial Infarction ([place]) Additional Family Medical History / Comment(s): AGE 80 General Exam - General Exam Comments Initial Comments: GENERAL: The patient is well nourished and well hydrated. VITAL SIGNS: Heart rate, blood pressure, respiratory rate reviewed as recorded in nurse's notes. EYES: Pupils are round and reactive. Extraocular movements are intact. No conjunctival / lid redness or swelling. ENT: No external evidence of injury, swelling, or ecchymosis. Airway is patent. Throat is clear. No current epistaxis identified. NECK: Nontender. No swelling or evidence of injury. No subcutaneous emphysema. Trachea is midline. No thyroid mass. HEART: Regular rate and rhythm. Good peripheral pulses. LUNGS/CHEST: Rhonchi noted bilaterally. Slight tachypnea noted. No ecchymosis , subcutaneous emphysema, or tenderness. ABDOMEN: Abdomen soft without tenderness. No palpable masses or organomegaly. No peritoneal signs. No abdominal wall swelling or ecchymosis. Abdomen is obese. EXTREMITIES: No extremity tenderness. Normal muscle tone and function. No thoracolumbar tenderness. Lower extremity edema noted minimally. NEUROLOGIC: Sensation is grossly intact. Cranial nerve exam reveals face is symmetrical, tongue is midline, speech is clear. SKIN: No abrasions or ecchymosis is noted. No induration or masses noted. PSYCHIATRIC: Alert and oriented. Appropriate behavior and judgment. Limitations: physical limitation Course Vital Signs 09/24/17 09/24/17 09/24/17 19:49 20:28 20:30 Temperature 97.5 F L Pulse Rate 91 82 Respiratory 18 24 24 Rate Blood Pressure 152/67 142/62 O2 Sat by Pulse 93 L 98 Oximetry 09/24/17 09/24/17 09/24/17 20:35 20:45 21:50 Temperature 98.9 F Pulse Rate 80 81 82 Respiratory 18 16 24 Rate Blood Pressure 145/63 O2 Sat by Pulse 95 Oximetry Medical Decision Making - Medical Decision Making The patient was seen and examined. All diagnostics were reviewed. An EKG shows a normal sinus rhythm at a rate of 83. There is no acute ST-T wave changes noted other than some flattened T waves in the inferior leads. The WA intervals 182, QRS duration is 80, and the QTc interval is 448. The EKG does show evidence of left ventricular hypertrophy. The patient also had a chest x- ray which shows evidence of pulmonary edema/congestive heart failure. The cardiac profile labs do show elevation of the BNP, elevation of the troponin, hyponatremia, hypochloremia, hyperglycemia, and severe anemia at 6.2. The patient did receive aspirin as well as Nitropaste and some Lasix. 2 units of packed red blood cells are ordered as well. The exact cause of her anemia is not definitively determine but is felt as though it for a likely could still be blood loss anemia. Hemoccult stools will be ordered. It is felt as though she would require admission to the hospital. The case was discussed with Padmini from internal medicine and she is agreeable with admission as well. The patient will be admitted to telemetry for full admit with GI and cardiology to consult. Heparin will be held as the patient potentially could be having a GI bleed. - Lab Data Result diagrams: 09/24/17 20:22 09/24/17 20:22 Lab Results 09/24/17 09/24/17 09/24/17 Range/Units 20:22 20:22 20:22 WBC 10.4 (3.8-10.6) k/uL RBC 2.40 L (3.80-5.40) m/uL Hgb 6.2 L* (11.4-16.0) gm/dL Hct 20.8 L (34.0-46.0) % MCV 86.9 (80.0-100.0) fL MCH 26.0 (25.0-35.0) pg MCHC 30.0 L (31.0-37.0) g/dL RDW 19.6 H (11.5-15.5) % Plt Count 155 (150-450) k/uL Neutrophils % 77 % Lymphocytes % 12 % Monocytes % 8 % Eosinophils % 2 % Basophils % 0 % Neutrophils # 8.0 H (1.3-7.7) k/uL Lymphocytes # 1.2 (1.0-4.8) k/uL Monocytes # 0.8 (0-1.0) k/uL Eosinophils # 0.2 (0-0.7) k/uL Basophils # 0.0 (0-0.2) k/uL Hypochromasia Marked Poikilocytosis Marked Anisocytosis Slight PT (9.0-12.0) sec INR (<1.2) APTT (22.0-30.0) sec Sodium (137-145) mmol/L Potassium (3.5-5.1) mmol/L Chloride (98-107) mmol/L Carbon Dioxide (22-30) mmol/L Anion Gap mmol/L BUN (7-17) mg/dL Creatinine (0.52-1.04) mg/dL Est GFR (MDRD) Af Amer (>60 ml/min/1.73 sqM) Est GFR (MDRD) Non-Af (>60 ml/min/1.73 sqM) Glucose (74-99) mg/dL Calcium (8.4-10.2) mg/dL Total Bilirubin (0.2-1.3) mg/dL AST (14-36) U/L ALT (9-52) U/L Alkaline Phosphatase (38-126) U/L Total Creatine Kinase 21 L (30-135) U/L CK-MB (CK-2) 0.5 (0.0-2.4) ng/mL CK-MB (CK-2) Rel Index 2.4 Troponin I 0.143 H* (0.000-0.034) ng/mL NT-Pro-B Natriuret Pep pg/mL Total Protein (6.3-8.2) g/dL Albumin (3.5-5.0) g/dL Blood Type O Positive Blood Type Recheck No Antibody Screen NEGATIVE Crossmatch See Detail Spec Expiration Date 09/27/2017 - 232109/24/17 09/24/17 09/24/17 Range/Units 20:22 20:22 20:22 WBC (3.8-10.6) k/uL RBC (3.80-5.40) m/uL Hgb (11.4-16.0) gm/dL Hct (34.0-46.0) % MCV (80.0-100.0) fL MCH (25.0-35.0) pg MCHC (31.0-37.0) g/dL RDW (11.5-15.5) % Plt Count (150-450) k/uL Neutrophils % % Lymphocytes % % Monocytes % % Eosinophils % % Basophils % % Neutrophils # (1.3-7.7) k/uL Lymphocytes # (1.0-4.8) k/uL Monocytes # (0-1.0) k/uL Eosinophils # (0-0.7) k/uL Basophils # (0-0.2) k/uL Hypochromasia Poikilocytosis Anisocytosis PT 10.8 (9.0-12.0) sec INR 1.1 (<1.2) APTT 21.0 L (22.0-30.0) sec Sodium 132 L (137-145) mmol/L Potassium 4.4 (3.5-5.1) mmol/L Chloride 97 L (98-107) mmol/L Carbon Dioxide 26 (22-30) mmol/L Anion Gap 9 mmol/L BUN 34 H (7-17) mg/dL Creatinine 0.90 (0.52-1.04) mg/dL Est GFR (MDRD) Af Amer >60 (>60 ml/min/1.73 sqM) Est GFR (MDRD) Non-Af >60 (>60 ml/min/1.73 sqM) Glucose 285 H (74-99) mg/dL Calcium 8.7 (8.4-10.2) mg/dL Total Bilirubin 0.8 (0.2-1.3) mg/dL AST 19 (14-36) U/L ALT 23 (9-52) U/L Alkaline Phosphatase 81 (38-126) U/L Total Creatine Kinase (30-135) U/L CK-MB (CK-2) (0.0-2.4) ng/mL CK-MB (CK-2) Rel Index Troponin I (0.000-0.034) ng/mL NT-Pro-B Natriuret Pep 2520 pg/mL Total Protein 5.2 L (6.3-8.2) g/dL Albumin 2.9 L (3.5-5.0) g/dL Blood Type Blood Type Recheck Antibody Screen Crossmatch Spec Expiration Date Disposition Clinical Impression: Anemia, Hypertension, NSTEMI (non-ST elevated myocardial infarction), CHF ( congestive heart failure), Hyponatremia, Hypochloremia, Hyperglycemia, Pulmonary edema Disposition: ADMITTED IP TO THIS HOSP Condition: Fair Time of Disposition: 22:28 Decision Date: 09/24/17 Decision Time: 22:29
[2017-09-24 22:37] LABS: HGB 6.2 gm/dL (11.4-16.0)
[2017-09-24] MEDS ORDERED: NA PHOS,M-B/NA PHOS,DI-BA 133 ML ENEMA RECTAL PRN (22:42)
[2017-09-24] MEDS ORDERED: CYCLOBENZAPRINE 10 MG TAB PO PRN (22:42)
[2017-09-24] MEDS ORDERED: BISACODYL 10 MG SUPP RECTAL PRN (22:42)
[2017-09-24] MEDS ORDERED: MAGNESIUM HYDROXIDE 2,400 MG/10 ML CUP PO PRN (22:42)
[2017-09-25 00:23] LABS: Glucose,Whole Blood 324 mg/dL (75-99)
[2017-09-25] MEDS: HYDROcodone/APAP 7.5-325MG 1 EACH TAB PO PRN ×3 (01:46→20:58)
[2017-09-25] MEDS: NITROGLYCERIN OINT 1 INCH/GM PACKET TOPICAL SCH ×5 (01:47→23:15)
[2017-09-25 03:05] LABS: Cholesterol 107 mg/dL (<200); HDL Cholesterol 30 mg/dL (40-60); LDL Cholesterol,Calculated 50 mg/dL (0-99); Triglycerides 137 mg/dL (<150)
[2017-09-25 03:10] LABS: Creatine Kinase <20 U/L (30-135)
[2017-09-25 03:25] LABS: Creatine Kinase MB 0.5 ng/mL (0.0-2.4)
[2017-09-25 03:34] LABS: Troponin I 0.151 ng/mL (0.000-0.034)
[2017-09-25 05:45] LABS: Glucose,Whole Blood 356 mg/dL (75-99)
[2017-09-25] MEDS: MIDODRINE 5 MG TAB PO SCH ×2 (06:38→17:27)
[2017-09-25] MEDS: INSULIN ASPART 100 UNIT/ML 1 ML 10 ML VIAL SQ SCH ×7 (06:38→20:56)
[2017-09-25] MEDS: PANTOPRAZOLE 40 MG TABLET PO SCH (06:38)
[2017-09-25] MEDS: ALLOPURINOL 100 MG TAB PO SCH (08:07)
[2017-09-25] MEDS: FUROSEMIDE 10 MG/ML 4 ML VIAL IV SCH ×2 (08:07→20:58)
[2017-09-25] MEDS: COLCHICINE 0.6 MG TAB PO SCH (08:07)
[2017-09-25] MEDS: ALBUTEROL NEBULIZED 2.5 MG/3 ML INHALATION PRN (08:22)
[2017-09-25 08:48] LABS: Anisocytosis Slight; Basophils # (A) 0.1 k/uL (0-0.2); Basophils % (A) 1 %; Eosinophils # (A) 0.2 k/uL (0-0.7); Eosinophils % (A) 2 %; HCT 26.1 % (34.0-46.0); Hypochromasia Marked; Lymphocytes # (A) 1.1 k/uL (1.0-4.8); Lymphocytes % (A) 10 %; MCH 27.9 pg (25.0-35.0); MCHC 31.2 g/dL (31.0-37.0); MCV 89.5 fL (80.0-100.0); Monocytes # (A) 0.7 k/uL (0-1.0); Monocytes % (A) 6 %; Neutrophils % (A) 79 %; Platelet Count 130 k/uL (150-450); Poikilocytosis Marked; RBC 2.92 m/uL (3.80-5.40); RDW 17.9 % (11.5-15.5); WBC 10.2 k/uL (3.8-10.6)
[2017-09-25 08:53] LABS: HGB 8.1 gm/dL (11.4-16.0)
[2017-09-25 09:10] LABS: Creatine Kinase MB 0.6 ng/mL (0.0-2.4)
[2017-09-25 09:15] LABS: Troponin I 0.134 ng/mL (0.000-0.034)
--- NOTE | 2017-09-25 10:01 | P.CONS ---
History of Present Illness - Reason for Consult Consult date: 09/25/17 Anemia Requesting physician: Beryl Jean-Baptiste - History of Present Illness 77-year-old female admitted with shortness of breath and anemia. Recently hospitalized a week ago with acute hypoxic respiratory failure secondary to diastolic congestive heart failure severe aortic stenosis troponin between 7- 11.8 and anemia 6.4. Patient was seen by our service a week ago in regards to anemia without overt bleeding. She has a history of metastatic pancreatic carcinoma recently diagnosed at [facility]. During her last hospitalization it was decided that the anemia would not be investigated secondary to patient declining endoscopic exams as well as secondary to her metastatic disease and possibility of comfort care measures she requested DO NOT RESUSCITATE status. She was evaluated by oncology and deemed not candidate for oncology treatment. During her hospitalization she did not exhibit any overt bleeding she was transfused 2 units of blood and her discharge hemoglobin was 7.4. Admitting hemoglobin 6.2 she's received 2 units of blood current hemoglobin is 8.1. Again denies hematemesis hematochezia melena. Denies abdominal pain. Platelet 130. Stool occult blood positive. Chest x-ray overall similar in appearance with mild interstitial phase pulmonary edema. No history of EGD but a colonoscopy approximately 3 years ago maybe longer into her memory was normal. Review of Systems Constitutional: Denies fever, chills, sweats, weight gain, or loss. HEENT: Negative for migraines, blurred vision or loss, earaches, drainage, tinnitus, oral mucosal lesions, dysphagia, or odynophagia. CARDIAC: History of chest pain. Hyperlipidemia. Hypertension. Negative for chest pain, arrhythmias, or palpitation. RESPIRATORY: COPD. Sleep apnea. Negative for shortness of breath, hemoptysis, cough, or sputum production. GI: See HPI for pertinent findings. : Negative for hematuria, urgency, frequency, polyuria, or dysuria. GYNc: Denies possibility of . Negative vaginal discharge. MUSCULOSKELETAL: Negative for muscle aches, swelling, arthritis, and arthralgias. NEUROLOGIC: Negative for stroke or TIA. ENDOCRINE: Diabetes mellitus. Negative for thyroid problems. SKIN: Negative for rash or itching. PSYCHIATRIC: History of anxiety and depression. 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 LT BUNIONECTOMY, I&D R INDEX FINGER, egd, L LEG VEIN STRIPPING. Past Anesthesia/Blood Transfusion Reactions: No Reported Reaction Past Psychological History: Anxiety, Depression Additional Psychological History / Comment(s): Pt resides with her significant other of many years and their dog and cat. She uses a walker/cane. She no longer drives, her significant other takes her to [employer]. She has no home care. Smoking Status: Never smoker Past Alcohol Use History: None Reported Past Drug Use History: None Reported - Past Family History Father Family Medical History: Myocardial Infarction ([place]), Rheumatoid Arthritis ([place]) Additional Family Medical History / Comment(s): AT AGE 76 Mother Family Medical History: CVA/TIA, Myocardial Infarction ([place]) Additional Family Medical History / Comment(s): AGE 80 Medications and Allergies Home Medications Medication Instructions Recorded Confirmed Type Albuterol Nebulized [Ventolin 2.5 mg INHALATION RT-QID PRN 03/27/14 09/24/17 History Nebulized] Allopurinol [Zyloprim] 200 mg PO DAILY 03/27/14 09/24/17 History Cyclobenzaprine [Flexeril] 10 mg PO TID PRN 03/27/14 09/24/17 History Folic Acid 1 mg PO DAILY@1700 03/27/14 09/24/17 History Omeprazole [PriLOSEC] 20 mg PO DAILY@0600 03/27/14 09/24/17 History rOPINIRole HCL [Requip] 4 mg PO HS 03/27/14 09/24/17 History Multivitamins, Thera [Multivitamin 1 tab PO DAILY@1700 07/25/14 09/24/17 History (formulary)] Cholecalciferol [Vitamin D3] 1,000 unit PO DAILY@1700 11/03/16 09/24/17 History medroxyPROGESTERone [Provera] 2.5 mg PO DAILY 11/03/16 09/24/17 History Colchicine [Colcrys] 0.6 mg PO DAILY 08/28/17 09/24/17 History Ascorbic Acid [Vitamin C] 500 mg PO DAILY@1700 09/15/17 09/24/17 History Atorvastatin [Lipitor] 20 mg PO HS 09/15/17 09/24/17 History Insulin Detemir [Levemir] 36 unit SQ HS syr 09/22/17 09/24/17 Rx Ipratropium-Albuterol Nebulize 3 ml INHALATION RT-Q4H PRN 09/22/17 09/24/17 Rx [Duoneb 0.5 mg-3 mg/3 ml Soln] ampul.neb Bisacodyl [Dulcolax] 10 mg RECTAL DAILY PRN 09/24/17 09/24/17 History Cyanocobalamin [Vitamin B-12] 1,000 mcg PO DAILY@1700 09/24/17 09/24/17 History Ferrous Sulfate [Feosol] 325 mg PO DAILY@0 09/24/17 09/24/17 History Furosemide [Lasix] 40 mg PO DAILY@0600 09/24/17 09/24/17 History HYDROcodone/APAP 7.5-325MG [[place] 1 tab PO Q6HR PRN 09/24/17 09/24/17 History 7.5-325] INSULIN LISPRO (HumaLOG) [humaLOG] See Protocol SQ ACHS 09/24/17 09/24/17 History Insulin Aspart [NovoLOG 10 unit SQ AC-TID@07,11,1730 09/24/17 09/24/17 History (formulary)] Magnesium Hydroxide [Milk of 2,400 mg PO DAILY PRN 09/24/17 09/24/17 History Magnesia] Midodrine [ProAmatine] 2.5 mg PO AC-BID@0600,1600 09/24/17 09/24/17 History Na Phos,M-B/Na Phos,Di-Ba [Fleet 133 ml RECTAL DAILY PRN 09/24/17 09/24/17 History Adult] Allergies Allergy/AdvReac Type Severity Reaction Status Date / Time No Known Allergies Allergy Verified 09/24/17 20:00 Physical Exam Vitals: Vital Signs Temp Pulse Pulse Resp BP BP Pulse Ox 09/25/17 08:34 80 09/25/17 08:24 76 97 09/25/17 06:22 98.2 F 72 20 145/78 97 09/25/17 04:00 98.2 F 81 20 130/55 97 09/25/17 03:39 98.2 F 81 20 130/55 97 09/25/17 03:09 97.0 F L 78 20 138/72 95 09/25/17 02:59 98.2 F 76 20 135/92 97 09/25/17 01:15 98.5 F 84 24 126/51 97 09/25/17 00:45 97.9 F 81 20 129/55 97 09/25/17 00:20 97.9 F 80 20 129/55 97 09/24/17 23:05 98.7 F 83 24 140/65 96 09/24/17 22:35 99.1 F 84 24 129/58 97 09/24/17 22:20 98.9 F 87 24 128/57 96 09/24/17 22:05 98.7 F 90 24 133/61 96 09/24/17 21:50 98.9 F 82 24 145/63 95 09/24/17 20:45 81 16 09/24/17 20:35 80 18 09/24/17 20:30 82 24 142/62 98 09/24/17 20:28 24 09/24/17 19:49 97.5 F L 91 18 152/67 93 L Intake and Output 09/24/17 09/25/17 09/25/17 22:59 06:59 14:59 Intake Total 0 1240 Output Total 1000 300 Balance 0 240 -300 Intake: Blood Product 0 1240 Rc As-1 Unit 0 310 [id number] Rc As-1 Unit 310 [id number] Output: Urine 1000 300 Other: Voiding Method Bedpan Diaper Incontinent # Voids 3 Weight 102.058 kg 110.5 kg General appearance: The patient is alert, oriented, with mild shortness of breath on conversation. HET: Head is normocephalic and atraumatic. Pupils are equal and reactive. Oropharynx is clear without lesions. Neck: Supple without lymphadenopathy. Trachea midline. Heart: S1 S2. Regular rate and rhythm. Lungs: Diminished in bases bilaterally. Abdomen: Soft, nontender, nondistended with bowel sounds. No peritoneal signs. No palpable organomegaly or masses. Extremities: Normal skin color and turgor. No cyanosis, rash, ulceration, clubbing, or edema. Radial and pedal pulses are 2/4 bilaterally. Owens with clear judy urine Neurological: No focal deficits. Strength and sensation are grossly intact. Results CBC & Chem 7: 09/25/17 08:08 09/24/17 20: Labs: Abnormal Lab Results - Last 24 Hours (Table) 09/24/17 09/24/17 09/24/17 Range/Units 20:22 20:22 20:22 RBC 2.40 L (3.80-5.40) m/uL Hgb 6.2 L* (11.4-16.0) gm/dL Hct 20.8 L (34.0-46.0) % MCHC 30.0 L (31.0-37.0) g/dL RDW 19.6 H (11.5-15.5) % Plt Count (150-450) k/uL Neutrophils # 8.0 H (1.3-7.7) k/uL APTT (22.0-30.0) sec Sodium (137-145) mmol/L Chloride (98-107) mmol/L BUN (7-17) mg/dL Glucose (74-99) mg/dL POC Glucose (mg/dL) (75-99) mg/dL Total Creatine Kinase 21 L (30-135) U/L Troponin I 0.143 H* (0.000-0.034) ng/mL Total Protein (6.3-8.2) g/dL Albumin (3.5-5.0) g/dL HDL Cholesterol (40-60) mg/dL Stool Occult Blood (Negative) Crossmatch See Detail 09/24/17 09/24/17 09/24/17 Range/Units 20:22 20:22 23:25 RBC (3.80-5.40) m/uL Hgb (11.4-16.0) gm/dL Hct (34.0-46.0) % MCHC (31.0-37.0) g/dL RDW (11.5-15.5) % Plt Count (150-450) k/uL Neutrophils # (1.3-7.7) k/uL APTT 21.0 L (22.0-30.0) sec Sodium 132 L (137-145) mmol/L Chloride 97 L (98-107) mmol/L BUN 34 H (7-17) mg/dL Glucose 285 H (74-99) mg/dL POC Glucose (mg/dL) (75-99) mg/dL Total Creatine Kinase (30-135) U/L Troponin I (0.000-0.034) ng/mL Total Protein 5.2 L (6.3-8.2) g/dL Albumin 2.9 L (3.5-5.0) g/dL HDL Cholesterol (40-60) mg/dL Stool Occult Blood Positive H (Negative) Crossmatch 09/25/17 09/25/17 09/25/17 Range/Units 00:20 02:12 02:12 RBC (3.80-5.40) m/uL Hgb (11.4-16.0) gm/dL Hct (34.0-46.0) % MCHC (31.0-37.0) g/dL RDW (11.5-15.5) % Plt Count (150-450) k/uL Neutrophils # (1.3-7.7) k/uL APTT (22.0-30.0) sec Sodium (137-145) mmol/L Chloride (98-107) mmol/L BUN (7-17) mg/dL Glucose (74-99) mg/dL POC Glucose (mg/dL) 324 H (75-99) mg/dL Total Creatine Kinase <20 L (30-135) U/L Troponin I 0.151 H* (0.000-0.034) ng/mL Total Protein (6.3-8.2) g/dL Albumin (3.5-5.0) g/dL HDL Cholesterol 30 L (40-60) mg/dL Stool Occult Blood (Negative) Crossmatch 09/25/17 09/25/17 09/25/17 Range/Units 05:43 08:04 08:08 RBC 2.92 L (3.80-5.40) m/uL Hgb 8.1 L D (11.4-16.0) gm/dL Hct 26.1 L (34.0-46.0) % MCHC (31.0-37.0) g/dL RDW 17.9 H (11.5-15.5) % Plt Count 130 L (150-450) k/uL Neutrophils # 8.0 H (1.3-7.7) k/uL APTT (22.0-30.0) sec Sodium (137-145) mmol/L Chloride (98-107) mmol/L BUN (7-17) mg/dL Glucose (74-99) mg/dL POC Glucose (mg/dL) 356 H (75-99) mg/dL Total Creatine Kinase 25 L (30-135) U/L Troponin I 0.134 H* (0.000-0.034) ng/mL Total Protein (6.3-8.2) g/dL Albumin (3.5-5.0) g/dL HDL Cholesterol (40-60) mg/dL Stool Occult Blood (Negative) Crossmatch Assessment and Plan (1) Anemia Narrative/Plan: 77-year-old female admitted with shortness of breath symptomatic iron deficient normocytic hypochromic anemia with hemoccult positive stool component of acute blood loss anemia GI bleed without overt hematemesis hematochezia melena. Possible upper GI bleed secondary to known pancreatic cancer cannot exclude underlying eroding lesion. Lower GI bleed suspected to be less likely but not excluded. Current Visit: Yes Status: Acute Code(s): D64.9 - ANEMIA, UNSPECIFIED SNOMED Code(s): 106282675 (2) Pancreatic cancer Narrative/Plan: Metastatic pancreatic cancer recently diagnosed [facility] Current Visit: No Status: Acute Priority: High Code(s): C25.9 - MALIGNANT NEOPLASM OF PANCREAS, UNSPECIFIED SNOMED Code(s): 851693357 (3) Morbid obesity with BMI of 45.0-49.9, adult Current Visit: Yes Status: Acute Code(s): E66.01 - MORBID (SEVERE) OBESITY DUE TO EXCESS CALORIES; Z68.42 - BODY MASS INDEX (BMI) 45.0-49.9, ADULT SNOMED Code(s): 309571639 Plan: 1. EGD colonoscopy was discussed with patient at this time she is declining until she discusses her treatment options again with oncology even though she wasn't a candidate for treatment per their last discussion/evaluation. Will consult oncology per patient family request. Continue with symptomatic supportive measures. CBC monitoring. Protonix 40 mg daily. Will await recommendations from medicine and oncology. Will follow with you. Thank you for this kind referral and the opportunity to participate in the care of your patient. This consultation was discussed with Dr. Wray. The impression and plan of care have been directed as dictated.
[2017-09-25] MEDS: METOPROLOL TARTRATE 12.5 MG TAB PO SCH (10:22)
[2017-09-25 11:47] LABS: Glucose,Whole Blood 277 mg/dL (75-99)
[2017-09-25 14:02] VITALS: BMI 47.5
--- NOTE | 2017-09-25 16:45 | HP ---
HISTORY AND PHYSICAL CHIEF COMPLAINT: Shortness of breath as well as anemia. HISTORY OF PRESENT ILLNESS: This 77-year-old woman with a past medical history of multiple medical problems including COPD, CVA, diabetes mellitus, hypertension, hyperlipidemia, severe aortic stenosis, also recent pancreatic cancer. The patient admitted recently and subsequently patient improved significantly. Patient was sent to rehab for further evaluation and treatment. The pancreatic cancer treatment was not initiated. At rehab the patient noted to be weak and tired and increasing shortness of breath. The patient came to [facility]. Hemoglobin is found to be 6.7. The patient was found to be anemic. Patient also had features of congestive heart failure and admitted for further evaluation and treatment. Transfusion has been arranged. There is no history of fever, rigors. No history of headache, loss of consciousness or seizures. PAST MEDICAL: COPD, CVA, TIA, diabetes, GERD, hypertension, hyperlipidemia, memory impairment, DJD. MEDICATIONS: Prior to admission include home medications are: 1. Requip 4 mg q.h.s. 2. Probiotic 2.5 mg. 3. Prilosec 20 mg. 4. Vitamins as directed daily p.r.n. 5. Multivitamins 1 p.o. daily. 6. Primatene 2.5 mg a.c. b.i.d. 7. Milk of magnesia. 8. DuoNeb q.i.d. p.r.n. 9. Levemir 36 units subcu q.h.s. 10.NovoLog a.c. t.i.d. and scale. 11.[place] 7.5 q.6h p.r.n. 12.Lasix 40 mg p.o. daily. 13.Folic acid 1 mg b.i.d. 14.Iron sulfate 325 mg p.o. daily. 15.Flexeril 10 mg t.i.d. p.r.n. 16.Vitamin B12 1000 mg p.o. daily. 17.Colcrys 0.6 mg p.o. daily. 18.Vitamin D3 1000 p.o. daily. 19.Dulcolax 10 mg daily p.r.n. 20.Lipitor 20 mg q.h.s. 21.Vitamin C 500 mg p.o. 22.Zyloprim 200 mg p.o. daily. 23.Ventolin 2.5 q.i.d. p.r.n. ALLERGIES: None. FAMILY HISTORY: History of myocardial infarction in the family. SOCIAL HISTORY: No history of smoking. No history of alcohol. REVIEW OF SYSTEMS: ENT: No diminished hearing or vision. CARDIOVASCULAR: As mentioned. RESPIRATORY: As mentioned earlier. GI: As mentioned earlier. : As mentioned earlier. NERVOUS SYSTEM: No numbness, weakness. ALLERGY/IMMUNOLOGY: No asthma or hayfever. MUSCULOSKELETAL: As mentioned. HEMATOLOGY: As mentioned. ENDOCRINE: As mentioned. CONSTITUTIONAL: As mentioned earlier. DERMATOLOGY: Negative. RHEUMATOLOGY: Negative. PSYCHIATRY: As mentioned earlier. PHYSICAL EXAMINATION: Pulse 54, blood pressure 140/66, respiration 20, temperature 97 degrees, pulse ox 97% on 3 L. HEENT: Conjunctivae normal. Oral mucosa moist. NECK: No jugular venous distention. No carotid bruit. No lymph node enlargement. CARDIOVASCULAR: S1, S2. No S3, no S4. Ejection systolic murmur. RESPIRATORY: Breath sounds diminished in the bases. A few rhonchi, no crackles. ABDOMEN: Soft, nontender. No mass palpable. LEGS: No edema. No swelling. NERVOUS SYSTEM: Higher functions as mentioned. Moves all four limbs. No focal deficits. LYMPHATICS: No lymphadenopathy in the neck, axillae, groin.. SKIN: No ulcers, rash or bleeding. LABS: Hemoglobin 8 after transfusion. Troponin 0.1. Other labs noted. ASSESSMENT: 1. Shortness of breath and anemia for evaluation, acute on chronic anemia. 2. Congestive heart failure acute exacerbation with acute on chronic diastolic congestive heart failure. 3. Troponin is 0.15 indeterminate. 4. Severe aortic stenosis. 5. History of recent diagnosis of metastatic pancreatic cancer, treatment not started yet. 6. History of chronic obstructive pulmonary disease. 7. Diabetes mellitus type 2. 8. History of gastroesophageal reflux disease. 9. Obesity. 10.Hyperlipidemia. 11.Hypertension. 12.History of dementia. 13.History of anemia. 14.Prerenal azotemia. 15.History of cerebrovascular insufficiency. RECOMMENDATIONS AND DISCUSSION: In this 77-year-old woman who presented with multiple complex medical issues, will monitor the patient closely. Continue the current management and symptomatic treatment. Otherwise we will continue the rest of the medications. Diuretics, transfusion has been arranged. I would recommend repeat labs. Dr. Alves is also consulted as well as GI and Cardiology. Prognosis guarded because of multiple complex medical issues. We will closely monitor. Further recommendations to follow. Prognosis guarded. Discussed with the patient and family. MMODL / IJN: [id number] /
--- NOTE | 2017-09-25 16:50 | CONS ---
CONSULTATION This is a 77-year-old lady with multiple medical problems. I was asked to see her mainly because of a troponin elevation. She has difficulty in walking, shortness of breath, anemia. There is a question of malignancy. Hemoglobin was 6.7, and she received 2 units of blood. She feels somewhat better. Denies any chest pain. She carries a diagnosis of CHF, probably diastolic, hypertension, hyperlipidemia, and also gastroesophageal reflux disease. PAST MEDICAL HISTORY: History of chest pain, type 2 diabetes, hypertension, hyperlipidemia, osteoarthritis, question of pancreatic CA under the care of oncologist. There is a question of hiatal hernia as well. MEDICATIONS: At home include Requip, Provera, vitamin supplements, Lipitor 20 mg daily, Lasix 40 mg daily, insulin, ProAmatine 2.5 mg b.i.d. ALLERGIES: No known drug allergies. LABORATORY DATA: Suggests a hemoglobin of 6.7, received 2 units of blood. Troponin is 0.1 and 0.1, two values are noted. Hemoglobin has come up to 8.1. Her renal function appears to be normal. BNP is modestly elevated at 2520. EXAMINATION: Blood pressure is 140/70, pulse rate is 56 per minute, regular. HEENT: Unremarkable. Fundus was not examined by me. Neck is supple. There is JVD of 1 cm. No carotid bruit. Physical exam revealed S1, S2 heard normally with ejection systolic murmur at the base. Second heart sound is preserved. Possible aortic stenosis. Lungs revealed decent air entry. Abdomen is soft, nontender. Lower extremities reveal diminished pulses. Central nervous system is normal. EKG revealed sinus mechanism, voltage criteria for LVH. No acute changes. LAB: Data revealed equivocal troponins. IMPRESSION: 1. Elevated troponins do not represent an acute myocardial injury in this patient at this time. 2. Anemia of unclear etiology. 3. Question of malignancy. 4. Hypertension. 5. Hyperlipidemia. 6. Type 2 diabetes mellitus. RECOMMENDATIONS: From a cardiac standpoint I am not recommending any intervention. We will continue her current medical regimen. On 09/15/2017, she had an echocardiogram and this study revealed normal systolic function with a 55-60% ejection fraction. There was aortic stenosis noted with mitral annular calcification. The gradient seemed higher probably as a result of anemia. There was mildly elevated PA pressures noted. I am also recommending no aggressive intervention cardiac-clark. Patient probably has aortic stenosis. There are several multiple comorbid conditions at this time. I would not recommend any aggressive intervention and her pancreatic CA issue is being addressed by Oncology. We will see the patient as needed. Elevated troponin does not require intervention. This could be related to the multiple other causes including aortic stenosis. JOSE RAMONL / IJN: [id number] /
[2017-09-25 17:01] LABS: Glucose,Whole Blood 233 mg/dL (75-99)
[2017-09-25] MEDS: FOLIC ACID 1 MG TAB PO SCH (17:27)
[2017-09-25] MEDS: ASCORBIC ACID 500 MG TAB PO SCH (17:27)
[2017-09-25] MEDS: MULTIVITAMINS, THERA 1 EACH TAB PO SCH (17:27)
[2017-09-25] MEDS: CHOLECALCIFEROL 1,000 UNIT TAB PO SCH (17:27)
[2017-09-25] MEDS: FERROUS SULFATE 325 MG TAB PO SCH (17:27)
[2017-09-25] MEDS: CYANOCOBALAMIN 500 MCG TAB PO SCH (17:28)
[2017-09-25] MEDS: INSULIN DETEMIR 100 UNIT/ML 10 ML VIAL SQ SCH (20:56)
[2017-09-25 20:58] LABS: Glucose,Whole Blood 158 mg/dL (75-99)
[2017-09-25] MEDS: ATORVASTATIN 20 MG TAB PO SCH (20:58)
[2017-09-25] MEDS: rOPINIRole HCL 4 MG TABLET PO SCH (20:58)
[2017-09-26 05:58] LABS: Glucose,Whole Blood 193 mg/dL (75-99)
[2017-09-26] MEDS: MIDODRINE 5 MG TAB PO SCH ×2 (06:15→16:53)
[2017-09-26] MEDS: PANTOPRAZOLE 40 MG TABLET PO SCH (06:15)
[2017-09-26] MEDS: NITROGLYCERIN OINT 1 INCH/GM PACKET TOPICAL SCH ×4 (06:16→23:05)
[2017-09-26 06:27] LABS: Anisocytosis Slight; Basophils # (A) 0.1 k/uL (0-0.2); Basophils % (A) 1 %; Eosinophils # (A) 0.4 k/uL (0-0.7); Eosinophils % (A) 4 %; HCT 29.8 % (34.0-46.0); HGB 8.9 gm/dL (11.4-16.0); Hypochromasia Marked; Lymphocytes # (A) 1.2 k/uL (1.0-4.8); Lymphocytes % (A) 10 %; MCH 26.5 pg (25.0-35.0); MCHC 29.8 g/dL (31.0-37.0); MCV 88.8 fL (80.0-100.0); Mean Platelet Volume 9.2; Monocytes # (A) 0.7 k/uL (0-1.0); Monocytes % (A) 6 %; Neutrophils # (A) 9.2 k/uL (1.3-7.7); Neutrophils % (A) 78 %; Platelet Count 148 k/uL (150-450); Poikilocytosis Marked; RBC 3.36 m/uL (3.80-5.40); RDW 18.4 % (11.5-15.5); WBC 11.8 k/uL (3.8-10.6)
[2017-09-26] MEDS: INSULIN ASPART 100 UNIT/ML 1 ML 10 ML VIAL SQ SCH ×7 (07:09→21:18)
[2017-09-26] MEDS: COLCHICINE 0.6 MG TAB PO SCH (07:42)
[2017-09-26] MEDS: FUROSEMIDE 10 MG/ML 4 ML VIAL IV SCH ×2 (07:42→20:31)
[2017-09-26] MEDS: ALLOPURINOL 100 MG TAB PO SCH (07:42)
[2017-09-26] MEDS: HYDROcodone/APAP 7.5-325MG 1 EACH TAB PO PRN (07:43)
[2017-09-26] MEDS: METOPROLOL TARTRATE 12.5 MG TAB PO SCH (07:43)
--- NOTE | 2017-09-26 11:48 | P.CONS ---
History of Present Illness - Reason for Consult Consult date: 09/25/17 Pancreatic Cancer Requesting physician: Mandi Cleaning - Chief Complaint SOB, Anemia - History of Present Illness Vanessa originally was sent to see Dr. Parikh after a new diagnosis of Pancreatic Cancer. [facility]. CT Scan of abdomen /Pelvis repeated there on Sep 01 revealing further increase in large Pancreatic body mass, as well as, development of Liver metastasis, ascites and radiologic eveident of mesenteric Carcinomatosis, FNA of Pancreatic mass on 09/02/17 revealed Adenocarcinoma. She was evaluated by Dr Nate Casillas who advised consideration of single- agent palliative Chemotherapy V/S comfort care only. Palliative care was the recommended from both Stanford Gonzales and Dr. Parikh Medical Oncology opinion. The patient performence status is rather poor; she is wheelchair bound, had prior L sided CVA and multiple medical co-morbidities including Type II insulin- dependent diabetes X 15 years with poor glycemic control. She was recently admitted to [facility], this is actually her third admission in a short time period. We had a long discussion with her last admission regarding her poor performance status, co-morbidities, and repeat hospitalizations which will make palliative treatment with chemotherapy difficult and greater risk for possible detrimental outcomes from the treatment, therefore at this time it is not preferred to give her active treatment . A palliative approach (allowing supportive blood transfusions and/or IV abx) if needed versus hospice , with focus of comfort care are the preferred recommendations from an oncology standpoint. Patient was in agreement last admission, although this admission she is confused and required reiteration regarding the natural history of her disease, the extent of her disease and the realistics expectations of treatment options and treatment goals. Unfortunetly her family was not present today during the interaction. My SHIPPING/RECEIVING CLERK and I had a long discussion re the rationale of the above reccommendation again. Review of Systems A 14 point ROS was assessed and completed and all negative except HPI, and as noted below Constitutional: Reports chronic pain, Reports daytime sleepiness, Reports fatigue, Reports fever, Reports lethargy, Reports malaise, Reports night sweats , Reports poor appetite, Reports weakness, Reports weight gain Cardiovascular: Reports chest pain, Reports decreased exercise tolerance, Reports dyspnea on exertion, Reports edema, Reports irregular heart beat, Reports leg edema, Reports orthopnea, Reports rapid heart beat, Reports shortness of breath, Reports syncope Respiratory: Reports home oxygen, Reports pain Neurological: Reports balance difficulties, Reports change in mentation, Reports memory loss Psychiatric: Reports difficulty concentrating Hematologic/Lymphatic: Reports easy bruising, Reports lymphadenopathy Past Medical History Past Medical History: Chest Pain / Angina, COPD, CVA/TIA, Diabetes Mellitus, GERD/Reflux, Hyperlipidemia, Hypertension, Memory Impairment, Osteoarthritis (OA ), Sleep Apnea/CPAP/BIPAP Additional Past Medical History / Comment(s): pancreatic cancer, 2010 CVA with L foot drop and L arm weakness and pt states difficulty swallowing at times, gait dysfunction, small hiatal hernia, anemia, IDDM type II, epistaxis with cauterization, heart murmur, gout, hammer toes, History of Any Multi-Drug Resistant Organisms: MRSA Year Discovered:: 11/05/16 MDRO Source:: FINGER Past Surgical History: Heart Catheterization, Joint Replacement, Orthopedic Surgery Additional Past Surgical History / Comment(s): ERCP , BILAT CATARACTS REMOVED, ORIF LT ARM WITH PINS/PLATES, BILAT TKA, D&C. LT BUNIONECTOMY, I&D R INDEX FINGER, egd, L LEG VEIN STRIPPING. Past Anesthesia/Blood Transfusion Reactions: No Reported Reaction Past Psychological History: Anxiety, Depression Additional Psychological History / Comment(s): Pt resides with her significant other of many years and their dog and cat. She uses a walker/cane. She no longer drives, her significant other takes her to appts. She has no home care. Smoking Status: Never smoker Past Alcohol Use History: None Reported Past Drug Use History: None Reported - Past Family History Father Family Medical History: Myocardial Infarction (SC), Rheumatoid Arthritis (RA) Additional Family Medical History / Comment(s): AT AGE 76 Mother Family Medical History: CVA/TIA, Myocardial Infarction (SC) Additional Family Medical History / Comment(s): AGE 80 Medications and Allergies Home Medications Medication Instructions Recorded Confirmed Type Albuterol Nebulized [Ventolin 2.5 mg INHALATION RT-QID PRN 03/27/14 09/24/17 History Nebulized] Allopurinol [Zyloprim] 200 mg PO DAILY 03/27/14 09/24/17 History Cyclobenzaprine [Flexeril] 10 mg PO TID PRN 03/27/14 09/24/17 History Folic Acid 1 mg PO DAILY@0 03/27/14 09/24/17 History Omeprazole [PriLOSEC] 20 mg PO DAILY@59903/27/14 09/24/17 History rOPINIRole HCL [Requip] 4 mg PO HS 03/27/14 09/24/17 History Multivitamins, Thera [Multivitamin 1 tab PO DAILY@169907/25/14 09/24/17 History (formulary)] Cholecalciferol [Vitamin D3] 1,000 unit PO DAILY@17011/03/16 09/24/17 History medroxyPROGESTERone [Provera] 2.5 mg PO DAILY 11/03/16 09/24/17 History Colchicine [Colcrys] 0.6 mg PO DAILY 08/28/17 09/24/17 History Ascorbic Acid [Vitamin C] 500 mg PO DAILY@169909/15/17 09/24/17 History Atorvastatin [Lipitor] 20 mg PO HS 09/15/17 09/24/17 History Insulin Detemir [Levemir] 36 unit SQ HS syr 09/22/17 09/24/17 Rx Ipratropium-Albuterol Nebulize 3 ml INHALATION RT-Q4H PRN 09/22/17 09/24/17 Rx [Duoneb 0.5 mg-3 mg/3 ml Soln] ampul.neb Bisacodyl [Dulcolax] 10 mg RECTAL DAILY PRN 09/24/17 09/24/17 History Cyanocobalamin [Vitamin B-12] 1,000 mcg PO DAILY@169909/24/17 09/24/17 History Ferrous Sulfate [Feosol] 325 mg PO DAILY@169909/24/17 09/24/17 History Furosemide [Lasix] 40 mg PO DAILY@59909/24/17 09/24/17 History HYDROcodone/APAP 7.5-325MG [[place] 1 tab PO Q6HR PRN 09/24/17 09/24/17 History 7.5-325] INSULIN LISPRO (HumaLOG) [humaLOG] See Protocol SQ ACHS 09/24/17 09/24/17 History Insulin Aspart [NovoLOG 10 unit SQ AC-TID@,1730 09/24/17 09/24/17 History (formulary)] Magnesium Hydroxide [Milk of 2,400 mg PO DAILY PRN 09/24/17 09/24/17 History Magnesia] Midodrine [ProAmatine] 2.5 mg PO AC-BID@0600,1600 09/24/17 09/24/17 History Na Phos,M-B/Na Phos,Di-Ba [Fleet 133 ml RECTAL DAILY PRN 09/24/17 09/24/17 History Adult] Allergies Allergy/AdvReac Type Severity Reaction Status Date / Time No Known Allergies Allergy Verified 09/24/17 20:00 Physical Exam Vitals: Vital Signs Temp Pulse Pulse Resp BP BP Pulse Ox 09/25/17 11:36 97 F L 54 L 20 148/63 97 09/25/17 08:34 80 09/25/17 08:24 76 97 09/25/17 08:00 97.5 F L 64 20 122/55 95 09/25/17 06:22 98.2 F 72 20 145/78 97 09/25/17 04:00 98.2 F 81 20 130/55 97 09/25/17 03:39 98.2 F 81 20 130/55 97 09/25/17 03:09 97.0 F L 78 20 138/72 95 09/25/17 02:59 98.2 F 76 20 135/92 97 09/25/17 01:15 98.5 F 84 24 126/51 97 09/25/17 00:45 97.9 F 81 20 129/55 97 09/25/17 00:20 97.9 F 80 20 129/55 97 09/24/17 23:05 98.7 F 83 24 140/65 96 09/24/17 22:35 99.1 F 84 24 129/58 97 09/24/17 22:20 98.9 F 87 24 128/57 96 09/24/17 22:05 98.7 F 90 24 133/61 96 09/24/17 21:50 98.9 F 82 24 145/63 95 09/24/17 20:45 81 16 09/24/17 20:35 80 18 09/24/17 20:30 82 24 142/62 98 09/24/17 20:28 24 09/24/17 19:49 97.5 F L 91 18 152/67 93 L Intake and Output 09/24/17 09/25/17 09/25/17 22:59 06:59 14:59 Intake Total 0 1240 Output Total 1000 300 Balance 0 240 -300 Intake: Blood Product 0 1240 Rc As-1 Unit 0 310 [id number] Rc As-1 Unit 310 [id number] Output: Urine 1000 300 Other: Voiding Method Bedpan Diaper Incontinent # Voids 3 Weight 102.058 kg 110.5 kg - Constitutional General appearance: morbidly obese - EENT Eyes: poor dentition ENT: normal oropharynx - Respiratory Respiratory: bilateral: diminished (Bilateral), wheezing (Expiratory) - Cardiovascular Rhythm: irregularly irregular foot Peripheral Edema: right: 2+, left: 3+ leg Peripheral Edema: right: 1+, left: 3+ - Gastrointestinal General gastrointestinal: decreased bowel sounds, distended, organomegaly, soft - Integumentary Integumentary: pale - Neurologic Neurologic: focal deficits - Musculoskeletal Musculoskeletal: right sided weakness, left sided weakness - Psychiatric Required repetitive remediation Psychiatric: A&O x's 3, appropriate affect Results CBC & Chem 7: 09/26/17 06:03 09/24/17 20:22 Labs: Abnormal Lab Results - Last 24 Hours (Table) 09/24/17 09/24/17 09/24/17 Range/Units 20:22 20:22 20:22 RBC 2.40 L (3.80-5.40) m/uL Hgb 6.2 L* (11.4-16.0) gm/dL Hct 20.8 L (34.0-46.0) % MCHC 30.0 L (31.0-37.0) g/dL RDW 19.6 H (11.5-15.5) % Plt Count (150-450) k/uL Neutrophils # 8.0 H (1.3-7.7) k/uL APTT (22.0-30.0) sec Sodium (137-145) mmol/L Chloride (98-107) mmol/L BUN (7-17) mg/dL Glucose (74-99) mg/dL POC Glucose (mg/dL) (75-99) mg/dL Total Creatine Kinase 21 L (30-135) U/L Troponin I 0.143 H* (0.000-0.034) ng/mL Total Protein (6.3-8.2) g/dL Albumin (3.5-5.0) g/dL HDL Cholesterol (40-60) mg/dL Stool Occult Blood (Negative) Crossmatch See Detail 09/24/17 09/24/17 09/24/17 Range/Units 20:22 20:22 23:25 RBC (3.80-5.40) m/uL Hgb (11.4-16.0) gm/dL Hct (34.0-46.0) % MCHC (31.0-37.0) g/dL RDW (11.5-15.5) % Plt Count (150-450) k/uL Neutrophils # (1.3-7.7) k/uL APTT 21.0 L (22.0-30.0) sec Sodium 132 L (137-145) mmol/L Chloride 97 L (98-107) mmol/L BUN 34 H (7-17) mg/dL Glucose 285 H (74-99) mg/dL POC Glucose (mg/dL) (75-99) mg/dL Total Creatine Kinase (30-135) U/L Troponin I (0.000-0.034) ng/mL Total Protein 5.2 L (6.3-8.2) g/dL Albumin 2.9 L (3.5-5.0) g/dL HDL Cholesterol (40-60) mg/dL Stool Occult Blood Positive H (Negative) Crossmatch 09/25/17 09/25/17 09/25/17 Range/Units 00:20 02:12 02:12 RBC (3.80-5.40) m/uL Hgb (11.4-16.0) gm/dL Hct (34.0-46.0) % MCHC (31.0-37.0) g/dL RDW (11.5-15.5) % Plt Count (150-450) k/uL Neutrophils # (1.3-7.7) k/uL APTT (22.0-30.0) sec Sodium (137-145) mmol/L Chloride (98-107) mmol/L BUN (7-17) mg/dL Glucose (74-99) mg/dL POC Glucose (mg/dL) 324 H (75-99) mg/dL Total Creatine Kinase <20 L (30-135) U/L Troponin I 0.151 H* (0.000-0.034) ng/mL Total Protein (6.3-8.2) g/dL Albumin (3.5-5.0) g/dL HDL Cholesterol 30 L (40-60) mg/dL Stool Occult Blood (Negative) Crossmatch 09/25/17 09/25/17 09/25/17 Range/Units 05:43 08:04 08:08 RBC 2.92 L (3.80-5.40) m/uL Hgb 8.1 L D (11.4-16.0) gm/dL Hct 26.1 L (34.0-46.0) % MCHC (31.0-37.0) g/dL RDW 17.9 H (11.5-15.5) % Plt Count 130 L (150-450) k/uL Neutrophils # 8.0 H (1.3-7.7) k/uL APTT (22.0-30.0) sec Sodium (137-145) mmol/L Chloride (98-107) mmol/L BUN (7-17) mg/dL Glucose (74-99) mg/dL POC Glucose (mg/dL) 356 H (75-99) mg/dL Total Creatine Kinase 25 L (30-135) U/L Troponin I 0.134 H* (0.000-0.034) ng/mL Total Protein (6.3-8.2) g/dL Albumin (3.5-5.0) g/dL HDL Cholesterol (40-60) mg/dL Stool Occult Blood (Negative) Crossmatch 09/25/17 Range/Units 11:46 RBC (3.80-5.40) m/uL Hgb (11.4-16.0) gm/dL Hct (34.0-46.0) % MCHC (31.0-37.0) g/dL RDW (11.5-15.5) % Plt Count (150-450) k/uL Neutrophils # (1.3-7.7) k/uL APTT (22.0-30.0) sec Sodium (137-145) mmol/L Chloride (98-107) mmol/L BUN (7-17) mg/dL Glucose (74-99) mg/dL POC Glucose (mg/dL) 277 H (75-99) mg/dL Total Creatine Kinase (30-135) U/L Troponin I (0.000-0.034) ng/mL Total Protein (6.3-8.2) g/dL Albumin (3.5-5.0) g/dL HDL Cholesterol (40-60) mg/dL Stool Occult Blood (Negative) Crossmatch Chest x-ray: report reviewed Assessment and Plan (1) Anemia Narrative/Plan: 1. Supportive transfusions are recommended for now. Monitor cbc . The pt would greatly prefer to control her blood loss, even from the comfort standpoint. If EGD can find the area that is causing bleeding then radiation can be performed to decrease needed transfusions and decrease hospitalizations . This would be reasonable from the oncology standpoint even for palliation. Case d/w GI, who will revisit this with the pt Current Visit: Yes Status: Acute Code(s): D64.9 - ANEMIA, UNSPECIFIED SNOMED Code(s): 763304867 (2) Pancreatic cancer Narrative/Plan: 1. With multiple co-morbidites, repeat hospitalizations, and poor performance status chemotherapy is not the preferred recommendation. The pt ultimately seems to be in agreement, but would like like to be able to manage at home, and take care of some personal matters. She is concerned that her family cannot manage her at home in her current condition 2. Hospice information consult will be placed. 3. Patients metastatic disease and other co-morbidities place her prognosis as poor. There is high risk of poor tolerance of treatment and increased morbidity and diminished QOL with active treatment. It was reiterated that average improvement in survival with single audran Jasonr is about 3 mths 4. Prognosis with and without treatment and goals of care discussed 5. Greater than 30 minutes spent with patient counseling coordinating care and answering questions. Current Visit: No Status: Acute Priority: High Code(s): C25.9 - MALIGNANT NEOPLASM OF PANCREAS, UNSPECIFIED SNOMED Code(s): 503165032
[2017-09-26] MEDS: ALBUTEROL NEBULIZED 2.5 MG/3 ML INHALATION PRN (11:53)
[2017-09-26 11:57] LABS: Glucose,Whole Blood 307 mg/dL (75-99)
[2017-09-26 16:48] LABS: Glucose,Whole Blood 242 mg/dL (75-99)
[2017-09-26] MEDS: MULTIVITAMINS, THERA 1 EACH TAB PO SCH (16:53)
[2017-09-26] MEDS: CYANOCOBALAMIN 500 MCG TAB PO SCH (16:53)
[2017-09-26] MEDS: FOLIC ACID 1 MG TAB PO SCH (16:54)
[2017-09-26] MEDS: CHOLECALCIFEROL 1,000 UNIT TAB PO SCH (16:54)
[2017-09-26] MEDS: ASCORBIC ACID 500 MG TAB PO SCH (16:54)
[2017-09-26] MEDS: FERROUS SULFATE 325 MG TAB PO SCH (16:54)
[2017-09-26] MEDS: ATORVASTATIN 20 MG TAB PO SCH (20:31)
[2017-09-26] MEDS: rOPINIRole HCL 4 MG TABLET PO SCH (20:31)
[2017-09-26 20:49] LABS: Glucose,Whole Blood 250 mg/dL (75-99)
[2017-09-26] MEDS: INSULIN DETEMIR 100 UNIT/ML 10 ML VIAL SQ SCH (21:17)
[2017-09-27 06:11] LABS: Glucose,Whole Blood 371 mg/dL (75-99)
[2017-09-27 06:38] LABS: Anisocytosis Slight; Basophils # (A) 0.1 k/uL (0-0.2); Basophils % (A) 1 %; Eosinophils # (A) 0.2 k/uL (0-0.7); Eosinophils % (A) 2 %; HCT 26.9 % (34.0-46.0); HGB 8.2 gm/dL (11.4-16.0); Hypochromasia Marked; Lymphocytes % (A) 10 %; MCH 27.4 pg (25.0-35.0); MCHC 30.6 g/dL (31.0-37.0); MCV 89.4 fL (80.0-100.0); Mean Platelet Volume 9.7; Monocytes # (A) 0.6 k/uL (0-1.0); Monocytes % (A) 6 %; Neutrophils # (A) 8.1 k/uL (1.3-7.7); Neutrophils % (A) 80 %; Platelet Count 123 k/uL (150-450); Poikilocytosis Marked; RBC 3.01 m/uL (3.80-5.40); RDW 18.1 % (11.5-15.5); WBC 10.1 k/uL (3.8-10.6)
[2017-09-27] MEDS: INSULIN ASPART 100 UNIT/ML 1 ML 10 ML VIAL SQ SCH ×7 (07:29→21:20)
[2017-09-27] MEDS: NITROGLYCERIN OINT 1 INCH/GM PACKET TOPICAL SCH ×4 (07:29→23:19)
[2017-09-27] MEDS: MIDODRINE 5 MG TAB PO SCH ×2 (07:35→15:47)
--- NOTE | 2017-09-27 11:42 | PN ---
PROGRESS NOTE DATE OF SERVICE: September 26, 2017. PRESENTING COMPLAINT: Epistaxis. INTERVAL HISTORY: This patient is seen examined by me yesterday on September 26, 2017. The patient had a nasal cannula on when she has started having quite a bit of bleeding dripping from the nose. The patient has also swallowed some of this and did come back up. Nurse put a clip on the nose. Patient is somewhat anxious. The patient has been seen by GI previously yesterday and at this point did not plan to do any further intervention. The patient has been on clear liquids. Does feel weak and tired. REVIEW OF SYSTEMS: Done for constitutional, cardiovascular, GI, pulmonary, ENT, relevant findings as above. CURRENT MEDICATIONS: Reviewed. PHYSICAL EXAMINATION: Temperature 98.4, pulse 64, respiratory 18, blood pressure 150/67, pulse ox 91% on room air. GENERAL APPEARANCE: Sitting up somewhat anxious-appearing. Eyes: Pupils equal. Conjunctivae pale. HEENT: External appearance of ears normal. The patient has got a nasal clip with blood around the external nares. Oral cavity normal. Neck JVD unable to assess. Mass not palpable. Respiratory effort increased. LUNGS: Diminished breath sounds. Cardiovascular: Heart sounds distant, minimal edema. ABDOMEN: Soft and nontender. Liver and spleen not palpable. Psychiatry: Alert and oriented x3. Mood and affect anxious-appearing. INVESTIGATIONS: White count 11.8, hemoglobin 8.9. Accu-Cheks are noted. ASSESSMENT: 1. Acute severe bleeding epistaxis likely from the area secondary to use of nasal cannula. I do not think this is a gastrointestinal bleed. It looks like bleeding. The patient did swallow some blood. Of course gastrointestinal bleed cannot be ruled out. 2. Chronic obstructive pulmonary disease. 3. Diabetes mellitus type 2. 4. Gastroesophageal reflux disease. 5. Essential hypertension. 6. Hyperlipidemia. 7. Chronic left arm weakness, left foot drop from prior stroke. 8. Chronic gait dysfunction uses a walker at the bedside. 9. Pancreatic cancer metastatic. 10.Acute blood-loss anemia from epistaxis. Gastrointestinal bleed cannot be ruled out. 11.Chronic congestive heart failure from diastolic dysfunction. Ejection fraction 50- 55%. 12.Hypertensive heart disease. PLAN: I had a very lengthy conversation with the patient along with the 2 nurses that even if GI was to go and I am not sure that would be of benefit much. I did discuss with Dr. Wray from GI. He may consider going inside tomorrow if the patient still is capable of an EGD. I am not sure from a pulmonary status if the patient can be able to lay flat for the GI procedure. In the meantime clamping has been done for the nose, H and H will be closely followed. I did again further talk about the hospice. The patient is tearful about overall condition, but does understand the same. Total time spent today was about 45 minutes with over 25 minutes of discussion. MMANDREZL / IJN: [id number] /
[2017-09-27 12:02] LABS: Glucose,Whole Blood 209 mg/dL (75-99)
[2017-09-27] MEDS ORDERED: PROPOFOL 10 MG/ML 20 ML VIAL IV ONE (13:33)
[2017-09-27] MEDS ORDERED: LACTATED RINGERS 1,000 ML IV ONE (13:33)
--- NOTE | 2017-09-27 14:22 | P.PCN ---
Date of Procedure: 09/27/17 Procedure(s) Performed: Procedure: Esophagogastroduodenoscopy. Preoperative diagnosis: Suspected GI bleeding, rule out pancreatic cancer eroding into the small intestine. Postoperative diagnosis: Small sliding hiatal hernia with no obvious esophagitis or other pathology in the stomach or duodenum or any evidence of bleeding. Operation and sedation: Was provided by anesthesia. Brief clinical history: The patient is a 77-year-old female admitted with shortness of breath and anemia. Recently hospitalized a week ago with acute hypoxic respiratory failure secondary to diastolic congestive heart failure, severe aortic stenosis, troponin between 7-11.8 and anemia 6.4. Patient was seen by our service a week ago in regards to anemia without overt bleeding. She has a history of metastatic pancreatic carcinoma recently diagnosed at the [facility]. During her last hospitalization it was decided that the anemia would not be investigated secondary to patient declining endoscopic exams as well as secondary to her metastatic disease and possibility of comfort care measures she requested DO NOT RESUSCITATE status. She was evaluated by oncology and deemed not candidate for oncology treatment. During her hospitalization she did not exhibit any overt bleeding she was transfused 2 units of blood and her discharge hemoglobin was 7.4. Her admitting hemoglobin this time is 6.2 she's received 2 units of blood current hemoglobin is 8.1. Again denies hematemesis, hematochezia and melena , but has developed epistaxis and has been bringing up blood. Denies abdominal pain. Platelet 130. Stool occult blood positive. Chest x-ray overall similar in appearance with mild interstitial phase pulmonary edema. No prior EGD but a colonoscopy approximately 3 years ago maybe longer into her memory was normal. The details are summarized in the history and physical and dictated consultations and progress notes. Oncology wanted that we proceeded with the upper endoscopy to assess for possible penetration of her pancreatic malignancy into the small intestine, in which case, he might be considering palliative radiation therapy. Procedure: With the patient on her left lateral decubitus position and after informed consent and adequate sedation, I passed the Olympus-GIF 160 video upper endoscope through the cricopharyngeus down the esophagus. GE junction was around 36 cm from the incisors and there was a small sliding hiatal hernia but no obvious esophagitis or complicated reflux disease. No mucosal tears, varices or bleeding. The endoscope was then passed into the stomach which was insufflated with air and inspected in detail including the retroflex view in the cardia. No obvious abnormalities were seen in the stomach including ulcers or bleeding. Pyloric channel did not show any ulcers. Duodenal bulb, post bulbar area and descending duodenum appeared within normal limits and I saw no ulcers or any evidence of penetrating cancer into the small intestine. No blood or evidence of bleeding was seen in the duodenum, stomach or esophagus. No biopsies were indicated and the endoscope was withdrawn. The patient tolerated the procedure well. Plan: The patient was reassured. It is possible her epistaxis was a major contributor to her bleeding and anemia. Will continue to follow closely and make further plans based on her course.
[2017-09-27] MEDS: FUROSEMIDE 10 MG/ML 4 ML VIAL IV SCH ×2 (14:51→21:16)
[2017-09-27] MEDS: HYDROcodone/APAP 7.5-325MG 1 EACH TAB PO PRN (14:53)
[2017-09-27] MEDS: METOPROLOL TARTRATE 12.5 MG TAB PO SCH (15:47)
[2017-09-27] MEDS: ALLOPURINOL 100 MG TAB PO SCH (15:47)
[2017-09-27] MEDS: PANTOPRAZOLE 40 MG TABLET PO SCH (15:48)
[2017-09-27] MEDS: COLCHICINE 0.6 MG TAB PO SCH (15:48)
[2017-09-27 17:03] LABS: Glucose,Whole Blood 143 mg/dL (75-99)
[2017-09-27] MEDS: ASCORBIC ACID 500 MG TAB PO SCH (17:15)
[2017-09-27] MEDS: MULTIVITAMINS, THERA 1 EACH TAB PO SCH (17:15)
[2017-09-27] MEDS: FERROUS SULFATE 325 MG TAB PO SCH (17:15)
[2017-09-27] MEDS: CHOLECALCIFEROL 1,000 UNIT TAB PO SCH (17:15)
[2017-09-27] MEDS: FOLIC ACID 1 MG TAB PO SCH (17:15)
[2017-09-27] MEDS: CYANOCOBALAMIN 500 MCG TAB PO SCH (17:15)
[2017-09-27 21:14] LABS: Glucose,Whole Blood 181 mg/dL (75-99)
[2017-09-27] MEDS: ATORVASTATIN 20 MG TAB PO SCH (21:16)
[2017-09-27] MEDS: rOPINIRole HCL 4 MG TABLET PO SCH (21:16)
[2017-09-27] MEDS: INSULIN DETEMIR 100 UNIT/ML 10 ML VIAL SQ SCH (21:20)
--- NOTE | 2017-09-27 22:21 | PN ---
PROGRESS NOTE DATE OF SERVICE: 09/27/2017. PRESENTING COMPLAINT: Tired. INTERVAL HISTORY: This is a patient with severe epistaxis yesterday. Did go down for EGD today by Dr. Wray. no other bleeding was found. It is felt that epistaxis was the cause of her bleeding. The patient did tolerate some diet. Sitting up on a chair. REVIEW OF SYSTEMS: Done for constitutional, cardiovascular, GI, pulmonary; relevant findings as above. CURRENT MEDICATIONS: Reviewed. EXAMINATION: Temperature 98.9, pulse 73, respirations 18, blood pressure 146/59, pulse ox 91% on room air. GENERAL APPEARANCE: Sitting in a chair, awake. EYES: Pupils equal. Conjunctivae pale. HEENT: External appearance of nose, ears normal. Oral cavity normal. NECK: JVD unable to assess. Mass not palpable. Respiratory effort increased. LUNGS: Decreased breath sounds. CARDIOVASCULAR: Heart sounds distant. Minimal edema. ABDOMEN: Soft, nontender. Liver and spleen not palpable. PSYCHIATRY: Alert and oriented x3. Mood and affect anxious. INVESTIGATIONS: White count 10.1, hemoglobin 8.2, platelets 123,000. ASSESSMENT: 1. Acute severe bleeding from epistaxis. 2. Esophagogastroduodenoscopy unremarkable. 3. Chronic obstructive pulmonary disease. 4. Diabetes mellitus type 2. 5. Gastroesophageal reflux disease. 6. Essential hypertension. 7. Hyperlipidemia. 8. Chronic left arm weakness and left foot drop from a prior stroke. 9. Chronic gait dysfunction, uses a walker at the bedside. 10.Pancreatic cancer, metastatic, with poor functional state. 11.Acute blood loss anemia from epistaxis. 12.Chronic congestive heart failure from diastolic dysfunction. Ejection fraction 50% to 55% from underlying hypertensive heart disease. 13.CODE STATUS, DNR. PLAN: Yet again talked to the patient at length. She is somewhat scared about everything that is going on. Did yet again talk about hospice. Did talk to the nurse. She will get rn social work involved for the same and look at discharge planning from there. MMODL / IJN: [id number] /
[2017-09-28] MEDS: NITROGLYCERIN OINT 1 INCH/GM PACKET TOPICAL SCH ×4 (05:14→22:19)
[2017-09-28] MEDS: MIDODRINE 5 MG TAB PO SCH ×2 (05:15→17:38)
[2017-09-28] MEDS: PANTOPRAZOLE 40 MG TABLET PO SCH (05:16)
[2017-09-28 07:38] LABS: Glucose,Whole Blood 282 mg/dL (75-99)
[2017-09-28] MEDS: INSULIN ASPART 100 UNIT/ML 1 ML 10 ML VIAL SQ SCH ×7 (08:06→21:12)
[2017-09-28] MEDS: ALLOPURINOL 100 MG TAB PO SCH (08:07)
[2017-09-28] MEDS: FUROSEMIDE 10 MG/ML 4 ML VIAL IV SCH ×2 (08:09→21:12)
[2017-09-28] MEDS: COLCHICINE 0.6 MG TAB PO SCH (08:09)
[2017-09-28] MEDS: METOPROLOL TARTRATE 12.5 MG TAB PO SCH (08:09)
[2017-09-28 11:59] LABS: Glucose,Whole Blood 245 mg/dL (75-99)
[2017-09-28 16:56] LABS: Glucose,Whole Blood 123 mg/dL (75-99)
[2017-09-28] MEDS: ASCORBIC ACID 500 MG TAB PO SCH (17:38)
[2017-09-28] MEDS: CHOLECALCIFEROL 1,000 UNIT TAB PO SCH (17:38)
[2017-09-28] MEDS: FERROUS SULFATE 325 MG TAB PO SCH (17:38)
[2017-09-28] MEDS: MULTIVITAMINS, THERA 1 EACH TAB PO SCH (17:39)
[2017-09-28] MEDS: CYANOCOBALAMIN 500 MCG TAB PO SCH (17:39)
[2017-09-28] MEDS: FOLIC ACID 1 MG TAB PO SCH (17:39)
--- NOTE | 2017-09-28 19:22 | PN ---
PROGRESS NOTE DATE OF SERVICE: 09/28/2017 PRESENTING COMPLAINT: Tired. INTERVAL HISTORY: This is a patient with metastatic pancreatic cancer. Getting weak and tired. Tolerating some diet. Epistaxis has resolved. Lying in bed, tired-appearing. Patient's significant other is in the room. REVIEW OF SYSTEMS: Done for constitutional, cardiovascular, GI, pulmonary; relevant findings as above. CURRENT MEDICATIONS: Reviewed. PHYSICAL EXAMINATION: Temperature 97.7, pulse 76, respiration 16, blood pressure 144/68, pulse ox 93% on room air. GENERAL APPEARANCE: Sitting up on bed, tired-appearing. EYES: Pupils equal. Conjunctivae pale. HEENT: External appearance of nose and ears normal. Oral cavity normal. NECK: JVD unable to assess. Mass not palpable. RESPIRATORY: Effort increased. LUNGS: Diminished breath sounds. CARDIOVASCULAR: Heart sounds distant. Minimal edema. ABDOMEN: Soft, nontender. Liver and spleen not palpable. No mass palpable. PSYCHIATRY: Alert and oriented x3. Mood and affect slightly low. INVESTIGATIONS: Accu-Cheks are noted. ASSESSMENT: 1. Acute severe bleeding from epistaxis, now controlled. 2. Status post esophagogastroduodenoscopy, unremarkable. 3. Chronic obstructive pulmonary disease. 4. Diabetes mellitus, type 2. 5. Gastroesophageal reflux disease. 6. Essential hypertension. 7. Hyperlipidemia. 8. Chronic left arm weakness and left foot drop from prior stroke. 9. Chronic gait dysfunction; uses a walker at baseline. 10.Pancreatic cancer, metastatic, with poor functional status. 11.Acute blood loss anemia from epistaxis. 12.Chronic congestive heart failure from diastolic dysfunction, ejection fraction 50% to 55%, from underlying hypertensive heart disease. 13.CODE STATUS: DNR. PLAN: I had a very lengthy talk with the patient and her significant other. He is concerned about her coming home. She does want to take care of business at the same time. They are just worried about the whole situation. I did talk to her about different options, including using some of her financial resources for getting help at home. I did tell her that if she goes to the custodial, in that case she will not be able to take care of tax papers that she wants to do at home. They will talk to the social science teacher. I do not think the patient is really a rehab candidate, her condition being terminal. If she does go to the rehab, she will probably deteriorate and be back in the hospital yet again. I did tell her to list out her priorities and see what is most important for her. I did tell the nurse to have Hospice talk to her. Total time spent today was about 40 minutes, with over 25 minutes of discussion. ROXANA / DEBBIE: [id number] /
[2017-09-28 20:50] LABS: Glucose,Whole Blood 178 mg/dL (75-99)
[2017-09-28] MEDS: ATORVASTATIN 20 MG TAB PO SCH (21:11)
[2017-09-28] MEDS: rOPINIRole HCL 4 MG TABLET PO SCH (21:11)
[2017-09-28] MEDS: INSULIN DETEMIR 100 UNIT/ML 10 ML VIAL SQ SCH (21:12)
[2017-09-29] MEDS: HYDROcodone/APAP 7.5-325MG 1 EACH TAB PO PRN (00:58)
[2017-09-29] MEDS: NITROGLYCERIN OINT 1 INCH/GM PACKET TOPICAL SCH ×2 (02:30→07:46)
[2017-09-29] MEDS: MIDODRINE 5 MG TAB PO SCH (06:15)
[2017-09-29] MEDS: PANTOPRAZOLE 40 MG TABLET PO SCH (06:15)
[2017-09-29 07:21] LABS: Glucose,Whole Blood 270 mg/dL (75-99)
[2017-09-29] MEDS: COLCHICINE 0.6 MG TAB PO SCH (07:49)
[2017-09-29] MEDS: METOPROLOL TARTRATE 12.5 MG TAB PO SCH (07:49)
[2017-09-29] MEDS: INSULIN ASPART 100 UNIT/ML 1 ML 10 ML VIAL SQ SCH ×4 (07:49→12:34)
[2017-09-29] MEDS: FUROSEMIDE 10 MG/ML 4 ML VIAL IV SCH (07:50)
[2017-09-29 07:58] VITALS: PULSE 84; RESP 18
[2017-09-29 11:25] LABS: Glucose,Whole Blood 374 mg/dL (75-99)
--- NOTE | 2017-09-29 15:32 | DS ---
DISCHARGE SUMMARY DATE OF ADMISSION: 09/24/2017. DATE OF DISCHARGE: 09/29/2017 FINAL DIAGNOSIS: 1. Acute severe blood loss anemia from severe epistaxis. 2. Chronic obstructive pulmonary disease. 3. Diabetes mellitus type 2, chronically on insulin. 4. Gastroesophageal reflux disease. 5. Essential hypertension. 6. Hyperlipidemia. 7. Chronic left arm weakness and left foot drop from prior stroke. 8. Chronic gait dysfunction, uses a walker at baseline. 9. Pancreatic cancer, metastatic with poor functional status. 10.Chronic congestive heart failure from diastolic dysfunction, ejection fraction 50% to 55% from underlying hypertensive heart disease. 11.CODE STATUS: DO NOT RESUSCITATE. 12.SPECIAL INSTRUCTIONS: Do not hospitalize per patient wishes. CONSULTATION: 1. Dr. Wray from Gastroenterology. 2. Dr. Chetna Zamorano from Cardiology. 3. Dr. Leland Alves from Oncology. HOSPITAL COURSE: This patient has advanced pancreatic cancer, not for any further treatment, presented weak, tired, weak, tired, hemoglobin dropping down to 6.2. Patient did have a EGD that came back unremarkable. Patient has had some recurrent epistaxis including a bout in the hospital. Patient did get 2 units of blood. Lengthy discussion was held with the patient. Her prognosis is poor. Patient expressed that at this point, she does not want to go under hospice, though she does say that if she was to go rapidly downhill, she does not want to be hospitalized any further. This was discussed in presence of Judith Johnson, the outreach and education social worker today. PHYSICAL EXAM: LUNGS: Decreased breath sounds. PSYCH: AO x3. patient's hemoglobin is 8.2. [facility]. Follow up with Dr. Mosher. DISCHARGE MEDICATIONS: 1. Ventolin 2.5 q.i.d. p.r.n. 2. Allopurinol 200 mg p.o. daily. 3. Flexeril 10 mg p.o. t.i.d. p.r.n. 4. Folic acid 1 mg p.o. daily at 5 pm. 5. Prilosec 20 mg p.o. daily 6 am. 6. Requip 4 mg q.h.s. 7. Multivitamin 1 tablet p.o. daily at 5 pm. 8. Vitamin D3 one thousand units p.o. daily. 9. Provera 2.5 p.o. daily. 10.Colchicine 0.6 mg p.o. daily. 11.Lipitor 20 mg p.o. q.h.s. 12.Levemir 36 units subcu q.h.s. 13.DuoNeb q.4 p.r.n. 14.Dulcolax 10 mg rectal daily p.r.n. 15.Vitamin B12 one thousand mcg p.o. daily. 16.Iron 325 p.o. daily at 5 pm. 17.Lasix 40 mg p.o. daily. 18.Humalog per protocol a.c. and at bedtime. 19.NovoLog 10 units a.c. t.i.d. 20.Milk of magnesia 25 mg daily p.r.n. 21.Midodrine 2.5 a.c. b.i.d. 22.[place] 7.5 one tablet q.6 p.r.n. 23.Lopressor 12.5 p.o. b.i.d. INITIAL INSTRUCTIONS: CODE STATUS: DNR. ADDITIONAL INSTRUCTIONS: Do not hospitalize. Discussion and discharge planning more than 35 minutes. MMODL / IJN: [id number] /
[2017-09-29 16:31] VITALS: BP 141/62; TEMP 97
== END 2017-09-29 17:25 | DRG 811 ==
LOC: EC 19:45 → 6SEL 22:40 → 5MS5E 09-28 01:05
PROVIDERS: ADMIT Hospitalist; ATTEND Hospitalist
PROC: 30233N1 Transfusion of Nonautologous Red Blood Cells into Peripheral Vein, Percutaneous Approach (ICD-10-PCS; 2017-09-24)
PROC: 0DJ08ZZ Inspection of Upper Intestinal Tract, Via Natural or Artificial Opening Endoscopic (ICD-10-PCS; principal; 2017-09-27 11:30)
DX: D62 Acute posthemorrhagic anemia (principal); I50.33 Acute on chronic diastolic (congestive) heart failure; C78.7 Secondary malignant neoplasm of liver and intrahepatic bile duct; I69.354 Hemiplegia and hemiparesis following cerebral infarction affecting left non-dominant side; C25.9 Malignant neoplasm of pancreas, unspecified; I11.0 Hypertensive heart disease with heart failure; E66.01 Morbid (severe) obesity due to excess calories; J44.9 Chronic obstructive pulmonary disease, unspecified; R04.0 Epistaxis; E11.9 Type 2 diabetes mellitus without complications; E78.5 Hyperlipidemia, unspecified; F03.90 Unspecified dementia, unspecified severity, without behavioral disturbance, psychotic disturbance, mood disturbance, and anxiety; G47.30 Sleep apnea, unspecified; I35.0 Nonrheumatic aortic (valve) stenosis; K21.9 Gastro-esophageal reflux disease without esophagitis; K44.9 Diaphragmatic hernia without obstruction or gangrene; M19.90 Unspecified osteoarthritis, unspecified site; Z66 Do not resuscitate; Z79.4 Long term (current) use of insulin; Z82.49 Family history of ischemic heart disease and other diseases of the circulatory system; Z85.07 Personal history of malignant neoplasm of pancreas; Z86.73 Personal history of transient ischemic attack (TIA), and cerebral infarction without residual deficits; Z99.3 Dependence on wheelchair; M21.372 Foot drop, left foot
CPT/HCPCS: 30901; 36415; 43235; 71046; 80053; 80061; 82272; 82550; 82553; 83880; 84484; 85025; 85610; 85730; 86850; 86900; 86901; 86920; 87040; 93005; 94640; 94760; 96374; 99284; 99285